=== PATIENT | female | born 1955 | race Hispanic/Latino ===

== ENCOUNTER 2020-05-13 18:22 | Inpatient (IN) | payer BC, MEDICARE ==
[~2020-05-13] VITALS: Ht 149.9 cm; Wt 72.6 kg
[~2020-05-13 18:22] MED LIST: AMOXICILLIN500 MG PO; BACTRIM DS TAB1 EACH PO; CARAFATE1 GM/10 ML PO; CRESTOR10 MG PO; GABAPENTIN300 MG PO; LOSARTAN POTAS100 MG PO; LOTREL; MAALOX ADVANCE355 ML; OTHER BP MED; PRILOSEC OTC20 MG PO; TOPROL XL50 MG PO; ULTRAM50 MG PO; VESICARE5 MG PO; Z.0.CRESTOR5 MG; Z.0.DEXILANT60 MG; ZOFRAN ODT4 MG PO
[2020-05-13] MEDS ORDERED: ONDANSETRON HCL INJ 2MG/ML 2ML 2 MG/ML VIAL IV STA (18:48)
--- NOTE | 2020-05-13 18:57 | Emergency Department Note ---
History of Present Illnes History of Present Illness Chief Complaint: General Medicine Complaints History of Present Illness This is a 64 year old female who presents with complaint of head ache and dizziness for 2 days as well as left calf pain for 1 day. pt states headache is dull in nature and came on gradually and states dizziness gets worse with changing position of her head. also with mild nausea but no vomiting. Onset (how long ago): day(s) (2) Location: head, left calf Quality: pain, dizziness Radiation: Reports non-radiation Severity: mild Onset quality: gradual Duration (how long): day(s) (2) Timing of current episode: intermittent Progression: waxing and waning Chronicity: new Context: Denies recent illness, Denies recent surgery, Denies trauma/injury Relieving factors: other (not moving head) Exacerbating factors: movement (of head) Associated symptoms: Reports other (left calf pain) Treatments prior to arrival: none Past Medical/Family History Physician Review I have reviewed the patient's past medical and family history. Any updates have been documented here. Past Medical History Recent Fever: No Clinical Suspicion of Infectio: No New/Unexplained Change in Ment: No Past Medical History: Hypertension Other Medical History: HERNIATED ESOPHAGUS, CHOLESTEROL Other Surgery: BLADDER SUSPENSION Social History Smoking Cessation: Never Smoker Alcohol Use: None Any Illegal Drug Use: No Family History Family history of heart diseas: No Other family history htn Other Last Tetanus: UNK Review of Systems Review of Systems Constitutional: Reports no symptoms EENTM: Reports no symptoms Cardiovascular: Reports no symptoms Respiratory: Reports no symptoms Gastrointestinal: Reports no symptoms Genitourinary: Reports no symptoms Musculoskeletal: Reports as per HPI Integumentary: Reports no symptoms Neurological: Reports as per HPI Psychological: Reports no symptoms Endocrine: Reports no symptoms Hematological/Lymphatic: Reports no symptoms Physical Exam Related Data Allergies: Coded Allergies: No Known Allergies (Unverified , 03/22/11) Vital signs reviewed: Yes Physical Exam CONSTITUTIONAL Constitutional: Present well-developed, Present well-nourished; Absent distressed HENT HENT: Present normocephalic, Present atraumatic, Present oropharynx clear/moist, Present nose normal HENT L/R: Present left ext ear normal, Present right ext ear normal EYES Eyes: Reports PERRL, Reports conjunctivae normal, Reports other (horizontal nystagmus fast component to right.) NECK Neck: Present ROM normal PULMONARY Pulmonary: Present effort normal, Present breath sounds normal CARDIOVASCULAR Cardiovascular: Present regular rhythm, Present heart sounds normal, Present capillary refill normal, Present normal rate GASTROINTESTINAL Abdominal: Present soft, Present nontender, Present bowel sounds normal GENITOURINARY Genitourinary: Present exam deferred SKIN Skin: Present warm, Present dry MUSCULOSKELETAL Musculoskeletal: Present ROM normal, Present tenderness (mild to left calf) NEUROLOGICAL Neurological: Present alert, Present oriented x 3, Present no gross motor or sensory deficits PSYCHOLOGICAL Psychological: Present mood/affect normal, Present judgement normal Results Laboratory Laboratory Laboratory Tests Test 05/13/20 19:11 White Blood Count 9.38 x10e3/uL (4.8-10.8) Red Blood Count 4.17 x10e6/uL (3.6-5.1) Hemoglobin 12.6 g/dL (12.0-16.0) Hematocrit 34.8 % (34.2-44.1) Mean Corpuscular Volume 83.5 fL (81-99) Mean Corpuscular Hemoglobin 30.2 pg (28-32) Mean Corpuscular Hemoglobin Concent 36.2 g/dL (31-35) Red Cell Distribution Width 12.7 % (11.7-14.4) Platelet Count 240 x10e3/uL (140-360) Neutrophils (%) (Auto) 73.3 % (38.7-80.0) Lymphocytes (%) (Auto) 19.3 % (18.0-39.1) Monocytes (%) (Auto) 6.7 % (4.4-11.3) Eosinophils (%) (Auto) 0.2 % (0.0-6.0) Basophils (%) (Auto) 0.2 % (0.0-1.0) Neutrophils # (Auto) 6.9 (2.1-6.9) Lymphocytes # (Auto) 1.8 (1.0-3.2) Monocytes # (Auto) 0.6 (0.2-0.8) Eosinophils # (Auto) 0.0 (0.0-0.4) Basophils # (Auto) 0.0 (0.0-0.1) Absolute Immature Granulocyte (auto 0.03 x10e3/uL (0-0.1) Sodium Level 111 mmol/L (136-145) Potassium Level 3.9 mmol/L (3.5-5.1) Chloride Level 79 mmol/L (98-107) Carbon Dioxide Level 18 mmol/L (22-29) Anion Gap 17.9 mmol/L (8-16) Blood Urea Nitrogen 6 mg/dL (7-26) Creatinine 0.63 mg/dL (0.57-1.11) Estimat Glomerular Filtration Rate > 60 ML/MIN (60-) BUN/Creatinine Ratio 10 (6-25) Glucose Level 138 mg/dL (74-118) Calcium Level 9.2 mg/dL (8.4-10.2) Total Bilirubin 0.7 mg/dL (0.2-1.2) Aspartate Amino Transf (AST/SGOT) 17 IU/L (5-34) Alanine Aminotransferase (ALT/SGPT) 14 IU/L (0-55) Alkaline Phosphatase 86 IU/L (40-150) Creatine Kinase 67 IU/L (29-168) Creatine Kinase MB 1.30 ng/mL (0-5.0) Troponin I < 0.001 ng/mL (0-0.300) Total Protein 7.5 g/dL (6.5-8.1) Albumin 4.2 g/dL (3.5-5.0) Globulin 3.3 g/dL (2.3-3.5) Albumin/Globulin Ratio 1.3 (0.8-2.0) Lab results reviewed: Yes Imaging Imaging results reviewed: Yes Impressions Procedure: [id number] DX/CHEST SINGLE (PORTABLE) Exam Date: 05/13/20 Exam Time: 1934 REPORT STATUS: Signed EXAMINATION: CHEST SINGLE (PORTABLE) INDICATION: ^Y ^covid positive ^[id number] ^1934 ^Y COMPARISON: 03/22/2011 FINDINGS: AP view TUBES and LINES: None. LUNGS: Lungs are well inflated. There is no evidence of pneumonia or pulmonary edema. PLEURA: No pleural effusion or pneumothorax. HEART AND MEDIASTINUM: The cardiomediastinal silhouette is unremarkable. BONES AND SOFT TISSUES: No acute osseous lesion. Soft tissues are unremarkable. UPPER ABDOMEN: No free air under the diaphragm. IMPRESSION: No acute thoracic abnormality. Signed by: Dr. Lonnie Draper MD on 05/13/2020 8:16 PM Exam: Head CT without contrast History: Dizziness Comparison studies: None Technique: Axial images were obtained from the skull base to the vertex. Coronal and sagittal images reconstructed from the axial data. Dose modulation, iterative reconstruction, and/or weight based adjustment of the mA/kV was utilized to reduce the radiation dose to as low as reasonably achievable. Radiation dose: Total DLP: 832.18 mGy*cm. Estimated effective dose: DLP x 0.015 Intravenous contrast: None Findings: Scalp and bones: Surgical changes of prior left temporal craniotomy. No fracture or lytic or blastic lesion. Brain sulci: Appropriate for age. Ventricles: Normal in size and configuration. No hydrocephalus. Extra-axial spaces: No masses, no fluid collection. Parenchyma: No abnormal densities. No masses, hemorrhage, acute or chronic vascular insults. Sellar/suprasellar region: No abnormalities. Craniocervical junction: Patent foramen magnum. No Chiari one malformation. Included paranasal sinuses: Clear. Middle ear cavities and mastoids: Clear. Incidental findings: Atherosclerotic calcifications in the carotid siphons. IMPRESSION: 1. No acute intracranial abnormalities. 2. Prior left temporal craniotomy. Signed by: Dr. Ana Maher M.D. on 05/13/2020 7:57 PM Dictated By: ANA MAHER MD 56 Transcribed By: HARRIET on 05/13/201956 COPY TO: JANICE JOHNSTON MD~ Imaging Comments venous doppler lle negative for dvt Procedures 12 Lead ECG Interpretation ECG Interpretation : ECG: ECG 1 [employer] Mechanical [employer]er: Interpreted by ED physician Date: May 13, 2020 Time: 18:46 Rhythm: sinus rhythm Rate: normal BPM: 95 QRS axis: normal ST segments normal: Yes T waves normal: Yes Other findings: no other findings Clinical Impression: normal ECG Assessment & Plan Medical Decision Making [facility] pt with headache, dizziness, left calf pain, cbc, cmp, ekg, ct brain, cardiac enzymes, ordered to eval for intracranial abnormality, myocardial infarction, electrolyte abnormality, dvt, antivert 25 mg po ordered zofran 4 mg iv ordered 1899 pt now reports had a positive covid test on thursday states had positive covid tests since march [address] deja christopher, admit pt to inpatient, start on ns at 100 cc per hour iv place on regular diet Assessment & Plan Final Impression: (1) Lab test positive for detection of COVID-19 virus (2) Dizziness (3) Headache (4) Hyponatremia Depart Disposition: ADMITTED Home Meds Reported Medications Sucralfate (CARAFATE) 1 Gm/10 Ml Oral.susp, 1 GM PO AC, ML 02/15/17 Rosuvastatin Calcium (CRESTOR) 10 Mg Tab, 10 MG PO DAILY THERAPEUTICALLY SUBSTITUTED WITH SIMVASTATIN 40MG 02/15/17 Gabapentin (GABAPENTIN) 300 Mg Capsule, 300 MG PO BID, #60 CAP 02/15/17 Losartan Potassium (LOSARTAN POTASSIUM) 100 Mg Tablet, 100 MG PO DAILY, TAB 02/15/17 Medications in the ED Ondansetron HCl 4 mg NOW STAT IV ; Start 05/13/20 at 18:48; Stop 05/13/20 at 18:49 Meclizine HCl 25 mg ONCE ONCE PO ; Start 05/13/20 at 19:00; Stop 05/13/20 at 19:01; Status UNV JANICE JOHNSTON MD May 13, 2020 18:57
--- OUTSIDE RECORDS SUMMARY | 2020-05-13 18:59 | XMS REPORT ---
Author Author KIRILL Jones Organization Unknown Address Unknown Phone Care Team Providers Care Pharmacy Order Entry Technician Name Role Phone Michelle Jones PP Unavailable Reason for Referral No Reason for Referral was given. History of Present Illness No HPI available. Problems * Normal Routine History And Physical Adult (V70.0); (Active) * Peripheral Neuropathy (356.9); (Active) * Hyperlipidemia (272.4); (Active) * Intermittent Claudication (443.9); (Active) * Vaccines Prophylactic Need Against Influenza (V04.81); (Active) * Hypertension (401.9); (Active) * Sciatica (724.3); (Active) * Hyperglycemia (790.29); (Active) Medication * Metoprolol Succinate ER 50 MG Oral Tablet Extended Release 24 Hour; qd (Active) * PriLOSEC OTC 20 MG Oral Tablet Delayed Release (Active) * Methocarbamol 500 MG Oral Tablet; 1 TABLET BID PRN LEG PAIN (Active) * Losartan Potassium 50 MG Oral Tablet; TAKE 1 TABLET DAILY. (Active) * Crestor 10 MG Oral Tablet; TAKE 1 TABLET DAILY. (Active) * Gabapentin 300 MG Oral Capsule; TAKE 1 CAPSULE 3 TIMES DAILY.; Start Date: 08/30/2013 (Active) Allergies and Adverse Reactions * No Known Allergies (Active) Past Medical History * History of Hyperlipidemia (272.4); (Resolved) * History of Hypertension (401.9); (Resolved) * History of Hiatal Hernia (553.3); (Resolved) Procedures Procedure Procedure Date Date Completed Status Hysterectomy - - Resolved Bladder Surgery - - Resolved Cholecystectomy - - Resolved Immunization * Fluzone Intramuscular Injectable (Lot #: [id number]) - Administered on: 10/06/2013 Family History * Maternal history of Hyperlipidemia (Active) * Paternal history of Hypertension (V17.49); (Active) * Fraternal history of Prior Myocardial Infarction (Active) Social History * Marital History - Currently (Active) * Never A Smoker (Active) * Never Drank Alcohol (Active) Treatment Plan * [QLH] CMP W/EGFR 10/06/2013 Routine * [QL] LIPID PANEL 10/06/2013 Routine * [QL] LIPID PANEL 01/06/2014 Routine * [QLH] CMP W/EGFR 01/06/2014 Routine * [QL] HEMOGLOBIN A1c 01/06/2014 Routine * [QL] INSULIN 01/06/2014 Routine Advance Directives * No Advance Directives available. Encounters * AUDIT 01/06/2014
--- OUTSIDE RECORDS SUMMARY | 2020-05-13 18:59 | XMS REPORT | Continuity of Care Document ---
Author Author [employer] [employer] Address Unknown Phone Unavailable Care Team Providers Care Bottle Assembler Name Role Phone [facility] Unavailable Un available Problems Problem Status Onset Date Classification Date Reported Comments Source Peripheral Neuropathy Active 01/27/2014 [facility] Hyperlipidemia Active 01/27/2014 [facility] Intermittent Claudication Acti ve 01/27/2014 [facility] Vaccines Prophylactic Need Against Influenza Active 01/27/2014 [facility] Hypertension Active 01/27/2014 [facility] Sciatica Active 01/27/2014 [facility] Hyperglycemia Active 01/27/2014 [facility] Medications Medication Details Route Status Patient Instructions Ordering Provider Order Date Source Gabapentin 300 MG Oral Capsule ; Start Date: 08/30/2013 (Active) Active 08/30/2013 [facility] Metoprolol Succinate ER 50 MG Oral Table t Extended Release 24 Hour ; Start Date: ; End Date: 09/1899 (Active) Inactive [facility] Losartan Potassium 50 MG Oral Tablet ; Start Date: ; End Date: (Active) Inactive [facility] Crestor 10 MG Oral Tablet ; St art Date: ; End Date: (Active) Inactive [facility] Methocarbamol 500 MG Oral Tablet ; Start Date: ; End Date: (Active) Inactive [facility] No Active Medications No Activ e Medications Active [facility] PriLOSEC OTC 20 MG Oral Tablet Delayed Release (Active) Active [facility] Methocarbamol 500 MG Oral Tablet (Active) Active [facility] Metoprolol Succinate ER 50 MG Oral Table t Extended Release 24 Hour (Active) A ctive [facility] Gabapentin 100 MG Oral Capsule (Active) Active [facility] Losartan Potassium 50 MG Oral Tablet (Active) Active [facility] Crestor 10 MG Oral Tablet (Ac tive) Active [facility] Metoprolol Succinate ER 50 MG Oral Table t Extended Release 24 Hour (Active) A ctive [facility] Allergies, Adverse Reactions, Alerts Substance Category Reaction Severity Reaction type Status Date Reported Comments Source Not Known [facility] Immunizations Immunization Date Given Site Status Last Updated Comments Source Fluzone Intramuscular Injectable 10/06/2013 completed [facility] Results No Data Provided for This Section Pathology Reports No Data Provided for This Section Diagnostic Reports No Data Provided for This Section Consultation Notes No Data Provided for This Section Discharge Summaries No Data Provided for This Section History and Physicals No Data Provided for This Section Vital Signs No Data Provided for This Section Encounters Location Location Details Encounter Type Encounter Number Reason For Visit Attending Provider ADM Date DC Date Status Source AUDIT [id number] 05/02/2013 05/02/2013 [facility] AUDIT [id number] 09/23/2013 09/24/2013 [facility] Kierra BECERRA richard: LANDON BARRIOS, Status: [place], Time: 10:45 AM [id number] 10/06/19 14 09/24/2013 [facility] AUDIT [id number] 10/06/2013 10/06/2013 [facility] AUDIT [id number] 01/01/2014 01/02/2014 [facility] AUDIT [id number] 01/06/2014 01/06/2014 [facility] AUDIT [id number] 01/27/2014 01/27/2014 [facility] Outpatient [id number] GORAN FRIAS 02/17/2017 Active [facility] [id number] GORAN FRIAS 2017 Active [facility] [id number] GORAN FRIAS 07/28/2017 Active [facility] [id number] GORAN FRIAS 07/29/2017 Active [facility] [id number] GORAN FRIAS 08/11/2017 Active [facility] [id number] GORAN FRIAS 08/18/2017 Active [facility] [id number] GORAN FRIAS 10/13/2017 Active [facility] Procedures No Data Provided for This Section Assessment and Plan No Data Provided for This Section Plan of Care Plan of Care Date Source [QLH] CMP W/EGFR 10/06/2013 Routine[QLH] LIPID PANEL 10/06/2013 Routine 01/27/2014 [facility] [QLH] CMP W/EGFR 10/06/2013 Routine[QLH] LIPID PANEL 10/06/2013 Routine[QLH] LIPID PANEL 01/06/2014 Routine[QLH] CMP W/EGFR 01/06/2014 Routine[QLH] HEMOGLOBIN A1c 01/06/2014 Routine[QLH] INSULIN 01/06/2014 Routine 01/06/2014 [facility] [QL] CMP W/EGFR 10/06/2013 Routine[QLH] LIPID PANEL 10/06/2013 Routine 01/02/2014 [facility] [QLH] CMP W/EGFR 10/06/2013 Routine[QLH] LIPID PANEL 10/06/2013 Routine 10/06/2013 [facility] Social History Social History Date Source Marital History - Currently (Active) Never A Smoker (Active) Never Drank Alcohol (Active) 01/27/2014 [facility] Family History Value Date S ource Maternal history of Hyperlipidemia (Active) Paternal history of Hypertension (V17.49); (Active) Fraternal history of Prior Myocardial Infarction (Active) 01/27/2014 [facility] Maternal history of Hyperlipidemia (Active) Paternal history of Hypertension (V17.49); (Active) Fraternal history of Prior Myocardial Infarction (Active) 01/06/2014 [facility] Maternal history of Hyperlipidemia (Active) Paternal history of Hypertension (V17.49); (Active) Fraternal history of Prior Myocardial Infarction (Active) 01/02/2014 [facility] Maternal history of Hyperlipidemia (Active) Paternal history of Hypertension (V17.49); (Active) Fraternal history of Prior Myocardial Infarction (Active) 10/06/2013 [facility] Advance Directives Order Name Results Value Date Source Advance Directives Advance Dir ectives No Advance Directives available. 01/27/2014 [facility] Advance Directives Advance Dir ectives No Advance Directives available. 01/06/2014 [facility] Advance Directives Advance Dir ectives No Advance Directives available. 01/02/2014 [facility] Advance Directives Advance Dir ectives No Advance Directives available. 10/06/2013 [facility] Advance Directives Advance Dir ectives No Advance Directives available. 09/24/2013 [facility] Advance Directives Advance Dir ectives No Advance Directives available. 05/02/2013 [facility] Functional Status No Data Provided for This Section
--- OUTSIDE RECORDS SUMMARY | 2020-05-13 18:59 | XMS REPORT ---
Author Author KIRILL Currie Organization Unknown Address Unknown Phone Care Team Providers Care Slip Caster Name Role Phone Nicko Currie PP Unavailable Reason for Referral No Reason for Referral was given. History of Present Illness No HPI available. Problems * Normal Routine History And Physical Adult (V70.0); (Active) * Peripheral Neuropathy (356.9); (Active) * Hyperlipidemia (272.4); (Active) * Intermittent Claudication (443.9); (Active) Medication * Metoprolol Succinate ER 50 MG Oral Tablet Extended Release 24 Hour; qd (Active) * Gabapentin 100 MG Oral Capsule; take 1 to 3 HS (Active) * Losartan Potassium 50 MG Oral Tablet; TAKE 1 TABLET DAILY. (Active) * Crestor 10 MG Oral Tablet; TAKE 1 TABLET DAILY. (Active) * PriLOSEC OTC 20 MG Oral Tablet Delayed Release (Active) * Methocarbamol 500 MG Oral Tablet; 1 TABLET BID PRN LEG PAIN; Start Date: ; End Date: (Active) * Gabapentin 300 MG Oral Capsule; 1 po bid to tid; Start Date: 08/30/2013; End Date: (Active) Allergies and Adverse Reactions * No Known Allergies (Active) Past Medical History * No Significant Medical History Procedures Procedure Procedure Date Date Completed Status Hysterectomy - - Resolved Social History * Marital History - Currently (Active) * Never A Smoker (Active) Advance Directives * No Advance Directives available. Encounters * AUDIT 09/23/2013 * ECL, Provider: LANDON BARRIOS, Status: Pen, Time: 10:45 AM 10/06/2013
--- OUTSIDE RECORDS SUMMARY | 2020-05-13 18:59 | XMS REPORT ---
Author Author KIRILL BARRIOS Organization Unknown Address Unknown Phone Care Team Providers Care Airline Radio Operator Name Role Phone LANDON BARRIOS PP Unavailable Reason for Referral No Reason for Referral was given. History of Present Illness No HPI available. Problems * Normal Routine History And Physical Adult (V70.0); (Active) * Peripheral Neuropathy (356.9); (Active) * Hyperlipidemia (272.4); (Active) * Intermittent Claudication (443.9); (Active) * Vaccines Prophylactic Need Against Influenza (V04.81); (Active) * Hypertension (401.9); (Active) * Sciatica (724.3); (Active) Medication * Metoprolol Succinate ER 50 [...] Immunization * Fluzone Intramuscular Injectable (Lot #: [id number]) - Administered on: 10/06/2013 Family History * Maternal history of Hyperlipidemia (Active) * Paternal history of Hypertension (V17.49); (Active) * Fraternal history of Prior Myocardial Infarction (Active) Social History * Marital History - Currently (Active) * Never A Smoker (Active) * Never Drank Alcohol (Active) Treatment Plan * [[facility]] CMP W/EGFR 10/06/2013 Routine * [[facility]] LIPID PANEL 10/06/2013 Routine Advance Directives * No Advance Directives available. Encounters * AUDIT 01/01/2014
--- OUTSIDE RECORDS SUMMARY | 2020-05-13 18:59 | XMS REPORT ---
Author Author KIRILL Jones Organization Unknown Address Unknown Phone Care Team Providers Care Customer Orders Clerk Name Role Phone Michelle Jones PP Unavailable [...] MG Oral Tablet Extended Release 24 Hour; qd; Start Date: ; End Date: (Active) * PriLOSEC OTC 20 MG Oral Tablet Delayed Release (Active) * Methocarbamol 500 MG Oral Tablet; 1 TABLET BID PRN LEG PAIN (Active) * Losartan Potassium 50 MG Oral Tablet; TAKE 1 TABLET DAILY.; Start Date: ; End Date: (Active) * Crestor 10 MG Oral Tablet; TAKE 1 TABLET DAILY.; Start Date: ; End Date: (Active) * Gabapentin 300 MG Oral Capsule; TAKE 1 CAPSULE 3 TIMES DAILY.; Start Date: 08/30/2013; End Date: (Active) Allergies [...] Immunization * Fluzone Intramuscular Injectable (Lot #: [id number]) - Administered on: 10/06/2013 Family History * Maternal history of Hyperlipidemia (Active) * Paternal history of Hypertension (V17.49); (Active) * Fraternal history of Prior Myocardial Infarction (Active) Social History * Marital History - Currently (Active) * Never A Smoker (Active) * Never Drank Alcohol (Active) Treatment Plan * [[facility]] CMP W/EGFR 10/06/2013 Routine * [[facility]] LIPID PANEL 10/06/2013 Routine Advance Directives * No Advance Directives available. Encounters * AUDIT 10/06/2013
--- OUTSIDE RECORDS SUMMARY | 2020-05-13 18:59 | XMS REPORT ---
Author Author KIRILL BARRIOS Organization Unknown Address Unknown Phone Care Team Providers Care Package Maker Name Role Phone LANDON BARRIOS PP Unavailable [...] Immunization * Fluzone Intramuscular Injectable (Lot #: [id number]) - Administered on: 10/06/2013 Family History * Maternal history of Hyperlipidemia (Active) * Paternal history of Hypertension (V17.49); (Active) * Fraternal history of Prior Myocardial Infarction (Active) Social History * Marital History - Currently (Active) * Never A Smoker (Active) * Never Drank Alcohol (Active) Treatment Plan * [[facility]] CMP W/EGFR 10/06/2013 Routine * [[facility]] LIPID PANEL 10/06/2013 Routine Advance Directives * No Advance Directives available. Encounters * AUDIT 01/27/2014
--- OUTSIDE RECORDS SUMMARY | 2020-05-13 18:59 | XMS REPORT ---
Author Author KIRILL Manning Organization Unknown Address Unknown Phone Care Team Providers Care Motor Pool Clerk Name Role Phone Madison Manning PP Reason for Referral No Reason for Referral was given. History of Present Illness No HPI available. Problems * Normal Routine History And Physical Adult (V70.0); (Active) Medication * No Active Medications Allergies and Adverse Reactions * Not Known Past Medical History * No Significant Medical History Advance Directives * No Advance Directives available. Encounters * AUDIT 05/02/2013
--- OUTSIDE RECORDS SUMMARY | 2020-05-13 18:59 | XMS REPORT | Continuity of Care Document ---
Author Author [facility] t Organization [facility] Address [address] [place] [address] Phone Unavailable Care Team Providers Care School Bus Monitor Name Role Phone [id number], PROVIDERBASANDY Attphys Unavailable HEIDE DONALDSON M.D. Attphys Unavailable JANETH BRAR M.D. Attphys Unavailable CAMRON GARAY D.O. Attphys Unavailable SIMA BUSBY M.D. Attphys Unavailable STANISLAV BACON M.D. Attphys Unavailable LANDON BARRIOS M.D. Attphys Unavailable SE-URODYNAMICS, NURSE Attphys Unavailable TAM MENDOZA M.D. Attphys Unavailable ADEEL BRITTON M.D. Attphys Unavailable ARMIN AGUSTIN P.A. Attphys Unavailable BARRINGTON RODAS APRN Attphys Unavailable CELIA WHITNEY M.D. Attphys Unavailable KRISTINA RALPH M.D. Attphys Unavailable CARMELA CERVANTES RD Attphys Unavailable Payers Payer Name Policy Type Policy Number Effective Date Expiration Date S ource Problems Condition Name Condition Details Condition Category Status Onset Date Resolution Date Last Treatment Date Treating Clinician Comments Source History of meningioma History of meningioma Problem Resolved [facility] History of essential hypertension History of essential hypertens ion Problem Resolved [facility] History of hiatal hernia History of hiatal hernia Problem Resolved [facility] History of hyperlipidemia History of hyperlipidemia Problem Resolved [facility] History of recurrent urinary tract infection History o f recurrent urinary tract infection Problem Resolved [facility] Peripheral neuropathy, hereditary/idiopathic Periphera l neuropathy, hereditary/idiopathic [facility] Intermittent claudication Intermittent claudication Problem Active [facility] Sciatica Sciatica Problem [facility] Contact dermatitis, allergic Contact dermatitis, allergic Problem Active [facility] Yeast infection involving the vagina and surrounding a lloyd Yeast infection involving the vagina and surrounding area Problem Active [facility] Pruritus of skin Pruritus of skin Problem Active [facility] Acute pharyngitis Acute pharyngitis Problem Active [facility] Tension headache Tension headache Problem Active [facility] Acute pharyngitis due to other specified organisms Acu te pharyngitis due to other specified organisms Problem Active [facility] Body aches Body aches Problem [facility] Chills Chills Problem Active [facility] Reactive airway disease, mild intermittent, uncomplica bhavna Reactive airway disease, mild intermittent, uncomplicated Problem Active [facility] Acute tracheitis Acute tracheitis Problem Active [facility] RAD (reactive airway disease) RAD (reactive airway disease) Problem Active [facility] Influenza vaccine needed Influenza vaccine needed Problem Active [facility] Plantar fasciitis, right Plantar fasciitis, right Problem Active [facility] Mid back pain Mid back pain Problem Active [facility] Near syncope Near syncope Problem Active [facility] Visual disturbance Visual disturbance Problem Active [facility] Epigastric abdominal pain of unknown etiology Epigastr ic abdominal pain of unknown etiology Problem Active [facility] Hiatal hernia with GERD Hiatal hernia with GERD Problem Active [facility] Persistent headaches Persistent headaches Problem Active [facility] Abnormal CT of brain Abnormal CT of brain Problem Active [facility] Hyponatremia Hyponatremia Problem Active [facility] Hypokalemia Hypokalemia Problem Active [facility] Idiopathic acute pancreatitis, unspecified complicatio n status Idiopathic acute pancreatitis, unspecified complication status Problem Active [facility] Hospitalization within last 30 days Hospitalization within last 30 days Problem Active [facility] Acute pancreatitis Acute pancreatitis Problem Active [facility] DJD (degenerative joint disease) of knee DJD (degenera tive joint disease) of knee Problem Active [facility] Screening for diabetes mellitus Screening for diabetes mellitus Pro blem Active [facility] Foot pain Foot pain Problem Active [facility] Abdominal pain, acute, right upper quadrant Abdominal pain, acute, right upper quadrant Problem Active [facility] Oral candidiasis Oral candidiasis Problem Active [facility] Right frontal lobe lesion Right frontal lobe lesion Problem Active [facility] Neoplasm of brain causing mass effect on adjacent stru ctures Neoplasm of brain causing mass effect on adjacent structures Problem Active [facility] Need for hepatitis C screening test Need for hepatitis C screeni ng test Problem Active [facility] Preoperative examination Preoperative examination Problem Active [facility] Controlled insomnia Controlled insomnia Problem Active [facility] Mass of left temporal lobe Mass of left temporal lobe Problem Active [facility] Inpatient hospitalization within last 30 days Inpatien t hospitalization within last 30 days Problem Active [facility] Nausea Nausea Problem Active [facility] Hyperglycemia Hyperglycemia Problem Active [facility] Elevated hemoglobin A1c Elevated hemoglobin A1c Problem Active [facility] Mixed stress and urge urinary incontinence Mixed stres s and urge urinary incontinence Problem Active [facility] Common cold Common cold Problem Active [facility] Acute upper respiratory infection Acute upper respiratory infect ion Problem Active [facility] Seasonal allergies Seasonal allergies Problem Active [facility] 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 Active [facility] Pancreatic cyst Pancreatic cyst Problem Active [facility] Hospital discharge follow-up Hospital discharge follow-up Problem Active [facility] Status post resection of meningioma Status post resection of men ingioma Problem Active [facility] Snoring Snoring Problem Active [facility] Sleep disorder Sleep disorder Problem Active [facility] Dysphagia Dysphagia Problem Active [facility] Other acute sinusitis, recurrence not specified Other acute sinusitis, recurrence not specified Problem Active [facility] Strain of latissimus dorsi muscle, initial encounter S train of latissimus dorsi muscle, initial encounter Problem Active [facility] Right upper quadrant abdominal tenderness without rebo und tenderness Right upper quadrant abdominal tenderness without rebound tenderness Problem Active [facility] Chest pressure Chest pressure Problem Active [facility] Chest pain, unspecified type Chest pain, unspecified type Problem Active [facility] Chronic insomnia Chronic insomnia Problem Active [facility] OANH on CPAP OANH on CPAP Problem Active [facility] Acute infective tracheobronchitis Acute infective tracheobronchi tis Problem Active [facility] Restless legs syndrome Restless legs syndrome Problem Active [facility] On statin therapy On statin therapy Problem Active [facility] Anxiety state Anxiety state Problem Active [facility] Constipation Constipation Problem Active [facility] Screening for hypothyroidism Screening for hypothyroidism Problem Active [facility] At low risk for fall At low risk for fall Problem Active [facility] Urinary symptom or sign Urinary symptom or sign Problem Active [facility] Chronic constipation Chronic constipation Problem Active [facility] Pelvic floor dysfunction Pelvic floor dysfunction Problem Active [facility] Pain of right lower extremity Pain of right lower extremity Problem Active [facility] Depression screening negative Depression screening negative Problem Active [facility] Frequent UTI Frequent UTI Problem Active [facility] Atresia of vagina Atresia of vagina Problem Active [facility] Encounter for monitoring long-term proton pump inhibit or therapy Encounter for monitoring long-term proton pump inhibitor therapy Problem Active [facility] Encounter to discuss test results Encounter to discuss test resu lts Problem Active [facility] Bunion of great toe of left foot Bunion of great toe of left doc t Problem Active [facility] Bunion of great toe of right foot Bunion of great toe of right f oot Problem Active [facility] Changing pigmented skin lesion Changing pigmented skin lesion Problem Active [facility] Prediabetes Prediabetes Problem Active [facility] Other hyperlipidemia Other hyperlipidemia Problem Active [facility] Conjunctival hyperemia of left eye Conjunctival hyperemia of lef t eye Problem Active [facility] Hypertension, well controlled Hypertension, well controlled Problem Active [facility] Class 1 obesity due to excess calories w ith body mass index (BMI) of 33.0 to 33.9 in adult Class 1 obesity due to excess calories w ith body mass index (BMI) of 33.0 to 33.9 in adult Problem Active [facility] Dyspareunia, female Dyspareunia, female Problem Active [facility] Frequency of urination Frequency of urination Problem Active [facility] Nocturia Nocturia Problem [facility] Urge incontinence of urine Urge incontinence of urine Problem Active [facility] Urgency of urination Urgency of urination Problem Active [facility] Vaginal atrophy Vaginal atrophy Problem Active [facility] Allergic rhinitis Allergic rhinitis Problem Active [facility] BMI 33.0-33.9,adult BMI 33.0-33.9,adult Problem Active [facility] Dry mouth Dry mouth Problem Active [facility] Xerosis of skin Xerosis of skin Problem Active [facility] Seborrheic keratosis Seborrheic keratosis Problem Active [facility] Solar lentigo Solar lentigo Problem Active [facility] Fernandez angioma Fernandez angioma Problem Active [facility] Acrochordon Acrochordon Problem Active [facility] Acute bronchitis due to infection Acute bronchitis due to infect ion Problem Active [facility] Suspected COVID-19 virus infection Suspected COVID-19 virus infe ction Problem Active [facility] Sinus tachycardia Sinus tachycardia Problem Active [facility] COVID-19 virus infection COVID-19 virus infection Problem Active [facility] Peripheral Neuropathy Keyanna pheral Neuropathy Active 01/27/2014 [place] [facility] Problem Active 2014-01-27 14:30:20 [facility] [place] Hyperlipidemia Hype rlipidemia Active 01/27/2014 [place] [facility] Problem Active 2014-01-27 14:30:20 M emoriamari Lock Intermittent Claudication Inte rmittent Claudication Active 01/27/2014 [facility] Problem Active 2014-01-27 14:30: 20 Marcelina Lock Vaccines Prophylactic Need Against Influenza Vaccines Prophylactic Need Against Influenza Active 01/27/2014 [facility] Problem Active 2014-01-27 14:30:20 Memor [facility] Hypertension Hype rtension Active 01/27/2014 [facility] Problem Active 2014-01-27 14:30:20 Nolan rial [place] Sciatica Scia brooke Active 01/27/2014 [facility] Problem Active 2014-01-27 14:30:20 [facility] Hyperglycemia Hype rglycemia Active 01/27/2014 [facility] Problem Active 2014-01-27 14:30:20 [facility] [place] Allergies, Adverse Reactions, Alerts Allergy Name Allergy Type Status Severity Reaction(s) Onset Date Inacti ve Date Treating Clinician Comments Source No Known Allergies DA Active U 2020-04-09 00:00:00 [facility] No Known Intolerances DA Active U 2009-11-02 00:00:00 [facility] Nitrofurantoin CAPS Allergy to drug (finding) Active [facility] Not Known Not Known Active Nolan Lock Family History Family Member Diagnosis Comments Start Date Stop Date Source Mother Family history of Hyperlipidemia [facility] Father Family history of Hypertension [facility] Brother Family history of Prior Myocardial Infarction [facility] Unknown Family Member Family History 2013-10-06 17:45:34 2 17:45:34 [facility] Social History Social Habit Start Date Stop Date Quantity Comments Source Social History 2014-01-27 14:30:20 2014-01-27 14:30:20 [facility] Smoking Status Start Date Stop Date Source Never smoked tobacco (finding) U [facility] Medications Ordered Medication Name Filled Medication Name Start Date Stop Da te Current Medication? Ordering Clinician Indication Dosage Frequency Signature (SIG) Comments Components Source Trospium Chloride 20 MG Oral Tablet Trospium Chloride 20 MG Oral Tablet 2020-03-07 00:00:00 Yes CAMRON GARAY D.O. ta ke 1 tablet bid x 90 days [facility] Ammonium Lactate 12 % External Cream Ammonium Lactate 12 % E xternal Cream 2020-03-02 00:00:00 Yes STANISLAV BACON M.D. APPLY AND RUB IN A THIN FILM TO AFFECTED AREAS OF ARMS TWICE DAILY.(AM AND PM). [facility] Pramipexole Dihydrochloride 0.25 MG Oral Tablet Pramip exole Dihydrochloride 0.25 MG Oral Tablet 2020-02-27 00:00:00 Yes LANDON BARRIOS M.D. 1 QD TAKE 1 TABLET BY MOUTH DAILY AT BEDTIME [facility] Estradiol 0.1 MG/GM Vaginal Cream Estradiol 0.1 MG/GM Vagina l Cream 2019-10-18 00:00:00 Yes CAMRON GARAY D.O. IN SERT 1 GRAM INTO THE VAGINA TWICE WEEKLY [facility] Trospium Chloride ER 60 MG Oral Capsule Extended Relea se 24 Hour Trospium Chloride ER 60 MG Oral Capsule Extended Release 24 Hour 2019-09-23 00:00:00 Yes CAMRON GARAY D.O. 1 TAKE 1 CAPSULE BEDTIME [facility] Shingrix 50 MCG Intramuscular Suspension Reconstituted Shingrix 50 MCG Intramuscular Suspension Reconstituted 2019-09-08 00:00:00 Yes LANDON BARRIOS M.D. INJECT 0.5 ML IM, please administer vacc ine series per protocol [facility] Polyethylene Glycol 3350 17 GM/SCOOP Oral Powder Polye thylene Glycol 3350 17 GM/SCOOP Oral Powder 2019-04-12 00:00:00 Yes ADEEL BRITTON M.D. MIX 1 CAPFUL IN 8 OUNCES OF WATER AND DRINK AT BEDTIME NEEDED FOR CONSTIPATION. [facility] busPIRone HCl - 5 MG Oral Tablet busPIRone HCl - 5 MG Oral T ablet 2018-06-24 00:00:00 Yes LANDON BARRIOS M.D. TAKE 2 TABLETS BY MOUTH 1 HOUR BEFORE BEDTIME [facility] Rosuvastatin Calcium 10 MG Oral Tablet Rosuvastatin Calcium 10 MG Oral Tablet 2016-07-28 00:00:00 Yes LANDON BARRIOS M.D. TAKE 1 TABLET BY MOUTH EVERY DAY [facility] Gabapentin 300 MG Oral Capsule Gabapentin 300 MG Oral Capsul e 2016-07-09 00:00:00 Yes LANDON BARRIOS M.D. TAKE ONE CAPSULE BY MOUTH EVERY NIGHT AT 6 PM AND AT BEDTIME [facility] Losartan Potassium 100 MG Oral Tablet Losartan Potassium 100 MG Oral Tablet 2014-07-21 00:00:00 Yes LANDON BARRIOS M.D. TAKE 1 TABLET BY MOUTH EVERY DAY [facility] PriLOSEC OTC 20 MG Oral Tablet Delayed Release 2014-01-27 14:30: 20 Yes (Active) Marcelina Hernandez n Methocarbamol 500 MG Oral Tablet 2014-01-27 14:30:20 Yes (Active) Marcelina Lock Losartan Potassium 50 MG Oral Tablet 2014-01-27 14:30:20 Jason short (Active) Marcelina Lock Crestor 10 MG Oral Tablet 2014-01-27 14:30:20 Yes (Active) Marcelina Lock Metoprolol Succinate ER 50 MG Oral Tablet Extended Release 2 4 Hour 2014-01-27 14:30:20 Yes (Active) Yara ial Ashvin Metoprolol Succinate ER 50 MG Oral Tablet Extended Release 2 4 Hour 2013-09-24 00:00:09 Yes (Active) Yara ial [place] Gabapentin 100 MG Oral Capsule 2013-09-24 00:00:09 Yes (Active) Marcelina Lock Gabapentin 300 MG Oral Capsule 2013-08-30 06:00:00 Yes ; Start Date: 08/30/2013 (Active) Marcelina Lock No Active Medications 2013-05-02 20:41:46 Yes No Active Medications Marcelina Lock Metoprolol Succinate ER 50 MG Oral Tablet Extended Release 2 4 Hour Yes ; Start Date: ; End Date: (Active) Marcelina Lock Losartan Potassium 50 MG Oral Tablet Ye s ; Start Date: ; End Date: (Active) Marcelina Lock Crestor 10 MG Oral Tablet Yes ; Start Date: ; End Date: (Active) Marcelina Lock Methocarbamol 500 MG Oral Tablet Yes ; Start Date: ; End Date: (Active) Marcelina [place] Vitamin D3 125 MCG (5000 UT) Oral Capsule Vitamin D3 1 25 MCG (5000 UT) Oral Capsule Yes TAKE DIRECTED. [facility] Cranberry TABS Cranberry TABS Yes 1 QD TAKE 1 TAB LET DAILY [facility] Melatonin 5 MG Oral Capsule Melatonin 5 MG Oral Capsule Yes 1 TAKE 1 CAPSULE BEDTIME [facility] Dexilant 60 MG Oral Capsule Delayed Release Dexilant 6 0 MG Oral Capsule Delayed Release Yes 1 QD TAKE 1 CAPSULE DAILY [facility] Vitamin D3 50 MCG (2000 UT) Oral Capsule Vitamin D3 50 MCG (2000 UT) Oral Capsule Yes 1 QD TAKE 1 CAPSULE DAILY [facility] Vitamin B-12 500 MCG Oral Tablet Vitamin B-12 500 MCG Oral Tablet Yes 1 QD TAKE 1 TABLET DAILY. [facility] Metoprolol Tartrate 25 MG Oral Tablet Metoprolol Tartrate 25 MG Ora l Tablet Yes HEIDE DONALDSON M.D. 1 Q0.5D TAKE 1 TABLET TWICE DAILY [facility] Zinc-220 CAPS Zinc-220 CAPS Yes [facility] Intervale 3 CAPS Intervale 3 CAPS Yes 1 tab qd [facility] Immunizations Ordered Immunization Name Filled Immunization Name Date Status Comments Source Prevnar 13 Intramuscular Suspension 2019-08-23 14:32:00 Co mpleted [facility] Fluzone High-Dose 0.5 ML Intramuscular Suspension Prefilled Syringe 2019-08-23 14:29:00 Completed [facility] Fluzone Quadrivalent 0.5 ML Intramuscular Suspension 2018-06-24 11:31:00 Completed [facility] Fluzone Quadrivalent 0.5 ML Intramuscular Suspension 2017-06-29 09:56:00 Completed [facility] Hepatitis A, adult 2017-06-29 09:54:00 Completed [facility] Tdap (Adacel) 2016-12-30 10:23:00 Completed [facility] Hepatitis A 2016-12-30 10:22:00 Completed [facility] Fluzone Quadrivalent 0.5 ML Intramuscular Suspension 2016-09-09 17:22:00 Completed [facility] Fluzone Quadrivalent 0.5 ML Intramuscular Suspension 2015-10-09 11:56:00 Completed [facility] Pneumococcal polysaccharide vaccine, 23 valent 2014-07 00:00:00 Completed [facility] Fluzone INJ 2013-10-06 11:28:00 Completed [facility] Influenza Unknown Completed Approx [facility] Vital Signs Vital Name Observation Time Observation Value Comments Source Systolic blood pressure 2020-04-09 13:17:00 150 mm[Hg] Loca tion: LUE; Position: Sitting [facility] Diastolic blood pressure 2020-04-09 13:17:00 89 mm[Hg] Loc ation: LUE; Position: Sitting [facility] Body height 2020-04-09 13:17:00 58.5 [in_us] [facility] Weight 2020-04-09 13:17:00 161.5 [lb_av] [facility] Body mass index (BMI) [Ratio] 2020-04-09 13:17:00 33.18 kg/m2 [facility] Body temperature 2020-04-09 13:17:00 99.3 [degF] [facility] Heart Rate 2020-04-09 13:17:00 129 /min [facility] Systolic blood pressure 2020-03-02 09:46:00 122 mm[Hg] Loca tion: LUE; Position: Sitting [facility] Diastolic blood pressure 2020-03-02 09:46:00 78 mm[Hg] Loc ation: LUE; Position: Sitting [facility] Body height 2020-03-02 09:46:00 58.5 [in_us] [facility] Weight 2020-03-02 09:46:00 161 [lb_av] [facility] Body mass index (BMI) [Ratio] 2020-03-02 09:46:00 33.08 kg/m2 [facility] Heart Rate 2020-03-02 09:46:00 85 /min [facility] Weight 2020-02-17 09:01:00 162 [lb_av] [facility] Body mass index (BMI) [Ratio] 2020-02-17 09:01:00 33.28 kg/m2 [facility] Systolic blood pressure 2020-01-17 14:42:00 136 mm[Hg] Loca tion: [place]; Position: Sitting [facility] Diastolic blood pressure 2020-01-17 14:42:00 81 mm[Hg] Loc ation: [place]; Position: Sitting [facility] Body height 2020-01-17 14:42:00 58.5 [in_us] [facility] Weight 2020-01-17 14:42:00 163 [lb_av] [facility] Body mass index (BMI) [Ratio] 2020-01-17 14:42:00 33.49 kg/m2 [facility] Body temperature 2020-01-17 14:42:00 98.2 [degF] Method: Temporal [facility] Heart Rate 2020-01-17 14:42:00 94 /min [facility] Respiratory rate 2020-01-17 14:42:00 16 /min [facility] BP Systolic 2019-10-13 15:51:00 144 mm[Hg] Location: P[place] on: Sitting [facility] BP Diastolic 2019-10-13 15:51:00 85 mm[Hg] Location: [place]; [place] on: Sitting [facility] Height 2019-10-13 15:51:00 58.5 [in_us] [facility] Weight 2019-10-13 15:51:00 163 [lb_av] [facility] Body Mass Index Calculated 2019-10-13 15:51:00 33.49 kg/m2 [facility] Temperature 2019-10-13 15:51:00 98.3 [degF] Method: Oral [facility] Heart Rate 2019-10-13 15:51:00 90 /min [facility] BP Systolic 2019-10-06 09:25:00 156 mm[Hg] Location: LUE; Positi on: Sitting [facility] BP Diastolic 2019-10-06 09:25:00 92 mm[Hg] Location: LUE; Positi on: Sitting [facility] Height 2019-10-06 09:25:00 58.5 [in_us] [facility] Weight 2019-10-06 09:25:00 165 [lb_av] [facility] Body Mass Index Calculated 2019-10-06 09:25:00 33.9 kg/m2 [facility] Temperature 2019-10-06 09:25:00 97.6 [degF] Method: Oral [facility] Heart Rate 2019-10-06 09:25:00 83 /min [facility] BP Systolic 2019-09-29 08:30:00 129 mm[Hg] Location: LUE; Positi on: Sitting [facility] BP Diastolic 2019-09-29 08:30:00 83 mm[Hg] Location: LUE; Positi on: Sitting [facility] Height 2019-09-29 08:30:00 58.5 [in_us] [facility] Weight 2019-09-29 08:30:00 162.4 [lb_av] [facility] Body Mass Index Calculated 2019-09-29 08:30:00 33.36 kg/m2 [facility] Temperature 2019-09-29 08:30:00 98.1 [degF] Method: Temporal [facility] Heart Rate 2019-09-29 08:30:00 87 /min Location: L Radial; [facility] Respiration Rate 2019-09-29 08:30:00 16 /min Quality: [facility] BP Systolic 2019-09-26 15:25:00 135 mm[Hg] Location: LUE; Positi on: Sitting [facility] BP Diastolic 2019-09-26 15:25:00 78 mm[Hg] Location: LUE; Positi on: Sitting [facility] Height 2019-09-26 15:25:00 58.5 [in_us] [facility] Weight 2019-09-26 15:25:00 164 [lb_av] [facility] Body Mass Index Calculated 2019-09-26 15:25:00 33.69 kg/m2 [facility] Temperature 2019-09-26 15:25:00 97.8 [degF] Method: Temporal [facility] Heart Rate 2019-09-26 15:25:00 92 /min Location: L Radial; [facility] Respiration Rate 2019-09-26 15:25:00 16 /min [facility] BP Systolic 2019-09-23 11:12:00 120 mm[Hg] Location: ABDON; Positi on: Sitting [facility] BP Diastolic 2019-09-23 11:12:00 82 mm[Hg] Location: ABDON; Positi on: Sitting [facility] Height 2019-09-23 11:12:00 58.5 [in_us] [facility] Body Mass Index Calculated 2019-09-23 11:12:00 33.13 kg/m2 [facility] Weight 2019-09-23 11:12:00 161.25 [lb_av] [facility] Temperature 2019-09-23 11:12:00 98.4 [degF] Method: Oral [facility] BP Systolic 2019-09-23 09:35:00 132 mm[Hg] Location: ABDON; Positi on: Sitting [facility] BP Diastolic 2019-09-23 09:35:00 84 mm[Hg] Location: ABDON; Positi on: Sitting [facility] Height 2019-09-23 09:35:00 58.5 [in_us] [facility] Body Mass Index Calculated 2019-09-23 09:35:00 32.93 kg/m2 [facility] Weight 2019-09-23 09:35:00 160.3 [lb_av] [facility] Temperature 2019-09-23 09:35:00 98.9 [degF] Method: Temporal [facility] Heart Rate 2019-09-23 09:35:00 92 /min Location: L Radial; [facility] Respiration Rate 2019-09-23 09:35:00 16 /min Quality: Normal [facility] BP Systolic 2019-09-08 11:54:00 136 mm[Hg] Location: LUE; Positi on: Sitting [facility] BP Diastolic 2019-09-08 11:54:00 82 mm[Hg] Location: LUE; Positi on: Sitting [facility] BP Systolic 2019-09-08 11:52:00 130 mm[Hg] Location: RUE; Positi on: Sitting [facility] BP Diastolic 2019-09-08 11:52:00 88 mm[Hg] Location: RUE; Positi on: Sitting [facility] BP Systolic 2019-09-08 10:37:00 111 mm[Hg] Location: LUE; Positi on: Sitting [facility] BP Diastolic 2019-09-08 10:37:00 66 mm[Hg] Location: LUE; Positi on: Sitting [facility] Height 2019-09-08 10:37:00 58.5 [in_us] [facility] Weight 2019-09-08 10:37:00 160.6 [lb_av] [facility] Body Mass Index Calculated 2019-09-08 10:37:00 32.99 kg/m2 [facility] Temperature 2019-09-08 10:37:00 97.2 [degF] Method: Temporal [facility] Heart Rate 2019-09-08 10:37:00 79 /min Location: L Radial; [facility] Respiration Rate 2019-09-08 10:37:00 16 /min Quality: Normal U [facility] BP Systolic 2019-08-23 14:15:00 132 mm[Hg] Location: LUE; Positi on: Sitting [facility] BP Diastolic 2019-08-23 14:15:00 82 mm[Hg] Location: LUE; Positi on: Sitting [facility] Height 2019-08-23 14:15:00 59 [in_us] [facility] Weight 2019-08-23 14:15:00 163.2 [lb_av] [facility] Body Mass Index Calculated 2019-08-23 14:15:00 32.96 kg/m2 [facility] Temperature 2019-08-23 14:15:00 98.5 [degF] Method: Temporal [facility] Heart Rate 2019-08-23 14:15:00 96 /min Location: L Radial; [facility] Respiration Rate 2019-08-23 14:15:00 16 /min Quality: Normal [facility] Procedures Procedure Date / Time Performed Performing Clinician [facility] e [Q] LIPID PANEL WITH REFLEX TO DIRECT LDL 2020-05-08 00:00:00 [facility] [QL] CMP W/EGFR 2020-05-08 00:00:00 [place] [facility] [QL] TSH, 3RD GENERATION W/REFLEX TO FT4 2020-05-08 00:00:00 [facility] . [facility] - COVID-19/SARS-Cov-2 2020-05-08 00:00:00 [facility] . [facility] - COVID-19/SARS-Cov-2 2020-04-19 00:00:00 [facility] . [facility] - COVID-19/SARS-Cov-2 2020-03-24 00:00:00 [facility] [QL] CMP W/EGFR 2020-02-17 00:00:00 [place] [facility] [QL] CBC (INCLUDES DIFF/PLT) 2020-02-17 00:00:00 [facility] [QL] HEMOGLOBIN A1c 2020-02-17 00:00:00 [facility] [Q] LIPID PANEL WITH REFLEX TO DIRECT LDL 2020-02-17 00:00:00 [facility] [O] Urine Dipstick (In Office) 2019-09-29 00:00:00 [facility] [QL] CULTURE, URINE, ROUTINE 2019-09-29 00:00:00 [facility] [QLH] CULTURE, URINE, ROUTINE 2019-09-26 00:00:00 [facility] [QLH] CULTURE, URINE, ROUTINE 2019-09-23 00:00:00 [facility] [H] Urinalysis w/ Microscopic 2019-09-23 00:00:[address] [facility] [address] Abdomen/Pelvis w/wo contrast [id number] 2019-09-23 00:00:00 [facility] [QLH] CMP W/EGFR 2019-08-23 00:00:00 [facility] [QLH] HEMOGLOBIN A1c 2019-08-23 00:00:00 [facility] [QH] LIPID PANEL WITH REFLEX TO DIRECT LDL 2019-08-23 00:00:00 [facility] [QLH] TSH, 3RD GENERATION W/REFLEX TO FT4 2019-08-23 00:00:00 [facility] of Bladder Surgery [facility] History of Cholecystectomy [facility] Plan of Care Planned Activity Planned Date Details Comments Source Future Scheduled Test 2020-04-26 00:00:00 . [facility] - COVID-1 9/SARS-Cov-2 [code = . [facility] - COVID-19/SARS-Cov-2] [facility] Future Scheduled Test 2014-01-27 14:30:20 Plan of Care [code = 1877 6-5] [facility] Future Scheduled Test 2014-01-06 13:45:19 Plan of Care [code = 1877 6-5] [facility] Scheduled Test 2014-01-02 02:00:06 Plan of Care [code = 1877 6-5] [facility] Scheduled Test 2013-10-06 17:45:34 Plan of Care [code = 1877 6-5] [facility] Appointment 2021-03-01 11:15:00 Jonnathan COLORADO, [facility] Future Appointment 2020-06-25 15:20:00 Jonnathan JANE, [facility] Future Appointment 2020-06-22 10:00:00 Jonnathan NAVARRETE, [facility] Encounters Start Date/Time End Date/Time Encounter Type Admission Type Att[facility] Care Department Encounter ID Source 2020-05-08 13:10:00 2020-05-08 13:10:00 Appointment; CO19ALEXANDRA CO19, PROVIDERADI [facility] [id number] [facility] 2020-05-08 10:00:00 2020-05-08 10:00:00 Appointment; YEISON DONALDSON M.D. MOHEYUDDIN, AMINA, M.D. [facility] [id number] [facility] 2020-04-26 12:30:00 2020-04-26 12:30:00 Appointment; CO19ALEXANDRA CO19[facility] [id number] [facility] 2020-04-11 10:15:00 2020-04-11 10:15:00 Appointment; JANETH BRAR M.D. JAYSWAL, MALAY, M.D. [facility] [id number] [facility] 2020-04-11 10:15:00 2020-04-11 10:15:00 Appointment; JANETH BRAR M.D. JAYSWAL, MALAY, M.D. [facility] [id number] [facility] 2020-04-09 12:45:00 2020-04-09 12:45:00 Appointment; YEISON DONALDSON M.D. MOHEYUDDIN, AMINA, M.D. [facility] [id number] [facility] 2020-03-29 09:45:00 2020-03-29 09:45:00 Appointment; CAMRON GARAY D.O. DOUGHER, ERIN, D.O. [facility] [id number] [facility] 2020-03-26 13:20:00 2020-03-26 13:20:00 Appointment; CO19, ALEXANDRA OBIKARLENEKULDIP CO19, [facility] [id number] [facility] 2020-03-24 11:00:00 2020-03-24 11:00:00 Appointment; SIMA BUSBY M .D. BAI, KRISTY, M.D. [facility] [id number] [facility] 2020-03-02 09:45:00 2020-03-02 09:45:00 Appointment; TEA BACON M.D. KOSHELEV, MISHA, M.D. [facility] [id number] [facility] 2020-03-02 09:40:00 2020-03-02 09:40:00 Appointment; TEA BACON M.D. KOSHELEV, MISHA, M.D. [place] [address] [id number] [facility] 2020-02-17 09:30:00 2020-02-17 09:30:00 Appointment; CHADWICK BARRIOS M.D. GOODINE, GLENDA, M.D. [facility] [id number] [facility] 2020-01-17 14:15:00 2020-01-17 14:15:00 Appointment; JANETH BRAR M.D. JAYSWAL, MALAY, M.D. [facility] [id number] [facility] 2020-01-12 11:00:00 2020-01-12 11:00:00 Appointment; CAMRON GARAY D.O. DOUGHER, ERIN, D.O. [facility] [place] [facility] [id number] [facility] 2019-12-23 09:45:00 2019-12-23 09:45:00 Appointment; TEA BACON M.D. KOSHELEV, MISHA, M.D. [facility] [id number] [facility] 2019-10-13 14:00:00 2019-10-13 14:00:00 Appointment; CAMRON GARAY D.O. DOUGHER, ERIN, D.O. [facility] [place] [facility] [id number] [facility] 2019-10-06 15:15:00 2019-10-06 15:15:00 Appointment; CHADWICK BARRIOS M.D. GOODINE, GLENDA, M.D. [facility] [id number] [facility] 2019-10-06 09:00:2019-10-06 09:00:00 Appointment; SE-URODYNAMICS , NURSE SE-URODYNAMICS, NURSE [facility] [id number] [facility] 2019-09-30 14:45:00 2019-09-30 14:45:00 Appointment; SAAD MENDOZA M.D. GAUVAIN, TAGGART, M.D. [facility] [id number] [facility] 2019-09-29 08:15:00 2019-09-29 08:15:00 Appointment; CHADWICK BARRIOS M.D. GOODINE, GLENDA, M.D. [facility] [id number] [facility] 2019-09-26 15:15:00 2019-09-26 15:15:00 Appointment; CHADWICK BARRIOS M.D. GOODINE, GLENDA, M.D. [facility] [id number] [facility] 2019-09-23 11:30:00 2019-09-23 11:30:00 Appointment; CAMRON GARAY D.O. DOUGHER, ERIN, D.O. [facility] [id number] [facility] 2019-09-23 09:30:00 2019-09-23 09:30:00 Appointment; CHADWICK BARRIOS M.D. GOODINE, GLENDA, M.D. [facility] [id number] [facility] 2019-09-08 10:30:00 2019-09-08 10:30:00 Appointment; CHADWICK BARRIOS M.D. GOODINE, GLENDA, M.D. [facility] [id number] [facility] 2019-08-23 14:15:00 2019-08-23 14:15:00 Appointment; CHADWICK BARRIOS M.D. GOODINE, GLENDA, M.D. [facility] [id number] [facility] 2019-04-12 15:30:00 2019-04-12 15:30:00 Appointment; ADEEL BRITTON M.D. WALTON, HAROLD, M.D. [facility] [id number] [facility] 2019-02-11 11:00:00 2019-02-11 11:00:00 Appointment; CHADWICK BARRIOS M.D. GOODINE, GLENDA, M.D. [facility] UTP [id number] [facility] 2018-10-29 09:30:00 2018-10-29 09:30:00 Appointment; ARMIN AGUSTIN P.A. CRUZ, LETICIA, P.A. [facility]TP [id number] [facility] 2018-10-26 10:00:00 2018-10-26 10:00:00 Appointment; BARRINGTON RODAS A PRN SAXE, KAILA, APRN [facility] UTP [id number] [facility] 2018-09-24 10:00:00 2018-09-24 10:00:00 Appointment; CHADWICK BARRIOS M.D. GOODINE, GLENDA, M.D. [facility] [id number] [facility] 2018-07-15 09:00:00 2018-07-15 09:00:00 Appointment; CHADWICK BARRIOS M.D. GOODINE, GLENDA, M.D. [facility] [id number] [facility] 2018-07-08 14:15:00 2018-07-08 14:15:00 Appointment; CHADWICK BARRIOS M.D. GOODINE, GLENDA, M.D. [facility] [id number] [facility] 2018-07-05 07:30:00 2018-07-05 07:30:00 Appointment; CELIA WHITNEY M.D. CATALANO, MARC, M.D. [facility]TP [id number] [facility] 2018-06-24 09:00:00 2018-06-24 09:00:00 Appointment; CHADWICK BARRIOS M.D. GOODINE, GLENDA, M.D. [facility] [id number] [facility] 2018-05-18 14:15:00 2018-05-18 14:15:00 Appointment; CELIA WHITNEY M.D. CATALANO, MARC, M.D. [facility]TP [id number] [facility] 2018-03-25 14:30:00 2018-03-25 14:30:00 Appointment; CHADWICK BARRIOS M.D. GOODINE, GLENDA, M.D. [facility] [id number] [facility] 2018-02-13 10:30:00 2018-02-13 10:30:00 Appointment; SIRI RALPH M.D. BORTOLOTTI, JULIE, M.D. [facility]TP [id number] [facility] 2018-01-11 09:30:00 2018-01-11 09:30:00 Appointment; CHADWICK BARRIOS M.D. GOODINE, GLENDA, M.D. [facility] [id number] [facility] 2017-12-10 14:15:00 2017-12-10 14:15:00 Appointment; CHADWICK BARRIOS M.D. GOODINE, GLENDA, M.D. [facility] [id number] [facility] 2017-11-18 10:00:00 2017-11-18 10:00:00 Appointment; CARMELA CERVANTES, CARMELA PANDYA RD [facility] UTP [id number] [facility] 2017-10-20 15:15:00 2017-10-20 15:15:00 Appointment; CHADWICK BARRIOS M.D. GOODINE, GLENDA, M.D. [facility] [id number] [facility] 2014-01-27 09:30:21 2014-01-27 09:30:20 Outpatient [facility]IE MHIE [id number] 2014-01-06 08:45:19 2014-01-06 08:45:19 Outpatient MHIE MHIE [id number] 2014-01-01 21:00:06 2014-01-01 21:00:06 Outpatient MHIE MHIE [id number] 2013-10-06 11:45:35 2013-10-06 11:45:34 Outpatient MHIE MHIE [id number] 2013-09-23 18:00:09 2013-09-23 18:00:09 Outpatient MHIE MHIE [id number] 2013-05-02 15:42:09 2013-05-02 15:41:46 Outpatient MHIE MHIE [id number] Results Test Description Test Time Test Comments Results Result Comments Source . [facility] - COVID-19/SARS-Cov-2 2020-05-08 00:00:00 Test Item SARS-CoV-2 REPORT (test code = SARS-CoV-2 REPORT) Clin icalHistory: U07.1 COVID- 19 virus infection.COVID-19/SARS-CoV-2: COVID-19/SARS-CoV-2: Positive.BodySite: Nasopharyngeal.Special Requests: COVID-19/SARS-Cov-2.CPTCode: 47358.ICDCode: U07.1. A [facility]. [facility] - COVID-19/[id number] 00:00:00 * Test Item Value Reference Range Interpretation Comments SARS-CoV-2 REPORT (test code = SARS-CoV-2 REPORT) Clin icalHistory: U07.1 COVID- 19 virus infection.COVID-19/SARS-CoV-2: COVID-19/SARS-CoV-2: Positive.BodySite: Nasopharyngeal.Special Requests: COVID-19/SARS-Cov-2.CPTCode: 40952.ICDCode: U07.1. A [facility] W/O [id number] 09:00:00* Test Item Value Reference Range Interpretation Comments WHITE BLOOD CELL (test code = WBC) 7.30 x10 3/uL 4.5-11.0 N RED BLOOD CELL (test code = RBC) 4.06 x10 6/uL 3.54-5.02 N HEMOGLOBIN (test code = HGB) 12.5 g/dL 11.0-15.0 N HEMATOCRIT (test code = HCT) 37.3 % 33.0-45.0 N MEAN CELL VOLUME (test code = MCV) 91.9 fL 81.0-99.0 MEAN CELL HGB (test code = MCH) 30.8 pg 27.0-33.0 N MEAN CELL HGB CONCETRATION (test code = MCHC) 33.5 g/dL 33.0-37. 0 N RED CELL DISTRIBUTION WIDTH CV (test code = RDW) 12.9 % 11.5- 14.5 N RED CELL DISTRIBUTION WIDTH SD (test code = RDW-SD) 42.7 fL 37 .0-54.0 N PLATELET COUNT (test code = PLT) 342 x10 3/uL 150-400 N MEAN PLATELET VOLUME (test code = MPV) 9.6 fL 7.0-9.0 H BASIC METABOLIC [id number] 08:08:00* Test Item Value Reference Range Interpretation Comments SODIUM (test code = NA) 135 mEq/L 134-147 N POTASSIUM (test code = K) 3.6 mEq/L 3.4-5.0 N CHLORIDE (test code = CL) 102 mEq/L 100-108 CARBON DIOXIDE (test code = CO2) 26 mEq/L 21-33 N ANION GAP (test code = GAP) 11 0-20 N GLUCOSE (test code = GLU) 86 mg/dL 70-110 N BLOOD UREA NITROGEN (test code = BUN) 6 mg/dL 7-18 L GLOMERULAR FILTRATION RATE (test code = GFR) 123.4 80-90 H Units of measure = ml/min/1.73 m2 CREATININE (test code = CREAT) 0.5 mg/dL 0.6-1.3 L CALCIUM (test code = CA) 9.2 mg/dL 8.0-10.5 N - CTA CHEST FOR [id number] 23:01:00 Name: KIRILL CALLEJAS [facility] : 1955 Age/S: 64 / F [address] [place] [address] Blvd Unit #: [id number] Loc: [place] [address] Phys: Molly Wise NP Acct: [id number] Dis Date: Status: ADM IN PHONE #: [phone] Exam Date: 04/09/20202242 FAX #: [phone] Reason: Tachy, SOB, COVID + EXAMS: CPT CODE: [id number] [place] [address] [place] ANGIOGRAM CHEST INDICATION: Tachycardia, dyspnea, COVID pneumonia. TECHNIQUE: 100 mL Isovue-300 iodinated intravenous contrast was administered. CT angiography of the chest was performed with axial images. Maximum intensity projection images were also reviewed. CT imaging performed at this location utilizes radiation dose optimization technique which includes one or more of the followin) Automated exposure control; 2) Adjustment of the mA and/or kV according to patient's size; 3) Use of iterative reconstruction techniques. DLP (mGy-cm): 393 COMPARISONS: Chest x-ray 04/09/2020 FINDINGS: There is no acute osseous fracture or dislocation. There is no organized fluid collection or mass in the soft tissues. The pulmonary arteries are normal caliber with no pulmonary embolism. The heart size is normal. There is no pericardial effusion. There is a mild burden of atherosclerotic ca lcification of the coronary arteries. The mediastinum reveal s no mass, organized fluid collection or lymphadenopathy. Th ere is mild atherosclerotic vascular calcification of the aorta. The aorta reveals no aneurysm or acute process. The esophagus reveals no wa ll thickening, mass or dilation. There is a moderate sized hiatal hernia. There is underdistention and mucosal thickening of the stomach which cou ld be due to spasm or gastritis. There is mild bronchiectasis. Th ere are multifocal patchy mild to moderate groundglass opacities within th e bilateral lungs, greatest in the mid and lower lungs and greatest in the periphery. There is no pneumothorax or pleural effusion. T he gallbladder is surgically absent. IMPRESSION: PAGE 1 Signed Report (CONTINUED) Name: KIRILL CALLEJAS [facility] : 1955 Age/S: 64 / F [address] [place] [address] Unit #: [id number] c: [place] [id number] Phys: Molly Wise [employer] Acct: [id number] Dis Date: Status: ADM IN PHONE #: [phone] Exam Date: 04/09/20202242 FAX #: [phone] Reason: Tachy, SOB, COVID + EXAMS: CPT CODE: [id number] [place] [address] <Continued> 1. There are mild to moderate multifocal patchy groundglass opacities within the lungs consistent with the given history of COVID pneumonia. 2. There is no pulmonary embolism. 3. There is mild bronchiectasis. 4. There is a mild burden of atherosclerotic calcification of the coronary arteries. 5. There is a moderate sized hiatal hernia. There is underdistention and mucosal thickening of the stomach which could be due to spasm or gastritis. at 2301 Reported and signed by: Marcelo Hadley D.O. CC: Molly Wise NP Technologist:Wanda Roldan, RT(R) CTDI: DLP: Trnscb Date/Time: 04/09/2020 (2300) t.[email or web address] Orig Print D/T: S: 04/09/2020 (2305) PAGE 2 Signed Report Coronavirus 2019 nCoV [id number] 19:04:00* Test Item Value Reference Range Interpretation Comments Coronavirus 2019 nCoV Bedside (test code = [id number]) Positive Negative A Negative results should be treated as presumptive and, ifinconsistent with clinical signs and symptoms or necessaryfor patient management, should be tested with an alternativemolecular assay. Negative results do not preclude [id number] and should not be used as the sole basis forpatient management decisions. Negative results should beconsidered in the context of a patient's recent exposures,history, presence of clinical signs and symptoms consistentwith COVID-19. BASIC METABOLIC [id number] 17:58:00* Test Item Value Reference Range Interpretation Comments SODIUM (test code = NA) 121 mEq/L 134-147 LL POTASSIUM (test code = K) 3.8 mEq/L 3.4-5.0 N CHLORIDE (test code = CL) 91 mEq/L 100-108 L CARBON DIOXIDE (test code = CO2) 25 mEq/L 21-33 N ANION GAP (test code = GAP) 9 0-20 N GLUCOSE (test code = GLU) 96 mg/dL 70-110 N BLOOD UREA NITROGEN (test code = BUN) 8 mg/dL 7-18 N GLOMERULAR FILTRATION RATE (test code = GFR) 100.0 80-90 H Units of measure = ml/min/1.73 m2 CREATININE (test code = CREAT) 0.6 mg/dL 0.6-1.3 N CALCIUM (test code = CA) 9.3 mg/dL 8.0-10.5 N [id number] 17:57:00* Test Item Value Reference Range Interpretation Comments TROPONIN-I (test code = TROPI) < 0.015 ng/mL 0.000-0.045 N Negative: <= 0.045 Positive: >= 0.046 Correlation with serial results, other cardiac markers andclinical findings is necessary to determine the clinicalsignificance of this result. Results using different methodologies should not be comparedto one another as quantitative results may vary by method. B-TYPE NATRIURETIC [id number] 17:51:00* Test Item Value Reference Range Interpretation Comments B-TYPE NATRIURETIC PEPTIDE (test code = BNP) 57.4 PG/ML 0-100 N CBC W/AUTO [id number] 17:22:00* Test Item Value Reference Range Interpretation Comments WHITE BLOOD CELL (test code = WBC) 9.00 x10 3/uL 4.5-11.0 N RED BLOOD CELL (test code = RBC) 4.26 x10 6/uL 3.54-5.02 N HEMOGLOBIN (test code = HGB) 13.0 g/dL 11.0-15.0 N HEMATOCRIT (test code = HCT) 37.7 % 33.0-45.0 N MEAN CELL VOLUME (test code = MCV) 88.5 fL 81.0-99.0 N MEAN CELL HGB (test code = MCH) 30.5 pg 27.0-33.0 N MEAN CELL HGB CONCETRATION (test code = MCHC) 34.5 g/dL 33.0-37. 0 N RED CELL DISTRIBUTION WIDTH CV (test code = RDW) 12.6 % 11.5- 14.5 N RED CELL DISTRIBUTION WIDTH SD (test code = RDW-SD) 40.0 fL 37 .0-54.0 N PLATELET COUNT (test code = PLT) 357 x10 3/uL 150-400 N MEAN PLATELET VOLUME (test code = MPV) 9.5 fL 7.0-9.0 H NEUTROPHIL % (test code = NT%) 73.8 % 56.0-77.0 N IMMATURE GRANULOCYTE % (test code = IG%) 0.2 % 0.0-2.0 N LYMPHOCYTE % (test code = LY%) 18.6 % 14.0-32.0 N MONOCYTE % (test code = MO%) 7.0 % 4.8-9.0 N EOSINOPHIL % (test code = EO%) 0.1 % 0.3-3.7 L BASOPHIL % (test code = BA%) 0.3 % 0.0-2.0 N NUCLEATED RBC % (test code = NRBC%) 0.0 % 0-0 N NEUTROPHIL # (test code = NT#) 6.64 x10 3/uL 2.0-7.6 N IMMATURE GRANULOCYTE # (test code = IG#) 0.02 x10 3/uL 0.00-0.03 N LYMPHOCYTE # (test code = LY#) 1.67 x10 3/uL 1.0-3.8 N MONOCYTE # (test code = MO#) 0.63 x10 3/uL 0.1-0.8 N EOSINOPHIL # (test code = EO#) 0.01 x10 3/uL 0.0-0.2 N BASOPHIL # (test code = BA#) 0.03 x10 3/uL 0.0-0.2 N NUCLEATED RBC # (test code = NRBC#) 0.00 x10 3/uL 0.0-0.1 N MANUAL DIFF REQUIRED (test code = MDIFF) NO - XR CHEST 1 [id number] 17:00:00 FAX: Molly Wise NP [phone] [place]: St: REG Name: KIRILL LOBO [facility] : [birth year] Age/S: 64/F [address] [place] [address] Unit #: [id number] Loc: [place] [address] Phys: Molly Wise NP Acct: [id number] Dis Date: Status: REG ER PHONE #: [phone] Exam Date: 04/09/2020 165 FAX #: [phone] Reason: Chest Pain EXAMS: CPT CODE: [id number] XR CHEST 1 V [id number] Single view chest: H ISTORY: Chest pain. FINDINGS: Both lungs are clear. The heart and mediastinal contour stable from 10/17/2009. No pleural fluid or pneumotho rax IMPRESSION: No acute finding SL: [id number] at 1700 Reported and signed by: Austin Stephen M.D. CC: Molly Wise NP Technologist: RT Jeff(Nayan) Trnscrd Date/Time/By: 04/09/2020 (1700) : By: GuanacoG Orig Print D/T: S: 04/09/2020 (8628) PAGE 1 Signed Report . [facility] - COVID-19/SARS-Cov-2 2020-03-24 00:00:00* Test Item Value Reference Range Interpretation Comments SARS-CoV-2 REPORT (test code = SARS-CoV-2 REPORT) Clin icalHistory: J20.8 Acute bronchitis due to infection.COVID-19/SARS-CoV-2: COVID-19/SARS-CoV-2: Positive.BodySite: Nasopharyngeal.Special Requests: COVID-19/SARS-Cov-2.CPTCode: 47739.ICDCode: J20.8. N [facility][O] Urine Dipstick (In Office)2019-09-29 14:17:00 * Test Item Value Reference Range Interpretation Comments Glucose (test code = Glucose) neg N LEUKOCYTES (test code = LEUKOCYTES) neg N NITRITE; Normal (test code = 42372-9) neg N UROBILINOGEN; Normal (test code = 69923-8) neg N PROTEIN; Normal (test code = 89295-1) neg N pH (test code = pH) 6 N URINE BLOOD; Normal (test code = 36896-4) neg N SPECIFIC GRAVITY; Normal (test code = 2965-2) 1.000 N KETONES; Normal (test code = 00034-6) neg N BILIRUBIN; Normal (test code = 70283-7) neg N COLOR URINE; Normal (test code = 5778-6) yellow N APPEARANCE; Normal (test code = 5767-9) clear N [facility][O] Urine Dipstick (In Office)2019-09-26 16:41:28 * Test Item Value Reference Range Interpretation Comments Glucose (test code = Glucose) neg N LEUKOCYTES (test code = LEUKOCYTES) ++ NITRITE; Normal (test code = 47145-2) neg N UROBILINOGEN; Normal (test code = 45592-6) neg N PROTEIN; Normal (test code = 46810-9) neg N pH (test code = pH) 5 N URINE BLOOD (test code = 32196-5) about 250 SPECIFIC GRAVITY; Normal (test code = 2965-2) 1.000 N KETONES; Normal (test code = 36066-8) neg N BILIRUBIN; Normal (test code = 40159-6) neg N COLOR URINE; Normal (test code = 5778-6) yellow N APPEARANCE (test code = 5767-9) slight cloudy [facility]/wo contrast [id number] 10:06:00Radiation Dose CTDIVOL = 0 (mGy): DLP = 1391.23 (mGy-cm)PROCEDURE INFORMATION:Exam: CT Abdomen And Pelvis Without And With Contrast; UrographyExam date and time: 09/26/2019 10:46 AMAge: 64 years oldClinical indication: Urinary tract infection, site not specified; Additionalinfo: /utiTECHNIQUE:Imaging protocol: Computed tomography of the abdomen and pelvis without andwith intravenous contrast. Exam focused on the kidneys and ureters.Total DLP: 1391.23 mGy-cmRadiation optimization: All CT scans at this facility use at least one of thesedose optimization techniques: automated exposure control; mA and/or kVadjustment per patient size (includes targeted exams where dose is matched toclinical indication); or iterative reconstruction.Contrast material: OMNI 300; Contrast volume: 100 ml; Contrast route: 22 LT AC;Other contrast: Route: Oral, Material: water, Volume: 900;COMPARISON:No relevant prior studies available.FINDINGS:Liver: Normal. No mass.Gallbladder and bile ducts: Cholecystectomy.Pancreas: Atrophy of the pancreas. Question 5 mm hypodensity near the head-neckjunction on series 4, image 31.Spleen: Normal. No splenomegaly.Adrenals: Normal. No mass.Kidneys and ureters: No renal, ureteral or bladder stone. No hydronephrosis. Nosuspicious mass along the urinary tract system. No filling defects on delayedimaging.Stomach and bowel: Diverticulosis is seen within the colon without evidence ofdiverticulitis. No evidence of bowel obstruction is identified. Smalldiverticulum arising from the 3rd portion of the duodenum.Intraperitoneal space: Unremarkable. No free air. No significant f luidcollection.Lymph nodes: Unremarkable. No enlarged lymph nodes.Vasculature: A therosclerotic calcifications.Bladder: Unremarkable. Reproductive: The uterus ap pears absent.Bones/joints: 4 mm of anterolisthesis of L5 on S1 with severe facet arthropathy.Soft tissues: Unremarkable.Other findings: Large hiatal hernia.IMPRE SSION:1. No renal, ureteral, or bladder stone. No hydronephrosis. No suspicious massof the urinary tract system.2. Question 5 mm hypodensity in the pancreas. Re commend reimage every 2 yearsfor 10 years. (SAURABH Bolanos et al. ACR White Paper, March 2017)3. Large hiatal hernia.4. Please refer to other findings detailed rhett Cho MD On 09/27/2019 14:53:20; [id number]--Orbz by: Cho, Arabella en MDDictated Date/time: 09/27/19 14:53Electronically Signed by: Paulie Cho MD 09/27/1914:53FINAL [facility]PORTUn[facility]] Urine Dipstick (In Office)2019-09-23 11:10:34* Test Item Value Reference Range Interpretation Comments Glucose (test code = Glucose) neg N LEUKOCYTES (test code = LEUKOCYTES) neg N NITRITE; Normal (test code = 33328-7) neg N UROBILINOGEN; Normal (test code = 23379-3) neg N PROTEIN; Normal (test code = 22404-2) neg N pH (test code = pH) 7 N URINE BLOOD (test code = 26563-0) about 50 SPECIFIC GRAVITY; Normal (test code = 2965-2) 1.000 N KETONES; Normal (test code = 02697-3) neg N BILIRUBIN; Normal (test code = 57125-0) neg N COLOR URINE; Normal (test code = 5778-6) yellow N APPEARANCE; Normal (test code = 5767-9) clear N [facility]] URINALYSIS, [id number] 00:00:01* Test Item Value Reference Range Interpretation Comments UA Turbidity (test code = 24773-7) Clear Clear UA Spec Grav (test code = 5810-7) 1.006 <=1.030 UA pH (test code = 5803-2) 7.0 5.0-8.0 UA Protein (test code = 88123-5) Negative Negative UA Glucose (test code = 72007-4) Negative Negative UA Ketones (test code = 98244-2) Negative Negative UA Bili (test code = 5770-3) Negative Negative UA Blood; Abnormal (test code = 5794-3) Small Negative A UA Nitrite (test code = 5802-4) Negative Negative UA Leuk Est (test code = 5799-2) Negative Negative UA RBC (test code = 54673-0) 1 {/HPF} 0-2 UA WBC (test code = 56227-7) <1 0-5 UA Bacteria (test code = 06874-6) Occasional None Seen UA Sq Epi (test code = 99876-6) Occasional Few UA Color (test code = 5778-6) Ltyellow UROBILINOGEN (test code = 98641-4) <=1.0 0.1-1.0 [facility]] CULTURE, URINE, [id number] 00:00:01* Test Item Value Reference Range Interpretation Comments ORGANISMH (test code = 699-9) Klebsiella pneumoniae ESBL FINAL REPORT (test code = FINAL REPORT) 50,000 - 100,0 00 CFU/mL Klebsiella pneumoniae ESBL Multi-drug ResistantOrganism [facility][H] [id number] 00:00:01* Test Item Value Reference Range Interpretation Comments ORGANISMH (test code = 699-9) Klebsiella pneumoniae ESBL Amikacin (test code = Amikacin) <=8 S Ampicillin (test code = Ampicillin) >16 R Ampicillin/Sulbactam (test code = Ampicillin/Sulbactam) >16/8 R Cefazolin (test code = Cefazolin) >16 R Cefepime (test code = Cefepime) >16 R Ceftriaxone (test code = Ceftriaxone) >32 R Ciprofloxacin (test code = Ciprofloxacin) >2 R Gentamicin (test code = Gentamicin) >8 R Levofloxacin (test code = Levofloxacin) >4 R Meropenem (test code = Meropenem) <=1 S Nitrofurantoin (test code = Nitrofurantoin) >64 R Piperacillin/Tazobactam (test code = Piperacillin/Tazobactam) - R Tetracycline (test code = Tetracycline) >8 R Tobramycin (test code = Tobramycin) 4 S Trimethoprim/Sulfamethoxazole (test code = Trimethoprim/Sulf amethoxazole) >2/38 R S= Susceptible, R= Resistant , I= Intermediate, N/A= Not Applicable [facility][O] Urine Dipstick (In Office)2019-09-08 10:53:00 * Test Item Value Reference Range Interpretation Comments Glucose (test code = Glucose) neg N LEUKOCYTES (test code = LEUKOCYTES) neg N NITRITE; Normal (test code = 75618-6) neg N UROBILINOGEN; Normal (test code = 60138-9) neg N PROTEIN; Normal (test code = 47795-8) neg N pH (test code = pH) 5 N URINE BLOOD (test code = 74557-2) about 50 SPECIFIC GRAVITY; Normal (test code = 2965-2) 1.010 N KETONES; Normal (test code = 54491-8) neg N BILIRUBIN; Normal (test code = 13603-8) neg N COLOR URINE; Normal (test code = 5778-6) yellow N APPEARANCE; Normal (test code = 5767-9) clear N [facility][O] Urine Dipstick (In Office)2019-08-23 14:30:00 * Test Item Value Reference Range Interpretation Comments Glucose (test code = Glucose) neg N LEUKOCYTES (test code = LEUKOCYTES) neg N NITRITE; Normal (test code = 45585-7) neg N UROBILINOGEN; Normal (test code = 05249-2) neg N PROTEIN; Normal (test code = 27961-4) neg N pH (test code = pH) 5 N URINE BLOOD; Normal (test code = 40190-6) about 250 N SPECIFIC GRAVITY (test code = 2965-2) 1.010 KETONES; Normal (test code = 96043-6) neg N BILIRUBIN; Normal (test code = 12181-2) neg N COLOR URINE; Normal (test code = 5778-6) yellow N APPEARANCE; Normal (test code = 5767-9) clear N [facility]
[2020-05-13] MEDS ORDERED: MECLIZINE HCL 12.5 MG TAB PO ONE (19:00)
--- OUTSIDE RECORDS SUMMARY | 2020-05-13 19:00 | XMS REPORT | Summary of Care ---
Author Author SOPHIE De Santiago, KIRILL RIVERS Organization Unknown Address Unknown Phone Unavailable Care Team Providers Care Supervisory Aide Name Role Phone TOBI De Santiago, ADEEL Geller Unavailable SOPHIE De Santiago, LANDON Unavailable Unavailable TANISHA D.OCassie, CAMRON Unavailable Unavailable SOPHIE CAMPBELL [place], L[place]ON [place] Unavailable Unavailable TANISHA FOX, CAMRON E Unavailable Unavailable CLARK SMITHP, BARRINGTON Unavailable Unavailable NIKOLE OJEDA, ARMIN Unavailable Unavailable RAYNE CAMPBELL, PITA Unavailable Unavailable TOBI CAMPBELL [place], ADEEL Ching Unavailable Unavailable Unavailable Unavailable Functional Status Name Dates Details Functional status health issues are not documented Status: Name Dates Details Cognitive status health issues are not d ocumented Status: Problems Name Dates Details Peripheral neuropathy, hereditary/idiopa thic (356.9, G60.9) Status: Active Intermittent claudication (443.9, I73.9) Status: Active Sciatica (724.3, M54.30) Status: Active Contact dermatitis, allergic (692.9, L23 .9) Status: Active Yeast infection involving the vagina and surrounding area (112.1, B37.3) Status: Active Pruritus of skin (698.9, L29.9) Status: Active Dry mouth (527.7, R68.2) Status: Active Acute pharyngitis (462, J02.9) Status: Active Allergic rhinitis (477.9, J30.9) Status: Active Tension headache (307.81, G44.209) Status: Active Acute pharyngitis due to other specified organisms (462, J02.8) Status: Active Body aches (780.96, R52) Status: Active Chills (780.64, R68.83) Status: Active Reactive airway disease, mild intermitte nt, uncomplicated (493.90, J45.20) Status: Active Acute tracheitis (464.10, J04.10) Status: Active RAD (reactive airway disease) (493.90, J 45.909) Status: Active Need for Tdap vaccination (V06.1, Z23) Status: Active Plantar fasciitis, right (728.71, M72.2) Status: Active Mid back pain (724.5, M54.9) Status: Active Near syncope (780.2, R55) Status: Active Visual disturbance (368.9, H53.9) Status: Active Epigastric abdominal pain of unknown mari ology (789.06, R10.13) Status: Active GERD without esophagitis (530.81, K21.9) Status: Active New onset of headaches after age 50 (784 .0, R51) Status: Active Abnormal CT of brain (793.0, R90.89) Status: Active Hyponatremia (276.1, E87.1) Status: Active Hypokalemia (276.8, E87.6) Status: Active Idiopathic acute pancreatitis, unspecifi ed complication status (577.0, K85.00) Status: Active Hospitalization within last 30 days (V15 .89, Z92.89) Status: Active Pancreatitis (577.0, K85.90) Status: Active DJD (degenerative joint disease) of knee (715.36, M17.10) Status: Active Screening for diabetes mellitus (V77.1, Z13.1) Status: Active Foot pain (729.5, M79.673) Status: Active Abdominal pain, acute, right upper quadr ant (789.01, R10.11) Status: Active Acute pancreatitis (577.0, K85.90) Status: Active Oral candidiasis (112.0, B37.0) Status: Active Right frontal lobe lesion (348.89, G93.9 ) Status: Active 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, 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 Pancreatic cyst (577.2, K86.2) Status: Active Hospital discharge follow-up (V67.59, Z0 9) Status: Active History of meningioma (V12.41, Z86.018) Status: Resolved Headache (784.0, R51) Status: Active BMI 32.0-32.9,adult (V85.32, Z68.32) Status: Active Persistent headaches (784.0, R51) Status: Active Status post resection of meningioma (V45 .89, Z98.890) Status: Active Snoring (786.09, R06.83) Status: Active Sleep disorder (780.50, G47.9) Status: Active Dysphagia (787.20, R13.10) Status: Active Other acute sinusitis, recurrence not sp ecified (461.8, J01.80) Status: Active Other acute sinusitis, recurrence not sp ecified (461.8, J01.80) Status: Active Strain of latissimus dorsi muscle, initi al encounter (847.1, S29.012A) Status: Active Right upper quadrant abdominal tendernes s without rebound tenderness (789.61, R10.811) Status: Active Right-sided chest wall pain (786.52, R07 .89) Status: Active Chest pain, unspecified type (786.50, R0 7.9) Status: Active Chronic insomnia (780.52, F51.04) Status: Active OANH on CPAP (327.23, G47.33) Status: Active Acute infective tracheobronchitis (466.0 , J20.9) Status: Active GERD (gastroesophageal reflux disease) ( 530.81, K21.9) Status: Active Restless legs syndrome (333.94, G25.81) Status: Active On statin therapy (V58.69, Z79.899) Status: Active Chronic insomnia (780.52, F51.04) Status: Active Anxiety state (300.00, F41.1) Status: Active Constipation (564.00, K59.00) Status: Active Need for vaccination with 13-polyvalent pneumococcal conjugate vaccine (V03.82, Z23) Status: Active Influenza vaccine needed (V04.81, Z23) Status: Active Screening for hypothyroidism (V77.0, Z13 .29) Status: Active At low risk for fall (V49.89, Z91.81) Status: Active Urinary symptom or sign (788.99, R39.9) Status: Active Chronic constipation (564.00, K59.09) Status: Active Nocturia (788.43, R35.1) Status: Active Pelvic floor dysfunction (618.83, M62.89 ) Status: Active Dyspareunia, female (625.0, N94.10) Status: Active Mixed stress and urge urinary incontinen ce (788.33, N39.46) Status: Active Pain of right lower extremity (729.5, M7 9.604) Status: Active Depression screening negative (V79.0, Z1 3.31) Status: Active Frequency of urination (788.41, R35.0) Status: Active Recurrent UTI (urinary tract infection) (599.0, N39.0) Status: Active Vaginal atrophy (627.3, N95.2) Status: Active Urgency of urination (788.63, R39.15) Status: Active 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 41) Status: Active Other hyperlipidemia (272.4, E78.49) Status: Active Frequent UTI (599.0, N39.0) Status: Active Acute UTI (599.0, N39.0) Status: Active Urinary tract infection due to ESBL Kleb nhanlla (599.0, N39.0) Status: Active Conjunctival hyperemia of left eye (372. 71, H11.432) Status: Active Hypertension, well controlled (401.9, I1 0) Status: Active Class 1 obesity due to excess calories w ith body mass index (BMI) of 33.0 to 33.9 in adult (278.00, E66.09) Status: Active Medications Name Dates Details Gabapentin 300 MG Oral Capsule TAKE ONE CAPSULE BY MOUTH EVERY NIGHT AT 6 PM AND AT BEDTIME Quantity: 180 LANDON BARRIOS M.D. * Start : 09-Jul-2016 Active Losartan Potassium 100 MG Oral Tablet TAKE 1 TABLET BY MOUTH EVERY DAY * Quantity: 90 Refills: 0 DEVYN BARRIOS M.D.NDA * Start : 21-Jul-2014 Active Vitamin D3 125 MCG (5000 UT) Oral Capsule TAKE DIRECTED. * Refills: 0 Active Cranberry TABS TAKE 1 TABLET DAILY * Refills: 0 Active [place] 3 CAPS 1 tab qd * Refills: 0 Active Rosuvastatin Calcium 10 MG Oral Tablet TAKE 1 TABLET BY MOUTH EVERY DAY * Quantity: 90 Refills: 0 DEVYN BARRIOS M.D.NDA * Start : 28-Jul-2016 Active Omeprazole 20 MG Oral Tablet Delayed Release TAKE 2 TABLET DAILY * Refills: 0 Active Melatonin 5 MG Oral Capsule TAKE 1 CAPSULE BEDTIME * Refills: 0 Active busPIRone HCl - 5 MG Oral Tablet TAKE 2 TABLETS BY MOUTH 1 HOUR BEFORE BEDTIME * Quantity: 60 Refills: 0 LANDON BARRIOS M.D. * Start : 24-Jun-2018 Active Pramipexole Dihydrochloride 0.25 MG Oral Tablet TAKE 1 TABLET DAILY AT BEDTIME * Quantity: 90 Refills: 1 LANDON BARRIOS M.D. Active Polyethylene Glycol 3350 Oral Powder MIX 1 CAPFUL IN 8 OUNCES OF WATER AND DRINK AT BEDTIME NEEDED FOR CONSTIPATIO N. * Quantity: 510 Refills: 3 ADEEL BRITTON M.D. * Start : 12-Apr-2019 Active Shingrix 50 MCG Intramuscular Suspension Reconstituted INJECT 0.5 ML IM, please administer vaccine series per protocol * Quantity: 1 Refills: 0 LANDON BARRIOS M.D. * Start : 08-Sep-2019 Active Naproxen 500 MG Oral Tablet TAKE 1 TABLET TWICE DAILY with food * Quantity: 60 Refills: 0 LANDON BARRIOS M.D. * Start : 23-Sep-2019 Active Trospium Chloride ER 60 MG Oral Capsule Extended Release 24 Hour TAKE 1 CAPSULE BEDTIME * Quantity: 30 Refills: 2 DOUGHER D.O., CAMRON * Start : 23-Sep-2019 Active Estradiol 0.1 MG/GM Vaginal Cream INSERT 1 GRAM INTO THE VAGINA TWICE WEEKLY * Quantity: 1 Refills: 2 DOUGHER D.O., CAMRON * Start : 18-Oct-2019 Active Allergies and Adverse Reactions Name Dates Details Nitrofurantoin CAPS (Allergy) Status: Ac tive Past Medical History Name Dates Details Influenza vaccine needed (V04.81, Z23) Status: Active History of essential hypertension (V12.5 9, Z86.79) Status: Resolved History of hiatal hernia (V12.79, Z87.19 ) Status: Resolved History of hyperlipidemia (V12.29, Z86.3 9) Status: Resolved History of meningioma (V12.41, Z86.018) Status: Resolved History of recurrent urinary tract infec tion (V13.02, Z87.440) Status: Resolved Procedures Procedure Dates Details History of Hysterectomy Completed History of Bladder Surgery Completed History of Cholecystectomy Completed Immunization Name Dates Details Fluzone INJ Lot #: [id number] on: 06-Oct-2013 Influenza Comments: Approx Pneumococcal polysaccharide vaccine, 23 valent on: 29-Jul-2014 Fluzone Quadrivalent 0.5 ML Intramuscula r Suspension Lot #: [id number] on: 09-Oct-2015 Fluzone Quadrivalent 0.5 ML Intramuscula r Suspension Lot #: [id number] on: 09-Sep-2016 Hepatitis A Lot #: [id number] on: 30-Dec-2016 Tdap (Adacel) Lot #: [id number] on: 30-Dec-2016 Hepatitis A, adult Lot #: [id number] on: 29-Jun-2017 Fluzone Quadrivalent 0.5 ML Intramuscula r Suspension Lot #: [id number] on: 29-Jun-2017 Fluzone Quadrivalent 0.5 ML Intramuscula r Suspension Lot #: [id number] on: 24-Jun-2018 Fluzone High-Dose 0.5 ML Intramuscular S uspension Prefilled Syringe Lot #: [id number] on: 23-Aug-2019 Prevnar 13 Intramuscular Suspension Lot #: [id number] on: 23-Aug-2019 Family History Name Dates Details Family history of Hyperlipidemia Status: Active Name Dates Details Family history of Hypertension (V17.49) Status: Active Name Dates Details Family history of Prior Myocardial Infar ction Status: Active Social History Name Dates Details - Status: Name Dates Details Never smoked tobacco (finding) Vital Signs Date Test Result Details No Known Vitals to report Results Date Description Value Details Results not documented Plan of Care Name Dates Details Planned Observations Planned Goals not documented Planned Encounters Appointment; STANISLAV BACON M.D. On: 23-Dec-2019 9:45 Appointment; CAMRON GARAY D.O. On: 12-Jan-2020 11:00 Appointment; LANDON BARRIOS M.D. On: 17-Feb-2020 9:30 Interventions Provided Plan* UTI with ESBL producing Klebsiella: Symptoms improved taking Augmentin 875 mg twice daily * Continue antibiotic therapy until completed at which time a repeat culture and sensitivity will be performed * Recommended OTC probiotic when taking antibiotic to reduce GI symptoms. * Urinalysis in office: Normal * Urine specimen submitted for repeat culture and sensitivity * Left eye mild localized hyperemia and conjunctival injection : Observation to see if spontaneously resolves. If symptoms worsen or increase patient to schedule appointment with her spring bender. * Return to clinic in 1 week for reevaluation of left conjunctival hyperemia and continued UTI follow-up. Appointment scheduled. * Call or return to clinic sooner if new or worsening symptoms. Instructions Name Dates Details Instructions not documented Encounters Appointment; LANDON BARRIOS M.D. Encounter Diagnosis: Problem not documented On: 10-Dec-2017 14:15 Appointment; LANDON BARRIOS M.D. Encounter Diagnosis: Problem not documented On: 11-Jan-2018 9:30 Appointment; KRISTINA RALPH M.D. Encounter Diagnosis: Problem not documented On: 13-Feb-2018 10:30 Appointment; LANDON BARRIOS M.D. Encounter Diagnosis: Problem not documented On: 25-Mar-2018 14:30 Appointment; CELIA WHITNEY M.D. Encounter Diagnosis: Problem not documented On: 18-May-2018 14:15 Appointment; LANDON BARRIOS M.D. Encounter Diagnosis: Problem not documented On: 24-Jun-2018 9:00 Appointment; CELIA WHITNEY M.D. Encounter Diagnosis: Problem not documented On: 05-Jul-2018 7:30 Appointment; LANDON BARRIOS M.D. Encounter Diagnosis: Problem not documented On: 08-Jul-2018 14:15 Appointment; LANDON BARRIOS M.D. Encounter Diagnosis: Problem not documented On: 15-Jul-2018 9:00 Appointment; LANDON BARRIOS M.D. Encounter Diagnosis: Problem not documented On: 24-Sep-2018 10:00 Appointment; BARRINGTON RODAS APRN Encounter Diagnosis: Problem not documented On: 26-Oct-2018 10:00 Appointment; ARMIN AGUSTIN P.A. Encounter Diagnosis: Problem not documented On: 29-Oct-2018 9:30 Appointment; LANDON BARRIOS M.D. Encounter Diagnosis: Problem not documented On: 11-Feb-2019 11:00 Appointment; ADEEL BRITTON M.D. Encounter Diagnosis: Problem not documented On: 12-Apr-2019 15:30 Appointment; LANDON BARRIOS M.D. Encounter Diagnosis: Problem not documented On: 23-Aug-2019 14:15 Appointment; LANDON BARRIOS M.D. Encounter Diagnosis: Problem not documented On: 08-Sep-2019 10:30 Appointment; LANDON BARRIOS M.D. Encounter Diagnosis: Problem not documented On: 23-Sep-2019 9:30 Appointment; CAMRON GARAY D.O. Encounter Diagnosis: Problem not documented On: 23-Sep-2019 11:30 Appointment; LANDON BARRIOS M.D. Encounter Diagnosis: Problem not documented On: 26-Sep-2019 15:15 Appointment; LANDON BARRIOS M.D. Encounter Diagnosis: Problem not documented On: 29-Sep-2019 8:15
--- OUTSIDE RECORDS SUMMARY | 2020-05-13 19:00 | XMS REPORT | Summary of Care ---
Author Author SOPHIE De Santiago, KIRILL RIVERS Organization Unknown Address Unknown Phone Unavailable Care Team Providers Care Lead Manufacturing Engineer Name Role Phone TOBI De Santiago, ADEEL Geller Unavailable SOPHIE De Santiago, LANDON Unavailable Unavailable TANISHA D.OCassie, CAMRON Unavailable Unavailable SOPHIE CAMPBELL [place], [place]ON [place] Unavailable Unavailable TANISHA FOX, CAMRON E Unavailable Unavailable CLARK SMITHP, BARRINGTON Unavailable Unavailable NIKOLE OJEDA, ARMIN Unavailable Unavailable RAYNE CAMPBELL, PITA Unavailable Unavailable TOBI CAMPBELL [place], ADEEL Ching Unavailable Unavailable Unavailable Unavailable Functional [...] urinary incontinen ce (788.33, N39.46) Status: Active Acute upper respiratory infection (465.9 , J06.9) Status: Active Common cold (460, J00) Status: Active Seasonal allergies (477.9, J30.2) Status: [...] without rebound tenderness (789.61, R10.811) Status: Active Chest pain, unspecified type (786.50, R0 7.9) Status: Active Right-sided chest wall pain (786.52, R07 .89) Status: Active Chronic insomnia (780.52, F51.04) Status: Active OANH on CPAP (327.23, G47.33) Status: Active Acute infective tracheobronchitis (466.0 , J20.9) Status: Active Restless legs syndrome (333.94, G25.81) Status: Active On statin therapy (V58.69, Z79.899) Status: Active GERD (gastroesophageal reflux disease) ( 530.81, K21.9) Status: Active Chronic insomnia (780.52, F51.04) Status: Active Hypertension, well controlled (401.9, I1 0) Status: Active Anxiety state (300.00, F41.1) Status: Active Constipation (564.00, K59.00) Status: Active Frequent UTI (599.0, N39.0) Status: Active Acute UTI (599.0, N39.0) Status: Active Influenza vaccine needed (V04.81, Z23) Status: Active Screening for hypothyroidism (V77.0, Z13 .29) Status: Active Need for vaccination with 13-polyvalent pneumococcal conjugate vaccine (V03.82, Z23) Status: Active Other hyperlipidemia (272.4, E78.49) Status: Active Bunion of great toe of left foot (727.1, M21.612) Status: Active Bunion of great toe of right foot (727.1 , M21.611) Status: Active Skin lesion of breast (611.9, N64.9) Status: Active Essential (primary) hypertension (401.9, I10) Status: Active Prediabetes (790.29, R73.03) Status: Active Encounter for monitoring statin therapy (V58.83, Z51.81) Status: Active Encounter to discuss test results (V65.4 9, Z71.2) Status: Active At low risk for fall (V49.89, Z91.81) Status: Active Chronic constipation (564.00, K59.09) Status: Active Nocturia (788.43, R35.1) Status: Active Pelvic floor dysfunction (618.83, M62.89 ) Status: Active Dyspareunia, female (625.0, N94.10) Status: Active Urinary symptom or sign (788.99, R39.9) Status: Active Need for shingles vaccine (V04.89, Z23) Status: Active Conjunctival hyperemia of left eye (372. 71, H11.432) Status: Active Mixed stress and urge urinary incontinen ce (788.33, N39.46) Status: Active UTI (urinary tract infection) (599.0, N3 9.0) Status: Active Pain of right lower extremity (729.5, M7 9.604) Status: Active Depression screening negative (V79.0, Z1 3.31) Status: Active Class 1 obesity due to excess calories w ith body mass index (BMI) of 33.0 to 33.9 in adult (278.00, E66.09) Status: Active Frequency of urination (788.41, R35.0) Status: Active Recurrent UTI (urinary tract infection) (599.0, N39.0) Status: Active Vaginal atrophy (627.3, N95.2) Status: Active Urgency of urination (788.63, R39.15) Status: Active Urge incontinence of urine (788.31, N39. 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 Medications Name Dates Details Gabapentin [...] 1 TABLET DAILY * Refills: 0 Active [place] 3 CAPS 1 tab qd * Refills: [...] Z87.440) Status: Resolved Procedures Procedure Dates Details [H] Urinalysis w/ Microscopic Date: 23-Sep-2019 History of Hysterectomy Completed History of Bladder Surgery Completed History of Cholecystectomy Completed Immunization Name Dates Details Fluzone INJ Lot #: [id number] on: 06-Oct-2013 Influenza Comments: Approx Pneumococcal polysaccharide vaccine, 23 valent on: 29-Jul-2014 Fluzone Quadrivalent 0.5 ML Intramuscula r Suspension Lot #: [id number] on: 09-Oct-2015 Fluzone Quadrivalent 0.5 ML Intramuscula r Suspension Lot #: [id number] on: 09-Sep-2016 Hepatitis A Lot #: [id number] on: 30-Dec-2016 Tdap (Adacel) Lot #: [id number] on: 30-Dec-2016 Hepatitis A, adult Lot #: [id number] on: 29-Jun-2017 Fluzone Quadrivalent 0.5 ML Intramuscula r Suspension Lot #: [id number] on: 29-Jun-2017 Fluzone Quadrivalent 0.5 ML Intramuscula r Suspension Lot #: [id number] on: 24-Jun-2018 Fluzone High-Dose 0.5 ML Intramuscular S uspension Prefilled Syringe Lot #: [id number] on: 23-Aug-2019 Prevnar 13 Intramuscular Suspension Lot #: [id number] on: 23-Aug-2019 Family History Name Dates Details Family history of Hyperlipidemia Status: Active Name Dates Details Family history of Hypertension (V17.49) Status: Active Name Dates Details Family history of Prior Myocardial Infar ction Status: Active Social History Name Dates Details - Status: Name Dates Details Never smoker Vital Signs Date Test Result Details [id number] BP Systolic 144 mm[Hg] Status: Comments: Lo cation: LUE; Position: Sitting BP Diastolic 85 mm[Hg] Status: Comments: Lo cation: LUE; Position: Sitting Height 58.5 in Status: Weight 163 lb Status: Body Mass Index Calculated 33.49 kg/m2 Status: Body Surface Area Calculated 1.68 m2 Status: Temperature 98.3 f Status: Comments: Me thod: Oral Heart Rate 90 /min Status: Results Date Description Value Details Results not documented Plan of Care Name Dates Details Planned Observations Planned Goals not documented Planned Encounters Appointment; STANISLAV BACON M.D. On: 23-Dec-2019 9:45 Appointment; CAMRON GARAY D.O. On: 12-Jan-2020 11:00 Appointment; LANDON BARRIOS M.D. On: 17-Feb-2020 9:30 Interventions Provided Medication Changes* Naproxen 500 MG Oral Tablet - Start * Shingrix 50 MCG Intramuscular Suspension Reconstituted - Start Plan* For pain of right lower extremity, possibly due to Achilles tendonitis: * - START Naproxen 500 mg, BID with food x 30 days * For recent UTI: * - Urine dipstick obtained in office: microscopic hematuria otherwise, unremarkable * - Urine sent for culture to ensure eradication of UTI * Shingrix vaccine prescription provided the patient to have administered at her local pharmacy. * Continue current medications without changes; * Anxiety: * - Buspirone HCl 5 mg 2 tabs one hour before bedtime * Hypertension: * - Losartan 100 mg daily * MIxed stress and urge urinary incontinence * - Myrbetriq 25 mg daily * Hyperlipidemia: * - Rosuvastatin 10 mg daily and continue omega-3 fish oil 3 g daily * GERD: * - Omeprazole 20 mg, 2 tabs daily * Chronic insomnia: * - Melatonin 5 mg along with gabapentin 300 mg with the evening meal and 300 mg at bedtime * Return to clinic in 3 days for reevaluation. Instructions Name Dates Details Instructions not documented Encounters Appointment; CARMELA CERVANTES RD Encounter Diagnosis: Problem not documented On: 18-Nov-2017 10:00 Appointment; LANDON BARRIOS M.D. Encounter Diagnosis: Problem [...] not documented On: 24-Jun-2018 9:00 Appointment; CELIA WHTINEY M.D. Encounter Diagnosis: Problem not documented On: 05-Jul-2018 7:30 Appointment; LANDON BARRIOS M.D. Encounter Diagnosis: Problem not documented On: 08-Jul-2018 14:15 Appointment; LANDON BARRIOS M.D. Encounter Diagnosis: Problem not documented On: 15-Jul-2018 9:00 Appointment; LANDON BARRIOS M.D. Encounter Diagnosis: Problem not documented On: 24-Sep-2018 10:00 Appointment; BARRINGTON RODAS NP Encounter Diagnosis: Problem not documented On: 26-Oct-2018 [...]
--- OUTSIDE RECORDS SUMMARY | 2020-05-13 19:00 | XMS REPORT | Summary of Care ---
Author Author SOPHIE De Santiago, KIRILL RIVERS Organization Unknown Address Unknown Phone Unavailable Care Team Providers Care Job Compositor Name Role Phone TOBI De Santiago, ADEEL Geller Unavailable SOPHIE De Santiago, LANDON Unavailable Unavailable TANISHA D.OCassie, CAMRON Unavailable Unavailable SOPHIE CAMPBELL [place], [place] Unavailable Unavailable TANISHA FOX, CAMRON E Unavailable Unavailable CLARK SMITHP, BARRINGTON Unavailable Unavailable NIKOLE OJEDA, ARMIN Unavailable Unavailable RAYNE CAMPBELL, PITA Unavailable Unavailable TOBI CAMPBELL [place], ADEEL Ching Unavailable Unavailable Unavailable Unavailable Functional [...] On statin therapy (V58.69, Z79.899) Status: Active Hypertension, well controlled (401.9, I1 0) Status: Active Chronic insomnia (780.52, F51.04) Status: [...] Active Dyspareunia, female (625.0, N94.10) Status: Active Conjunctival hyperemia of left eye [...] right foot (727.1 , M21.611) Status: Active UTI (urinary tract infection) (599.0, N3 9.0) Status: Active Changing pigmented skin lesion (216.9, L 81.9) Status: Active Essential (primary) hypertension (401.9, I10) Status: Active Prediabetes (790.29, R73.03) Status: Active Urge incontinence of urine (788.31, N39. 41) Status: Active Other hyperlipidemia (272.4, E78.49) Status: Active Frequent UTI (599.0, N39.0) Status: Active Acute UTI (599.0, N39.0) Status: Active Medications Name Dates Details Gabapentin [...] 1 TABLET DAILY * Refills: 0 Active [place] 3 CAPS 1 tab qd * Refills: [...] Name Dates Details Fluzone INJ Lot #: [id number] on: 06-Oct-2013 Influenza Comments: Approx Pneumococcal polysaccharide vaccine, 23 valent on: 29-Jul-2014 Fluzone Quadrivalent 0.5 ML Intramuscula r Suspension Lot #: [id number] on: 09-Oct-2015 Fluzone Quadrivalent 0.5 ML Intramuscula r Suspension Lot #: [id number] on: 09-Sep-2016 Hepatitis A Lot #: [id number] on: 30-Dec-2016 Tdap (Adacel) Lot #: [id number] on: 30-Dec-2016 Hepatitis A, adult Lot #: [id number] on: 29-Jun-2017 Fluzone Quadrivalent 0.5 ML Intramuscula r Suspension Lot #: [id number] on: 29-Jun-2017 Fluzone Quadrivalent 0.5 ML Intramuscula r Suspension Lot #: [id number] on: 24-Jun-2018 Fluzone High-Dose 0.5 ML Intramuscular S uspension Prefilled Syringe Lot #: [id number] on: 23-Aug-2019 Prevnar 13 Intramuscular Suspension Lot #: [id number] on: 23-Aug-2019 Family History Name Dates Details Family history of Hyperlipidemia Status: Active Name Dates Details Family history of Hypertension (V17.49) Status: Active Name Dates Details Family history of Prior Myocardial Infar ction Status: Active Social History Name Dates Details - Status: Name Dates Details Never smoker Vital Signs Date Test Result Details No Known Vitals to report Results Date Description Value Details Results not documented Plan of Care Name Dates Details Planned Observations Planned Goals not documented Planned Encounters Appointment; STANISLAV BACON M.D. On: 23-Dec-2019 9:45 Appointment; CAMRON GARAY D.O. On: 12-Jan-2020 11:00 Appointment; LANDON BARRIOS M.D. On: 17-Feb-2020 9:30 Interventions Provided Labs/Procedures/Imaging* [O] Urine Dipstick (In Office); Done: 23 Aug 2019 Follow-ups/Referrals* Urogynecologist; To Be Done: 23 Aug 2019 Medications/Immunizations Administered* Fluzone High-Dose 0.5 ML Intramuscular Suspension Prefilled Syringe; Done: 23 Aug 2019 * Prevnar 13 Intramuscular Suspension; Done: 23 Aug 2019 Plan* For acute UTI and hx of frequent UTI: * -urinalysis in office: Malodorous, negative nitrite, blood 1+, negative glucose protein urobilinogen ketones and leukocyte esterase. * - Urine specimen submitted to the lab for culture and sensitivity * - START Ciprofloxacin 250 mg, 1 tab BID x 7 days while awaiting results of the urine culture. * - May continue cephalexin 500 mg twice daily until culture results available. * - Increase daily water intake. * - Patient referred to a different urogynecologist per her request for management of urinary incontinence and repeated UTIs * Lab ordered for monitoring HTN, HLD, prediabetes and screening for thyroid disorders including: Hemoglobin A1c, TSH w/reflex to FT4, CMP w/eGFR, Lipid panel. * Immunization review : * Seasonal influenza administered. * Pneumococcal Prevnar 13 vaccine administered. * Pneumococcal 23 vaccine to be administered in 1 year * Anxiety and insomnia: * - Buspirone HCl 5 mg 2 tabs one hour before bedtime * Hypertension: * - Losartan 100 mg daily * MIxed stress and urge urinary incontinence * - Myrbetriq 25 mg daily * Hyperlipidemia: * - Rosuvastatin 10 mg daily and continue omega-3 fish oil 3 g daily * GERD: * - Omeprazole 20 mg, 2 tabs daily * Chronic insomnia: * -Continue melatonin 5 mg along with gabapentin 300 mg with the evening meal and 300 mg at bedtime (current schedule) * Call on 08/29/19 for discussion of urine culture results and possible need for antibiotic change based on culture results. * Return to clinic in 2 weeks for discussion of lab results and repeat urinalysis and urine culture and sensitivity to ensure eradication of UTI. * Return to clinic sooner if new or worsening symptoms and particularly if develops fever, nausea, vomiting, or diarrhea. Instructions Name Dates Details Instructions not documented [...]
--- OUTSIDE RECORDS SUMMARY | 2020-05-13 19:00 | XMS REPORT | Summary of Care ---
Author Author Jose Barton, KIRILL LAI Organization Unknown Address Unknown Phone Unavailable Care Team Providers Care Motor Vehicle Or Caravan Salesperson Name Role Phone TOBI De Santiago, ADEEL Geller Unavailable SOPHIE De Santiago, LANDON Unavailable Unavailable TANISHA D.OCassie, CAMRON Unavailable Unavailable SOPHIE CAMPBELL [place], [place] Unavailable Unavailable TANISHA FOX, CAMRON E Unavailable Unavailable CLARK SMITHP, B[place] Unavailable Unavailable NIKOLE OJEDA, ARMIN Unavailable Unavailable RAYNE CAMPBELL, PITA Unavailable Unavailable TOBI CAMPBELL [place], ADEEL Ching Unavailable Unavailable Unavailable Unavailable Functional [...] Active Acute UTI (599.0, N39.0) Status: Active Need for vaccination with 13-polyvalent pneumococcal conjugate vaccine (V03.82, Z23) Status: Active Influenza vaccine needed (V04.81, Z23) Status: Active Screening for hypothyroidism (V77.0, Z13 .29) Status: Active Other hyperlipidemia (272.4, E78.49) Status: Active Prediabetes (790.29, R73.03) Status: Active Essential (primary) hypertension (401.9, I10) Status: Active Bunion of great toe of left foot (727.1, M21.612) Status: Active Bunion of great toe of right foot (727.1 , M21.611) Status: Active Skin lesion of breast (611.9, N64.9) Status: Active Encounter for monitoring statin therapy (V58.83, Z51.81) Status: Active Encounter to discuss test results (V65.4 9, Z71.2) Status: Active At low risk for fall (V49.89, Z91.81) Status: Active Urinary symptom or sign (788.99, R39.9) Status: Active Chronic constipation (564.00, K59.09) Status: Active Nocturia (788.43, R35.1) Status: Active Pelvic floor dysfunction (618.83, M62.89 ) Status: Active Dyspareunia, female (625.0, N94.10) Status: Active Need for shingles vaccine (V04.89, [...] 1 TABLET DAILY * Refills: 0 Active [place] 3 CAPS 1 tab qd * Refills: [...] Name Dates Details Fluzone INJ Lot #: [id number] on: 06-Oct-2013 Influenza Comments: Approx Pneumococcal polysaccharide vaccine, 23 valent on: 29-Jul-2014 Fluzone Quadrivalent 0.5 ML Intramuscula r Suspension Lot #: [id number] on: 09-Oct-2015 Fluzone Quadrivalent 0.5 ML Intramuscula r Suspension Lot #: [id number] on: 09-Sep-2016 Hepatitis A Lot #: [id number] on: 30-Dec-2016 Tdap (Adacel) Lot #: [id number] on: 30-Dec-2016 Hepatitis A, adult Lot #: [id number] on: 29-Jun-2017 Fluzone Quadrivalent 0.5 ML Intramuscula r Suspension Lot #: [id number] on: 29-Jun-2017 Fluzone Quadrivalent 0.5 ML Intramuscula r Suspension Lot #: [id number] on: 24-Jun-2018 Fluzone High-Dose 0.5 ML Intramuscular S uspension Prefilled Syringe Lot #: [id number] on: 23-Aug-2019 Prevnar 13 Intramuscular Suspension Lot #: [id number] on: 23-Aug-2019 Family History Name Dates Details Family history of Hyperlipidemia Status: Active Name Dates Details Family history of Hypertension (V17.49) Status: Active Name Dates Details Family history of Prior Myocardial Infar ction Status: Active Social History Name Dates Details - Status: Name Dates Details Never smoker Vital Signs Date Test Result Details :51 BP Systolic 144 mm[Hg] Status: Comments: Lo cation: LUE; Position: Sitting BP Diastolic 85 mm[Hg] Status: Comments: Lo cation: LUE; Position: Sitting Height 58.5 in Status: Weight 163 lb Status: Body Mass Index Calculated 33.49 kg/m2 Status: Body Surface Area Calculated 1.68 m2 Status: Temperature 98.3 f Status: Comments: Me thod: Oral Heart Rate 90 /min Status: :25 BP Systolic 156 mm[Hg] Status: Comments: Lo cation: LUE; Position: Sitting BP Diastolic 92 mm[Hg] Status: Comments: Lo cation: LUE; Position: Sitting Height 58.5 in Status: Weight 165 lb Status: Body Mass Index Calculated 33.9 kg/m2 Status: Body Surface Area Calculated 1.69 m2 Status: Temperature 97.6 f Status: Comments: Me thod: Oral Heart Rate 83 /min Status: Results Date Description Value Details Results not documented Plan of Care Name Dates Details Planned Observations Planned Goals not documented Planned Encounters Appointment; STANISLAV BACON M.D. On: 23-Dec-2019 9:45 Appointment; CAMRON GARAY D.O. On: 12-Jan-2020 11:00 Appointment; LANDON BARRIOS M.D. On: 17-Feb-2020 9:30 Interventions Provided Medication Changes* Rosuvastatin Calcium 10 MG Oral Tablet - Renew Instructions Name Dates Details Instructions not documented [...] Diagnosis: Problem not documented On: 29-Sep-2019 8:15 Appointment; TAM MENDOZA M.D. Encounter Diagnosis: Problem not documented On: 30-Sep-2019 14:45 Appointment; SE-UR[facility]NAMICS, NURSE Encounter Diagnosis: Problem not documented On: 06-Oct-2019 9:00 Appointment; LANDON BARRIOS M.D. Encounter Diagnosis: Problem not documented On: 06-Oct-2019 15:15 Appointment; CAMRON GARAY D.O. Encounter Diagnosis: Problem not documented On: 13-Oct-2019 14:00
--- OUTSIDE RECORDS SUMMARY | 2020-05-13 19:00 | XMS REPORT | Summary of Care ---
Author Author TANISHA Archibald, KIRILL RIVERS Organization Unknown Address Unknown Phone Unavailable Care Team Providers Care Customer Relationship Specialist Name Role Phone Leighton Barton, Lory Unavailable Unavailable TOBI De Santiago, ADEEL Unavailable Unavailable SOPHIE De Santiago, LANDON Unavailable Unavailable TANISHA Archibald, CAMRON Unavailable Unavailable SOPHIE CAMPBELL [place], [place] Unavailable Unavailable TANISHA FOX, CAMRON E Unavailable Unavailable CLARK RODRIGUEZ, BARR[place] Unavailable Unavailable NIKOLE OJEDA, ARMIN Unavailable Unavailable RAYNE CAMPBELL, PITA Unavailable Unavailable TOBI CAMPBELL [place], ADEEL Ching Unavailable Unavailable Unavailable Unavailable Functional [...] 6 PM AND AT BEDTIME Quantity: 180 SOPHIE De Santiago, LANDON * Start : 09-Jul-2016 Active Losartan Potassium 100 MG Oral Tablet TAKE 1 TABLET BY MOUTH EVERY DAY * Quantity: 90 Refills: 0 SOPHIE Em.Reese, LANDON * Start : 21-Jul-2014 Active Vitamin D3 125 MCG (5000 UT) Oral Capsule TAKE DIRECTED. * Refills: 0 Active Cranberry TABS TAKE 1 TABLET DAILY * Refills: 0 Active [place] 3 CAPS 1 tab qd * Refills: 0 Active Rosuvastatin Calcium 10 MG Oral Tablet TAKE 1 TABLET BY MOUTH EVERY DAY * Quantity: 90 Refills: 2 SOPHIE Em.Reese, LANDON * Start : 28-Jul-2016 Active Omeprazole 20 [...] Z87.440) Status: Resolved Procedures Procedure Dates Details [[facility]] CMP W/EGFR Date: 23-Aug-2019 [[facility]] HEMOGLOBIN A1c Date: 23-Aug-2019 [QH] LIPID PANEL WITH REFLEX TO DIRECT LDL Date: 23-Aug-2019 [H] Urinalysis w/ Microscopic Date: 23-Sep-2019 History of Hysterectomy Completed History of Bladder Surgery Completed History of Cholecystectomy Completed Immunization Name Dates Details Fluzone INJ Lot #: [id number] on: 06-Oct-2013 Influenza Comments: Approx Pneumococcal polysaccharide vaccine, 23 valent on: 29-Jul-2014 Fluzone Quadrivalent 0.5 ML Intramuscula r Suspension Lot #: [id number] on: 09-Oct-2015 Fluzone Quadrivalent 0.5 ML Intramuscula r Suspension Lot #: [id number] on: 09-Sep-2016 Hepatitis A Lot #: [id number] on: 30-Dec-2016 Tdap (Adacel) Lot #: [id number] on: 30-Dec-2016 Hepatitis A, adult Lot #: [id number] on: 29-Jun-2017 Fluzone Quadrivalent 0.5 ML Intramuscula r Suspension Lot #: [id number] on: 29-Jun-2017 Fluzone Quadrivalent 0.5 ML Intramuscula r Suspension Lot #: [id number] on: 24-Jun-2018 Fluzone High-Dose 0.5 ML Intramuscular S uspension Prefilled Syringe Lot #: [id number] on: 23-Aug-2019 Prevnar 13 Intramuscular Suspension Lot #: [id number] on: 23-Aug-2019 Family History Name Dates Details [...] thod: Oral Heart Rate 83 /min Status: :30 BP Systolic 129 mm[Hg] Status: Comments: Lo cation: LUE; Position: Sitting BP Diastolic 83 mm[Hg] Status: Comments: Lo cation: LUE; Position: Sitting Height 58.5 in Status: Weight 162.4 lb Status: Body Mass Index Calculated 33.36 kg/m2 Status: Body Surface Area Calculated 1.68 m2 Status: Temperature 98.1 f Status: Comments: Me thod: Temporal Heart Rate 87 /min Status: Comments: Lo cation: L Radial; Respiration Rate 16 /min Status: Comments: Qu ality: Normal Physical Findings 0 Status: Comments: Pa in Scale :25 BP Systolic 135 mm[Hg] Status: Comments: Lo cation: LUE; Position: Sitting BP Diastolic 78 mm[Hg] Status: Comments: Lo cation: LUE; Position: Sitting Height 58.5 in Status: Weight 164 lb Status: Body Mass Index Calculated 33.69 kg/m2 Status: Body Surface Area Calculated 1.68 m2 Status: Temperature 97.8 f Status: Comments: Me thod: Temporal Heart Rate 92 /min Status: Comments: Lo cation: L Radial; Respiration Rate 16 /min Status: :12 BP Systolic 120 mm[Hg] Status: Comments: Lo cation: LUE; Position: Sitting BP Diastolic 82 mm[Hg] Status: Comments: Lo cation: LUE; Position: Sitting Height 58.5 in Status: Weight 161.25 lb Status: Body Mass Index Calculated 33.13 kg/m2 Status: Body Surface Area Calculated 1.67 m2 Status: Temperature 98.4 f Status: Comments: Me thod: Oral :35 BP Systolic 132 mm[Hg] Status: Comments: Lo cation: LUE; Position: Sitting BP Diastolic 84 mm[Hg] Status: Comments: Lo cation: LUE; Position: Sitting Height 58.5 in Status: Weight 160.3 lb Status: Body Mass Index Calculated 32.93 kg/m2 Status: Body Surface Area Calculated 1.67 m2 Status: Temperature 98.9 f Status: Comments: Me thod: Temporal Heart Rate 92 /min Status: Comments: Lo cation: L Radial; Respiration Rate 16 /min Status: Comments: Qu ality: Normal Results Date Description Value Details [id number] [O] Urine Dipstick (In Office) Glucose neg (Normal) LEUKOCYTES neg (Normal) NITRITE neg (Normal) UROBILINOGEN neg (Normal) PROTEIN neg (Normal) pH 7 (Normal) URINE BLOOD about 50 SPECIFIC GRAVITY 1.000 (Normal) KETONES neg (Normal) BILIRUBIN neg (Normal) COLOR URINE yellow (Normal) APPEARANCE clear (Normal) :00 [[facility]] URINALYSIS, COMPLETE UA Turbidity Clear Range: Clear UA Spec Grav 1.006 Range: <=1.030 UA pH 7.0 Range: 5.0-8.0 UA Protein Negative mg/dl Range: Negative UA Glucose Negative mg/dl Range: Negative UA Ketones Negative mg/dl Range: Negative UA Bili Negative Range: Negative UA Blood Small (Abnormal) Range: Negati ve UA Nitrite Negative Range: Negative UA Leuk Est Negative Range: Negative UA RBC 1 {/HPF} Range: 0-2 UA WBC <1 {/HPF} Range: 0-5 UA Bacteria Occasional {/HPF} Range: None S een UA Sq Epi Occasional {/LPF} Range: Few UA Color Ltyellow UROBILINOGEN <=1.0 mg/dl Range: 0.1-1.0 [id number] [O] Urine Dipstick (In Office) Glucose neg (Normal) LEUKOCYTES ++ NITRITE neg (Normal) UROBILINOGEN neg (Normal) PROTEIN neg (Normal) pH 5 (Normal) URINE BLOOD about 250 SPECIFIC GRAVITY 1.000 (Normal) KETONES neg (Normal) BILIRUBIN neg (Normal) COLOR URINE yellow (Normal) APPEARANCE slight cloudy :00 [[facility]] CULTURE, URINE, ROUTINE Comments: Source: Urine, CatheterizedBody Site: ORGANIS[facility] Klebsiella pneumonia e ESBL FINAL REPORT 50,000 - 100,000 CFU /mL Klebsiella pneumoniae ESBL Multi-drug ResistantOrganism :00 [H] [facility] Comments: Source: Ur ine, CatheterizedBody Site: ORGANISMH Klebsiella pneumonia e ESBL Amikacin <=8 (Susceptible) Ampicillin >16 (Resistant) Ampicillin/Sulbactam >16/8 (Resistant) Cefazolin >16 (Resistant) Cefepime >16 (Resistant) Ceftriaxone >32 (Resistant) Ciprofloxacin >2 (Resistant) Gentamicin >8 (Resistant) Levofloxacin >4 (Resistant) Meropenem <=1 (Susceptible) Nitrofurantoin >64 (Resistant) Piperacillin/Tazobactam - (Resistant) Tetracycline >8 (Resistant) Tobramycin 4 (Susceptible) Trimethoprim/Sulfamethoxazole >2/38 (Resistant ) Comments: S= Susceptible, R= Resistant, I= Intermediate, N/A= Not Applicable [id number] CT Abdomen/Pelvis w/wo contrast [id number] Abdomen/Pelvis w/wo contrast CT SEE NOTES Comments: Radiation Dose CTDIVOL = 0 (mGy): DLP = [...] space: Unremarkable. No free air. No significant fluidcollection.Lymph nodes: Unremarkable. No enlarged lymph nodes.Vasculature: Atherosclerotic calcifications.Bladder: Unremarkable. Reproductive: The uterus appears absent.Bones/joints: 4 mm of anterolisthesis of L5 on S1 with severe facetarthropathy.Soft tissues: Unremarkable.Other findings: Large hiatal hernia.IMPRESSION:1. No renal, ureteral, or bladder stone. No hydronephrosis. No suspicious massof the urinary tract system.2. Question 5 mm hypodensity in the pancreas. Recommend reimage every 2 yearsfor 10 years. (AJ Cici, et al. ACR White Paper, March 2017)3. Large hiatal hernia.4. Please refer to other findings detailed above.Paulie Cho MD On 09/27/2019 14:53:20; [id number]--[place] by: Paulie Cho MDDictated Date/time: 09/27/19 14:53Electronically Signed by: Paulie Cho MD 09/27/1914:53FINAL REPORT [id number] [O] Urine Dipstick (In Office) Glucose neg (Normal) LEUKOCYTES neg (Normal) NITRITE neg (Normal) UROBILINOGEN neg (Normal) PROTEIN neg (Normal) pH 6 (Normal) URINE BLOOD neg (Normal) SPECIFIC GRAVITY 1.000 (Normal) KETONES neg (Normal) BILIRUBIN neg (Normal) COLOR URINE yellow (Normal) APPEARANCE clear (Normal) Plan of Care Name Dates Details Planned Observations Planned Goals not documented Planned Encounters Appointment; STANISLAV BACON M.D. On: 23-Dec-2019 9:45 Appointment; CARMON GARAY D.O. On: 12-Jan-2020 11:00 Appointment; LANDON BARRIOS M.D. On: 17-Feb-2020 9:30 Interventions Provided Medication Changes* Estradiol 0.1 MG/GM Vaginal Cream - Start Instructions Name Dates Details Instructions not documented Encounters Appointment; LANDON BARRIOS M.D. Encounter Diagnosis: Problem not documented On: 20-Oct-2017 15:15 Appointment; CARMELA CERVANTES RD Encounter Diagnosis: Problem [...]
--- OUTSIDE RECORDS SUMMARY | 2020-05-13 19:00 | XMS REPORT | Summary of Care ---
Author Author SOPHIE De Santiago, KIRILL RIVERS Organization Unknown Address Unknown Phone Unavailable Care Team Providers Care Iuss Acoustic Analyst Name Role Phone TOBI De Santiago, ADEEL Geller Unavailable SOPHIE De Santiago, LANDON Unavailable Unavailable TANISHA D.OCassie, CAMRON Unavailable Unavailable SOPHIE CAMPBELL [place], [place] Unavailable Unavailable TANISHA FOX, CAMRON E Unavailable Unavailable CLARK SMITHP, BARR[place] Unavailable Unavailable NIKOLE OJEDA, ARMIN Unavailable Unavailable RAYNE CAMPBELL, PITA Unavailable Unavailable TOBI CAMPBELL [place], ADEEL Ching Unavailable Unavailable Unavailable Unavailable Functional [...] Status: Active Constipation (564.00, K59.00) Status: Active Influenza vaccine needed (V04.81, Z23) Status: Active Screening for hypothyroidism (V77.0, Z13 .29) Status: Active Need for vaccination with 13-polyvalent pneumococcal conjugate vaccine (V03.82, Z23) Status: Active At low risk for fall (V49.89, Z91.81) Status: Active Chronic constipation (564.00, K59.09) Status: Active Urinary symptom or sign (788.99, R39.9) Status: Active Nocturia (788.43, R35.1) Status: Active [...] 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, 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 Encounter for monitoring statin therapy (V58.83, Z51.81) Status: Active Need for shingles vaccine (V04.89, Z23) Status: Active Encounter to discuss test results (V65.4 9, Z71.2) Status: Active Bunion of great toe of left foot (727.1, M21.612) Status: Active Bunion of great toe of right foot (727.1 , M21.611) Status: Active Changing pigmented skin lesion (216.9, L 81.9) Status: Active Other hyperlipidemia (272.4, E78.49) Status: Active Essential (primary) hypertension (401.9, I10) Status: Active Acute UTI (599.0, N39.0) Status: Active Prediabetes (790.29, R73.03) Status: Active Urge incontinence of urine (788.31, N39. 41) Status: Active Frequent UTI (599.0, N39.0) Status: Active Urinary tract infection due to ESBL Kleb siella (599.0, N39.0) Status: Active Class 1 obesity due to excess calories w ith body mass index (BMI) of 33.0 to 33.9 in adult (278.00, E66.09) Status: Active Hypertension, well controlled (401.9, I1 0) Status: Active Conjunctival hyperemia of left eye (372. 71, H11.432) Status: Active Medications Name Dates Details Gabapentin [...] 1 TABLET DAILY * Refills: 0 Active [place] 3 CAPS 1 tab qd * Refills: [...] Name Dates Details Fluzone INJ Lot #: [id number] on: 06-Oct-2013 Influenza Comments: Approx Pneumococcal polysaccharide vaccine, 23 valent on: 29-Jul-2014 Fluzone Quadrivalent 0.5 ML Intramuscula r Suspension Lot #: [id number] on: 09-Oct-2015 Fluzone Quadrivalent 0.5 ML Intramuscula r Suspension Lot #: [id number] on: 09-Sep-2016 Hepatitis A Lot #: [id number] on: 30-Dec-2016 Tdap (Adacel) Lot #: [id number] on: 30-Dec-2016 Hepatitis A, adult Lot #: [id number] on: 29-Jun-2017 Fluzone Quadrivalent 0.5 ML Intramuscula r Suspension Lot #: [id number] on: 29-Jun-2017 Fluzone Quadrivalent 0.5 ML Intramuscula r Suspension Lot #: [id number] on: 24-Jun-2018 Fluzone High-Dose 0.5 ML Intramuscular S uspension Prefilled Syringe Lot #: [id number] on: 23-Aug-2019 Prevnar 13 Intramuscular Suspension Lot #: [id number] on: 23-Aug-2019 Family History Name Dates Details [...] Planned Goals not documented Planned Encounters Appointment; CAMRON GARAY D.O. On: 12-Jan-2020 11:00 Appointment; LANDON BARRIOS M.D. On: 17-Feb-2020 9:30 Appointment; STANISLAV BACON M.D. On: 02-Mar-2020 9:45 Interventions Provided Plan* RLE pain: Resolved. Continue Naproxen until current Rx complete. * UTI: * - Antibiotic therapy initiated: Augmentin 875 mg, 1 tab BID x 10 days * - Urine submitted to lab for culture and sensitivity * - Contact office tomorrow to update on symptoms * Class 1 obesity with BMI of 32.87: Diet and exercise counseling. * Continue current medications without changes as follows: * Anxiety: * - Buspirone HCl 5 [...] Problem not documented On: 12-Apr-2019 15:30 Appointment; GOODINE, LANDON, M.D. Encounter Diagnosis: Problem not documented On: [...]
--- OUTSIDE RECORDS SUMMARY | 2020-05-13 19:00 | XMS REPORT | Summary of Care ---
Author Author Jose Barton, KIRILL LAI Organization Unknown Address Unknown Phone Unavailable Care Team Providers Care Erosion Control Specialist Name Role Phone TOBI De Santiago, ADEEL Geller Unavailable SOPHIE De Santiago, LANDON Unavailable Unavailable TANISHA D.OCassie, CAMRON Unavailable Unavailable SOPHIE CAMPBELL [place], L[place]ON [place] Unavailable Unavailable TANISHA FOX, CAMRON E Unavailable Unavailable CLARK SMITHP, BARRINGTON Unavailable Unavailable NIKOLE OJEDA, ARMIN Unavailable Unavailable RAYNE CAMPBELL, PITA Unavailable Unavailable TOBI CAMPBELL [place], ADEEL Ching Unavailable Unavailable Unavailable Unavailable Functional [...] symptom or sign (788.99, R39.9) Status: Active Conjunctival hyperemia of left eye [...] Active Frequent UTI (599.0, N39.0) Status: Active Medications Name [...] 1 TABLET DAILY * Refills: 0 Active [place] 3 CAPS 1 tab qd * Refills: [...] Name Dates Details Fluzone INJ Lot #: [id number] on: 06-Oct-2013 Influenza Comments: Approx Pneumococcal polysaccharide vaccine, 23 valent on: 29-Jul-2014 Fluzone Quadrivalent 0.5 ML Intramuscula r Suspension Lot #: [id number] on: 09-Oct-2015 Fluzone Quadrivalent 0.5 ML Intramuscula r Suspension Lot #: [id number] on: 09-Sep-2016 Hepatitis A Lot #: [id number] on: 30-Dec-2016 Tdap (Adacel) Lot #: [id number] on: 30-Dec-2016 Hepatitis A, adult Lot #: [id number] on: 29-Jun-2017 Fluzone Quadrivalent 0.5 ML Intramuscula r Suspension Lot #: [id number] on: 29-Jun-2017 Fluzone Quadrivalent 0.5 ML Intramuscula r Suspension Lot #: [id number] on: 24-Jun-2018 Fluzone High-Dose 0.5 ML Intramuscular S uspension Prefilled Syringe Lot #: [id number] on: 23-Aug-2019 Prevnar 13 Intramuscular Suspension Lot #: [id number] on: 23-Aug-2019 Family History Name Dates Details [...] On: 17-Feb-2020 9:30 Interventions Provided Medication Changes* Gabapentin 300 MG Oral Capsule - Renew Instructions Name Dates Details Instructions [...]
--- OUTSIDE RECORDS SUMMARY | 2020-05-13 19:00 | XMS REPORT | Summary of Care ---
Author Author SOPHIE De Santiago, KIRILL RIVERS Organization Unknown Address Unknown Phone Unavailable Care Team Providers Care Director Of Product Design Name Role Phone TOBI De Santiago, ADEEL Geller Unavailable SOPHIE De Santiago, LANDON Unavailable Unavailable TANISHA D.OCassie, CAMRON Unavailable Unavailable SOPHIE CAMPBELL [place], [place] Unavailable Unavailable TANISHA FOX, CAMRON E Unavailable Unavailable CLARK SMITHP, B[place] Unavailable Unavailable NIKOLE OJEDA, ARMIN Unavailable Unavailable RAYNE CAMPBELL, PITA Unavailable Unavailable TOBI CAMPBELL [place], ADEEL Ching Unavailable Unavailable Unavailable Unavailable Functional [...] 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, 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 Essential (primary) hypertension (401.9, I10) Status: Active Need for shingles vaccine (V04.89, Z23) Status: Active Encounter for monitoring statin therapy (V58.83, Z51.81) Status: Active Encounter to discuss test results (V65.4 9, Z71.2) Status: Active Bunion of great toe of left foot (727.1, M21.612) Status: Active Bunion of great toe of right foot (727.1 , M21.611) Status: Active Other hyperlipidemia (272.4, E78.49) Status: Active UTI (urinary tract infection) (599.0, N3 9.0) Status: Active Changing pigmented skin lesion (216.9, L 81.9) Status: Active Prediabetes (790.29, R73.03) Status: Active Medications Name Dates Details Gabapentin 300 MG Oral Capsule TAKE ONE CAPSULE BY MOUTH EVERY NIGHT AT 6 PM AND AT BEDTIME Quantity: 180 LANDON BARRIOS M.D. * Start : 09-Jul-2016 Active Losartan Potassium 100 MG Oral Tablet TAKE 1 TABLET BY MOUTH EVERY DAY * Quantity: 90 Refills: 0 LANDON BARRIOS M.D. * Start : 21-Jul-2014 Active Vitamin D3 125 MCG (5000 UT) Oral Capsule TAKE DIRECTED. * Refills: 0 Active Cranberry TABS TAKE 1 TABLET DAILY * Refills: 0 Active [place] 3 CAPS 1 tab qd * Refills: [...] Name Dates Details Fluzone INJ Lot #: [id number] on: 06-Oct-2013 Influenza Comments: Approx Pneumococcal polysaccharide vaccine, 23 valent on: 29-Jul-2014 Fluzone Quadrivalent 0.5 ML Intramuscula r Suspension Lot #: [id number] on: 09-Oct-2015 Fluzone Quadrivalent 0.5 ML Intramuscula r Suspension Lot #: [id number] on: 09-Sep-2016 Hepatitis A Lot #: [id number] on: 30-Dec-2016 Tdap (Adacel) Lot #: [id number] on: 30-Dec-2016 Hepatitis A, adult Lot #: [id number] on: 29-Jun-2017 Fluzone Quadrivalent 0.5 ML Intramuscula r Suspension Lot #: [id number] on: 29-Jun-2017 Fluzone Quadrivalent 0.5 ML Intramuscula r Suspension Lot #: [id number] on: 24-Jun-2018 Fluzone High-Dose 0.5 ML Intramuscular S uspension Prefilled Syringe Lot #: [id number] on: 23-Aug-2019 Prevnar 13 Intramuscular Suspension Lot #: [id number] on: 23-Aug-2019 Family History Name Dates Details [...] Goals not documented Planned Encounters Appointment; STANISLAV IRIZARRY M.D. On: 23-Dec-2019 9:45 Appointment; CAMRON GARAY D.O. On: 12-Jan-2020 11:00 Appointment; LANDON BARRIOS M.D. On: 17-Feb-2020 9:30 Interventions Provided Medication Changes* Naproxen 500 MG Oral Tablet - Start * Pramipexole Dihydrochloride 0.25 MG Oral Tablet - Renew * Shingrix 50 MCG Intramuscular Suspension Reconstituted - Start Labs/Procedures/Imaging* [O] Urine Dipstick (In Office); Done: 29 Sep 2019 * [O] Urine Dipstick (In Office); Done: 08 Sep 2019 * [O] Urine Dipstick (In Office); Done: 23 Sep 2019 * [O] Urine Dipstick (In Office); Done: 26 Sep 2019 * [[facility]] CULTURE, URINE, ROUTINE; Done: 29 Sep 2019 * Tobacco Use Screening; Done: 08 Sep 2019 * Tobacco Use Screening; Done: 22 Sep 2019 Plan* UTI: * - Urine dipstick obtained in office: Microscopic hematuria present otherwise, normal. * - Urine sent for culture and sensitivity to ensure eradication of UTI ESBL producing Klebsiella * Reviewed and discussed lab results obtained 09/07/19. Labs stable with treatment. * Patient referred to dermatology Dr. Irizarry for changing pigmented skin lesion on the right breast. * Patient referred to orthopedic foot and ankle surgeon, Dr. Gutierrez for evaluation and treatment of bunions on bilateral hallux. * Shingrix vaccine prescription provided. Patient advised to have vaccine administered at a local pharmacy where available. * Continue current medications without changes; * [...] 300 mg at bedtime (current schedule) * Return to clinic in 6 months for continued monitoring and medication management of chronic medical conditions. * Return to clinic sooner if needed Instructions Name Dates Details Instructions not documented Encounters Appointment; CARMELA CERVANTES RD Encounter Diagnosis: Problem not documented On: 18-Nov-2017 10:00 Appointment; LANDON BARRIOS M.D. Encounter Diagnosis: Problem not documented On: 10-Dec-2017 14:15 Appointment; LNADON BARRIOS M.D. Encounter Diagnosis: Problem not documented [...]
--- OUTSIDE RECORDS SUMMARY | 2020-05-13 19:01 | XMS REPORT | Summary of Care ---
Author Author Scott Barton, KIRILL RIVERS Organization Unknown Address Unknown Phone Unavailable Care Team Providers Care Health And Safety Representative Name Role Phone TOBI De Santiago, ADEEL Geller Unavailable SOPHIE De Santiago, LANDON Unavailable Unavailable TANISHA Butcher.OCassie, CAMRON Unavailable Unavailable SOPHIE CAMPBELL [place], [place] Unavailable Unavailable TANISHA FOX, CAMRON E Unavailable Unavailable CLARK SMITHP, BARR[place] Unavailable Unavailable NIKOEL OJEDA, ARMIN Unavailable Unavailable RAYNE CAMPBELL, PITA Unavailable Unavailable TOBI CAMPBELL [place], ADEEL Ching Unavailable Unavailable Unavailable Unavailable Functional [...] Active Chronic insomnia (780.52, F51.04) Status: Active ONAH on CPAP (327.23, G47.33) Status: Active Acute [...] ESBL Kleb siella (599.0, N39.0) Status: Active Conjunctival hyperemia of [...] 1 TABLET DAILY * Refills: 0 Active [place] 3 CAPS 1 tab qd * Refills: [...] Name Dates Details Fluzone INJ Lot #: [id number] on: 06-Oct-2013 Influenza Comments: Approx Pneumococcal polysaccharide vaccine, 23 valent on: 29-Jul-2014 Fluzone Quadrivalent 0.5 ML Intramuscula r Suspension Lot #: [id number] on: 09-Oct-2015 Fluzone Quadrivalent 0.5 ML Intramuscula r Suspension Lot #: [id number] on: 09-Sep-2016 Hepatitis A Lot #: [id number] on: 30-Dec-2016 Tdap (Adacel) Lot #: [id number] on: 30-Dec-2016 Hepatitis A, adult Lot #: [id number] on: 29-Jun-2017 Fluzone Quadrivalent 0.5 ML Intramuscula r Suspension Lot #: [id number] on: 29-Jun-2017 Fluzone Quadrivalent 0.5 ML Intramuscula r Suspension Lot #: [id number] on: 24-Jun-2018 Fluzone High-Dose 0.5 ML Intramuscular S uspension Prefilled Syringe Lot #: [id number] on: 23-Aug-2019 Prevnar 13 Intramuscular Suspension Lot #: [id number] on: 23-Aug-2019 Family History Name Dates Details [...] BACON M.D. On: 02-Mar-2020 9:45 Interventions Provided Medication Changes* Losartan Potassium 100 MG Oral Tablet - Renew Instructions Name [...] Diagnosis: Problem not documented On: 13-Oct-2019 14:00 Appointment; STANISLAV BACON M.D. Encounter Diagnosis: Problem not documented On: 23-Dec-2019 9:45
--- OUTSIDE RECORDS SUMMARY | 2020-05-13 19:01 | XMS REPORT | Summary of Care ---
Author Author TANISHA Archibald, KIRILL RIVERS Organization Unknown Address Unknown Phone Unavailable Care Team Providers Care Axle And Frame Mechanic Name Role Phone Leighton Barton, Lory Unavailable Unavailable TOBI De Sanitago, ADEEL Unavailable Unavailable SOPHIE De Santiago, LANDON Unavailable Unavailable TANISHA Archibald, CAMRON Unavailable Unavailable SOPHIE CAMPBELL [place], LANDON [...] Active Urinary tract infection due to ESBL Hortencia smith (599.0, N39.0) Status: Active Conjunctival hyperemia of [...] 1 TABLET DAILY * Refills: 0 Active [place] 3 CAPS 1 tab qd * Refills: 0 Active Rosuvastatin Calcium 10 MG Oral Tablet TAKE 1 TABLET BY MOUTH EVERY DAY * Quantity: 90 Refills: 0 SOPHIE De Santiago, LANDON * Start : 28-Jul-2016 Active Omeprazole [...] with food * Quantity: 60 Refills: 0 DEVYN BARRIOS M.D.NDA * Start : 23-Sep-2019 Active Trospium Chloride ER 60 MG Oral Capsule Extended Release 24 Hour TAKE 1 CAPSULE BEDTIME * Quantity: 90 Refills: 2 DOUGHER D.O., CAMRON * Start [...] Name Dates Details Fluzone INJ Lot #: [id number] on: 06-Oct-2013 Influenza Comments: Approx Pneumococcal polysaccharide vaccine, 23 valent on: 29-Jul-2014 Fluzone Quadrivalent 0.5 ML Intramuscula r Suspension Lot #: [id number] on: 09-Oct-2015 Fluzone Quadrivalent 0.5 ML Intramuscula r Suspension Lot #: [id number] on: 09-Sep-2016 Hepatitis A Lot #: [id number] on: 30-Dec-2016 Tdap (Adacel) Lot #: [id number] on: 30-Dec-2016 Hepatitis A, adult Lot #: [id number] on: 29-Jun-2017 Fluzone Quadrivalent 0.5 ML Intramuscula r Suspension Lot #: [id number] on: 29-Jun-2017 Fluzone Quadrivalent 0.5 ML Intramuscula r Suspension Lot #: [id number] on: 24-Jun-2018 Fluzone High-Dose 0.5 ML Intramuscular S uspension Prefilled Syringe Lot #: [id number] on: 23-Aug-2019 Prevnar 13 Intramuscular Suspension Lot #: [id number] on: 23-Aug-2019 Family History Name Dates Details [...] On: 02-Mar-2020 9:45 Interventions Provided Medication Changes* Trospium Chloride ER 60 MG Oral Capsule Extended Release 24 Hour - Renew Instructions Name Dates Details Instructions [...]
--- OUTSIDE RECORDS SUMMARY | 2020-05-13 19:01 | XMS REPORT | Summary of Care ---
Author Author Leighton Barton, BRITTON Organization Unknown Address [facility] Phone Unavailable Care Team Providers Care Mix Technician Name Role Phone Leighton Barton, Lory Unavailable Unavailable TOBI De Santiago, ADEEL Unavailable Unavailable SOPHIE De Santiago, LANDON Unavailable Unavailable TANISHA D.OCassie, CAMRON Unavailable Unavailable SOPHIE CAMPBELL [place], [place] Unavailable Unavailable TANISHA FOX, CAMRON E Unavailable Unavailable CLARK RODRIGUEZ, BARR[place] Unavailable Unavailable NIKOLE OJEDA, ARMIN Unavailable Unavailable RAYNE CAMPBELL, PITA Unavailable Unavailable TOBI CAMPBELL [place], ADEEL Ching Unavailable Unavailable Unavailable Unavailable Functional [...] 1 TABLET DAILY * Refills: 0 Active [place] 3 CAPS 1 tab qd * Refills: [...] 1 CAPSULE BEDTIME * Quantity: 30 Refills: 0 DOUGHER D.O., CAMRON * Start : 23-Sep-2019 [...] Name Dates Details Fluzone INJ Lot #: [id number] on: 06-Oct-2013 Influenza Comments: Approx Pneumococcal polysaccharide vaccine, 23 valent on: 29-Jul-2014 Fluzone Quadrivalent 0.5 ML Intramuscula r Suspension Lot #: [id number] on: 09-Oct-2015 Fluzone Quadrivalent 0.5 ML Intramuscula r Suspension Lot #: [id number] on: 09-Sep-2016 Hepatitis A Lot #: [id number] on: 30-Dec-2016 Tdap (Adacel) Lot #: [id number] on: 30-Dec-2016 Hepatitis A, adult Lot #: [id number] on: 29-Jun-2017 Fluzone Quadrivalent 0.5 ML Intramuscula r Suspension Lot #: [id number] on: 29-Jun-2017 Fluzone Quadrivalent 0.5 ML Intramuscula r Suspension Lot #: [id number] on: 24-Jun-2018 Fluzone High-Dose 0.5 ML Intramuscular S uspension Prefilled Syringe Lot #: [id number] on: 23-Aug-2019 Prevnar 13 Intramuscular Suspension Lot #: [id number] on: 23-Aug-2019 Family History Name Dates Details [...]
--- OUTSIDE RECORDS SUMMARY | 2020-05-13 19:01 | XMS REPORT | Summary of Care ---
Author Author ZONIA De Santiago, KIRILL RIVERS Organization Unknown Address Unknown Phone Unavailable Care Team Providers Care Engineered Wood Designer Name Role Phone TOBI De Santiago, ADEEL BARRIOS M.D., LANDON Unavailable Unavailable TANISHA Archibald, CAMRON Unavailable Unavailable OZNIA De Santiago, JANETH Unavailable Unavailable SOPHIE CAMPBELL [place], [place] Unavailable Unavailable TANISHA FOX, CAMRON E Unavailable Unavailable CLARK RODRIGUEZ, [place] Unavailable Unavailable NIKOLE OJEDA, ARMIN Unavailable Unavailable RAYNE CAMPBELL, PITA Unavailable Unavailable TOBI CAMPBELL [place], ADEEL Ching Unavailable Unavailable ZONIA CAMPBELL, JANETH Hewitt Unavailable Unavailable Unavailable Unavailable Functional Status Name [...] Pruritus of skin (698.9, L29.9) Status: Active Acute pharyngitis (462, J02.9) Status: Active Tension headache (307.81, G44.209) Status: [...] Status: Active Nausea (787.02, R11.0) Status: Active Hyperglycemia (790.29, R73.9) Status: Active [...] Status: Resolved Headache (784.0, R51) Status: Active Persistent headaches (784.0, R51) Status: [...] Active Chronic constipation (564.00, K59.09) Status: Active Pelvic floor dysfunction (618.83, M62.89 ) Status: Active Mixed stress and urge urinary incontinen ce (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 71, H11.432) Status: Active Hypertension, well controlled (401.9, I1 0) Status: Active Class 1 obesity due to excess calories w ith body mass index (BMI) of 33.0 to 33.9 in adult (278.00, E66.09) Status: Active Dyspareunia, female (625.0, N94.10) Status: Active Frequency of urination (788.41, R35.0) Status: Active Frequent UTI (599.0, N39.0) Status: Active Nocturia (788.43, R35.1) Status: Active Urge incontinence of urine (788.31, N39. 41) Status: Active Urgency of urination (788.63, R39.15) Status: Active Vaginal atrophy (627.3, N95.2) Status: Active Allergic rhinitis (477.9, J30.9) Status: Active BMI 33.0-33.9,adult (V85.33, Z68.33) Status: Active Dry mouth (527.7, R68.2) Status: Active Essential (primary) hypertension (401.9, I10) Status: Active Medications Name Dates Details Gabapentin [...] 1 TABLET DAILY * Refills: 0 Active [place] 3 CAPS 1 tab qd * Refills: [...] AT BEDTIME * Quantity: 90 Refills: 1 DEVYN BARRIOS M.D.NDA Active Polyethylene Glycol 3350 17 GM/SCOOP Oral Powder MIX 1 CAPFUL IN 8 [...] (V12.5 9, Z86.79) Status: Resolved History of essential hypertension (V12.5 9, Z86.79) [...] Name Dates Details Fluzone INJ Lot #: [id number] on: 06-Oct-2013 Influenza Comments: Approx Pneumococcal polysaccharide vaccine, 23 valent on: 29-Jul-2014 Fluzone Quadrivalent 0.5 ML Intramuscula r Suspension Lot #: [id number] on: 09-Oct-2015 Fluzone Quadrivalent 0.5 ML Intramuscula r Suspension Lot #: [id number] on: 09-Sep-2016 Hepatitis A Lot #: [id number] on: 30-Dec-2016 Tdap (Adacel) Lot #: [id number] on: 30-Dec-2016 Hepatitis A, adult Lot #: [id number] on: 29-Jun-2017 Fluzone Quadrivalent 0.5 ML Intramuscula r Suspension Lot #: [id number] on: 29-Jun-2017 Fluzone Quadrivalent 0.5 ML Intramuscula r Suspension Lot #: [id number] on: 24-Jun-2018 Fluzone High-Dose 0.5 ML Intramuscular S uspension Prefilled Syringe Lot #: [id number] on: 23-Aug-2019 Prevnar 13 Intramuscular Suspension Lot #: [id number] on: 23-Aug-2019 Family History Name Dates Details Family history of Hyperlipidemia Status: Active Name Dates Details Family history of Hypertension (V17.49) Status: Active Name Dates Details Family history of Prior Myocardial Infar ction Status: Active Social History Name Dates Details - Status: Name Dates Details Never smoked tobacco (finding) Vital Signs Date Test Result Details [id number] Systolic blood pressure 136 mm[Hg] Status: Comments : Location: LUE; Position: Sitting Diastolic blood pressure 81 mm[Hg] Status: Comment s: Location: LUE; Position: Sitting Body height 58.5 in Status: Weight 163 lb Status: Body mass index (BMI) [Ratio] 33.49 kg/m2 Status: Body surface area Derived from formula 1.68 m2 S tatus: Body temperature 98.2 f Status: Comments: Me thod: Temporal Heart Rate 94 /min Status: Respiratory rate 16 /min Status: Physical Findings 0 Status: Comments: Al cohol Screen - How many times in the past yr have you had 5 (for M) or 4 (for F) or 4 (for all > 65yrs) or more drinks in a day? Results Date Description Value Details Results not documented Plan of Care Name Dates Details Planned Observations Planned Goals not documented Planned Encounters Appointment; JANETH BRAR M.D. On: 31-Jan-2020 11:00 Appointment; LANDON BARRIOS M.D. On: 17-Feb-2020 9:30 Appointment; STANISLAV BACON M.D. On: 02-Mar-2020 9:45 Appointment; CAMRON GARAY D.O. On: 29-Mar-2020 9:45 Interventions Provided Labs/Procedures/Imaging* Tobacco Use Screening; Done: 17 Jan 2020 * Tobacco Use Screening; Done: 18 Jan 2020 Plan* Allergic Rhinitis * -- advised on identifying and avoiding triggers * -- advised on anti-histamine and Flonase for symptomatic relief * Obesity BMI 33 * -- discussed with patient healthy diet including incorporating fresh or frozen fruits, vegetables without added salt or sugars, increasing fiber in diet, low fat, low carb. * -- advised on regular exercise once feeling better * Essential HTN * -- stable on meds continue current meds * -- discussed with patient blood pressure goals, keeping BP log at home * -- advised on low salt, low carb diet * -- advised on yearly eye exams * Dry mouth * -- is on anticholinergic * -- advised on chewing gum, drinking more water * -- if continues to have symptoms advised to stop zyrtec and to stop trospium afterwards. * -- advised to follow up if she continues to have dry mouth may consider autoimmune disease. Discussion/Summary* DISCHARGE SUMMARY/INSTRUCTIONS: * - Medication benefits, risks, and side effects discussed with patient. * - ER precautions given. * - Patient advised to RTC if symptoms worsen or fail to improve. Instructions Name Dates Details Instructions not documented Encounters Appointment; KRISTINA RALPH M.D. Encounter Diagnosis: Problem [...] Diagnosis: Problem not documented On: 23-Dec-2019 9:45 Appointment; CAMRON GARAY D.O. Encounter Diagnosis: Problem not documented On: 12-Jan-2020 11:00 Appointment; JANETH BRAR M.D. Encounter Diagnosis: Problem not documented On: 17-Jan-2020 14:15
--- OUTSIDE RECORDS SUMMARY | 2020-05-13 19:01 | XMS REPORT | Summary of Care ---
Author Author Jose Barton, KIRILL LAI Organization Unknown Address Unknown Phone Unavailable Care Team Providers Care Physical Therapist Aide Name Role Phone TOBI De Santiago, ADEEL Unavailable Unavailable SOPHIE De Santiago, LANDON Unavailable Unavailable TANISHA D.OCassie, CAMRON Unavailable Unavailable SOPHIE CAMPBELL [place], [place] Unavailable Unavailable TANISHA FOX, CAMRON E Unavailable Unavailable CLARK SMITHP, [place] Unavailable Unavailable NIKOLE OJEDA, ARMIN Unavailable Unavailable RAYNE CAMPBELL, PITA Unavailable Unavailable TOBI CAMPBELL [place], ADEEL Ching Unavailable Unavailable ZONIA CAMPBELL, JANETH [...] Urinary tract infection due to ESBL Kleb neria (599.0, N39.0) Status: Active Conjunctival hyperemia of [...] 1 TABLET DAILY * Refills: 0 Active [place] 3 CAPS 1 tab qd * Refills: 0 Active Rosuvastatin Calcium 10 MG Oral Tablet TAKE 1 TABLET BY MOUTH EVERY DAY * Quantity: 90 Refills: 0 LANDON BARRIOS M.D. * Start : 28-Jul-2016 Active Omeprazole 20 [...] Name Dates Details Fluzone INJ Lot #: [id number] on: 06-Oct-2013 Influenza Comments: Approx Pneumococcal polysaccharide vaccine, 23 valent on: 29-Jul-2014 Fluzone Quadrivalent 0.5 ML Intramuscula r Suspension Lot #: [id number] on: 09-Oct-2015 Fluzone Quadrivalent 0.5 ML Intramuscula r Suspension Lot #: [id number] on: 09-Sep-2016 Hepatitis A Lot #: [id number] on: 30-Dec-2016 Tdap (Adacel) Lot #: [id number] on: 30-Dec-2016 Hepatitis A, adult Lot #: [id number] on: 29-Jun-2017 Fluzone Quadrivalent 0.5 ML Intramuscula r Suspension Lot #: [id number] on: 29-Jun-2017 Fluzone Quadrivalent 0.5 ML Intramuscula r Suspension Lot #: [id number] on: 24-Jun-2018 Fluzone High-Dose 0.5 ML Intramuscular S uspension Prefilled Syringe Lot #: [id number] on: 23-Aug-2019 Prevnar 13 Intramuscular Suspension Lot #: [id number] on: 23-Aug-2019 Family History Name Dates Details Family history of Hyperlipidemia Status: Active Name Dates Details Family history of Hypertension (V17.49) Status: Active Name Dates Details Family history of Prior Myocardial Infar ction Status: Active Social History Name Dates Details - Status: Name Dates Details Never smoked tobacco (finding) Vital Signs Date Test Result Details [id number] Systolic blood pressure 136 mm[Hg] Status: Comments [...] LANDON BARRIOS M.D. On: 17-Feb-2020 9:30 Appointment; CAMRON GARAY D.O. On: 29-Mar-2020 9:45 Interventions Provided Medication Changes* Rosuvastatin Calcium 10 [...]
--- OUTSIDE RECORDS SUMMARY | 2020-05-13 19:01 | XMS REPORT | Summary of Care ---
Author Author KIRILL Munoz M.A. LOURDES Organization Unknown Address Unknown Phone Unavailable Care Team Providers Care Visualizer Name Role Phone TOBI De Santiago, ADEEL Geller Unavailable SOPHIE De Santiago, LANDON Unavailable Unavailable TANISHA Archibald, CAMRON Unavailable Unavailable ZONIA De Santiago, JANETH Unavailable Unavailable SOPHIE CAMPBELL [place], [place]ON [place] Unavailable Unavailable TANISHA FOX, CAMRON E Unavailable Unavailable CLARK RODRIGUEZ, BARRINGTON Unavailable Unavailable NIKOLE OJEDA, ARMIN Unavailable Unavailable RAYNE CAMPBELL, PITA Unavailable Unavailable TOBI CAMPBELL [place], ADEEL Ching Unavailable Unavailable ZONIA CAMPBELL, JANETH [...] Active Vaginal atrophy (627.3, N95.2) Status: Active Medications Name Dates Details Gabapentin [...] 1 TABLET DAILY * Refills: 0 Active [place] 3 CAPS 1 tab qd * Refills: [...] LANDON BARRIOS M.D. Active Polyethylene Glycol 3350 17 GM/SCOOP Oral [...] Name Dates Details Fluzone INJ Lot #: [id number] on: 06-Oct-2013 Influenza Comments: Approx Pneumococcal polysaccharide vaccine, 23 valent on: 29-Jul-2014 Fluzone Quadrivalent 0.5 ML Intramuscula r Suspension Lot #: [id number] on: 09-Oct-2015 Fluzone Quadrivalent 0.5 ML Intramuscula r Suspension Lot #: [id number] on: 09-Sep-2016 Hepatitis A Lot #: [id number] on: 30-Dec-2016 Tdap (Adacel) Lot #: [id number] on: 30-Dec-2016 Hepatitis A, adult Lot #: [id number] on: 29-Jun-2017 Fluzone Quadrivalent 0.5 ML Intramuscula r Suspension Lot #: [id number] on: 29-Jun-2017 Fluzone Quadrivalent 0.5 ML Intramuscula r Suspension Lot #: [id number] on: 24-Jun-2018 Fluzone High-Dose 0.5 ML Intramuscular S uspension Prefilled Syringe Lot #: [id number] on: 23-Aug-2019 Prevnar 13 Intramuscular Suspension Lot #: [id number] on: 23-Aug-2019 Family History Name Dates Details Family history of Hyperlipidemia Status: Active Name Dates Details Family history of Hypertension (V17.49) Status: Active Name Dates Details Family history of Prior Myocardial Infar ction Status: Active Social History Name Dates Details - Status: Name Dates Details Never smoked tobacco (finding) Vital Signs Date Test Result Details [id number] Systolic blood pressure 136 mm[Hg] Status: Comments [...] Planned Goals not documented Planned Encounters Appointment; LANDON BARRIOS M.D. On: 17-Feb-2020 9:30 Appointment; STANISLAV BACON M.D. On: 02-Mar-2020 9:45 Appointment; CAMRON GARAY D.O. On: 29-Mar-2020 9:45 Interventions Provided Labs/Procedures/Imaging* Tobacco Use Screening; Done: 17 Jan 2020 Instructions Name Dates Details Instructions not documented [...]
--- OUTSIDE RECORDS SUMMARY | 2020-05-13 19:01 | XMS REPORT | Summary of Care ---
Author Author Scott Barton, KIRILL RIVERS Organization Unknown Address Unknown Phone Unavailable Care Team Providers Care Bag Machine Operator Helper Name Role Phone TOBI De Santiago, ADEEL Unavailable Unavailable SOPHIE De Santiago, LANDON Unavailable Unavailable TANISHA Butcher.Shae, CAMRON Unavailable Unavailable SOPHIE CAMPBELL [place], [place] Unavailable Unavailable TANISHA FOX, CAMRON E Unavailable Unavailable CLARK SMITHP, BARR[place] Unavailable Unavailable NIKOLE OJEDA, ARMIN Unavailable Unavailable RAYNE CAMPBELL, PITA Unavailable Unavailable TOBI CAMPBELL [place], ADEEL Ching Unavailable Unavailable ZONIA CAMPBELL, JANETH [...] On statin therapy (V58.69, Z79.899) Status: Active Anxiety state (300.00, F41.1) Status: Active Constipation (564.00, K59.00) Status: Active Need for vaccination with 13-polyvalent pneumococcal conjugate vaccine (V03.82, Z23) Status: Active Influenza vaccine needed (V04.81, Z23) Status: Active Screening for hypothyroidism (V77.0, Z13 .29) Status: Active Urinary symptom or sign (788.99, R39.9) Status: Active Chronic constipation (564.00, K59.09) Status: Active Pelvic floor dysfunction (618.83, M62.89 ) Status: Active Mixed stress and urge urinary incontinen ce (788.33, N39.46) Status: Active Pain of right lower extremity (729.5, M7 9.604) Status: Active Recurrent UTI (urinary tract infection) [...] Status: Active Prediabetes (790.29, R73.03) Status: Active Acute UTI (599.0, N39.0) Status: Active Urinary tract infection due to ESBL Kleb siella (599.0, N39.0) Status: Active Conjunctival hyperemia of left eye (372. 71, H11.432) Status: Active Hypertension, well controlled (401.9, I1 0) Status: Active Dyspareunia, female (625.0, N94.10) Status: [...] Essential (primary) hypertension (401.9, I10) Status: Active Chronic insomnia (780.52, F51.04) Status: Active Other hyperlipidemia (272.4, E78.49) Status: Active Encounter for monitoring statin therapy (V58.83, Z51.81) Status: Active Depression screening negative (V79.0, Z1 3.31) Status: Active At low risk for fall (V49.89, Z91.81) Status: Active Class 1 obesity due to [...] 1 TABLET DAILY * Refills: 0 Active [place] 3 CAPS 1 tab qd * Refills: 0 Active Rosuvastatin Calcium 10 MG Oral Tablet TAKE 1 TABLET BY MOUTH EVERY DAY * Quantity: 90 Refills: 0 LANDON BARRIOS M.D. * Start : 28-Jul-2016 Active Melatonin 5 MG Oral Capsule TAKE [...] BARRIOS M.D. * Start : 08-Sep-2019 Active Trospium Chloride ER 60 MG Oral Capsule Extended Release 24 Hour TAKE 1 CAPSULE BEDTIME * Quantity: 90 Refills: 2 DOUGHER D.O., CAMRON * Start : 23-Sep-2019 Active Estradiol 0.1 MG/GM Vaginal Cream INSERT 1 GRAM INTO THE VAGINA TWICE WEEKLY * Quantity: 1 Refills: 2 DOUGHER D.O., CAMRON * Start : 18-Oct-2019 Active Dexilant 60 MG Oral Capsule Delayed Release TAKE 1 CAPSULE DAILY * Refills: 0 Active Allergies and Adverse Reactions Name Dates [...] Name Dates Details Fluzone INJ Lot #: [id number] on: 06-Oct-2013 Influenza Comments: Approx Pneumococcal polysaccharide vaccine, 23 valent on: 29-Jul-2014 Fluzone Quadrivalent 0.5 ML Intramuscula r Suspension Lot #: [id number] on: 09-Oct-2015 Fluzone Quadrivalent 0.5 ML Intramuscula r Suspension Lot #: [id number] on: 09-Sep-2016 Hepatitis A Lot #: [id number] on: 30-Dec-2016 Tdap (Adacel) Lot #: [id number] on: 30-Dec-2016 Hepatitis A, adult Lot #: [id number] on: 29-Jun-2017 Fluzone Quadrivalent 0.5 ML Intramuscula r Suspension Lot #: [id number] on: 29-Jun-2017 Fluzone Quadrivalent 0.5 ML Intramuscula r Suspension Lot #: [id number] on: 24-Jun-2018 Fluzone High-Dose 0.5 ML Intramuscular S uspension Prefilled Syringe Lot #: [id number] on: 23-Aug-2019 Prevnar 13 Intramuscular Suspension Lot #: [id number] on: 23-Aug-2019 Family History Name Dates Details Family history of Hyperlipidemia Status: Active Name Dates Details Family history of Hypertension (V17.49) Status: Active Name Dates Details Family history of Prior Myocardial Infar ction Status: Active Social History Name Dates Details - Status: Name Dates Details Never smoked tobacco (finding) Vital Signs Date Test Result Details 62-[id number]:01 Weight 162 lb Status: Body mass index (BMI) [Ratio] 33.28 kg/m2 Status: Body surface area Derived from formula 1.68 m2 S tatus: Physical Findings 2 Status: Comments: PH Q-9 Adult Depression Screening Results Date Description Value Details Results not documented Plan of Care Name Dates Details Planned Observations Planned Goals not documented Planned Encounters Appointment; LANDON BARRIOS M.D. On: 17-Feb-2020 9:30 Appointment; STANISLAV BACON M.D. On: 02-Mar-2020 9:40 Appointment; CAMRON GARAY D.O. On: 29-Mar-2020 9:45 Instructions Name Dates Details Instructions not documented [...] Diagnosis: Problem not documented On: 17-Jan-2020 14:15 Appointment; LANDON BARRIOS M.D. Encounter Diagnosis: Problem not documented On: 17-Feb-2020 9:30
--- OUTSIDE RECORDS SUMMARY | 2020-05-13 19:01 | XMS REPORT | Summary of Care ---
Author Author TANISHA Archibald, KIRILL RIVERS Organization Unknown Address Unknown Phone Unavailable Care Team Providers Care Medical Certification Specialist Name Role Phone TOBI De Santiago, ADEEL Unavailable Unavailable SOPHIE De Santiago, LANDON Unavailable Unavailable TANISHA Archibald, CAMRON Unavailable Unavailable SOPHIE CAMPBELL [place], [place] Unavailable Unavailable TANISHA FOX, CAMRON E Unavailable Unavailable CLARK RODRIGUEZ, BARR[place] Unavailable Unavailable NIKOLE OJEDA, ARMIN Unavailable Unavailable RAYNE CAMPBELL, PITA Unavailable Unavailable TOBI CAMPBELL [place], ADEEL Ching Unavailable Unavailable ZONIA CAMPBELL, JANETH [...] 1 TABLET DAILY * Refills: 0 Active [place] 3 CAPS 1 tab qd * Refills: [...] per protocol * Quantity: 1 Refills: 0 DEVYN BARRIOS M.D.NDA * Start : 08-Sep-2019 Active Naproxen 500 [...] Name Dates Details Fluzone INJ Lot #: [id number] on: 06-Oct-2013 Influenza Comments: Approx Pneumococcal polysaccharide vaccine, 23 valent on: 29-Jul-2014 Fluzone Quadrivalent 0.5 ML Intramuscula r Suspension Lot #: [id number] on: 09-Oct-2015 Fluzone Quadrivalent 0.5 ML Intramuscula r Suspension Lot #: [id number] on: 09-Sep-2016 Hepatitis A Lot #: [id number] on: 30-Dec-2016 Tdap (Adacel) Lot #: [id number] on: 30-Dec-2016 Hepatitis A, adult Lot #: [id number] on: 29-Jun-2017 Fluzone Quadrivalent 0.5 ML Intramuscula r Suspension Lot #: [id number] on: 29-Jun-2017 Fluzone Quadrivalent 0.5 ML Intramuscula r Suspension Lot #: [id number] on: 24-Jun-2018 Fluzone High-Dose 0.5 ML Intramuscular S uspension Prefilled Syringe Lot #: [id number] on: 23-Aug-2019 Prevnar 13 Intramuscular Suspension Lot #: [id number] on: 23-Aug-2019 Family History Name Dates Details Family history of Hyperlipidemia Status: Active Name Dates Details Family history of Hypertension (V17.49) Status: Active Name Dates Details Family history of Prior Myocardial Infar ction Status: Active Social History Name Dates Details - Status: Name Dates Details Never smoked tobacco (finding) Vital Signs Date Test Result Details [id number] Systolic blood pressure 136 mm[Hg] Status: Comments [...] /min Status: Physical Findings 0 Status: Comments: Lang bell Screen - How many times in the [...] GARAY D.O. On: 29-Mar-2020 9:45 Interventions Provided Discussion/Summary* 1. UU/UF/UUI/ nocturia/ OAB/ JESSICA * - discussed behavior modification, fluid restriction, bladder training, IUGA handout given * -this may also be due to her transobturator sling * - nml cysto, nml UDS + DANITA, + DOI, valsalva voids * - myrbetric unsuccessful, continue trospium ( she reports doing better), still with UUI, but less than before. * - discussed third line therapy vs sling excision, may want to trial pessary prior to advancement of therapy * - will get records from [facility] * 2. Recurrent UTI * - patient with 2 UTIs in the past year/month, kelbsiella, x2 and e coli x1 * - work up thus far: will get CT and cysto * - recommend vaginal estrogen for ppx, patient is taking keflex 250mg qd currently as well * 3. vaginal atrophy * - discussed role of estrogen in the vagina, discussed r/b/a of vaginal estrogen * - handout given * - continue vagifem, will trial estrace cream * 4. constipation * - discussed role of constipation in general health and in relation to pelvic organs * - discussed conservative mgmt, fiber supplement, proper tolieting, IUGA handout given * - continue daily miralax * F/u in 3 months * . Instructions Name Dates Details Instructions not documented [...] Problem not documented On: 06-Oct-2019 15:15 Appointment; DOUGHER, CAMRON, D.O. Encounter Diagnosis: Problem not documented On: 13-Oct-2019 14:00 Appointment; STANISLAV BACON M.D. Encounter Diagnosis: Problem not documented On: 23-Dec-2019 9:45 Appointment; CAMRON GARAY D.O. Encounter Diagnosis: Problem not documented On: 12-Jan-2020 11:00
--- OUTSIDE RECORDS SUMMARY | 2020-05-13 19:01 | XMS REPORT | Summary of Care ---
Author Author Leighton Barton, BRITTON Organization Unknown Address [facility] Phone Unavailable Care Team Providers Care Pain Coordinator Name Role Phone Leighton Barton, Lory Unavailable Unavailable TOBI De Santiago, ADEEL Unavailable Unavailable SOPHIE De Santiago, LANDON Unavailable Unavailable TANISHA D.OCassie, CAMRON Unavailable Unavailable SOPHIE CAMPBELL [place], [place] Unavailable Unavailable TANISHA FOX, CAMRON E Unavailable Unavailable CLARK RODRIGUEZ, BARR[place] Unavailable Unavailable NIKOLE OJEDA, ARMIN Unavailable Unavailable RAYNE CAMPBELL, PITA Unavailable Unavailable TOBI CAMPBELL [place], ADEEL Chign Unavailable Unavailable Unavailable Unavailable Functional Status Name [...] 1 TABLET DAILY * Refills: 0 Active [place] 3 CAPS 1 tab qd * Refills: [...] Name Dates Details Fluzone INJ Lot #: [id number] on: 06-Oct-2013 Influenza Comments: Approx Pneumococcal polysaccharide vaccine, 23 valent on: 29-Jul-2014 Fluzone Quadrivalent 0.5 ML Intramuscula r Suspension Lot #: [id number] on: 09-Oct-2015 Fluzone Quadrivalent 0.5 ML Intramuscula r Suspension Lot #: [id number] on: 09-Sep-2016 Hepatitis A Lot #: [id number] on: 30-Dec-2016 Tdap (Adacel) Lot #: [id number] on: 30-Dec-2016 Hepatitis A, adult Lot #: [id number] on: 29-Jun-2017 Fluzone Quadrivalent 0.5 ML Intramuscula r Suspension Lot #: [id number] on: 29-Jun-2017 Fluzone Quadrivalent 0.5 ML Intramuscula r Suspension Lot #: [id number] on: 24-Jun-2018 Fluzone High-Dose 0.5 ML Intramuscular S uspension Prefilled Syringe Lot #: [id number] on: 23-Aug-2019 Prevnar 13 Intramuscular Suspension Lot #: [id number] on: 23-Aug-2019 Family History Name Dates Details [...]
--- OUTSIDE RECORDS SUMMARY | 2020-05-13 19:01 | XMS REPORT | Summary of Care ---
Author Author TANISHA Archibald, BRITTON Organization Unknown Address Unknown Phone Unavailable Care Team Providers Care Pediatric Clinical Nurse Specialist Name Role Phone TOBI De Santiago, ADEEL Geller Unavailable SOPHIE De Santiago, LANDON Unavailable Unavailable TANISHA Archibald, CAMRON Unavailable Duyen BARRIOS MD [place], [place] Unavailable Unavailable TANISHA FOX, CAMRON E Unavailable Unavailable CLARK RODRIGUEZ, BARR[place] Unavailable Unavailable NIKOLE OJEDA, ARMIN Unavailable Unavailable RAYNE CAMPBELL, PITA Unavailable Unavailable TOBI CAMPBELL [place], ADEEL Ching Unavailable Unavailable Unavailable Unavailable Functional [...] 1 TABLET DAILY * Refills: 0 Active [place] 3 CAPS 1 tab qd * Refills: [...] Name Dates Details Fluzone INJ Lot #: [id number] on: 06-Oct-2013 Influenza Comments: Approx Pneumococcal polysaccharide vaccine, 23 valent on: 29-Jul-2014 Fluzone Quadrivalent 0.5 ML Intramuscula r Suspension Lot #: [id number] on: 09-Oct-2015 Fluzone Quadrivalent 0.5 ML Intramuscula r Suspension Lot #: [id number] on: 09-Sep-2016 Hepatitis A Lot #: [id number] on: 30-Dec-2016 Tdap (Adacel) Lot #: [id number] on: 30-Dec-2016 Hepatitis A, adult Lot #: [id number] on: 29-Jun-2017 Fluzone Quadrivalent 0.5 ML Intramuscula r Suspension Lot #: [id number] on: 29-Jun-2017 Fluzone Quadrivalent 0.5 ML Intramuscula r Suspension Lot #: [id number] on: 24-Jun-2018 Fluzone High-Dose 0.5 ML Intramuscular S uspension Prefilled Syringe Lot #: [id number] on: 23-Aug-2019 Prevnar 13 Intramuscular Suspension Lot #: [id number] on: 23-Aug-2019 Family History Name Dates Details [...] BACON M.D. On: 02-Mar-2020 9:45 Interventions Provided Discussion/Summary* 1. UU/UF/UUI/ nocturia/ [...] therapy * - will get records from [facility] * 2. Recurrent UTI * - patient [...] Problem not documented On: 18-May-2018 14:15 Appointment; LNADON BARRIOS M.D. Encounter Diagnosis: [...]
--- OUTSIDE RECORDS SUMMARY | 2020-05-13 19:02 | XMS REPORT | Summary of Care ---
Author Author ARLEEN De Santiago, KIRILL COLORADO Organization Unknown Address Unknown Phone Unavailable Care Team Providers Care Student Development Dean Name Role Phone TOBI De Santiago, ADEEL BARRIOS M.D., LANDON Unavailable Unavailable ARLEEN De Santiago, STANISLAV Unavailable Unavailable TANISHA Archibald, CAMRON Unavailable Unavailable SOPHIE CAMPBELL [place], [place] Unavailable Unavailable ARLEEN CAMPBELL, PH.D. Unavailable Unavailable TANISHA FOX, CAMRON E Unavailable Unavailable CLARK RODRIGUEZ, [place] Unavailable Unavailable NIKOLE OJEDA, ARMIN Unavailable Unavailable RAYNE CAMPBELL, PITA Unavailable Unavailable TOBI CAMPBELL [place], ADEEL Ching Unavailable Unavailable ZONIA CAMPBELL, JANETH [...] infective tracheobronchitis (466.0 , J20.9) Status: Active On statin therapy (V58.69, Z79.899) [...] skin lesion (216.9, L 81.9) Status: Active Acute UTI (599.0, N39.0) Status: [...] Essential (primary) hypertension (401.9, I10) Status: Active Other hyperlipidemia (272.4, E78.49) Status: Active Hiatal hernia with GERD (530.81, K21.9) Status: Active Chronic insomnia (780.52, F51.04) Status: Active Encounter for monitoring statin therapy (V58.83, Z51.81) Status: Active Depression screening negative (V79.0, Z1 3.31) Status: Active At low risk for fall (V49.89, Z91.81) Status: Active Class 1 obesity due to excess calories w ith body mass index (BMI) of 33.0 to 33.9 in adult (278.00, E66.09) Status: Active Restless legs syndrome (333.94, G25.81) Status: Active Prediabetes (790.29, R73.03) Status: Active Encounter for monitoring long-term jie n pump inhibitor therapy (V58.83, Z51.81) Status: Active Xerosis of skin (706.8, L85.3) Status: Active Seborrheic keratosis (702.19, L82.1) Status: Active Solar lentigo (709.09, L81.4) Status: Active Fernandez angioma (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 * Refills: 0 Active [place] TABS TAKE 1 TABLET DAILY * Refills: 0 Active [place] 3 CAPS 1 tab qd * Refills: [...] 0.25 MG Oral Tablet TAKE 1 TABLET BY MOUTH DAILY AT BEDTIME * Quantity: 90 Refills: 0 LANDON BARRIOS M.D. * Start : 27-Feb-2020 Active Polyethylene Glycol 3350 17 GM/SCOOP Oral [...] 1 CAPSULE DAILY * Refills: 0 Active Azelastine HCl - 0.1 % Nasal Solution USE 1 SPRAY IN EACH NOSTRIL TWICE DAILY. * Refills: 0 Active Vitamin D3 50 MCG (2000 UT) Oral Capsule TAKE 1 CAPSULE DAILY * Refills: 0 Active Vitamin B-12 500 MCG Oral Tablet TAKE 1 TABLET DAILY. * Refills: 0 Active Ammonium Lactate 12 % External Cream APPLY AND RUB IN A THIN FILM TO AFFECTED AREAS OF ARMS TWICE DAILY.(AM AND PM) . * Quantity: 1 Refills: 11 STANISLAV BACON M.D. * Start : 02-Mar-2020 Active 2 x 140 GM Tube Allergies and Adverse Reactions Name Dates Details [...] Z87.440) Status: Resolved Procedures Procedure Dates Details [QL] CMP W/EGFR Date: 17-Feb-2020 [QL] CBC (INCLUDES DIFF/PLT) Date: 17-Feb-2020 [QL] HEMOGLOBIN A1c Date: 17-Feb-2020 [Q] LIPID PANEL WITH REFLEX TO DIRECT LDL Date: 17-Feb-2020 History of Hysterectomy Completed History of Bladder Surgery Completed History of Cholecystectomy Completed Immunization Name Dates Details Fluzone INJ Lot #: [id number] on: 06-Oct-2013 Influenza Comments: Approx Pneumococcal polysaccharide vaccine, 23 valent on: 29-Jul-2014 Fluzone Quadrivalent 0.5 ML Intramuscula r Suspension Lot #: [id number] on: 09-Oct-2015 Fluzone Quadrivalent 0.5 ML Intramuscula r Suspension Lot #: [id number] on: 09-Sep-2016 Hepatitis A Lot #: [id number] on: 30-Dec-2016 Tdap (Adacel) Lot #: [id number] on: 30-Dec-2016 Hepatitis A, adult Lot #: [id number] on: 29-Jun-2017 Fluzone Quadrivalent 0.5 ML Intramuscula r Suspension Lot #: [id number] on: 29-Jun-2017 Fluzone Quadrivalent 0.5 ML Intramuscula r Suspension Lot #: [id number] on: 24-Jun-2018 Fluzone High-Dose 0.5 ML Intramuscular S uspension Prefilled Syringe Lot #: [id number] on: 23-Aug-2019 Prevnar 13 Intramuscular Suspension Lot #: [id number] on: 23-Aug-2019 Family History Name Dates Details Family history of Hyperlipidemia Status: Active Name Dates Details Family history of Hypertension (V17.49) Status: Active Name Dates Details Family history of Prior Myocardial Infar ction Status: Active Social History Name Dates Details - Status: Name Dates Details Never smoked tobacco (finding) Vital Signs Date Test Result Details :46 Systolic blood pressure 122 mm[Hg] Status: Comments : Location: LUE; Position: Sitting Diastolic blood pressure 78 mm[Hg] Status: Comment s: Location: LUE; Position: Sitting Body height 58.5 in Status: Weight 161 lb Status: Body mass index (BMI) [Ratio] 33.08 kg/m2 Status: Body surface area Derived from formula 1.67 m2 S tatus: Heart Rate 85 /min Status: :01 Weight 162 lb Status: Body mass index (BMI) [Ratio] 33.28 kg/m2 Status: Body surface area Derived from formula 1.68 m2 S tatus: Physical Findings 2 Status: Comments: PH Q-9 Adult Depression Screening Results Date Description Value Details Results not documented Plan of Care Name Dates Details Planned Observations Planned Goals not documented Planned Encounters Appointment; LANDON BARRIOS M.D. On: 22-Jun-2020 10:00 Appointment; STANISLAV BACON M.D. On: 01-Mar-2021 11:15 Interventions Provided Medication Changes* Ammonium Lactate 12 % External Cream - Start Discussion/Summary* Impression:. * Xerosis cutis * - dry skin care advised; take a short shower or bath (<5-10 minutes) once daily in cold or lukewarm water with a fragrance-free bar soap (e.g., Dove for Sensitive Skin bar soap), pat dry, and immediately apply a bland emollient (plain Vaseline ointment is best; other alternatives including Aveeno Eczema Therapy Cream, CeraVe Cream, Vanicream Cream) at least twice daily to entire body * - ammonium lactate 12% cream twice daily to affected areas; side effects advised and accepted including irritation * Fernandez angiomas * Seborrheic keratoses (including lesion of concern to patient) * Solar lentigines * - reassurance provided * - recommend yearly skin examination; patient expressed understanding and agreement with plan * - no evidence of cutaneous malignancy on full body skin examination * - sun protection advised; apply SPF 30 or higher sunscreen at least 30 minutes before going outside and re-apply every 2 hours while outside * - advised patient to see fusing machine tender or other qualified practitioner yearly for examination of skin in underwear area * Return to clinic 1 year * Follow-up in clinic as needed prior to scheduled return appointment * . * Patient Discussion: * This was discussed in detail with the patient and all questions were answered. Instructions Name Dates Details Instructions not documented [...] Diagnosis: Problem not documented On: 17-Feb-2020 9:30 Appointment; STANISLAV BACON M.D. Encounter Diagnosis: Problem not documented On: 02-Mar-2020 9:40
--- OUTSIDE RECORDS SUMMARY | 2020-05-13 19:02 | XMS REPORT | Summary of Care ---
Author Author SOPHIE De Santiago, KIRILL RIVERS Organization Unknown Address Unknown Phone Unavailable Care Team Providers Care Provider Engagement Executive Name Role Phone TOBI De Santiago, ADEEL Unavailable Unavailable SOPHIE De Santiago, LANDON Unavailable Unavailable TANISHA D.OCassie, CAMRON Unavailable Unavailable SOPHIE CAMPBELL [place], L[place]ON [place] Unavailable Unavailable TANISHA FOX, CAMRON E Unavailable Unavailable CLARK SMITHP, BARRINGTON Unavailable Unavailable NIKOLE OJEDA, ARMIN Unavailable Unavailable RAYNE CAMPBELL, PITA Unavailable Unavailable TOBI CAMPBELL [place], ADEEL Ching Unavailable Unavailable ZONIA CAMPBELL, JANETH [...] 1 TABLET DAILY * Refills: 0 Active [place] 3 CAPS 1 tab qd * Refills: [...] Name Dates Details Fluzone INJ Lot #: [id number] on: 06-Oct-2013 Influenza Comments: Approx Pneumococcal polysaccharide vaccine, 23 valent on: 29-Jul-2014 Fluzone Quadrivalent 0.5 ML Intramuscula r Suspension Lot #: [id number] on: 09-Oct-2015 Fluzone Quadrivalent 0.5 ML Intramuscula r Suspension Lot #: [id number] on: 09-Sep-2016 Hepatitis A Lot #: [id number] on: 30-Dec-2016 Tdap (Adacel) Lot #: [id number] on: 30-Dec-2016 Hepatitis A, adult Lot #: [id number] on: 29-Jun-2017 Fluzone Quadrivalent 0.5 ML Intramuscula r Suspension Lot #: [id number] on: 29-Jun-2017 Fluzone Quadrivalent 0.5 ML Intramuscula r Suspension Lot #: [id number] on: 24-Jun-2018 Fluzone High-Dose 0.5 ML Intramuscular S uspension Prefilled Syringe Lot #: [id number] on: 23-Aug-2019 Prevnar 13 Intramuscular Suspension Lot #: [id number] on: 23-Aug-2019 Family History Name Dates Details Family history of Hyperlipidemia Status: Active Name Dates Details Family history of Hypertension (V17.49) Status: Active Name Dates Details Family history of Prior Myocardial Infar ction Status: Active Social History Name Dates Details - Status: Name Dates Details Never smoked tobacco (finding) Vital Signs Date Test Result Details 78-Ebz-51411:01 Weight 162 lb Status: Body mass index (BMI) [Ratio] 33.28 kg/m2 Status: Body surface area Derived from formula 1.68 m2 S tatus: Physical Findings 2 Status: Comments: PH Q-9 Adult Depression Screening Results Date Description Value Details Results not documented Plan of Care Name Dates Details Planned Observations Planned Goals not documented Planned Encounters Appointment; STANISLAV BACON M.D. On: 02-Mar-2020 9:40 Appointment; CAMRON GARAY D.O. On: 29-Mar-2020 9:45 Interventions Provided Plan* - START Vitamin 12 500 IU daily * -START Vitamin D3 2000 IU daily Instructions Name Dates Details Instructions not documented [...]
--- OUTSIDE RECORDS SUMMARY | 2020-05-13 19:02 | XMS REPORT | Summary of Care ---
Author Author SOPHIE De Santiago, KIRILL RIVERS Organization Unknown Address Unknown Phone Unavailable Care Team Providers Care Pushcart Peddler Name Role Phone TOBI De Santiago, ADEEL Unavailable Unavailable SOPHIE De Santiago, LANDON Unavailable Unavailable TANISHA D.OCassie, CAMRON Unavailable Unavailable SOPHIE CAMPBELL [place], [place] Unavailable Unavailable TANISHA FOX, CAMRON [...] 1 TABLET DAILY * Refills: 0 Active [place] 3 CAPS 1 tab qd * Refills: [...] Name Dates Details Fluzone INJ Lot #: [id number] on: 06-Oct-2013 Influenza Comments: Approx Pneumococcal polysaccharide vaccine, 23 valent on: 29-Jul-2014 Fluzone Quadrivalent 0.5 ML Intramuscula r Suspension Lot #: [id number] on: 09-Oct-2015 Fluzone Quadrivalent 0.5 ML Intramuscula r Suspension Lot #: [id number] on: 09-Sep-2016 Hepatitis A Lot #: [id number] on: 30-Dec-2016 Tdap (Adacel) Lot #: [id number] on: 30-Dec-2016 Hepatitis A, adult Lot #: [id number] on: 29-Jun-2017 Fluzone Quadrivalent 0.5 ML Intramuscula r Suspension Lot #: [id number] on: 29-Jun-2017 Fluzone Quadrivalent 0.5 ML Intramuscula r Suspension Lot #: [id number] on: 24-Jun-2018 Fluzone High-Dose 0.5 ML Intramuscular S uspension Prefilled Syringe Lot #: [id number] on: 23-Aug-2019 Prevnar 13 Intramuscular Suspension Lot #: [id number] on: 23-Aug-2019 Family History Name Dates Details Family history of Hyperlipidemia Status: Active Name Dates Details Family history of Hypertension (V17.49) Status: Active Name Dates Details Family history of Prior Myocardial Infar ction Status: Active Social History Name Dates Details - Status: Name Dates Details Never smoked tobacco (finding) Vital Signs Date Test Result Details 59-Ijz-16229:01 Weight 162 lb Status: Body mass index [...] D.O. On: 29-Mar-2020 9:45 Interventions Provided Plan* Updated labs ordered for monitoring: Prediabetes, hypertension, hyperlipidemia, monitoring statin therapy, chronic GERD, long-term PPI use, RLS, on angiotensin receptor charlie * - CMP, hemoglobin A1c, lipid panel, CBC * Continue current medications as follows unless otherwise dictated by results of above ordered lab * - Hypertension: Losartan 100 mg daily * - Hyperlipidemia: Rosuvastatin 10 mg daily. * - Chronic insomnia: Buspirone 5 mg 2 tablets 1 hour before bedtime * - RLS: Gabapentin 300 mg twice daily at 6 PM and bedtime * - Urinary incontinence: Trospium chloride ER 60 mg at bedtime. * - Chronic GERD: Dexilant 60 mg daily in the morning. ( symptoms not controlled by omeprazole 40 mg daily but well controlled by Dexilant) * -Seasonal allergic rhinitis: Azelastine nasal spray 0.1% 1 spray twice daily to each nostril as needed * -OTC vitamins: * START Vitamin 12 500 mcg daily due to chronic PPI use * DECREASE Vitamin D3 to 2000 IU daily. * CONTINUE Centrum multiple vitamin 1 daily * Further recommendations pending results of above ordered lab . * Patient to be scheduled for follow-up office visit in 4 months or sooner if needed . Instructions Name Dates Details Instructions not [...]
--- OUTSIDE RECORDS SUMMARY | 2020-05-13 19:02 | XMS REPORT | Summary of Care ---
Author Author KIRILL Valencia M.A. Yasminegerri Rocha Unknown Address Unknown Phone Unavailable Care Team Providers Care Survey Questionnaire Designer Name Role Phone TOBI De Santiago, ADEEL BARRIOS M.D., LANDON Unavailable Unavailable ARLEEN De Santiago, STANISLAV Unavailable Unavailable TANISHA D.OCassie, CAMRON Unavailable Unavailable SOPHIE CAMPBELL [place], LANDON SHWETA Unavailable Unavailable TANISHA FOX, CAMRON E Unavailable Unavailable CLARK RODRIGUEZ, BARR[place] Unavailable Unavailable NIKOLE OJEDA, ARMIN Unavailable Unavailable RAYNE CAMPBELL, PITA Unavailable Unavailable TOBI CAMPBELL [place], ADEEL Ching Unavailable Unavailable ZONIA CAMPBELL, JANETH [...] pump inhibitor therapy (V58.83, Z51.81) Status: Active Medications Name Dates Details Gabapentin [...] 1 TABLET DAILY * Refills: 0 Active [place] 3 CAPS 1 tab qd * Refills: 0 Active Rosuvastatin Calcium 10 MG Oral Tablet TAKE 1 TABLET BY MOUTH EVERY DAY * Quantity: 90 Refills: 0 DEVYN BARRIOS M.D.NDA * Start : 28-Jul-2016 Active Melatonin 5 [...] 1 TABLET DAILY. * Refills: 0 Active Allergies and Adverse [...] Name Dates Details Fluzone INJ Lot #: [id number] on: 06-Oct-2013 Influenza Comments: Approx Pneumococcal polysaccharide vaccine, 23 valent on: 29-Jul-2014 Fluzone Quadrivalent 0.5 ML Intramuscula r Suspension Lot #: [id number] on: 09-Oct-2015 Fluzone Quadrivalent 0.5 ML Intramuscula r Suspension Lot #: [id number] on: 09-Sep-2016 Hepatitis A Lot #: [id number] on: 30-Dec-2016 Tdap (Adacel) Lot #: [id number] on: 30-Dec-2016 Hepatitis A, adult Lot #: [id number] on: 29-Jun-2017 Fluzone Quadrivalent 0.5 ML Intramuscula r Suspension Lot #: [id number] on: 29-Jun-2017 Fluzone Quadrivalent 0.5 ML Intramuscula r Suspension Lot #: [id number] on: 24-Jun-2018 Fluzone High-Dose 0.5 ML Intramuscular S uspension Prefilled Syringe Lot #: [id number] on: 23-Aug-2019 Prevnar 13 Intramuscular Suspension Lot #: [id number] on: 23-Aug-2019 Family History Name Dates Details Family history of Hyperlipidemia Status: Active Name Dates Details Family history of Hypertension (V17.49) Status: Active Name Dates Details Family history of Prior Myocardial Infar ction Status: Active Social History Name Dates Details - Status: Name Dates Details Never smoked tobacco (finding) Vital Signs Date Test Result Details 02-Mar-20209:46 Systolic blood pressure 122 mm[Hg] Status: Comments : Location: LUE; Position: Sitting Diastolic blood pressure 78 mm[Hg] Status: Comment s: Location: LUE; Position: Sitting Body height 58.5 in Status: Weight 161 lb Status: Body mass index (BMI) [Ratio] 33.08 kg/m2 Status: Body surface area Derived from formula 1.67 m2 S tatus: Heart Rate 85 /min Status: 28-Oqz-24618:01 Weight 162 lb Status: Body mass index (BMI) [Ratio] 33.28 kg/m2 Status: Body surface area Derived from formula 1.68 m2 S tatus: Physical Findings 2 Status: Comments: PH Q-9 Adult Depression Screening Results Date Description Value Details Results not documented Plan of Care Name Dates Details Planned Observations Planned Goals not documented Planned Encounters Appointment; LANDON BARRIOS M.D. On: 22-Jun-2020 10:00 Instructions Name Dates Details Instructions not documented [...] Problem not documented On: 12-Apr-2019 15:30 Appointment; LADNON BARRIOS M.D. Encounter Diagnosis: Problem not documented [...] not documented On: 23-Dec-2019 9:45 Appointment; CAMRON GRAAY D.O. Encounter Diagnosis: Problem not documented On: 12-Jan-2020 11:00 Appointment; JANETH BRAR M.D. Encounter Diagnosis: Problem not documented On: 17-Jan-2020 14:15 Appointment; LANDON BARRIOS M.D. Encounter Diagnosis: Problem not documented On: 17-Feb-2020 9:30 Appointment; STANISLAV BACON M.D. Encounter Diagnosis: Problem not documented On: 02-Mar-2020 9:40
--- OUTSIDE RECORDS SUMMARY | 2020-05-13 19:02 | XMS REPORT | Summary of Care ---
Author Author SOPHIE De Santiago, KIRILL RIVERS Organization Unknown Address Unknown Phone Unavailable Care Team Providers Care Gameroom Technician Name Role Phone TOBI De Santiago, ADEEL Unavailable Unavailable SOPHIE De Santiago, LANDON Unavailable Unavailable TANISHA D.OCassie, CAMRON Unavailable Unavailable SOPHIE CAMPBELL [place], [place] Unavailable Unavailable TANISHA FOX, CAMRON E Unavailable Unavailable CLARK SMITHP, B[place] Unavailable Unavailable NIKOLE OJEDA, ARMIN Unavailable Unavailable RAYNE CAMPBELL, PITA Unavailable Unavailable TOBI CAMPBELL [place], ADEEL Ching Unavailable Unavailable ZONIA CAMPBELL, JANETH [...] 1 TABLET DAILY * Refills: 0 Active [place] 3 CAPS 1 tab qd * Refills: [...] Name Dates Details Fluzone INJ Lot #: [id number] on: 06-Oct-2013 Influenza Comments: Approx Pneumococcal polysaccharide vaccine, 23 valent on: 29-Jul-2014 Fluzone Quadrivalent 0.5 ML Intramuscula r Suspension Lot #: [id number] on: 09-Oct-2015 Fluzone Quadrivalent 0.5 ML Intramuscula r Suspension Lot #: [id number] on: 09-Sep-2016 Hepatitis A Lot #: [id number] on: 30-Dec-2016 Tdap (Adacel) Lot #: [id number] on: 30-Dec-2016 Hepatitis A, adult Lot #: [id number] on: 29-Jun-2017 Fluzone Quadrivalent 0.5 ML Intramuscula r Suspension Lot #: [id number] on: 29-Jun-2017 Fluzone Quadrivalent 0.5 ML Intramuscula r Suspension Lot #: [id number] on: 24-Jun-2018 Fluzone High-Dose 0.5 ML Intramuscular S uspension Prefilled Syringe Lot #: [id number] on: 23-Aug-2019 Prevnar 13 Intramuscular Suspension Lot #: [id number] on: 23-Aug-2019 Family History Name Dates Details Family history of Hyperlipidemia Status: Active Name Dates Details Family history of Hypertension (V17.49) Status: Active Name Dates Details Family history of Prior Myocardial Infar ction Status: Active Social History Name Dates Details - Status: Name Dates Details Never smoked tobacco (finding) Vital Signs Date Test Result Details 30-Dca-80712:01 Weight 162 lb Status: Body mass index [...]
--- OUTSIDE RECORDS SUMMARY | 2020-05-13 19:02 | XMS REPORT | Summary of Care ---
Author Author KIRILL GARAY D.O. Unknown Address Unknown Phone Unavailable Care Team Providers Care Dentist/Owner Name Role Phone Leighton R.Natasha, Lory Unavailable Unavailable TOBI De Santiago, ADEEL Unavailable Unavailable SOPHIE De Santiago, LANDON Unavailable Unavailable ARLEEN De Santiago, STANISLAV Unavailable Unavailable TANISHA Archibald, CAMRON Unavailable Unavailable SOPHIE CAMPBELL [place], [place] Unavailable Unavailable ARLEEN CAMPBELL, PH.D. 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 71, H11.432) Status: Active Dyspareunia, female (625.0, N94.10) Status: [...] Active Chronic insomnia (780.52, F51.04) Status: Active Class 1 obesity due to excess calories w ith body mass index (BMI) of 33.0 to 33.9 in adult (278.00, E66.09) Status: Active Depression screening negative (V79.0, Z1 3.31) Status: Active Encounter for monitoring statin therapy (V58.83, Z51.81) Status: Active At low risk for fall (V49.89, Z91.81) Status: Active Restless legs syndrome (333.94, G25.81) [...] PM AND AT BEDTIME Quantity: 180 GOODINE M.DCassie, LANDON * Start : 09-Jul-2016 Active Losartan Potassium 100 MG Oral Tablet TAKE 1 TABLET BY MOUTH EVERY DAY * Quantity: 90 Refills: 0 GOODINE M.D., LANDON * Start : 21-Jul-2014 Active Vitamin D3 125 MCG (5000 UT) Oral Capsule TAKE DIRECTED. * Refills: 0 Active [place] TABS TAKE 1 TABLET DAILY * Refills: 0 Active [place] 3 CAPS 1 tab qd * Refills: [...] 02-Mar-2020 Active 2 x 140 GM Tube Trospium Chloride 20 MG Oral Tablet take 1 tablet bid x 90 days * Quantity: 180 Refills: 2 TANISHA DCAMRON Pollock * Start : 07-Mar-2020 Active Allergies and Adverse Reactions Name Dates [...] Name Dates Details Fluzone INJ Lot #: [id number] on: 06-Oct-2013 Influenza Comments: Approx Pneumococcal polysaccharide vaccine, 23 valent on: 29-Jul-2014 Fluzone Quadrivalent 0.5 ML Intramuscula r Suspension Lot #: [id number] on: 09-Oct-2015 Fluzone Quadrivalent 0.5 ML Intramuscula r Suspension Lot #: [id number] on: 09-Sep-2016 Hepatitis A Lot #: [id number] on: 30-Dec-2016 Tdap (Adacel) Lot #: [id number] on: 30-Dec-2016 Hepatitis A, adult Lot #: [id number] on: 29-Jun-2017 Fluzone Quadrivalent 0.5 ML Intramuscula r Suspension Lot #: [id number] on: 29-Jun-2017 Fluzone Quadrivalent 0.5 ML Intramuscula r Suspension Lot #: [id number] on: 24-Jun-2018 Fluzone High-Dose 0.5 ML Intramuscular S uspension Prefilled Syringe Lot #: [id number] on: 23-Aug-2019 Prevnar 13 Intramuscular Suspension Lot #: [id number] on: 23-Aug-2019 Family History Name Dates Details [...] On: 01-Mar-2021 11:15 Interventions Provided Medication Changes* Trospium Chloride 20 MG Oral Tablet - Start Instructions Name Dates Details Instructions [...] Diagnosis: Problem not documented On: 02-Mar-2020 9:40 Appointment; STANISLAV BACON M.D. Encounter Diagnosis: Problem not documented On: 02-Mar-2020 9:45
--- OUTSIDE RECORDS SUMMARY | 2020-05-13 19:02 | XMS REPORT | Summary of Care ---
Author Author KIRILL Manzanares R.N. Organization Unknown Address [facility] Phone Unavailable Care Team Providers Care Kiln Maintenance Name Role Phone Lory Manzanares R.N. Unavailable Unavailable TOBI De Santiago, ADEEL Unavailable Unavailable SOPHIE De Santiago, LANDON Unavailable Unavailable ARLEEN De Santiago, STANISLAV Unavailable Unavailable TANISHA Archibald, CAMRNO Unavailable Unavailable SOPHIE CAMPBELL [place], [place] Unavailable Unavailable ARLEEN CAMPBELL, PH.D. Unavailable Unavailable TANISHA FOX, CAMRON E Unavailable Unavailable CLARK SMITHP, [place] Unavailable Unavailable NIKOLE OJEDA, ARMIN Unavailable Unavailable RAYNE CAMPBELL, PITA Unavailable Unavailable TOBI CAMPBELL [place], ADEEL Ching Unavailable Unavailable ZONIA CAMPBELL, JANETH [...] 1 TABLET DAILY * Refills: 0 Active [place] 3 CAPS 1 tab qd * Refills: [...] Name Dates Details Fluzone INJ Lot #: [id number] on: 06-Oct-2013 Influenza Comments: Approx Pneumococcal polysaccharide vaccine, 23 valent on: 29-Jul-2014 Fluzone Quadrivalent 0.5 ML Intramuscula r Suspension Lot #: [id number] on: 09-Oct-2015 Fluzone Quadrivalent 0.5 ML Intramuscula r Suspension Lot #: [id number] on: 09-Sep-2016 Hepatitis A Lot #: [id number] on: 30-Dec-2016 Tdap (Adacel) Lot #: [id number] on: 30-Dec-2016 Hepatitis A, adult Lot #: [id number] on: 29-Jun-2017 Fluzone Quadrivalent 0.5 ML Intramuscula r Suspension Lot #: [id number] on: 29-Jun-2017 Fluzone Quadrivalent 0.5 ML Intramuscula r Suspension Lot #: [id number] on: 24-Jun-2018 Fluzone High-Dose 0.5 ML Intramuscular S uspension Prefilled Syringe Lot #: [id number] on: 23-Aug-2019 Prevnar 13 Intramuscular Suspension Lot #: [id number] on: 23-Aug-2019 Family History Name Dates Details [...]
--- OUTSIDE RECORDS SUMMARY | 2020-05-13 19:02 | XMS REPORT | Summary of Care ---
Author Author Scott Barton, KIRILL RIVERS Organization Unknown Address Unknown Phone Unavailable Care Team Providers Care Elastic Attacher Chainstitch Name Role Phone TOBI De Santiago, ADEEL Unavailable Unavailable SOPHIE De Santiago, LANDON Unavailable Unavailable TANISHA Butcher.Shae, CAMRON Unavailable Unavailable SOPHIE CAMPBELL [place], [place] Unavailable Unavailable TANISHA FOX, CAMRON E Unavailable Unavailable CLARK SMITHP, [place] Unavailable Unavailable NIKOLE OJEDA, ARMIN Unavailable Unavailable RAYNE CAMPBELL, PITA Unavailable Unavailable TOBI CAMPBELL [place], ADEEL Ching Unavailable Unavailable ZONIA CAMPBELL, JANETH [...] 6 PM AND AT BEDTIME Quantity: 180 SOPHEI Em.Guadalupe., LANDON * Start : 09-Jul-2016 Active Losartan Potassium 100 MG Oral Tablet TAKE 1 TABLET BY MOUTH EVERY DAY * Quantity: 90 Refills: 0 SOPHIE Em.Reese, LANDON * Start : 21-Jul-2014 Active Vitamin D3 125 MCG (5000 UT) Oral Capsule TAKE DIRECTED. * Refills: 0 Active Cranberry TABS TAKE 1 TABLET DAILY * Refills: 0 Active [place] 3 CAPS 1 tab qd * Refills: 0 Active Rosuvastatin Calcium 10 MG Oral Tablet TAKE 1 TABLET BY MOUTH EVERY DAY * Quantity: 90 Refills: 0 SOPHIE M.Guadalupe., LANDON * Start : 28-Jul-2016 Active Melatonin 5 [...] Name Dates Details Fluzone INJ Lot #: [id number] on: 06-Oct-2013 Influenza Comments: Approx Pneumococcal polysaccharide vaccine, 23 valent on: 29-Jul-2014 Fluzone Quadrivalent 0.5 ML Intramuscula r Suspension Lot #: [id number] on: 09-Oct-2015 Fluzone Quadrivalent 0.5 ML Intramuscula r Suspension Lot #: [id number] on: 09-Sep-2016 Hepatitis A Lot #: [id number] on: 30-Dec-2016 Tdap (Adacel) Lot #: [id number] on: 30-Dec-2016 Hepatitis A, adult Lot #: [id number] on: 29-Jun-2017 Fluzone Quadrivalent 0.5 ML Intramuscula r Suspension Lot #: [id number] on: 29-Jun-2017 Fluzone Quadrivalent 0.5 ML Intramuscula r Suspension Lot #: [id number] on: 24-Jun-2018 Fluzone High-Dose 0.5 ML Intramuscular S uspension Prefilled Syringe Lot #: [id number] on: 23-Aug-2019 Prevnar 13 Intramuscular Suspension Lot #: [id number] on: 23-Aug-2019 Family History Name Dates Details Family history of Hyperlipidemia Status: Active Name Dates Details Family history of Hypertension (V17.49) Status: Active Name Dates Details Family history of Prior Myocardial Infar ction Status: Active Social History Name Dates Details - Status: Name Dates Details Never smoked tobacco (finding) Vital Signs Date Test Result Details 13-Jyt-36326:01 Weight 162 lb Status: Body mass index [...] Appointment; CAMRON GARAY D.O. On: 29-Mar-2020 9:45 Appointment; LANDON BARRIOS M.D. On: 22-Jun-2020 10:00 Interventions Provided Labs/Procedures/Imaging* [Q] LIPID PANEL WITH REFLEX TO DIRECT LDL; To Be Done: 17 Feb 2020 * [QL] CBC (INCLUDES DIFF/PLT); To Be Done: 17 Feb 2020 * [QL] CMP W/EGFR; To Be Done: 17 Feb 2020 * [QL] HEMOGLOBIN A1c; To Be Done: 17 Feb 2020 Plan* Review with patient results of most recent labs, imaging, procedures and updated medication list. * Updated labs ordered for monitoring: Prediabetes, hypertension, hyperlipidemia, monitoring statin therapy, chronic GERD, long-term PPI use, RLS, on angiotensin receptor charlie to be performed now * - CMP, hemoglobin A1c, lipid panel, [...] and bedtime * - Urinary incontinence: Trospium ER 60 mg at bedtime. * - Chronic GERD with hiatal hernia: Dexilant 60 mg daily in the morning. [...] CONTINUE Centrum multiple vitamin 1 daily * BMI 33.28: Diet and exercise counseling. * Patient advised to take blood pressure daily bilateral upper extremities and record readings to bring to her next clinic visit. * Further recommendations pending results of above [...]
--- NOTE | 2020-05-13 19:03 | NUR ---
just told nurse in room ten now states she is covid positive this week.
--- OUTSIDE RECORDS SUMMARY | 2020-05-13 19:03 | XMS REPORT | Summary of Care ---
Author Author KIRILL Ladd R.N. Gretchen Josefina Unknown Address [facility] Phone Unavailable Care Team Providers Care Supervisor Motorcycle Repair Shop Name Role Phone TOBI De Santiago, ADEEL Unavailable Unavailable SOPHIE De Santiago, LANDON Unavailable Unavailable ARLEEN De Santiago, STANISLAV Unavailable Unavailable TANISHA Archibald, CAMRON Unavailable Unavailable MENDOZA De Santiago, HEIDE Unavailable Unavailable SOPHIE CAMPBELL [place], [place] Unavailable Unavailable RAMO CAMPBELL, KRISTINA Bustos Unavailable Unavailable MENDOZA CAMPBELL, HEIDE Unavailable Unavailable ARLEEN CAMPBELL, PH.D. Unavailable Unavailable QI CAMPBELL [place], SIMA Cadet Unavailable Unavailable TANISHA FOX, CAMRON E Unavailable [...] Status: Active Acrochordon (701.9, L91.8) Status: Active Acute bronchitis due to infection (466.0 , J20.8) Status: Active Suspected COVID-19 virus infection (V01. 79, Z20.828) Status: Active Sinus tachycardia (427.89, R00.0) Status: Active COVID-19 virus infection (079.89, U07.1) Status: Active Chest pressure (786.59, R07.89) Status: Active Medications Name Dates Details Gabapentin [...] 1 TABLET DAILY * Refills: 0 Active [place] 3 CAPS 1 tab qd * Refills: [...] CAPSULE BEDTIME * Quantity: 90 Refills: 2 TANISHA D.CAMRON Kaufman * Start : 23-Sep-2019 Active Estradiol 0.1 MG/GM Vaginal Cream INSERT 1 GRAM INTO THE VAGINA TWICE WEEKLY * Quantity: 1 Refills: 2 DOUGHER D.O., CAMRON * Start : 18-Oct-2019 Active Dexilant 60 MG Oral Capsule Delayed Release TAKE 1 CAPSULE DAILY * Refills: 0 Active Vitamin D3 50 [...] 90 days * Quantity: 180 Refills: 2 DOUGHER D.O., CAMRON * Start : 07-Mar-2020 Active Metoprolol Tartrate 25 MG Oral Tablet TAKE 1 TABLET TWICE DAILY * Refills: 0 Active Zinc-220 CAPS * Refills: 0 Active Allergies and Adverse [...] Name Dates Details Fluzone INJ Lot #: [id number] on: 06-Oct-2013 Influenza Comments: Approx Pneumococcal polysaccharide vaccine, 23 valent on: 29-Jul-2014 Fluzone Quadrivalent 0.5 ML Intramuscula r Suspension Lot #: [id number] on: 09-Oct-2015 Fluzone Quadrivalent 0.5 ML Intramuscula r Suspension Lot #: [id number] on: 09-Sep-2016 Hepatitis A Lot #: [id number] on: 30-Dec-2016 Tdap (Adacel) Lot #: [id number] on: 30-Dec-2016 Hepatitis A, adult Lot #: [id number] on: 29-Jun-2017 Fluzone Quadrivalent 0.5 ML Intramuscula r Suspension Lot #: [id number] on: 29-Jun-2017 Fluzone Quadrivalent 0.5 ML Intramuscula r Suspension Lot #: [id number] on: 24-Jun-2018 Fluzone High-Dose 0.5 ML Intramuscular S uspension Prefilled Syringe Lot #: [id number] on: 23-Aug-2019 Prevnar 13 Intramuscular Suspension Lot #: [id number] on: 23-Aug-2019 Family History Name Dates Details Family history of Hyperlipidemia Status: Active Name Dates Details Family history of Hypertension (V17.49) Status: Active Name Dates Details Family history of Prior Myocardial Infar ction Status: Active Social History Name Dates Details - Status: Name Dates Details Never smoked tobacco (finding) Vital Signs Date Test Result Details :17 Systolic blood pressure 150 mm[Hg] Status: Comments : Location: LUE; Position: Sitting Diastolic blood pressure 89 mm[Hg] Status: Comment s: Location: LUE; Position: Sitting Body height 58.5 in Status: Weight 161.5 lb Status: Body mass index (BMI) [Ratio] 33.18 kg/m2 Status: Body surface area Derived from formula 1.67 m2 S tatus: Body temperature 99.3 f Status: Heart Rate 129 /min Status: Results Date Description Value Details :00 . [facility] - COVID-19/SARS-Cov-2 SARS-CoV-2 REPORT ClinicalHistory: J20 .8 Acute bronchitis due to infection.COVID-19/SARS-CoV-2: COVID-19/SARS-CoV-2: Positive.BodySite: Nasopharyngeal.Special Requests: COVID-19/SARS-Cov-2.CPTCode: 48699.ICDCode: J20.8. (Normal) Plan of Care Name Dates Details Planned Observations Planned Goals not documented Planned Encounters Receptionist Nurse Service Request Appointment; HEIDE DONALDSON M.D. On: 08-May-2020 10:00 Appointment; LANDON BARRIOS M.D. On: 22-Jun-2020 10:00 Appointment; STANISLAV BACON M.D. On: 01-Mar-2021 11:15 Interventions Provided Plan* 1. Sinus tachycardia * - No acute ST, T wave changes or right heart strain noted * - Pulse ox on RA 95%, with mild sob * - Discussed r/o PE, ACS * - Patient to return in 1-2 days for follow up Instructions Name Dates Details Instructions not documented Encounters Appointment; CELIA WHITNEY M.D. Encounter Diagnosis: Problem [...] Diagnosis: Problem not documented On: 02-Mar-2020 9:45 Appointment; SIMA BUSBY M.D. Encounter Diagnosis: Problem not documented On: 24-Mar-2020 11:00 Appointment; CRISTI MERINO Encounter Diagnosis: Problem not documented On: 26-Mar-2020 13:20 Appointment; CAMRON GARAY D.O. Encounter Diagnosis: Problem not documented On: 29-Mar-2020 9:45 Appointment; HEIDE DONALDSON M.D. Encounter Diagnosis: Problem not documented On: 09-Apr-2020 12:45
--- OUTSIDE RECORDS SUMMARY | 2020-05-13 19:03 | XMS REPORT | Summary of Care ---
Author Author Julee Barton, KIRILL Gretchen Josefina Unknown Address [facility] Phone Unavailable Care Team Providers Care Enforcement Manager Name Role Phone TOBI De Santiago, ADEEL Unavailable Duyen BARRIOS M.D., LANDON Unavailable Unavailable ARLEEN De Santiago, STANISLAV Unavailable Unavailable TANISHA LeighOCassie, CAMRON Unavailable Unavailable SOPHIE CAMPBELL [place], [place] Unavailable Unavailable RAMO CAMPBELL, KRISTINA Bustos Unavailable Unavailable MENDOZA CAMPBELL, HEIDE Unavailable Unavailable ARLEEN CAMPBELL, PH.D. Unavailable Unavailable QI CAMPBELL [place], SIMA Cadet Unavailable Unavailable TANISHA FOX, CAMRON E Unavailable Unavailable CLARK SMITHP, [place] Unavailable Unavailable NIKOLE OJEDA, ARMIN Unavailable Unavailable RAYNE CAMPBELL, PITA Unavailable Unavailable TOBI CAMPBELL [place], ADEEL Ching Unavailable Unavailable ZONIA CAMPBELL, JANETH [...] PM AND AT BEDTIME Quantity: 180 SOPHIE Em.LANDON Leigh * Start : 09-Jul-2016 Active Losartan Potassium 100 MG Oral Tablet TAKE 1 TABLET BY MOUTH EVERY DAY * Quantity: 90 Refills: 0 SOPHIE Em.Reese, LANDON * Start : 21-Jul-2014 Active Vitamin D3 125 MCG (5000 UT) Oral Capsule TAKE DIRECTED. * Refills: 0 M.D. Active Cranberry TABS TAKE 1 TABLET DAILY * Refills: 0 M.D. Active [place] 3 CAPS 1 tab qd * Refills: 0 M.D. Active Rosuvastatin Calcium 10 MG Oral Tablet TAKE 1 TABLET BY MOUTH EVERY DAY * Quantity: 90 Refills: 0 SOPHIE Em.LANDON Leigh * Start : 28-Jul-2016 Active Melatonin 5 MG Oral Capsule TAKE 1 CAPSULE BEDTIME * Refills: 0 M.D. Active busPIRone HCl - 5 MG Oral [...] per protocol * Quantity: 1 Refills: 0 SOPHIE Em.DEVYN LeighNDA * Start : 08-Sep-2019 Active Trospium Chloride ER 60 MG Oral Capsule Extended Release 24 Hour TAKE 1 CAPSULE BEDTIME * Quantity: 90 Refills: 2 TANISHA D.O., CAMRON * Start : 23-Sep-2019 Active Estradiol 0.1 MG/GM Vaginal Cream INSERT 1 GRAM INTO THE VAGINA TWICE WEEKLY * Quantity: 1 Refills: 2 DOUGHER D.O., CAMRON * Start : 18-Oct-2019 Active Dexilant 60 MG Oral Capsule Delayed Release TAKE 1 CAPSULE DAILY * Refills: 0 M.D. Active Vitamin D3 50 MCG (2000 UT) Oral Capsule TAKE 1 CAPSULE DAILY * Refills: 0 M.D. Active Vitamin B-12 500 MCG Oral Tablet TAKE 1 TABLET DAILY. * Refills: 0 M.D. Active Ammonium Lactate 12 % External Cream APPLY AND RUB IN A THIN FILM TO AFFECTED AREAS OF ARMS TWICE DAILY.(AM AND PM) . * Quantity: 1 Refills: 11 ARLEEN M.Guadalupe., STANISLAV * Start : 02-Mar-2020 Active 2 x 140 GM Tube Trospium Chloride 20 MG Oral Tablet take 1 tablet bid x 90 days * Quantity: 180 Refills: 2 DOUGHER D.O., CAMRON * Start : 07-Mar-2020 Active Metoprolol Tartrate 25 MG Oral Tablet TAKE 1 TABLET TWICE DAILY * Refills: 0 M.D. Active Zinc-220 CAPS * Refills: 0 M.D. Active Allergies and Adverse Reactions Name Dates [...] Name Dates Details Fluzone INJ Lot #: [id number] on: 06-Oct-2013 Influenza Comments: Approx Pneumococcal polysaccharide vaccine, 23 valent on: 29-Jul-2014 Fluzone Quadrivalent 0.5 ML Intramuscula r Suspension Lot #: [id number] on: 09-Oct-2015 Fluzone Quadrivalent 0.5 ML Intramuscula r Suspension Lot #: [id number] on: 09-Sep-2016 Hepatitis A Lot #: [id number] on: 30-Dec-2016 Tdap (Adacel) Lot #: [id number] on: 30-Dec-2016 Hepatitis A, adult Lot #: [id number] on: 29-Jun-2017 Fluzone Quadrivalent 0.5 ML Intramuscula r Suspension Lot #: [id number] on: 29-Jun-2017 Fluzone Quadrivalent 0.5 ML Intramuscula r Suspension Lot #: [id number] on: 24-Jun-2018 Fluzone High-Dose 0.5 ML Intramuscular S uspension Prefilled Syringe Lot #: [id number] on: 23-Aug-2019 Prevnar 13 Intramuscular Suspension Lot #: [id number] on: 23-Aug-2019 Family History Name Dates Details [...] /min Status: Results Date Description Value Details [id number] . [facility] - COVID-19/SARS-Cov-2 SARS-CoV-2 REPORT ClinicalHistory: J20 .8 Acute bronchitis due to infection.COVID-19/SARS-CoV-2: COVID-19/SARS-CoV-2: Positive.BodySite: Nasopharyngeal.Special Requests: COVID-19/SARS-Cov-2.CPTCode: 99508.ICDCode: J20.8. (Normal) Plan of Care Name Dates Details Planned Observations Planned Goals not documented Planned Encounters Appointment; HEIDE DONALDSON M.D. On: 08-May-2020 10:00 Appointment; LANDON BARRIOS M.D. On: 22-Jun-2020 10:00 Appointment; STANISLAV BACON M.D. On: 01-Mar-2021 11:15 Instructions Name Dates Details Instructions not documented [...] not documented On: 17-Jan-2020 14:15 Appointment; LANDON BARRISO M.D. Encounter Diagnosis: Problem not documented On: 17-Feb-2020 9:30 Appointment; STANISLAV BACON M.D. Encounter Diagnosis: Problem not documented On: 02-Mar-2020 9:40 Appointment; STANISLAV BACON M.D. Encounter Diagnosis: Problem not documented On: 02-Mar-2020 9:45 Appointment; SIMA BUSBY M.D. Encounter Diagnosis: Problem not documented On: 24-Mar-2020 11:00 Appointment; CO[facility] Encounter Diagnosis: Problem not documented On: 26-Mar-2020 13:20 Appointment; CAMRON GARAY D.O. Encounter Diagnosis: Problem not documented On: 29-Mar-2020 9:45 Appointment; HEIDE DONALDSON M.D. Encounter Diagnosis: Problem not documented On: 09-Apr-2020 12:45 Appointment; JANETH BRAR M.D. Encounter Diagnosis: Problem not documented On: 11-Apr-2020 10:15
--- OUTSIDE RECORDS SUMMARY | 2020-05-13 19:03 | XMS REPORT | Summary of Care ---
Author Author ZONIA De Santiago, KIRILL Rocha Unknown Address Unknown Phone Unavailable Care Team Providers Care Hose Maker Name Role Phone TOBI De Santiago, ADEEL Unavailable Duyen BARRIOS M.D., LANDON Unavailable Unavailable ARLEEN De Santiago, STANISLAV Unavailable Unavailable TANISHA LeighOCassie, CAMRON Unavailable Unavailable ZONIA De Santiago, JANETH Unavailable Unavailable SOPHIE CAMPBELL [place], [place] Unavailable Unavailable MENDOZA CAMPBELL, HEIDE Unavailable Unavailable ARLEEN CAMPBELL, PH.D. Unavailable Unavailable QI CAMPBELL [place], SIMA Cadet Unavailable Unavailable TANISHA FOX, CAMRON E Unavailable Unavailable CLARK SCIENCE INSTRUCTOR, [place] Unavailable Unavailable NIKOLE OJEDA, ARMIN Unavailable Unavailable RAYNE CAMPBELL, PITA Unavailable Unavailable TOBI CAMPBELL [place], ADEEL Ching Unavailable Unavailable ZONIA CAMPBELL, JANETH [...] 1 TABLET DAILY * Refills: 0 Active [place] 3 CAPS 1 tab qd * Refills: [...] Name Dates Details Fluzone INJ Lot #: [id number] on: 06-Oct-2013 Influenza Comments: Approx Pneumococcal polysaccharide vaccine, 23 valent on: 29-Jul-2014 Fluzone Quadrivalent 0.5 ML Intramuscula r Suspension Lot #: [id number] on: 09-Oct-2015 Fluzone Quadrivalent 0.5 ML Intramuscula r Suspension Lot #: [id number] on: 09-Sep-2016 Hepatitis A Lot #: [id number] on: 30-Dec-2016 Tdap (Adacel) Lot #: [id number] on: 30-Dec-2016 Hepatitis A, adult Lot #: [id number] on: 29-Jun-2017 Fluzone Quadrivalent 0.5 ML Intramuscula r Suspension Lot #: [id number] on: 29-Jun-2017 Fluzone Quadrivalent 0.5 ML Intramuscula r Suspension Lot #: [id number] on: 24-Jun-2018 Fluzone High-Dose 0.5 ML Intramuscular S uspension Prefilled Syringe Lot #: [id number] on: 23-Aug-2019 Prevnar 13 Intramuscular Suspension Lot #: [id number] on: 23-Aug-2019 Family History Name Dates Details [...] to infection.COVID-19/SARS-CoV-2: COVID-19/SARS-CoV-2: Positive.BodySite: Nasopharyngeal.Special Requests: COVID-19/SARS-Cov-2.CPTCode: 89764.ICDCode: J20.8. (Normal) Plan of Care Name Dates [...] not documented On: 08-Sep-2019 10:30 Appointment; LANDON BRARIOS M.D. Encounter Diagnosis: Problem not documented On: [...] Problem not documented On: 06-Oct-2019 15:15 Appointment; CAMRNO GARAY D.O. Encounter Diagnosis: Problem not documented [...] not documented On: 24-Mar-2020 11:00 Appointment; CO[facility] Encounter Diagnosis: Problem not documented On: 26-Mar-2020 13:20 Appointment; CAMRON GARAY D.O. Encounter Diagnosis: Problem not documented On: 29-Mar-2020 9:45 Appointment; HEIDE DONALDSON M.D. Encounter Diagnosis: Problem not documented On: 09-Apr-2020 12:45 Appointment; JANETH BRAR M.D. Encounter Diagnosis: Problem not documented On: 11-Apr-2020 10:15
--- OUTSIDE RECORDS SUMMARY | 2020-05-13 19:03 | XMS REPORT | Summary of Care ---
Author KIRILL Zimmerman M.A. Organization Unknown Address [facility] Phone Unavailable Care Team Providers Care High Voltage Electrician Name Role Phone TOBI De Santiago, ADEEL Unavailable Unavailable SOPHIE De Santiago, LANDON Unavailable Unavailable ARLEEN De Santiago, STANISLAV Unavailable Unavailable TANISHA Archibald, CAMRON Unavailable Unavailable MENDOZA De Santiago, HEIDE Unavailable Unavailable SOPHIE CAMPBELL [place], [place] Unavailable Unavailable MENDOZA CAMPBELL, HEIDE Unavailable Unavailable ARLEEN CAMPBELL, PH.D. Unavailable Unavailable QI CAMPBELL [place], SIMA Cadet Unavailable Unavailable TANISHA FOX, CAMRON E Unavailable Unavailable CLARK SMITHP, [place] Unavailable Unavailable NIKOLE OJEDA, ARMIN Unavailable Unavailable RAYNE CAMPBELL, PITA Unavailable Unavailable TOBI CAMPBELL [place], ADEEL Ching Unavailable Unavailable ZONIA CAMPBELL, JANETH [...] 1 TABLET DAILY * Refills: 0 Active [place] 3 CAPS 1 tab qd * Refills: [...] D.O., CAMRON * Start : 07-Mar-2020 Active Allergies and [...] Name Dates Details Fluzone INJ Lot #: [id number] on: 06-Oct-2013 Influenza Comments: Approx Pneumococcal polysaccharide vaccine, 23 valent on: 29-Jul-2014 Fluzone Quadrivalent 0.5 ML Intramuscula r Suspension Lot #: [id number] on: 09-Oct-2015 Fluzone Quadrivalent 0.5 ML Intramuscula r Suspension Lot #: [id number] on: 09-Sep-2016 Hepatitis A Lot #: [id number] on: 30-Dec-2016 Tdap (Adacel) Lot #: [id number] on: 30-Dec-2016 Hepatitis A, adult Lot #: [id number] on: 29-Jun-2017 Fluzone Quadrivalent 0.5 ML Intramuscula r Suspension Lot #: [id number] on: 29-Jun-2017 Fluzone Quadrivalent 0.5 ML Intramuscula r Suspension Lot #: [id number] on: 24-Jun-2018 Fluzone High-Dose 0.5 ML Intramuscular S uspension Prefilled Syringe Lot #: [id number] on: 23-Aug-2019 Prevnar 13 Intramuscular Suspension Lot #: [id number] on: 23-Aug-2019 Family History Name Dates Details [...] to infection.COVID-19/SARS-CoV-2: COVID-19/SARS-CoV-2: Positive.BodySite: Nasopharyngeal.Special Requests: COVID-19/SARS-Cov-2.CPTCode: 77371.ICDCode: J20.8. (Normal) Plan of Care Name Dates Details Planned Observations Planned Goals not documented Planned Encounters Appointment; JANETH BRAR M.D. On: 11-Apr-2020 10:15 Appointment; LANDON BARRIOS M.D. On: 22-Jun-2020 10:00 [...] not documented On: 24-Mar-2020 11:00 Appointment; CO19, CRISTI Encounter Diagnosis: Problem not documented On: 26-Mar-2020 13:20 Appointment; CAMRON GARAY D.O. Encounter Diagnosis: Problem not documented On: 29-Mar-2020 9:45 Appointment; HEIDE DONALDSON M.D. Encounter Diagnosis: Problem not documented On: 09-Apr-2020 12:45
--- OUTSIDE RECORDS SUMMARY | 2020-05-13 19:03 | XMS REPORT | Summary of Care ---
Author Author KIRILL Garcia R.N. Raylisandra doe Organization Unknown Address Unknown Phone Unavailable Care Team Providers Care Flat Bed Operator Name Role Phone QI De Santiago, SIMA Unavailable Unavailable TOBI De Santiago, ADEEL Unavailable Unavailable SOPHIE De Santiago, LANDON Unavailable Unavailable ARLEEN De Santiago, STANISLAV Unavailable Unavailable TANISHA Archibald, CAMRON Unavailable Unavailable SOPHIE CAMPBELL [place], [place] Unavailable Unavailable ARLEEN CAMPBELL, PH.D. Unavailable Unavailable QI CAMPBELL [place], SIMA Cadet Unavailable Unavailable TANISHA FOX, CAMRON E Unavailable Unavailable CLARK FILM OR TAPE LIBRARIAN, [place] Unavailable Unavailable NIKOLE OJEDA, ARMIN Unavailable Unavailable RAYNE CAMPBELL, PITA Unavailable Unavailable TOBI CAMPBELL [place], ADEEL Ching Unavailable Unavailable ZONIA CAMPBELL, JANETH [...] virus infection (V01. 79, Z20.828) Status: Active Medications Name Dates Details Gabapentin [...] 1 TABLET DAILY * Refills: 0 Active [place] 3 CAPS 1 tab qd * Refills: [...] D.O., CAMRON * Start : 07-Mar-2020 Active Cefdinir 300 MG Oral Capsule TAKE 1 CAPSULE TWICE DAILY UNTIL GONE. * Quantity: 20 Refills: 0 SIMA BUSBY M.D. * Start : 24-Mar-2020 End : 03-Apr-2020 Active Allergies and Adverse Reactions Name Dates [...] Z87.440) Status: Resolved Procedures Procedure Dates Details [Q] LIPID PANEL WITH REFLEX TO DIRECT LDL Date: 17-Feb-2020 . [facility] - COVID-19/SARS-Cov-2 Date: 24-Mar-2020 [QL] HEMOGLOBIN A1c Date: 17-Feb-2020 [QL] CBC (INCLUDES DIFF/PLT) Date: 17-Feb-2020 [QL] CMP W/EGFR Date: 17-Feb-2020 History of Hysterectomy Completed History of Bladder Surgery Completed History of Cholecystectomy Completed Immunization Name Dates Details Fluzone INJ Lot #: [id number] on: 06-Oct-2013 Influenza Comments: Approx Pneumococcal polysaccharide vaccine, 23 valent on: 29-Jul-2014 Fluzone Quadrivalent 0.5 ML Intramuscula r Suspension Lot #: [id number] on: 09-Oct-2015 Fluzone Quadrivalent 0.5 ML Intramuscula r Suspension Lot #: [id number] on: 09-Sep-2016 Hepatitis A Lot #: [id number] on: 30-Dec-2016 Tdap (Adacel) Lot #: [id number] on: 30-Dec-2016 Hepatitis A, adult Lot #: [id number] on: 29-Jun-2017 Fluzone Quadrivalent 0.5 ML Intramuscula r Suspension Lot #: [id number] on: 29-Jun-2017 Fluzone Quadrivalent 0.5 ML Intramuscula r Suspension Lot #: [id number] on: 24-Jun-2018 Fluzone High-Dose 0.5 ML Intramuscular S uspension Prefilled Syringe Lot #: [id number] on: 23-Aug-2019 Prevnar 13 Intramuscular Suspension Lot #: [id number] on: 23-Aug-2019 Family History Name Dates Details [...] S tatus: Heart Rate 85 /min Status: Results Date Description Value Details Results not documented Plan of Care Name Dates Details Planned Observations Planned Goals not documented Planned Encounters Appointment; LANDON BARRIOS M.D. On: 22-Jun-2020 10:00 Appointment; STANISLAV BACON M.D. On: 01-Mar-2021 11:15 Interventions Provided Medication Changes* Losartan Potassium 100 [...]
--- OUTSIDE RECORDS SUMMARY | 2020-05-13 19:03 | XMS REPORT | Summary of Care ---
Author Author QI De Santiago, KIRILL GAO Organization Unknown Address Unknown Phone Unavailable Care Team Providers Care Bushwalking Guide Name Role Phone QI De Santiago, SIMA Unavailable Unavailable TOBI De Santiago, ADEEL Unavailable Unavailable SOPHIE De Santiago, LANDON Unavailable Unavailable ARLEEN De Santiago, STANISLAV Unavailable Unavailable TANISHA Archibald, CAMRON Unavailable Unavailable SOPHIE CAMPBELL [place], [place] Unavailable Unavailable ARLEEN CAMPBELL, PH.D. Unavailable Unavailable QI CAMPBELL [place], SIMA Cadet Unavailable Unavailable TANISHA FOX, CAMRON E Unavailable Unavailable CLARK NITRIC ACID PLANT OPERATOR, [place] Unavailable Unavailable NIKOLE OJEDA, ARMIN Unavailable Unavailable RAYNE CAMPBELL, PITA Unavailable Unavailable TOBI CAMPBELL [place], ADEEL Ching Unavailable Unavailable ZONIA CAMPBELL, JANETH [...] PM AND AT BEDTIME Quantity: 180 SOPHIE M.D., LANDON * Start : 09-Jul-2016 Active Losartan Potassium 100 MG Oral Tablet TAKE 1 TABLET BY MOUTH EVERY DAY * Quantity: 90 Refills: 0 GOODINE M.D., LANDON * Start : 21-Jul-2014 Active Vitamin D3 125 MCG (5000 UT) Oral Capsule TAKE DIRECTED. * Refills: 0 M.D. Active Cranberry TABS TAKE 1 TABLET DAILY * Refills: 0 M.D. Active Rosuvastatin Calcium 10 MG Oral Tablet TAKE 1 TABLET BY MOUTH EVERY DAY * Quantity: 90 Refills: 0 GOODINE M.D., LANDON * Start : 28-Jul-2016 Active Melatonin 5 MG Oral Capsule TAKE 1 CAPSULE BEDTIME * Refills: 0 M.D. Active busPIRone HCl - 5 MG Oral Tablet TAKE 2 TABLETS BY MOUTH 1 HOUR BEFORE BEDTIME * Quantity: 60 Refills: 0 GOODINE M.D., LANDON * Start : 24-Jun-2018 Active Pramipexole Dihydrochloride 0.25 MG Oral Tablet TAKE 1 TABLET BY MOUTH DAILY AT BEDTIME * Quantity: 90 Refills: 0 GOODINE M.D., LANDON * Start : 27-Feb-2020 Active Polyethylene Glycol 3350 17 GM/SCOOP Oral Powder MIX 1 CAPFUL IN 8 OUNCES OF WATER AND DRINK AT BEDTIME NEEDED FOR CONSTIPATIO N. * Quantity: 510 Refills: 3 ADEEL BRITTON M.D. * Start : 12-Apr-2019 Active Shingrix 50 MCG Intramuscular Suspension Reconstituted INJECT 0.5 ML IM, please administer vaccine series per protocol * Quantity: 1 Refills: 0 SOPHIE M.D., LANDON * Start : 08-Sep-2019 Active Trospium Chloride [...] CAPSULE DAILY * Refills: 0 M.D. Active [place] 3 CAPS 1 tab qd * Refills: 0 M.D. Active Azelastine HCl - 0.1 % Nasal Solution USE 1 SPRAY IN EACH NOSTRIL TWICE DAILY. * Refills: 0 M.D. Active Vitamin D3 50 MCG (1999 UT) Oral Capsule TAKE 1 CAPSULE DAILY * Refills: 0 M.D. Active Vitamin B-12 500 MCG Oral Tablet TAKE 1 TABLET DAILY. * Refills: 0 M.D. Active Ammonium Lactate 12 % External Cream APPLY AND RUB IN A THIN FILM TO AFFECTED AREAS OF ARMS TWICE DAILY.(AM AND PM) . * Quantity: 1 Refills: 11 ARLEEN M.Reese, STANISLAV * Start : 02-Mar-2020 Active 2 x 140 GM Tube Trospium Chloride 20 MG Oral Tablet take 1 tablet bid x 90 days * Quantity: 180 Refills: 2 DOUGHER D.O., CAMRON * Start : 07-Mar-2020 Active Cefdinir 300 MG Oral Capsule TAKE 1 CAPSULE TWICE DAILY UNTIL GONE. * Quantity: 20 Refills: 0 QI M.D., SIMA * Start : 24-Mar-2020 End : 03-Apr-2020 [...] Name Dates Details Fluzone INJ Lot #: [id number] on: 06-Oct-2013 Influenza Comments: Approx Pneumococcal polysaccharide vaccine, 23 valent on: 29-Jul-2014 Fluzone Quadrivalent 0.5 ML Intramuscula r Suspension Lot #: [id number] on: 09-Oct-2015 Fluzone Quadrivalent 0.5 ML Intramuscula r Suspension Lot #: [id number] on: 09-Sep-2016 Hepatitis A Lot #: [id number] on: 30-Dec-2016 Tdap (Adacel) Lot #: [id number] on: 30-Dec-2016 Hepatitis A, adult Lot #: [id number] on: 29-Jun-2017 Fluzone Quadrivalent 0.5 ML Intramuscula r Suspension Lot #: [id number] on: 29-Jun-2017 Fluzone Quadrivalent 0.5 ML Intramuscula r Suspension Lot #: [id number] on: 24-Jun-2018 Fluzone High-Dose 0.5 ML Intramuscular S uspension Prefilled Syringe Lot #: [id number] on: 23-Aug-2019 Prevnar 13 Intramuscular Suspension Lot #: [id number] on: 23-Aug-2019 Family History Name Dates Details [...] to infection.COVID-19/SARS-CoV-2: COVID-19/SARS-CoV-2: Positive.BodySite: Nasopharyngeal.Special Requests: COVID-19/SARS-Cov-2.CPTCode: 57946.ICDCode: J20.8. (Normal) Plan of Care Name Dates Details Planned Observations Planned Goals not documented Planned Encounters Appointment; LANDON BARRIOS M.D. On: 22-Jun-2020 10:00 Appointment; STANISLAV BACON M.D. On: 01-Mar-2021 11:15 Interventions Provided Discussion/Summary* You are COVID positive. Need to isolate for 14 days. Instructions Name Dates Details Instructions not documented [...]
--- OUTSIDE RECORDS SUMMARY | 2020-05-13 19:03 | XMS REPORT | Summary of Care ---
Author Author ZONIA De Santiago, KIRILL Rocha Unknown Address Unknown Phone Unavailable Care Team Providers Care Casino Worker Name Role Phone TOBI De Santiago, ADEEL Unavailable Unavailable SOPHIE De Santiago, LANDON Unavailable Unavailable ARLEEN De Santiago, STANISLAV Unavailable Unavailable TANISHA LeighOCassie, CAMRON Unavailable Unavailable ZONIA De Santiago, JANETH Unavailable Unavailable SOHPIE CAMPBELL [place], [place] Unavailable Unavailable RAMO CAMPBELL, KRISTINA S Unavailable Unavailable MENDOZA CAMPBELL, HEIDE Unavailable Unavailable ARLEEN CAMPBELL, PH.D. Unavailable Unavailable QI CAMPBELL [place], SIMA Cadet Unavailable Unavailable TANISHA FOX, CAMRON E Unavailable Unavailable CLARK RODRIGUEZ, BARRINGTON Unavailable Unavailable NIKOLE OJEDA, ARMIN Unavailable Unavailable RAYNE CAMPBELL, PITA Unavailable Unavailable TOBI CAMPBELL [place], ADEEL Ching Unavailable Unavailable ZONIA CAMPBELL, JANETH [...] 1 TABLET DAILY * Refills: 0 Active [place] 3 CAPS 1 tab qd * Refills: [...] . * Quantity: 1 Refills: 11 ARLEEN De Santiago, STANISLAV * Start : 02-Mar-2020 Active 2 [...] Name Dates Details Fluzone INJ Lot #: [id number] on: 06-Oct-2013 Influenza Comments: Approx Pneumococcal polysaccharide vaccine, 23 valent on: 29-Jul-2014 Fluzone Quadrivalent 0.5 ML Intramuscula r Suspension Lot #: [id number] on: 09-Oct-2015 Fluzone Quadrivalent 0.5 ML Intramuscula r Suspension Lot #: [id number] on: 09-Sep-2016 Hepatitis A Lot #: [id number] on: 30-Dec-2016 Tdap (Adacel) Lot #: [id number] on: 30-Dec-2016 Hepatitis A, adult Lot #: [id number] on: 29-Jun-2017 Fluzone Quadrivalent 0.5 ML Intramuscula r Suspension Lot #: [id number] on: 29-Jun-2017 Fluzone Quadrivalent 0.5 ML Intramuscula r Suspension Lot #: [id number] on: 24-Jun-2018 Fluzone High-Dose 0.5 ML Intramuscular S uspension Prefilled Syringe Lot #: [id number] on: 23-Aug-2019 Prevnar 13 Intramuscular Suspension Lot #: [id number] on: 23-Aug-2019 Family History Name Dates Details [...] to infection.COVID-19/SARS-CoV-2: COVID-19/SARS-CoV-2: Positive.BodySite: Nasopharyngeal.Special Requests: COVID-19/SARS-Cov-2.CPTCode: 56304.ICDCode: J20.8. (Normal) Plan of Care Name Dates [...] Problem not documented On: 24-Mar-2020 11:00 Appointment; [facility] Encounter Diagnosis: Problem not documented On: 26-Mar-2020 13:20 Appointment; CAMRON GARAY D.O. Encounter Diagnosis: Problem not documented On: 29-Mar-2020 9:45 Appointment; HEIDE DONALDSON M.D. Encounter Diagnosis: Problem not documented On: 09-Apr-2020 12:45 Appointment; JANETH BRAR M.D. Encounter Diagnosis: Problem not documented On: 11-Apr-2020 10:15
--- OUTSIDE RECORDS SUMMARY | 2020-05-13 19:03 | XMS REPORT | Summary of Care ---
Author Author Mando Pace, KIRILL Juhi Organization Unknown Address Unknown Phone Unavailable Care Team Providers Care Three Dimensional Art Instructor Name Role Phone TOBI De Santiago, ADEEL Unavailable Unavailable SOPHIE De Santiago, LANDON Unavailable Unavailable ARLEEN De Santiago, STANISLAV Unavailable Unavailable TANISHA Archibald, CAMRON Unavailable Unavailable ZONIA De Santiago, JANETH Unavailable Unavailable SOPHIE CAMPBELL [place], [place] Unavailable Unavailable MENDOZA CAMPBELL, HEIDE Unavailable Unavailable ARLEEN CAMPBELL, PH.D. Unavailable Unavailable QI CAMPBELL [place], SIMA Cadet Unavailable Unavailable TANISHA FOX, CAMRON E Unavailable Unavailable CLARK SMITHP, BARR[place] Unavailable Unavailable NIKOLE OJEDA, ARMIN Unavailable Unavailable RAYNE CAMPBELL, PITA Unavailable Unavailable TOBI CAMPBELL [place], ADEEL Ching Unavailable Unavailable ZONIA CAMPBELL, JANETH [...] 1 TABLET DAILY * Refills: 0 Active [place] 3 CAPS 1 tab qd * Refills: [...] Name Dates Details Fluzone INJ Lot #: [id number] on: 06-Oct-2013 Influenza Comments: Approx Pneumococcal polysaccharide vaccine, 23 valent on: 29-Jul-2014 Fluzone Quadrivalent 0.5 ML Intramuscula r Suspension Lot #: [id number] on: 09-Oct-2015 Fluzone Quadrivalent 0.5 ML Intramuscula r Suspension Lot #: [id number] on: 09-Sep-2016 Hepatitis A Lot #: [id number] on: 30-Dec-2016 Tdap (Adacel) Lot #: [id number] on: 30-Dec-2016 Hepatitis A, adult Lot #: [id number] on: 29-Jun-2017 Fluzone Quadrivalent 0.5 ML Intramuscula r Suspension Lot #: [id number] on: 29-Jun-2017 Fluzone Quadrivalent 0.5 ML Intramuscula r Suspension Lot #: [id number] on: 24-Jun-2018 Fluzone High-Dose 0.5 ML Intramuscular S uspension Prefilled Syringe Lot #: [id number] on: 23-Aug-2019 Prevnar 13 Intramuscular Suspension Lot #: [id number] on: 23-Aug-2019 Family History Name Dates Details [...] to infection.COVID-19/SARS-CoV-2: COVID-19/SARS-CoV-2: Positive.BodySite: Nasopharyngeal.Special Requests: COVID-19/SARS-Cov-2.CPTCode: 27686.ICDCode: J20.8. (Normal) Plan of Care Name Dates [...] not documented On: 29-Oct-2018 9:30 Appointment; LANDON ABRRIOS M.D. Encounter Diagnosis: Problem not documented On: [...] not documented On: 24-Mar-2020 11:00 [facility]; [facility] Encounter Diagnosis: Problem not documented On: 26-Mar-2020 13:20 Appointment; CAMRON GARAY D.O. Encounter Diagnosis: Problem not documented On: 29-Mar-2020 9:45 Appointment; HEIDE DONALDSON M.D. Encounter Diagnosis: Problem not documented On: 09-Apr-2020 12:45 Appointment; JANETH BRAR M.D. Encounter Diagnosis: Problem not documented On: 11-Apr-2020 10:15
--- OUTSIDE RECORDS SUMMARY | 2020-05-13 19:04 | XMS REPORT | Summary of Care ---
Author Author MENDOZA De Santiago, KIRILL JAEGER Organization Unknown Address Unknown Phone Unavailable Care Team Providers Care Operations Controller Name Role Phone TOBI De Santiago, ADEEL Unavailable Unavailable SOPHIE De Santiago, LANDON Unavailable Unavailable ARLEEN De Santiago, STANISLAV Unavailable Unavailable TANISHA Archibald, CAMRON Unavailable Unavailable ZONIA De Santiago, JANETH Unavailable Unavailable SOPHIE CAMPBELL [place], [place] Unavailable Unavailable RAMO CAMPBELL, KRISTINA Bustos Unavailable Unavailable PETER FOX [place], JOYCE Unavailable Unavailable MENDOZA CAMPBELL, HEIDE Unavailable Unavailable ARLEEN CAMPBELL, PH.D. Unavailable Unavailable QI CAMPBELL [place], SIMA Y Unavailable Unavailable TANISHA FOX, CAMRON E Unavailable Unavailable CLARK SMITHP, BARR[place] Unavailable Unavailable NIKOLE OJEDA, ARMIN Unavailable Unavailable RAYNE CAMPBELL, PITA Unavailable Unavailable TOBI CAMPBELL [place], ADEEL Ching Unavailable Unavailable ZONIA CAMPBELL, JANETH [...] Active Allergic rhinitis (477.9, J30.9) Status: Active Dry mouth (527.7, R68.2) Status: [...] Active Sinus tachycardia (427.89, R00.0) Status: Active Chest pressure (786.59, R07.89) Status: Active COVID-19 virus infection (079.89, U07.1) Status: Active BMI 33.0-33.9,adult (V85.33, Z68.33) Status: Active Medications Name Dates Details Gabapentin 300 MG Oral Capsule TAKE ONE CAPSULE BY MOUTH EVERY NIGHT AT 6 PM AND AT BEDTIME Quantity: 180 SOPHIE Em.DEVYN LeighNDA * Start : 09-Jul-2016 Active Losartan Potassium 100 MG Oral Tablet TAKE 1 TABLET BY MOUTH EVERY DAY * Quantity: 90 Refills: 0 SOPHIE Em.DEVYN LeighNDA * Start : 21-Jul-2014 Active Vitamin D3 125 MCG (5000 UT) Oral Capsule TAKE DIRECTED. * Refills: 0 M.D. Active Cranberry TABS TAKE 1 TABLET DAILY * Refills: 0 M.D. Active [place] 3 CAPS 1 tab qd * Refills: [...] BEFORE BEDTIME * Quantity: 60 Refills: 0 SOPHIE Em.DEVYN LeighNDA * Start : 24-Jun-2018 Active Pramipexole Dihydrochloride [...] Tablet TAKE 1 TABLET TWICE DAILY * Quantity: 180 Refills: 0 JANETH BRAR M.D. Active Zinc-220 CAPS * Refills: 0 [...] Name Dates Details Fluzone INJ Lot #: [id number] on: 06-Oct-2013 Influenza Comments: Approx Pneumococcal polysaccharide vaccine, 23 valent on: 29-Jul-2014 Fluzone Quadrivalent 0.5 ML Intramuscula r Suspension Lot #: [id number] on: 09-Oct-2015 Fluzone Quadrivalent 0.5 ML Intramuscula r Suspension Lot #: [id number] on: 09-Sep-2016 Hepatitis A Lot #: [id number] on: 30-Dec-2016 Tdap (Adacel) Lot #: [id number] on: 30-Dec-2016 Hepatitis A, adult Lot #: [id number] on: 29-Jun-2017 Fluzone Quadrivalent 0.5 ML Intramuscula r Suspension Lot #: [id number] on: 29-Jun-2017 Fluzone Quadrivalent 0.5 ML Intramuscula r Suspension Lot #: [id number] on: 24-Jun-2018 Fluzone High-Dose 0.5 ML Intramuscular S uspension Prefilled Syringe Lot #: [id number] on: 23-Aug-2019 Prevnar 13 Intramuscular Suspension Lot #: [id number] on: 23-Aug-2019 Family History Name Dates Details [...] . [facility] - COVID-19/SARS-Cov-2 SARS-CoV-2 REPORT ClinicalHistory: U07 .1 COVID-19 virus infection.COVID-19/SARS-CoV-2: COVID-19/SARS-CoV-2: Positive.BodySite: Nasopharyngeal.Special Requests: COVID-19/SARS-Cov-2.CPTCode: 36302.ICDCode: U07.1. (Abnormal) Plan of Care Name Dates Details Planned Observations Planned Goals not documented Planned Encounters Appointment; HEIDE DONALDSON M.D. On: 08-May-2020 10:00 Appointment; LANDON BARRIOS M.D. On: 22-Jun-2020 10:00 Appointment; STANISLAV BACON M.D. On: 01-Mar-2021 11:15 Interventions Provided Discussion/Summary* Covid still positive, if patient needs clearance for work, will need follow up to assess symptom improvment Instructions Name Dates Details Instructions not documented [...] Problem not documented On: 24-Mar-2020 11:00 [facility]oint[facility] Encounter Diagnosis: Problem not documented On: 26-Mar-2020 13:20 Appointment; CAMRON GARAY D.O. Encounter Diagnosis: Problem not documented On: 29-Mar-2020 9:45 Appointment; HEIDE DONALDSON M.D. Encounter Diagnosis: Problem not documented On: 09-Apr-2020 12:45 Appointment; JANETH BRAR M.D. Encounter Diagnosis: Problem not documented On: 11-Apr-2020 10:15 Appointment; CO19, [facility] Encounter Diagnosis: Problem not documented On: 26-Apr-2020 12:30
--- OUTSIDE RECORDS SUMMARY | 2020-05-13 19:04 | XMS REPORT | Summary of Care ---
Author Author Julee Barton, KIRILL Rocha Unknown Address [facility] Phone Unavailable Care Team Providers Care Assignment Clerk Name Role Phone TOBI De Santiago, ADEEL Unavailable Unavailable SOPHIE De Santiago, LANDON Unavailable Unavailable Julee Barton, Gretchen Unavailable Unavailable ARLEEN De Santiago, STANISLAV Unavailable Unavailable TANISHA Archibald, CAMRON Unavailable Unavailable ZONIA De Santiago, JANETH Unavailable Unavailable SOPHIE CAMPBELL [place], [place] Unavailable Unavailable RAMO CAMPBELL, KRISTINA Bustos Unavailable Unavailable PETER FOX [place], JOYCE Unavailable Unavailable MENDOZA CAMPBELL, HEIDE Unavailable Unavailable ARLEEN CAMPBELL, PH.D. Unavailable Unavailable QI CAMPBELL [place], SIMA Y Unavailable Unavailable DOUGHER FOX, CAMRON E Unavailable Unavailable CLARK SMITHP, [...] BARRIOS M.D. * Start : 09-Jul-2016 Active Cranberry TABS TAKE 1 TABLET DAILY * Refills: 0 Active [place] 3 CAPS 1 tab qd * Refills: [...] BARRIOS M.D. * Start : 08-Sep-2019 Active Estradiol 0.1 MG/GM Vaginal Cream INSERT 1 GRAM INTO THE VAGINA TWICE WEEKLY * Quantity: 1 Refills: 2 DOUGHER D.O., CAMRON * Start : 18-Oct-2019 Active Ammonium Lactate 12 % External Cream APPLY AND RUB IN A THIN FILM TO AFFECTED AREAS OF ARMS TWICE DAILY.(AM AND PM) . * Quantity: 1 Refills: 11 ARLEEN De Santiago STANISLAV * Start : 02-Mar-2020 Active 2 x 140 GM Tube Trospium Chloride 20 MG Oral Tablet take 1 tablet bid x 90 days * Quantity: 180 Refills: 2 DOUGHER D.O., CAMRON * Start : 07-Mar-2020 Active Metoprolol Tartrate 25 MG Oral Tablet TAKE 1 TABLET TWICE DAILY * Quantity: 180 Refills: 0 JANETH BRAR M.D. Active Zinc-220 CAPS * Refills: 0 Active Trospium Chloride ER 60 MG Oral Capsule Extended Release 24 Hour TAKE 1 CAPSULE BEDTIME * Quantity: 90 Refills: 2 DOUGHER D.O., CAMRON * Start : 23-Sep-2019 Active Vitamin D3 125 MCG (5000 UT) Oral Capsule TAKE DIRECTED. * Refills: 0 Active Losartan Potassium 100 MG Oral Tablet TAKE 1 TABLET BY MOUTH EVERY DAY * Quantity: 90 Refills: 0 LANDON BARRIOS M.D. * Start : 21-Jul-2014 Active Vitamin B-12 500 MCG Oral Tablet TAKE 1 TABLET DAILY. * Refills: 0 Active Vitamin D3 50 MCG (2000 UT) Oral Capsule TAKE 1 CAPSULE DAILY * Refills: 0 Active Dexilant 60 MG Oral Capsule Delayed [...] Name Dates Details Fluzone INJ Lot #: [id number] on: 06-Oct-2013 Influenza Comments: Approx Pneumococcal polysaccharide vaccine, 23 valent on: 29-Jul-2014 Fluzone Quadrivalent 0.5 ML Intramuscula r Suspension Lot #: [id number] on: 09-Oct-2015 Fluzone Quadrivalent 0.5 ML Intramuscula r Suspension Lot #: [id number] on: 09-Sep-2016 Hepatitis A Lot #: [id number] on: 30-Dec-2016 Tdap (Adacel) Lot #: [id number] on: 30-Dec-2016 Hepatitis A, adult Lot #: [id number] on: 29-Jun-2017 Fluzone Quadrivalent 0.5 ML Intramuscula r Suspension Lot #: [id number] on: 29-Jun-2017 Fluzone Quadrivalent 0.5 ML Intramuscula r Suspension Lot #: [id number] on: 24-Jun-2018 Fluzone High-Dose 0.5 ML Intramuscular S uspension Prefilled Syringe Lot #: [id number] on: 23-Aug-2019 Prevnar 13 Intramuscular Suspension Lot #: [id number] on: 23-Aug-2019 Family History Name Dates Details Family history of Hyperlipidemia Status: Active Name Dates Details Family history of Hypertension (V17.49) Status: Active Name Dates Details Family history of Prior Myocardial Infar ction Status: Active Social History Name Dates Details - Status: Name Dates Details Never smoked tobacco (finding) Vital Signs Date Test Result Details [id number] Systolic blood pressure 150 mm[Hg] Status: Comments [...] not documented On: 24-Mar-2020 11:00 Appointment; CO19, [facility] Encounter Diagnosis: Problem not documented On: 26-Mar-2020 13:20 Appointment; CAMRON GARAY D.O. Encounter Diagnosis: Problem not documented On: 29-Mar-2020 9:45 Appointment; HEIDE DONALDSON M.D. Encounter Diagnosis: Problem not documented On: 09-Apr-2020 12:45 Appointment; JANETH BRAR M.D. Encounter Diagnosis: Problem not documented On: 11-Apr-2020 10:15 Appointment; CO19, [facility] Encounter Diagnosis: Problem not documented On: 26-Apr-2020 12:30
--- OUTSIDE RECORDS SUMMARY | 2020-05-13 19:04 | XMS REPORT | Summary of Care ---
Author Author ZONIA De Santiago, KIRILL Rocha Unknown Address Unknown Phone Unavailable Care Team Providers Care Warp Yarn Sorter Name Role Phone TOBI De Santiago, ADEEL Unavailable Unavailable SOPHIE De Santiago, LANDON Unavailable Unavailable ARLEEN De Santiago, STANISLAV Unavailable Unavailable TANISHA LeighOCassie, CAMRON Unavailable Unavailable ZONIA De Santiago, JANETH Unavailable Unavailable SOPHIE CAMPBELL [place], [place] Unavailable Unavailable ARMO CAMPBELL, KRISTINA Bustos Unavailable Unavailable PETER FOX [place], JOYCE Unavailable Unavailable MENDOZA CAMPBELL, HEIDE Unavailable Unavailable ARLEEN CAMPBELL, PH.D. Unavailable Unavailable QI CAMPBELL [place], SIMA Y Unavailable Unavailable TANISHA FOX, CAMRON [...] 1 TABLET DAILY * Refills: 0 Active [place] 3 CAPS 1 tab qd * Refills: [...] AT BEDTIME * Quantity: 90 Refills: 0 LADNON BARRIOS M.D. * Start : 27-Feb-2020 Active [...] CAPSULE BEDTIME * Quantity: 90 Refills: 2 GUSTAVOHER D.O., CAMRON * Start : 23-Sep-2019 Active [...] Z87.440) Status: Resolved Procedures Procedure Dates Details . [facility] - COVID-19/SARS-Cov-2 Date: 19-Apr-2020 History of Hysterectomy Completed History of Bladder Surgery Completed History of Cholecystectomy Completed Immunization Name Dates Details Fluzone INJ Lot #: [id number] on: 06-Oct-2013 Influenza Comments: Approx Pneumococcal polysaccharide vaccine, 23 valent on: 29-Jul-2014 Fluzone Quadrivalent 0.5 ML Intramuscula r Suspension Lot #: [id number] on: 09-Oct-2015 Fluzone Quadrivalent 0.5 ML Intramuscula r Suspension Lot #: [id number] on: 09-Sep-2016 Hepatitis A Lot #: [id number] on: 30-Dec-2016 Tdap (Adacel) Lot #: [id number] on: 30-Dec-2016 Hepatitis A, adult Lot #: [id number] on: 29-Jun-2017 Fluzone Quadrivalent 0.5 ML Intramuscula r Suspension Lot #: [id number] on: 29-Jun-2017 Fluzone Quadrivalent 0.5 ML Intramuscula r Suspension Lot #: [id number] on: 24-Jun-2018 Fluzone High-Dose 0.5 ML Intramuscular S uspension Prefilled Syringe Lot #: [id number] on: 23-Aug-2019 Prevnar 13 Intramuscular Suspension Lot #: [id number] on: 23-Aug-2019 Family History Name Dates Details [...] to infection.COVID-19/SARS-CoV-2: COVID-19/SARS-CoV-2: Positive.BodySite: Nasopharyngeal.Special Requests: COVID-19/SARS-Cov-2.CPTCode: 09725.ICDCode: J20.8. (Normal) Plan of Care Name Dates Details Planned Observations Planned Goals not documented Planned Encounters Appointment; CRISTI MERINO On: 26-Apr-2020 12:30 Appointment; HEIDE DONALDSON M.D. On: 08-May-2020 10:00 Appointment; LANDON BARRIOS M.D. On: 22-Jun-2020 10:00 Appointment; STANISLAV BACON M.D. On: 01-Mar-2021 11:15 Interventions Provided Plan* Hospital follow up * -- doing better advised to continue supportive treatment. * -- advised to follow up if symptoms do not completley resolve * RTC PRN Discussion/Summary* DISCHARGE SUMMARY/INSTRUCTIONS: * - Medication benefits, [...]
--- OUTSIDE RECORDS SUMMARY | 2020-05-13 19:04 | XMS REPORT | Summary of Care ---
Author Author ZONIA De Santiago, KIRILL Rocha Unknown Address Unknown Phone Unavailable Care Team Providers Care Activities Volunteer Name Role Phone TOBI De Santiago, ADEEL Unavailable Unavailable SOPHIE De Santiago, LANDON Unavailable Unavailable ARLEEN De Santiago, STANISLAV Unavailable Unavailable TANISHA LeighOCassie, CAMRON Unavailable Unavailable ZONIA De Santiago, JANETH Unavailable Unavailable SOPHIE CAMPBELL [place], [place] Unavailable Unavailable RAMO CAMPBELL, KRISTINA Bustos Unavailable Unavailable PETER FOX [place], JOYCE Unavailable Unavailable MENDOZA CAMPBELL, HEIDE Unavailable Unavailable ARLEEN CAMPBELL, PH.D. Unavailable Unavailable QI CAMPBELL [place], SIMA Y Unavailable Unavailable TANISHA FOX, CAMRON E Unavailable Unavailable CLARK SMITHP, BARR[place] Unavailable Unavailable NIKOLE OJEDA, ARMIN Unavailable Unavailable RAYNE CAMPBELL, PITA Unavailable Unavailable TOBI CAMPBELL [place], ADEEL Ching Unavailable Unavailable ZONIA CAMPBELL, JANETH [...] without rebound tenderness (789.61, R10.811) Status: Active Chronic insomnia (780.52, F51.04) Status: Active OANH on CPAP (327.23, G47.33) Status: Active Acute infective tracheobronchitis (466.0 , J20.9) Status: Active On statin therapy (V58.69, Z79.899) Status: Active Anxiety state (300.00, F41.1) Status: Active Constipation (564.00, K59.00) Status: Active Urinary symptom or sign (788.99, R39.9) Status: Active Chronic constipation (564.00, K59.09) Status: Active Pelvic floor dysfunction (618.83, M62.89 ) Status: Active Mixed stress and urge urinary incontinen ce (788.33, N39.46) Status: Active Pain of right lower extremity (729.5, M7 9.604) Status: Active Recurrent UTI (urinary tract infection) (599.0, N39.0) Status: Active Need for shingles vaccine (V04.89, [...] pump inhibitor therapy (V58.83, Z51.81) Status: Active 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, 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 Screening for hypothyroidism (V77.0, Z13 .29) Status: Active Influenza vaccine needed (V04.81, Z23) Status: Active Need for vaccination with 13-polyvalent pneumococcal conjugate vaccine (V03.82, Z23) Status: Active Chest pain, unspecified type (786.50, R0 7.9) Status: Active Right-sided chest wall pain (786.52, R07 .89) Status: Active Other acute sinusitis, recurrence not sp ecified (461.8, J01.80) Status: Active Xerosis of skin (706.8, L85.3) [...] 1 TABLET DAILY * Refills: 0 Active [place] 3 CAPS 1 tab qd * Refills: [...] Name Dates Details Fluzone INJ Lot #: [id number] on: 06-Oct-2013 Influenza Comments: Approx Pneumococcal polysaccharide vaccine, 23 valent on: 29-Jul-2014 Fluzone Quadrivalent 0.5 ML Intramuscula r Suspension Lot #: [id number] on: 09-Oct-2015 Fluzone Quadrivalent 0.5 ML Intramuscula r Suspension Lot #: [id number] on: 09-Sep-2016 Hepatitis A Lot #: [id number] on: 30-Dec-2016 Tdap (Adacel) Lot #: [id number] on: 30-Dec-2016 Hepatitis A, adult Lot #: [id number] on: 29-Jun-2017 Fluzone Quadrivalent 0.5 ML Intramuscula r Suspension Lot #: [id number] on: 29-Jun-2017 Fluzone Quadrivalent 0.5 ML Intramuscula r Suspension Lot #: [id number] on: 24-Jun-2018 Fluzone High-Dose 0.5 ML Intramuscular S uspension Prefilled Syringe Lot #: [id number] on: 23-Aug-2019 Prevnar 13 Intramuscular Suspension Lot #: [id number] on: 23-Aug-2019 Family History Name Dates Details [...] to infection.COVID-19/SARS-CoV-2: COVID-19/SARS-CoV-2: Positive.BodySite: Nasopharyngeal.Special Requests: COVID-19/SARS-Cov-2.CPTCode: 49464.ICDCode: J20.8. (Normal) Plan of Care Name Dates [...] to follow up if symptoms do not completely resolve * -- will continue metoprolol at current dose * -- advised to monitor blood pressure at home * COVID positive * -- will test for COVID, advised patient to self-quarantine, advised on supportive treatment and ED precautions given. * -- Patient advised on the course of the illness. Advised on supportive treatment with pushing fluids, getting rest, advised on Tylenol/ibuprofen prn for pain or fever. Also advised on use of mucinex, nasal saline and 1 table spoon of honey as needed for cough. Advised on steam therapy, Afrin and Flonase for nasal symptoms. Patient advised on proper hand hygiene RTC if symptoms do not resolve or worsen. * -- will schedule for re-testing * RTC PRN Discussion/Summary* DISCHARGE SUMMARY/INSTRUCTIONS: * [...] Problem not documented On: 23-Dec-2019 9:45 Appointment; CAMRNO GARAY D.O. Encounter Diagnosis: Problem [...] not documented On: 24-Mar-2020 11:00 Appointment; CRISTI MEIRNO Encounter Diagnosis: Problem not documented On: 26-Mar-2020 13:20 Appointment; CAMRON GARAY D.O. Encounter Diagnosis: Problem not documented On: 29-Mar-2020 9:45 Appointment; HEIDE DONALDSON M.D. Encounter Diagnosis: Problem not documented On: 09-Apr-2020 12:45 Appointment; JANETH BRAR M.D. Encounter Diagnosis: Problem not documented On: 11-Apr-2020 10:15
--- OUTSIDE RECORDS SUMMARY | 2020-05-13 19:04 | XMS REPORT | Summary of Care ---
Author Author MENDOZA De Santiago, KIRILL JAEGER Organization Unknown Address Unknown Phone Unavailable Care Team Providers Care Mixed Crop Farmer Name Role Phone TOBI De Santiago, ADEEL Unavailable Unavailable SOPHIE De Santiago, LANDON Unavailable Unavailable ARLEEN De Santiago, STANISLAV Unavailable Unavailable TANISHA LeighOCassie, CAMRON Unavailable Unavailable MENDOZA De Santiago, HEIDE Unavailable Unavailable SOPHIE CAMPBELL [place], LANDON ROCK Unavailable Unavailable RAMO CAMPBELL, KRISTINA Bustos Unavailable Unavailable PETER FOX MA, JOYCE Unavailable Unavailable MENDOZA CAMPBELL, HEIDE Unavailable Unavailable ARLEEN CAMPBELL, PH.D. Unavailable Unavailable QI CAMPBELL MA, SIMA Y Unavailable Unavailable TANISHA FOX, CAMRON E Unavailable Unavailable CLARK SMITHP, BARRINGTON Unavailable Unavailable NIKOLE OJEDA, ARMIN Unavailable Unavailable RAYNE CAMPBELL, PITA Unavailable Unavailable TOBI CAMPBELL MA, ADEEL Ching Unavailable Unavailable ZONIA CAMPBELL, JANETH [...] COVID-19 virus infection (079.89, U07.1) Status: Active Medications Name Dates Details Gabapentin [...] 1 TABLET DAILY * Refills: 0 Active [place] 3 CAPS 1 tab qd * Refills: [...] BEDTIME * Quantity: 90 Refills: 2 TANISHA Archibald, CAMRON * Start : 23-Sep-2019 Active Estradiol 0.1 MG/GM Vaginal Cream INSERT 1 GRAM INTO THE VAGINA TWICE WEEKLY * Quantity: 1 Refills: 2 GUSTAVOHER D.Sky., CAMRON * Start : 18-Oct-2019 Active Dexilant [...] days * Quantity: 180 Refills: 2 TANISHA D.Sky., CAMRON * Start : 07-Mar-2020 Active Metoprolol [...] Name Dates Details Fluzone INJ Lot #: [id number] on: 06-Oct-2013 Influenza Comments: Approx Pneumococcal polysaccharide vaccine, 23 valent on: 29-Jul-2014 Fluzone Quadrivalent 0.5 ML Intramuscula r Suspension Lot #: [id number] on: 09-Oct-2015 Fluzone Quadrivalent 0.5 ML Intramuscula r Suspension Lot #: [id number] on: 09-Sep-2016 Hepatitis A Lot #: [id number] on: 30-Dec-2016 Tdap (Adacel) Lot #: [id number] on: 30-Dec-2016 Hepatitis A, adult Lot #: [id number] on: 29-Jun-2017 Fluzone Quadrivalent 0.5 ML Intramuscula r Suspension Lot #: [id number] on: 29-Jun-2017 Fluzone Quadrivalent 0.5 ML Intramuscula r Suspension Lot #: [id number] on: 24-Jun-2018 Fluzone High-Dose 0.5 ML Intramuscular S uspension Prefilled Syringe Lot #: [id number] on: 23-Aug-2019 Prevnar 13 Intramuscular Suspension Lot #: [id number] on: 23-Aug-2019 Family History Name Dates Details [...] to infection.COVID-19/SARS-CoV-2: COVID-19/SARS-CoV-2: Positive.BodySite: Nasopharyngeal.Special Requests: COVID-19/SARS-Cov-2.CPTCode: 84152.ICDCode: J20.8. (Normal) Plan of Care Name Dates Details Planned Observations . [facility] - COVID-19/SARS-Cov-2 On: 26-Apr-2020 Intent Planned Goals not documented Planned Encounters Appointment; CO19ELISEKARLENEKULDIP On: 26-Apr-2020 12:30 Appointment; HEIDE DONALDSON M.D. [...] not documented On: 24-Mar-2020 11:00 [facility]ointment; [facility] Encounter Diagnosis: Problem not documented On: 26-Mar-2020 13:20 Appointment; CAMRON GARAY D.O. Encounter Diagnosis: Problem not documented On: 29-Mar-2020 9:45 Appointment; HEIDE DONALDSON M.D. Encounter Diagnosis: Problem not documented On: 09-Apr-2020 12:45 Appointment; JANETH BRAR M.D. Encounter Diagnosis: Problem not documented On: 11-Apr-2020 10:15
--- OUTSIDE RECORDS SUMMARY | 2020-05-13 19:04 | XMS REPORT | Summary of Care ---
Author Author KIRILL Garcia R.N. Organization Unknown Address Unknown Phone Unavailable Care Team Providers Care Seismic Prospecting Supervisor Name Role Phone TOBI De Santiago, ADEEL Unavailable Unavailable SOPHIE De Santiago, LANDON Unavailable Unavailable ARLEEN De Santiago, STANISLAV Unavailable Unavailable TANISHA Archibald, CAMRON Unavailable Unavailable ZONIA De Santiago, KHMER Unavailable Unavailable SOPHIE CAMPBELL [place], L[place] ROCK Unavailable Unavailable RAMO CAMPBELL, KRISTINA Bustos Unavailable Unavailable PETER FOX [place], JOYCE Unavailable Unavailable MENDOZA CAMPBELL, HEIDE Unavailable Unavailable ARLEEN CAMPBELL, PH.D. Unavailable Unavailable QI CAMPBELL [place], SIMA Y Unavailable Unavailable TANISHA FOX, CAMRON E Unavailable Unavailable CLARK SMITHP, BARRINGTON Unavailable Unavailable NIKOLE OJEDA, ARMIN Unavailable Unavailable RAYNE CAMPBELL, PITA Unavailable Unavailable TOBI CAMPBELL [place], ADEEL Ching Unavailable Unavailable ZONIA CAMPBELL, JANETH [...] 1 TABLET DAILY * Refills: 0 Active [place] 3 CAPS 1 tab qd * Refills: [...] Name Dates Details Fluzone INJ Lot #: [id number] on: 06-Oct-2013 Influenza Comments: Approx Pneumococcal polysaccharide vaccine, 23 valent on: 29-Jul-2014 Fluzone Quadrivalent 0.5 ML Intramuscula r Suspension Lot #: [id number] on: 09-Oct-2015 Fluzone Quadrivalent 0.5 ML Intramuscula r Suspension Lot #: [id number] on: 09-Sep-2016 Hepatitis A Lot #: [id number] on: 30-Dec-2016 Tdap (Adacel) Lot #: [id number] on: 30-Dec-2016 Hepatitis A, adult Lot #: [id number] on: 29-Jun-2017 Fluzone Quadrivalent 0.5 ML Intramuscula r Suspension Lot #: [id number] on: 29-Jun-2017 Fluzone Quadrivalent 0.5 ML Intramuscula r Suspension Lot #: [id number] on: 24-Jun-2018 Fluzone High-Dose 0.5 ML Intramuscular S uspension Prefilled Syringe Lot #: [id number] on: 23-Aug-2019 Prevnar 13 Intramuscular Suspension Lot #: [id number] on: 23-Aug-2019 Family History Name Dates Details [...] to infection.COVID-19/SARS-CoV-2: COVID-19/SARS-CoV-2: Positive.BodySite: Nasopharyngeal.Special Requests: COVID-19/SARS-Cov-2.CPTCode: 66650.ICDCode: J20.8. (Normal) Plan of Care Name Dates Details Planned Observations Planned Goals not documented Planned Encounters Appointment; HEIDE DONALDSON M.D. On: 08-May-2020 10:00 Appointment; LANDON BARRIOS M.D. On: 22-Jun-2020 10:00 Appointment; STANISLAV BACON M.D. On: 01-Mar-2021 11:15 Interventions Provided Medication Changes* Rosuvastatin Calcium 10 [...] not documented On: 29-Sep-2019 8:15 Appointment; TAM MENODZA M.D. Encounter Diagnosis: Problem not documented On: [...]
--- OUTSIDE RECORDS SUMMARY | 2020-05-13 19:04 | XMS REPORT | Summary of Care ---
Author Author ZONIA De Santiago, KIRILL Rocha Unknown Address Unknown Phone Unavailable Care Team Providers Care Coal Pulverizing Operator Name Role Phone TOBI De Santiago, ADEEL Unavailable Unavailable SOPHIE De Santiago, LANDON Unavailable Unavailable ARLEEN De Santiago, STANISLAV Unavailable Unavailable TANISHA LeighOCassie, CAMRON Unavailable Unavailable ZONIA De Santiago, JANETH Unavailable Unavailable SOPHIE CAMPBELL [place], [place] Unavailable Unavailable RAMO CAMPBELL, KRISTINA S Unavailable Unavailable PETER FOX [place], JOYCE Unavailable Unavailable MENDOZA CAMPBELL, HEIDE Unavailable Unavailable ARLEEN CAMPBELL, PH.D. Unavailable Unavailable QI CAMPBELL [place], SIMA Y Unavailable Unavailable DOUGHER FOX, CAMRON E Unavailable Unavailable CLARK SMITHP, BARRINGTON Unavailable Unavailable NIKOLE OJEDA, ARMIN Unavailable Unavailable RAYNE CAMPBELL, PITA Unavailable Unavailable TOBI CAMPBELL [place], ADEEL Ching Unavailable Unavailable ZONIA CAMPBELL, JANETH Hewitt Unavailable Unavailable Unavailable Unavailable Functional Status Name Dates Details Functional status health issues are not documented Status: Name Dates Details Cognitive status health issues are not d ocumented Status: Problems Name Dates Details New onset of headaches after age 50 (784 .0, R51) Status: Active Hyponatremia (276.1, E87.1) Status: Active Visual disturbance (368.9, H53.9) Status: Active GERD without esophagitis (530.81, K21.9) Status: Active Need for Tdap vaccination (V06.1, Z23) Status: Active Idiopathic acute pancreatitis, unspecifi ed complication status (577.0, K85.00) Status: Active Epigastric abdominal pain of unknown mari ology (789.06, R10.13) Status: Active Hypokalemia (276.8, E87.6) Status: Active Hospitalization within last 30 days (V15 .89, Z92.89) Status: Active Near syncope (780.2, R55) Status: Active Other acute sinusitis, recurrence not sp ecified (461.8, J01.80) Status: Active Pain of right lower extremity (729.5, M7 9.604) Status: Active On statin therapy (V58.69, Z79.899) Status: Active Need for vaccination with 13-polyvalent pneumococcal conjugate vaccine (V03.82, Z23) Status: Active Anxiety state (300.00, F41.1) Status: Active Screening for hypothyroidism (V77.0, Z13 .29) Status: Active Influenza vaccine needed (V04.81, Z23) Status: Active Essential (primary) hypertension (401.9, I10) Status: Active Encounter to discuss test results (V65.4 9, Z71.2) Status: Active At low risk for fall (V49.89, Z91.81) Status: Active Changing pigmented skin lesion (216.9, L 81.9) Status: Active Bunion of great toe of left foot (727.1, M21.612) Status: Active Bunion of great toe of right foot (727.1 , M21.611) Status: Active Need for shingles vaccine (V04.89, Z23) Status: Active Encounter for monitoring statin therapy (V58.83, Z51.81) Status: Active Conjunctival hyperemia of left eye (372. 71, H11.432) Status: Active Depression screening negative (V79.0, Z1 3.31) Status: Active Other hyperlipidemia (272.4, E78.49) Status: Active Chronic insomnia (780.52, F51.04) Status: Active Acute UTI (599.0, N39.0) Status: Active Class 1 obesity due to excess calories w ith body mass index (BMI) of 33.0 to 33.9 in adult (278.00, E66.09) Status: Active Pancreatic cyst (577.2, K86.2) Status: Active Dysphagia (787.20, R13.10) Status: Active Encounter for monitoring long-term jie n pump inhibitor therapy (V58.83, Z51.81) Status: Active Mid back pain (724.5, M54.9) Status: Active Other acute sinusitis, recurrence not sp ecified (461.8, J01.80) Status: Active Abnormal CT of brain (793.0, R90.89) Status: Active Sciatica (724.3, M54.30) Status: Active Acute tracheitis (464.10, J04.10) Status: Active Reactive airway disease, mild intermitte nt, uncomplicated (493.90, J45.20) Status: Active Urinary symptom or sign (788.99, R39.9) Status: Active Pancreatitis (577.0, K85.90) Status: Active 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, 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 Fernandez angioma (228.01, D18.01) Status: Active Seborrheic keratosis (702.19, L82.1) Status: Active Xerosis of skin (706.8, L85.3) Status: Active Acrochordon (701.9, L91.8) Status: Active Solar lentigo (709.09, L81.4) Status: Active Strain of latissimus dorsi muscle, initi al encounter (847.1, S29.012A) Status: Active Right upper quadrant abdominal tendernes s without rebound tenderness (789.61, R10.811) Status: Active Intermittent claudication (443.9, I73.9) Status: Active Peripheral neuropathy, hereditary/idiopa thic (356.9, G60.9) Status: Active Plantar fasciitis, right (728.71, M72.2) Status: Active Right-sided chest wall pain (786.52, R07 .89) Status: Active Acute pharyngitis (462, J02.9) Status: Active Chest pain, unspecified type (786.50, R0 7.9) Status: Active Contact dermatitis, allergic (692.9, L23 .9) Status: Active Suspected COVID-19 virus infection (V01. 79, Z20.828) Status: Active Acute bronchitis due to infection (466.0 , J20.8) Status: Active Preoperative clearance (V72.84, Z01.818) Status: Active Preoperative examination (V72.84, Z01.81 8) Status: Active Controlled insomnia (780.52, G47.00) Status: Active Headache (784.0, R51) Status: Active Mass of left temporal lobe (348.89, G93. 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) Status: Active Hiatal hernia with GERD (530.81, K21.9) Status: Active Hiatal hernia with GERD (530.81, K21.9) Status: Active Inpatient hospitalization within last 30 days (V49.89, Z78.9) Status: Active Mixed stress and urge urinary incontinen ce (788.33, N39.46) Status: Active Prediabetes (790.29, R73.03) Status: Active Persistent headaches (784.0, R51) Status: Active Hypertension, well controlled (401.9, I1 0) Status: Active OANH on CPAP (327.23, G47.33) Status: Active Need for hepatitis A vaccination (V05.3, Z23) Status: Active Oral candidiasis (112.0, B37.0) Status: Active Acute infective tracheobronchitis (466.0 , J20.9) Status: Active RAD (reactive airway disease) (493.90, J 45.909) Status: Active Elevated hemoglobin A1c (790.29, R73.09) Status: Active Restless legs syndrome (333.94, G25.81) Status: Active Sleep disorder (780.50, G47.9) Status: Active Snoring (786.09, R06.83) Status: Active DJD (degenerative joint disease) of knee (715.36, M17.10) Status: Active Left frontal lobe mass (348.89, G93.89) Status: Active Urinary tract infection due to ESBL Kleb nhanlla (599.0, N39.0) Status: Active Common cold (460, J00) Status: Active Acute upper respiratory infection (465.9 , J06.9) Status: Active Hyperglycemia (790.29, R73.9) Status: Active Pruritus of skin (698.9, L29.9) Status: Active Body aches (780.96, R52) Status: Active Acute pharyngitis due to other specified organisms (462, J02.8) Status: Active Chills (780.64, R68.83) Status: Active Seasonal allergies (477.9, J30.2) Status: Active Foot pain (729.5, M79.673) Status: Active Yeast infection involving the vagina and surrounding area (112.1, B37.3) Status: Active BMI 33.0-33.9,adult (V85.33, Z68.33) Status: Active Dry mouth (527.7, R68.2) Status: Active Allergic rhinitis (477.9, J30.9) Status: Active COVID-19 virus infection (079.89, U07.1) Status: Active Sinus tachycardia (427.89, R00.0) Status: Active Chest pressure (786.59, R07.89) Status: Active Tension headache (307.81, G44.209) Status: Active Acute pancreatitis (577.0, K85.90) Status: Active Abdominal pain, acute, right upper quadr ant (789.01, R10.11) Status: Active 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 41) Status: Active Vaginal atrophy (627.3, N95.2) Status: Active Chronic constipation (564.00, K59.09) Status: Active Dyspareunia, female (625.0, N94.10) Status: Active Pelvic floor dysfunction (618.83, M62.89 ) Status: Active Frequency of urination (788.41, R35.0) Status: Active Nocturia (788.43, R35.1) Status: Active Urgency of urination (788.63, R39.15) Status: Active Frequent UTI (599.0, N39.0) Status: [...] Capsule TAKE DIRECTED. * Refills: 0 Active [place] 3 CAPS 1 tab qd * Refills: 0 Active Cranberry TABS TAKE 1 TABLET DAILY * Refills: 0 Active Melatonin 5 MG Oral Capsule TAKE 1 CAPSULE BEDTIME * Refills: 0 Active Polyethylene Glycol 3350 17 GM/SCOOP Oral Powder MIX 1 CAPFUL IN 8 OUNCES OF WATER AND DRINK AT BEDTIME NEEDED FOR CONSTIPATIO N. * Quantity: 510 Refills: 3 ADEEL BRITTON M.D. * Start : 12-Apr-2019 Active busPIRone HCl - 5 MG Oral Tablet TAKE 2 TABLETS BY MOUTH 1 HOUR BEFORE BEDTIME * Quantity: 60 Refills: 0 LANDON BARRIOS M.D. * Start : 24-Jun-2018 Active Shingrix 50 MCG Intramuscular Suspension Reconstituted INJECT 0.5 ML IM, please administer vaccine series per protocol * Quantity: 1 Refills: 0 LANDON BARRIOS M.D. * Start : 08-Sep-2019 Active Rosuvastatin Calcium 10 MG Oral Tablet TAKE 1 TABLET BY MOUTH EVERY DAY * Quantity: 90 Refills: 0 LANDON BARRIOS M.D. * Start : 28-Jul-2016 Active Pramipexole Dihydrochloride 0.25 MG Oral Tablet TAKE 1 TABLET BY MOUTH DAILY AT BEDTIME * Quantity: 90 Refills: 0 LANDON BARRIOS M.D. * Start : 27-Feb-2020 Active Estradiol 0.1 MG/GM Vaginal Cream INSERT 1 GRAM INTO THE VAGINA TWICE WEEKLY * Quantity: 1 Refills: 2 DOUGHER D.O.CAMRON * Start : 18-Oct-2019 Active Trospium Chloride ER 60 MG Oral Capsule Extended Release 24 Hour TAKE 1 CAPSULE BEDTIME * Quantity: 90 Refills: 2 DOUGHER D.O., CAMRON * Start : 23-Sep-2019 Active Dexilant 60 MG Oral Capsule Delayed [...] Name Dates Details Fluzone INJ Lot #: [id number] on: 06-Oct-2013 Influenza Comments: Approx Pneumococcal polysaccharide vaccine, 23 valent on: 29-Jul-2014 Fluzone Quadrivalent 0.5 ML Intramuscula r Suspension Lot #: [id number] on: 09-Oct-2015 Fluzone Quadrivalent 0.5 ML Intramuscula r Suspension Lot #: [id number] on: 09-Sep-2016 Hepatitis A Lot #: [id number] on: 30-Dec-2016 Tdap (Adacel) Lot #: [id number] on: 30-Dec-2016 Hepatitis A, adult Lot #: [id number] on: 29-Jun-2017 Fluzone Quadrivalent 0.5 ML Intramuscula r Suspension Lot #: [id number] on: 29-Jun-2017 Fluzone Quadrivalent 0.5 ML Intramuscula r Suspension Lot #: [id number] on: 24-Jun-2018 Fluzone High-Dose 0.5 ML Intramuscular S uspension Prefilled Syringe Lot #: [id number] on: 23-Aug-2019 Prevnar 13 Intramuscular Suspension Lot #: [id number] on: 23-Aug-2019 Family History Name Dates Details [...] to infection.COVID-19/SARS-CoV-2: COVID-19/SARS-CoV-2: Positive.BodySite: Nasopharyngeal.Special Requests: COVID-19/SARS-Cov-2.CPTCode: 36940.ICDCode: J20.8. (Normal) Plan of Care Name Dates Details Planned Observations Planned Goals not documented Planned Encounters Appointment; CO19CRISTI On: 26-Apr-2020 12:30 Appointment; HEIDE DONALDSON M.D. [...]
--- OUTSIDE RECORDS SUMMARY | 2020-05-13 19:04 | XMS REPORT | Summary of Care ---
Author Author KIRILL Garcia R.N. Organization Unknown Address Unknown Phone Unavailable Care Team Providers Care Plant Technician Name Role Phone TOBI De Santiago, [...] EVERY DAY * Quantity: 90 Refills: 0 LADNON BARRIOS M.D. * Start : 21-Jul-2014 Active Vitamin D3 125 MCG (5000 UT) Oral Capsule TAKE DIRECTED. * Refills: 0 Active Cranberry TABS TAKE 1 TABLET DAILY * Refills: 0 Active [place] 3 CAPS 1 tab qd * Refills: [...] Name Dates Details Fluzone INJ Lot #: [id number] on: 06-Oct-2013 Influenza Comments: Approx Pneumococcal polysaccharide vaccine, 23 valent on: 29-Jul-2014 Fluzone Quadrivalent 0.5 ML Intramuscula r Suspension Lot #: [id number] on: 09-Oct-2015 Fluzone Quadrivalent 0.5 ML Intramuscula r Suspension Lot #: [id number] on: 09-Sep-2016 Hepatitis A Lot #: [id number] on: 30-Dec-2016 Tdap (Adacel) Lot #: [id number] on: 30-Dec-2016 Hepatitis A, adult Lot #: [id number] on: 29-Jun-2017 Fluzone Quadrivalent 0.5 ML Intramuscula r Suspension Lot #: [id number] on: 29-Jun-2017 Fluzone Quadrivalent 0.5 ML Intramuscula r Suspension Lot #: [id number] on: 24-Jun-2018 Fluzone High-Dose 0.5 ML Intramuscular S uspension Prefilled Syringe Lot #: [id number] on: 23-Aug-2019 Prevnar 13 Intramuscular Suspension Lot #: [id number] on: 23-Aug-2019 Family History Name Dates Details Family history of Hyperlipidemia Status: Active Name Dates Details Family history of Hypertension (V17.49) Status: Active Name Dates Details Family history of Prior Myocardial Infar ction Status: Active Social History Name Dates Details - Status: Name Dates Details Never smoked tobacco (finding) Vital Signs Date Test Result Details [id number] Systolic blood pressure 150 mm[Hg] Status: Comments [...] /min Status: Results Date Description Value Details [id number] . [facility] - COVID-19/SARS-Cov-2 SARS-CoV-2 REPORT ClinicalHistory: J20 .8 Acute bronchitis due to infection.COVID-19/SARS-CoV-2: COVID-19/SARS-CoV-2: Positive.BodySite: Nasopharyngeal.Special Requests: COVID-19/SARS-Cov-2.CPTCode: 56790.ICDCode: J20.8. (Normal) Plan of Care Name Dates Details Planned Observations Planned Goals not documented Planned Encounters Appointment; CRISTI MERINO On: 26-Apr-2020 12:30 Appointment; HEIDE DONALDSON M.D. On: 08-May-2020 10:00 Appointment; LANDON BARRIOS M.D. On: 22-Jun-2020 10:00 Appointment; STANISLAV BACON M.D. On: 01-Mar-2021 11:15 Interventions Provided Medication Changes* Pramipexole Dihydrochloride 0.25 MG Oral Tablet - Renew Instructions Name [...] not documented On: 24-Mar-2020 11:00 Appointment; CO19, [facility] Encounter Diagnosis: Problem not documented On: 26-Mar-2020 13:20 Appointment; CAMRON GARAY D.O. Encounter Diagnosis: Problem not documented On: 29-Mar-2020 9:45 Appointment; HEIDE DONALDSON M.D. Encounter Diagnosis: Problem not documented On: 09-Apr-2020 12:45 Appointment; JANETH BRAR M.D. Encounter Diagnosis: Problem not documented On: 11-Apr-2020 10:15
--- NOTE | 2020-05-13 19:05 | NUR ---
upon further assessment, pt states that she was tested on March 28 and May 08 and tested positive for COVID-19, Dr Greene made aware
--- NOTE | 2020-05-13 19:05 | NUR ---
upon further assessment, pt states that she was tested on March 28 and May 08 and tested positive for COVID-19, Dr Greene made aware
--- OUTSIDE RECORDS SUMMARY | 2020-05-13 19:05 | XMS REPORT | Summary of Care ---
Author Author Alcazar JOSE E KIRILL Juarez Organization Unknown Address Unknown Phone Unavailable Care Team Providers Care Laundry Machine Tender Name Role Phone TOBI De Santiago, ADEEL Unavailable Unavailable SOPHIE De Santiago, LANDON Unavailable Unavailable Ottoniel DORANTES Siaranjan Unavailable Unavailable ARLEEN De Santiago, STANISLAV Unavailable Unavailable TANISHA Archibald, CAMRON Unavailable Unavailable MENDOZA De Santiago, HEIDE Unavailable Unavailable SOPHIE CAMPBELL CO, LANDON ROCK Unavailable Unavailable RAMO CMAPBELL, KRISTINA Bustos Unavailable Unavailable PETER FOX CO, JOYCE Unavailable Unavailable LISA CAMPBELL CO, HECTOR VARGAS Unavailable Unavailable MENDOZA CAMPBELL, HEIDE Unavailable Unavailable ARLEEN CAMPBELL, PH.D. Unavailable Unavailable QI CAMPBELL CO, SIMA Cadet Unavailable Unavailable TANISHA FOX, CAMRON [...] Active Pancreatic cyst (577.2, K86.2) Status: Active History of meningioma (V12.41, Z86.018) [...] virus infection (V01. 79, Z20.828) Status: Active Chest pressure (786.59, R07.89) Status: Active Hospital discharge follow-up (V67.59, Z0 9) Status: Active BMI 33.0-33.9,adult (V85.33, Z68.33) Status: Active Hypertension, well controlled (401.9, I1 0) Status: Active COVID-19 virus infection (079.89, U07.1) Status: Active Sinus tachycardia (427.89, R00.0) Status: Active Medications Name Dates Details Gabapentin [...] Capsule TAKE DIRECTED. * Refills: 0 Active Rosuvastatin Calcium 10 MG Oral Tablet TAKE 1 TABLET BY MOUTH EVERY DAY * Quantity: 90 Refills: 0 LANDON BARRIOS M.D. * Start : 28-Jul-2016 Active busPIRone HCl - 5 MG Oral [...] TWICE WEEKLY * Quantity: 1 Refills: 2 TANISHA D.OCAMRON Matthews * Start : 18-Oct-2019 Active Dexilant 60 [...] TWICE DAILY * Quantity: 180 Refills: 0 HEIDE DONALDSON M.D. Active Zinc-220 CAPS * Refills: 0 Active Trospium Chloride ER 60 MG Oral Capsule Extended Release 24 Hour TAKE 1 CAPSULE BEDTIME * Quantity: 90 Refills: 2 DOUGHER D.O., CAMRON * Start : 23-Sep-2019 Active Melatonin 5 MG Oral Capsule TAKE 1 CAPSULE BEDTIME * Refills: 0 Active [place] 3 CAPS 1 tab qd * Refills: 0 Active Cranberry TABS TAKE 1 TABLET DAILY * Refills: 0 Active Allergies and [...] PANEL WITH REFLEX TO DIRECT LDL Date: 08-May-2020 [QL] CMP W/EGFR Date: 08-May-2020 [QL] TSH, 3RD GENERATION W/REFLEX TO FT4 Date: 08-May-2020 History of Hysterectomy Completed History of Bladder Surgery Completed History of Cholecystectomy Completed Immunization Name Dates Details Fluzone INJ Lot #: [id number] on: 06-Oct-2013 Influenza Comments: Approx Pneumococcal polysaccharide vaccine, 23 valent on: 29-Jul-2014 Fluzone Quadrivalent 0.5 ML Intramuscula r Suspension Lot #: [id number] on: 09-Oct-2015 Fluzone Quadrivalent 0.5 ML Intramuscula r Suspension Lot #: [id number] on: 09-Sep-2016 Hepatitis A Lot #: [id number] on: 30-Dec-2016 Tdap (Adacel) Lot #: [id number] on: 30-Dec-2016 Hepatitis A, adult Lot #: [id number] on: 29-Jun-2017 Fluzone Quadrivalent 0.5 ML Intramuscula r Suspension Lot #: [id number] on: 29-Jun-2017 Fluzone Quadrivalent 0.5 ML Intramuscula r Suspension Lot #: [id number] on: 24-Jun-2018 Fluzone High-Dose 0.5 ML Intramuscular S uspension Prefilled Syringe Lot #: [id number] on: 23-Aug-2019 Prevnar 13 Intramuscular Suspension Lot #: [id number] on: 23-Aug-2019 Family History Name Dates Details [...] to report Results Date Description Value Details :00 . [facility] - COVID-19/SARS-Cov-2 SARS-CoV-2 REPORT ClinicalHistory: U07 .1 COVID-19 virus infection.COVID-19/SARS-CoV-2: COVID-19/SARS-CoV-2: Positive.BodySite: Nasopharyngeal.Special Requests: COVID-19/SARS-Cov-2.CPTCode: 15447.ICDCode: U07.1. (Abnormal) :00 . [facility] - COVID-19/SARS-Cov-2 SARS-CoV-2 REPORT ClinicalHistory: U07 .1 COVID-19 virus infection.COVID-19/SARS-CoV-2: COVID-19/SARS-CoV-2: Positive.BodySite: Nasopharyngeal.Special Requests: COVID-19/SARS-Cov-2.CPTCode: 69090.ICDCode: U07.1. (Abnormal) Plan of Care Name Dates [...] Problem not documented On: 24-Mar-2020 11:00 Appointment; WILBER, PROVIDERBASANDY Encounter Diagnosis: Problem not documented On: 26-Mar-2020 13:20 Appointment; CAMRON GARAY D.O. Encounter Diagnosis: Problem not documented On: 29-Mar-2020 9:45 Appointment; HEIDE DONALDSON M.D. Encounter Diagnosis: Problem not documented On: 09-Apr-2020 12:45 Appointment; JANETH BRAR M.D. Encounter Diagnosis: Problem not documented On: 11-Apr-2020 10:15 Appointment; CO19, PROVIDERBAYSHOREAN Encounter Diagnosis: Problem not documented On: 26-Apr-2020 12:30 Appointment; HEIDE DONALDSON M.D. Encounter Diagnosis: Problem not documented On: 08-May-2020 10:00 Appointment; CO19, PROVIDERBAY[facility]OREAN Encounter Diagnosis: Problem not documented On: 08-May-2020 13:10
--- OUTSIDE RECORDS SUMMARY | 2020-05-13 19:05 | XMS REPORT | Summary of Care ---
Author Author MENDOZA De Santiago, KIRILL Rocha Unknown Address Unknown Phone Unavailable Care Team Providers Care Campground Manager Name Role Phone TOBI De Santiago, ADEEL Unavailable Unavailable SOPHIE De Santiago, LANDON Unavailable Unavailable ARLEEN De Santiago, STANISLAV Unavailable Unavailable TANISHA Archibald, CAMRON Unavailable Unavailable MENDOZA De Santiago, HEIDE Unavailable Unavailable SOPHIE CAMPBELL [place], [place] Unavailable Unavailable RAMO CAMPBELL, KRISTINA Bustos Unavailable Unavailable PETER FOX [place], JOYCE Unavailable Unavailable LISA CAMPBELL [place], HECTOR VARGAS Unavailable Unavailable MENDOZA CAMPBELL, HEIDE Unavailable Unavailable ARLEEN CAMPBELL, PH.D. Unavailable Unavailable QI CAMPBELL [place], SIMA Cadet Unavailable Unavailable TANISHA FOX, CAMRON [...] 0 SOPHIE Em.LANDON Leigh * Start : 21-Jul-2014 Active Vitamin D3 125 MCG (5000 UT) Oral Capsule TAKE DIRECTED. * Refills: 0 M.D. Active Cranberry TABS TAKE 1 TABLET DAILY * Refills: 0 M.D. Active [place] 3 CAPS 1 tab qd * Refills: [...] Name Dates Details Fluzone INJ Lot #: [id number] on: 06-Oct-2013 Influenza Comments: Approx Pneumococcal polysaccharide vaccine, 23 valent on: 29-Jul-2014 Fluzone Quadrivalent 0.5 ML Intramuscula r Suspension Lot #: [id number] on: 09-Oct-2015 Fluzone Quadrivalent 0.5 ML Intramuscula r Suspension Lot #: [id number] on: 09-Sep-2016 Hepatitis A Lot #: [id number] on: 30-Dec-2016 Tdap (Adacel) Lot #: [id number] on: 30-Dec-2016 Hepatitis A, adult Lot #: [id number] on: 29-Jun-2017 Fluzone Quadrivalent 0.5 ML Intramuscula r Suspension Lot #: [id number] on: 29-Jun-2017 Fluzone Quadrivalent 0.5 ML Intramuscula r Suspension Lot #: [id number] on: 24-Jun-2018 Fluzone High-Dose 0.5 ML Intramuscular S uspension Prefilled Syringe Lot #: [id number] on: 23-Aug-2019 Prevnar 13 Intramuscular Suspension Lot #: [id number] on: 23-Aug-2019 Family History Name Dates Details [...] virus infection.COVID-19/SARS-CoV-2: COVID-19/SARS-CoV-2: Positive.BodySite: Nasopharyngeal.Special Requests: COVID-19/SARS-Cov-2.CPTCode: 35878.ICDCode: U07.1. (Abnormal) [id number]:00 . [facility] - COVID-19/SARS-Cov-2 SARS-CoV-2 REPORT ClinicalHistory: U07 .1 COVID-19 virus infection.COVID-19/SARS-CoV-2: COVID-19/SARS-CoV-2: Positive.BodySite: Nasopharyngeal.Special Requests: COVID-19/SARS-Cov-2.CPTCode: 63416.ICDCode: U07.1. (Abnormal) Plan of Care Name Dates Details Planned Observations Planned Goals not documented Planned Encounters Appointment; LANDON BARRIOS M.D. On: 22-Jun-2020 10:00 Appointment; STANISLAV BACON M.D. On: 01-Mar-2021 11:15 Interventions Provided Discussion/Summary* covid still positive, at this point since it has been over two weeks, patient most likely clear of virus and has low risk of transmission. advise still to continue precautionary measures when out in public. Instructions Name Dates Details Instructions not documented Encounters Appointment; CELIA WHINTEY M.D. Encounter Diagnosis: Problem not documented On: [...] not documented On: 08-May-2020 10:00 Appointment; CO19, PROVIDERBAYSHORENORMA Encounter Diagnosis: Problem not documented On: 08-May-2020 13:10
--- OUTSIDE RECORDS SUMMARY | 2020-05-13 19:05 | XMS REPORT | Summary of Care ---
Author Author MENDOZA De Santiago, KIRILL Rocha Unknown Address Unknown Phone Unavailable Care Team Providers Care Journeyman Machinist Name Role Phone TOBI De Santiago, ADEEL Unavailable Unavailable SOPHIE De Santiago, LANDON Unavailable Unavailable ARLEEN De Santiago, STANISLAV Unavailable Unavailable TANISHA Archibald, CAMRON Unavailable Unavailable MENDOZA De Santiago, HEIDE Unavailable Unavailable SOPHIE CAMPBELL [place], [place] Unavailable Unavailable RAMO CAMPBELL, KRISTINA Bustos Unavailable Unavailable PETER FOX MT, JOYCE Unavailable Unavailable LISA CAMPBELL [place], HECTOR VARGAS Unavailable Unavailable MENDOZA CAMPBELL, HEIDE Unavailable Unavailable ARLEEN CAMPBELL, PH.D. Unavailable Unavailable QI CAMPBELL [place], SIMA Cadet Unavailable Unavailable TANISHA FOX, CAMRON [...] 1 TABLET DAILY * Refills: 0 Active [place] 3 CAPS 1 tab qd * Refills: [...] 3RD GENERATION W/REFLEX TO FT4 Date: 08-May-2020 . [facility] - COVID-19/SARS-Cov-2 Date: 08-May-2020 History of Hysterectomy Completed History of Bladder Surgery Completed History of Cholecystectomy Completed Immunization Name Dates Details Fluzone INJ Lot #: [id number] on: 06-Oct-2013 Influenza Comments: Approx Pneumococcal polysaccharide vaccine, 23 valent on: 29-Jul-2014 Fluzone Quadrivalent 0.5 ML Intramuscula r Suspension Lot #: [id number] on: 09-Oct-2015 Fluzone Quadrivalent 0.5 ML Intramuscula r Suspension Lot #: [id number] on: 09-Sep-2016 Hepatitis A Lot #: [id number] on: 30-Dec-2016 Tdap (Adacel) Lot #: [id number] on: 30-Dec-2016 Hepatitis A, adult Lot #: [id number] on: 29-Jun-2017 Fluzone Quadrivalent 0.5 ML Intramuscula r Suspension Lot #: [id number] on: 29-Jun-2017 Fluzone Quadrivalent 0.5 ML Intramuscula r Suspension Lot #: [id number] on: 24-Jun-2018 Fluzone High-Dose 0.5 ML Intramuscular S uspension Prefilled Syringe Lot #: [id number] on: 23-Aug-2019 Prevnar 13 Intramuscular Suspension Lot #: [id number] on: 23-Aug-2019 Family History Name Dates Details [...] virus infection.COVID-19/SARS-CoV-2: COVID-19/SARS-CoV-2: Positive.BodySite: Nasopharyngeal.Special Requests: COVID-19/SARS-Cov-2.CPTCode: 62917.ICDCode: U07.1. (Abnormal) Plan of Care Name Dates Details Planned Observations Planned Goals not documented Planned Encounters Appointment; LANDON BARRIOS M.D. On: 22-Jun-2020 10:00 Appointment; STANISLAV BACON M.D. On: 01-Mar-2021 11:15 Interventions Provided Medication Changes* Metoprolol Tartrate 25 MG Oral Tablet - Renew Labs/Procedures/Imaging* . [facility] - COVID-19/SARS-Cov-2; To Be Done: 08 May 2020 * [Q] LIPID PANEL WITH REFLEX TO DIRECT LDL; To Be Done: 08 May 2020 * [QL] CMP W/EGFR; To Be Done: 08 May 2020 * [QL] TSH, 3RD GENERATION W/REFLEX TO FT4; To Be Done: 08 May 2020 Plan* 1. HTN, with possible tachycarida * - Hospital records requested * - BP at goal, Hr mildly elevated today as patient did not take metoprolol, discussed medication compliance * - Will review hospital labs and imaging once received * - Continue losartan and metoprolol * - Patient to check blood pressure at home with a goal of <130/80 and log reading for review on next visit. If blood pressure persistently >140/90 or < 100/50, advised to RTC or if symptomatic go to ER for immediate care or if symptomatic (dizziness, change in vision, nose bleed, weakness, or worst headache in life) * 2. Retest for covid * - Order placed for today Instructions Name Dates Details Instructions not documented [...] not documented On: 24-Mar-2020 11:00 Appointment; CO[facility] Encounter Diagnosis: Problem not documented On: 26-Mar-2020 13:20 Appointment; CAMRON GARAY D.O. Encounter Diagnosis: Problem not documented On: 29-Mar-2020 9:45 Appointment; HEIDE DONALDSON M.D. Encounter Diagnosis: Problem not documented On: 09-Apr-2020 12:45 Appointment; JANETH BRAR M.D. Encounter Diagnosis: Problem not documented On: 11-Apr-2020 10:15 Appointment; DEVIN19[facility] Encounter Diagnosis: Problem not documented On: 26-Apr-2020 12:30 Appointment; HEIDE DONALDSON M.D. Encounter Diagnosis: Problem not documented On: 08-May-2020 10:00
--- OUTSIDE RECORDS SUMMARY | 2020-05-13 19:05 | XMS REPORT | Summary of Care ---
Author Author ZONIA De Santiago, KIRILL Rocha Unknown Address Unknown Phone Unavailable Care Team Providers Care Supervisor Continuous Weld Pipe Mill Name Role Phone TOBI De Santiago, ADEEL Unavailable Unavailable SOPHIE De Santiago, LANDON Unavailable Unavailable ARLEEN De Santiago, STANISLAV Unavailable Unavailable TANISHA LeighOCassie, CAMRON Unavailable Unavailable ZNOIA De Santiago, JANETH Unavailable Unavailable SOPHIE CAMPBELL [place], [place]ON [place] Unavailable Unavailable RAMO CAMPBELL, KRISTINA Bustos Unavailable Unavailable PETER FOX DC, JOYCE Unavailable Unavailable MENDOZA CAMPBELL, HEIDE Unavailable Unavailable ARLEEN CAMPBELL, PH.D. Unavailable Unavailable QI CAMPBELL DC, SIMA Y Unavailable Unavailable TANISHA FOX, CAMRON E Unavailable Unavailable CLARK SMITHP, BARRINGTON Unavailable Unavailable NIKOLE OJEDA, ARMIN Unavailable Unavailable RAYNE CAMPBELL, PITA Unavailable Unavailable TOBI CAMPBELL DC, ADEEL Ching Unavailable Unavailable ZONIA CAMPBELL, JANETH [...] discharge follow-up (V67.59, Z0 9) Status: Active COVID-19 virus infection (079.89, U07.1) [...] 1 TABLET DAILY * Refills: 0 Active [place] 3 CAPS 1 tab qd * Refills: [...] Name Dates Details Fluzone INJ Lot #: [id number] on: 06-Oct-2013 Influenza Comments: Approx Pneumococcal polysaccharide vaccine, 23 valent on: 29-Jul-2014 Fluzone Quadrivalent 0.5 ML Intramuscula r Suspension Lot #: [id number] on: 09-Oct-2015 Fluzone Quadrivalent 0.5 ML Intramuscula r Suspension Lot #: [id number] on: 09-Sep-2016 Hepatitis A Lot #: [id number] on: 30-Dec-2016 Tdap (Adacel) Lot #: [id number] on: 30-Dec-2016 Hepatitis A, adult Lot #: [id number] on: 29-Jun-2017 Fluzone Quadrivalent 0.5 ML Intramuscula r Suspension Lot #: [id number] on: 29-Jun-2017 Fluzone Quadrivalent 0.5 ML Intramuscula r Suspension Lot #: [id number] on: 24-Jun-2018 Fluzone High-Dose 0.5 ML Intramuscular S uspension Prefilled Syringe Lot #: [id number] on: 23-Aug-2019 Prevnar 13 Intramuscular Suspension Lot #: [id number] on: 23-Aug-2019 Family History Name Dates Details [...] virus infection.COVID-19/SARS-CoV-2: COVID-19/SARS-CoV-2: Positive.BodySite: Nasopharyngeal.Special Requests: COVID-19/SARS-Cov-2.CPTCode: 04455.ICDCode: U07.1. (Abnormal) Plan of Care Name Dates [...]
--- OUTSIDE RECORDS SUMMARY | 2020-05-13 19:05 | XMS REPORT | Summary of Care ---
Author Author Ottoniel DORANTES KIRILL Juarez Organization Unknown Address Unknown Phone Unavailable Care Team Providers Care Front Office Assistant Name Role Phone TOBI De Santiago, ADEEL Unavailable Unavailable SOPHIE De Santiago, LANDON Unavailable Unavailable Ottoniel DORANTES Miguelaugust Unavailable Unavailable ARLEEN De Santiago, STANISLAV Unavailable Unavailable TANISHA Archibald, CAMRON Unavailable Unavailable ZONIA De Santiago, JANETH Unavailable Unavailable SOPHIE CAMPBELL [place], [place] Unavailable Unavailable RAMO CAMPBELL, KRISTINA Bustos Unavailable Unavailable PETER FOX AR, JOYCE Unavailable Unavailable MENDOZA CAMPBELL, HEIDE Unavailable Unavailable ARLEEN CAMPBELL, PH.D. Unavailable Unavailable QI CAMPBELL [place], SIMA Cadet Unavailable Unavailable TANISHA FOX, CAMRON E Unavailable Unavailable CLARK RODRIGUEZ, BARRINGTON Unavailable Unavailable NIKOLE OJEDA, ARMIN Unavailable Unavailable RAYNE CAMPBELL, PITA Unavailable Unavailable TOBI CAMPBELL [place], ADEEL Ching Unavailable Unavailable ZONIA CAMPBELL, JANETH K Unavailable Unavailable Unavailable Unavailable Functional Status Name [...] 1 TABLET DAILY * Refills: 0 Active [place] 3 CAPS 1 tab qd * Refills: [...] Name Dates Details Fluzone INJ Lot #: [id number] on: 06-Oct-2013 Influenza Comments: Approx Pneumococcal polysaccharide vaccine, 23 valent on: 29-Jul-2014 Fluzone Quadrivalent 0.5 ML Intramuscula r Suspension Lot #: [id number] on: 09-Oct-2015 Fluzone Quadrivalent 0.5 ML Intramuscula r Suspension Lot #: [id number] on: 09-Sep-2016 Hepatitis A Lot #: [id number] on: 30-Dec-2016 Tdap (Adacel) Lot #: [id number] on: 30-Dec-2016 Hepatitis A, adult Lot #: [id number] on: 29-Jun-2017 Fluzone Quadrivalent 0.5 ML Intramuscula r Suspension Lot #: [id number] on: 29-Jun-2017 Fluzone Quadrivalent 0.5 ML Intramuscula r Suspension Lot #: [id number] on: 24-Jun-2018 Fluzone High-Dose 0.5 ML Intramuscular S uspension Prefilled Syringe Lot #: [id number] on: 23-Aug-2019 Prevnar 13 Intramuscular Suspension Lot #: [id number] on: 23-Aug-2019 Family History Name Dates Details [...] virus infection.COVID-19/SARS-CoV-2: COVID-19/SARS-CoV-2: Positive.BodySite: Nasopharyngeal.Special Requests: COVID-19/SARS-Cov-2.CPTCode: 63538.ICDCode: U07.1. (Abnormal) Plan of Care Name Dates [...] not documented On: 24-Mar-2020 11:00 Appointment; CO19, [facility] Encounter Diagnosis: Problem not documented On: 26-Mar-2020 13:20 Appointment; CAMRON GARAY D.O. Encounter Diagnosis: Problem not documented On: 29-Mar-2020 9:45 Appointment; HEIDE DONALDSON M.D. Encounter Diagnosis: Problem not documented On: 09-Apr-2020 12:45 Appointment; JANETH BRAR M.D. Encounter Diagnosis: Problem not documented On: 11-Apr-2020 10:15 Appointment; CO19, [facility] Encounter Diagnosis: Problem not documented On: 26-Apr-2020 12:30
--- OUTSIDE RECORDS SUMMARY | 2020-05-13 19:05 | XMS REPORT | Summary of Care ---
Author Author MENDOZA De Santiago, KIRILL Rocha Unknown Address Unknown Phone Unavailable Care Team Providers Care Rail Car Painter/Sandblaster Name Role Phone TOBI De Santiago, ADEEL Unavailable Unavailable SOPHIE De Santiago, LANDON Unavailable Unavailable ARLEEN De Santiago, STANISLAV Unavailable Unavailable TANISHA Archibald, CAMRON Unavailable Unavailable MENDOZA De Santiago, HEIDE Unavailable Unavailable SOPHIE CAMPBELL [place], [place] Unavailable Unavailable RAMO CAMPBELL, KRISTINA Bustos Unavailable Unavailable PETER FOX NM, JOYCE Unavailable Unavailable LISA CAMPBELL NM, HECTOR VARGAS Unavailable Unavailable MENDOZA CAMPBELL, HEIDE Unavailable Unavailable ARLEEN CAMPBELL, PH.D. Unavailable Unavailable QI CAMPBELL [place], SIMA Cadet Unavailable Unavailable TANISHA FOX, CAMRON [...] 1 TABLET DAILY * Refills: 0 Active [place] 3 CAPS 1 tab qd * Refills: [...] Name Dates Details Fluzone INJ Lot #: [id number] on: 06-Oct-2013 Influenza Comments: Approx Pneumococcal polysaccharide vaccine, 23 valent on: 29-Jul-2014 Fluzone Quadrivalent 0.5 ML Intramuscula r Suspension Lot #: [id number] on: 09-Oct-2015 Fluzone Quadrivalent 0.5 ML Intramuscula r Suspension Lot #: [id number] on: 09-Sep-2016 Hepatitis A Lot #: [id number] on: 30-Dec-2016 Tdap (Adacel) Lot #: [id number] on: 30-Dec-2016 Hepatitis A, adult Lot #: [id number] on: 29-Jun-2017 Fluzone Quadrivalent 0.5 ML Intramuscula r Suspension Lot #: [id number] on: 29-Jun-2017 Fluzone Quadrivalent 0.5 ML Intramuscula r Suspension Lot #: [id number] on: 24-Jun-2018 Fluzone High-Dose 0.5 ML Intramuscular S uspension Prefilled Syringe Lot #: [id number] on: 23-Aug-2019 Prevnar 13 Intramuscular Suspension Lot #: [id number] on: 23-Aug-2019 Family History Name Dates Details [...] virus infection.COVID-19/SARS-CoV-2: COVID-19/SARS-CoV-2: Positive.BodySite: Nasopharyngeal.Special Requests: COVID-19/SARS-Cov-2.CPTCode: 42039.ICDCode: U07.1. (Abnormal) :00 . [facility] - COVID-19/SARS-Cov-2 SARS-CoV-2 REPORT ClinicalHistory: U07 .1 COVID-19 virus infection.COVID-19/SARS-CoV-2: COVID-19/SARS-CoV-2: Positive.BodySite: Nasopharyngeal.Special Requests: COVID-19/SARS-Cov-2.CPTCode: 30143.ICDCode: U07.1. (Abnormal) Plan of Care Name Dates Details Planned Observations Planned Goals not documented Planned Encounters Cardiology Referral Appointment; LANDON BARRIOS M.D. On: 22-Jun-2020 10:00 [...] Problem not documented On: 08-May-2020 10:00 Appointment; CRISTI MERINO Encounter Diagnosis: Problem not documented On: 08-May-2020 13:10
--- OUTSIDE RECORDS SUMMARY | 2020-05-13 19:05 | XMS REPORT | Summary of Care ---
Author Author MENDOZA De Santiago, KIRILL Rocha Unknown Address Unknown Phone Unavailable Care Team Providers Care Ultrasonic Welding Machine Operator Name Role Phone TOBI De Santiago, ADEEL Unavailable Unavailable SOPHIE De Santiago, LANDON Unavailable Unavailable ARLEEN De Santiago, STANISLAV Unavailable Unavailable TANISHA Archibald, CAMRON Unavailable Unavailable MENDOZA De Santiago, HEIDE Unavailable Unavailable SOPHIE CAMPBELL [place], [place] Unavailable Unavailable RAMO CAMPBELL, KRISTINA Bustos Unavailable Unavailable PETER FOX [place], JOYCE Unavailable Unavailable LISA CAMPBELL AR, HECTOR VARGAS Unavailable Unavailable MENDOZA CAMPBELL, HEIDE [...] 1 TABLET DAILY * Refills: 0 Active [place] 3 CAPS 1 tab qd * Refills: [...] Name Dates Details Fluzone INJ Lot #: [id number] on: 06-Oct-2013 Influenza Comments: Approx Pneumococcal polysaccharide vaccine, 23 valent on: 29-Jul-2014 Fluzone Quadrivalent 0.5 ML Intramuscula r Suspension Lot #: [id number] on: 09-Oct-2015 Fluzone Quadrivalent 0.5 ML Intramuscula r Suspension Lot #: [id number] on: 09-Sep-2016 Hepatitis A Lot #: [id number] on: 30-Dec-2016 Tdap (Adacel) Lot #: [id number] on: 30-Dec-2016 Hepatitis A, adult Lot #: [id number] on: 29-Jun-2017 Fluzone Quadrivalent 0.5 ML Intramuscula r Suspension Lot #: [id number] on: 29-Jun-2017 Fluzone Quadrivalent 0.5 ML Intramuscula r Suspension Lot #: [id number] on: 24-Jun-2018 Fluzone High-Dose 0.5 ML Intramuscular S uspension Prefilled Syringe Lot #: [id number] on: 23-Aug-2019 Prevnar 13 Intramuscular Suspension Lot #: [id number] on: 23-Aug-2019 Family History Name Dates Details [...] virus infection.COVID-19/SARS-CoV-2: COVID-19/SARS-CoV-2: Positive.BodySite: Nasopharyngeal.Special Requests: COVID-19/SARS-Cov-2.CPTCode: 65314.ICDCode: U07.1. (Abnormal) Plan of Care Name Dates Details Planned Observations Planned Goals not documented Planned Encounters Appointment; CRISTI MERINO On: 08-May-2020 13:10 Appointment; LANDON BARRIOS M.D. On: 22-Jun-2020 10:00 [...] FT4; To Be Done: 08 May 2020 Instructions Name Dates Details Instructions not [...]
--- OUTSIDE RECORDS SUMMARY | 2020-05-13 19:06 | XMS REPORT | Summary of Care ---
Author KIRILL Lerma Organization Unknown Address Unknown Phone Unavailable Care Team Providers Care T[employer] Changer Name Role Phone TOBI De Santiago, ADEEL Unavailable Unavailable SOPHIE De Santiago, LANDON Unavailable Unavailable Marisela Gil Unavailable Unavailable ARLEEN De Santiago, STANISLAV Unavailable Unavailable TANISHA Archibald, CAMRON Unavailable Unavailable MENDOZA De Santiago, HEIDE Unavailable Unavailable SOPHIE CAMPBELL NE, LANDON ROCK Unavailable Unavailable RAMO CAMPBELL, KRISTINA Bustos Unavailable Unavailable PETER FOX NE, JOYCE Unavailable Unavailable LISA CAMPBELL NE, HECTOR VARGAS Unavailable Unavailable MENDOZA CAMPBELL, HEIDE Unavailable Unavailable ARLEEN CAMPBELL, PH.D. Unavailable Unavailable QI CAMPBELL NE, SIMA Y Unavailable Unavailable TANISHA FOX, CAMRON E Unavailable Unavailable CLARK SMITHP, BARRINGTON Unavailable Unavailable NIKOLE OJEDA, ARMIN Unavailable Unavailable RAYNE CAMPBELL, PITA Unavailable Unavailable TOBI CAMPBELL NE, ADEEL Ching Unavailable Unavailable ZONIA CAMPBELL, JANETH [...] 1 TABLET DAILY * Refills: 0 Active [place] 3 CAPS 1 tab qd * Refills: [...] Name Dates Details Fluzone INJ Lot #: [id number] on: 06-Oct-2013 Influenza Comments: Approx Pneumococcal polysaccharide vaccine, 23 valent on: 29-Jul-2014 Fluzone Quadrivalent 0.5 ML Intramuscula r Suspension Lot #: [id number] on: 09-Oct-2015 Fluzone Quadrivalent 0.5 ML Intramuscula r Suspension Lot #: [id number] on: 09-Sep-2016 Hepatitis A Lot #: [id number] on: 30-Dec-2016 Tdap (Adacel) Lot #: [id number] on: 30-Dec-2016 Hepatitis A, adult Lot #: [id number] on: 29-Jun-2017 Fluzone Quadrivalent 0.5 ML Intramuscula r Suspension Lot #: [id number] on: 29-Jun-2017 Fluzone Quadrivalent 0.5 ML Intramuscula r Suspension Lot #: [id number] on: 24-Jun-2018 Fluzone High-Dose 0.5 ML Intramuscular S uspension Prefilled Syringe Lot #: [id number] on: 23-Aug-2019 Prevnar 13 Intramuscular Suspension Lot #: [id number] on: 23-Aug-2019 Family History Name Dates Details [...] virus infection.COVID-19/SARS-CoV-2: COVID-19/SARS-CoV-2: Positive.BodySite: Nasopharyngeal.Special Requests: COVID-19/SARS-Cov-2.CPTCode: 23730.ICDCode: U07.1. (Abnormal) :00 . [facility] - COVID-19/SARS-Cov-2 SARS-CoV-2 REPORT ClinicalHistory: U07 .1 COVID-19 virus infection.COVID-19/SARS-CoV-2: COVID-19/SARS-CoV-2: Positive.BodySite: Nasopharyngeal.Special Requests: COVID-19/SARS-Cov-2.CPTCode: 78152.ICDCode: U07.1. (Abnormal) Plan of Care Name Dates Details Planned Observations Planned Goals not documented Planned Encounters Appointment; LANDON BARRIOS M.D. On: 22-Jun-2020 10:00 Appointment; LUCINDA DOMINGUEZ M.D. On: 25-Jun-2020 15:20 Appointment; STANISLAV BACON M.D. On: 01-Mar-2021 11:15 [...]
--- NOTE | 2020-05-13 19:20 | NUR ---
patient does not appear to be short of breath or in any respiratory distress, current pulse ox is at 100% and pt is on room air
[2020-05-13 19:28] LABS: BASOPHILS % 0.2 % (0.0-1.0); EOSINOPHILS % 0.2 % (0.0-6.0); HEMATOCRIT 34.8 % (34.2-44.1); HEMOGLOBIN 12.6 g/dL (12.0-16.0); LYMPHOCYTES # (AUTO) 1.8 (1.0-3.2); LYMPHOCYTES % 19.3 % (18.0-39.1); MEAN CORPUSCULAR HEMOGLOBIN 30.2 pg (28-32); MEAN CORPUSCULAR HGB CONC 36.2 g/dL (31-35); MEAN CORPUSCULAR VOLUME 83.5 fL (81-99); MONOCYTES # (AUTO) 0.6 (0.2-0.8); MONOCYTES % 6.7 % (4.4-11.3); NEUTROPHILS # (AUTO) 6.9 (2.1-6.9); NEUTROPHILS % 73.3 % (38.7-80.0); PLATELET COUNT 240 x10e3/uL (140-360); RED BLOOD COUNT 4.17 x10e6/uL (3.6-5.1); RED CELL DISTRIBUTION WIDTH 12.7 % (11.7-14.4)
[2020-05-13 19:39] LABS: ALANINE AMINOTRANSFERASE 14 IU/L (0-55); ALBUMIN 4.2 g/dL (3.5-5.0); ALBUMIN/GLOBULIN RATIO 1.3 (0.8-2.0); ALKALINE PHOSPHATASE 86 IU/L (40-150); ANION GAP 17.9 mmol/L (8-16); BLOOD UREA NITROGEN 6 mg/dL (7-26); BUN/CREATININE RATIO 10 (6-25); CALCIUM 9.2 mg/dL (8.4-10.2); CARBON DIOXIDE 18 mmol/L (22-29); CHLORIDE 79 mmol/L (98-107); CREATINE KINASE 67 IU/L (29-168); CREATININE, SERUM 0.63 mg/dL (0.57-1.11); EST GLOMERULAR FILTRATION RATE > 60 ML/MIN (60-); GLUCOSE 138 mg/dL (74-118); POTASSIUM 3.9 mmol/L (3.5-5.1)
[2020-05-13 19:59] LABS: SODIUM 111 mmol/L (136-145)
--- NOTE | 2020-05-13 20:01 | Diagnostic Imaging Report ---
Exam: Head CT without contrast History: Dizziness Comparison studies: None Technique: Axial images were obtained from the skull base to the vertex. Coronal and sagittal images reconstructed from the axial data. Dose modulation, iterative reconstruction, and/or weight based adjustment of the mA/kV was utilized to reduce the radiation dose to as low as reasonably achievable. Radiation dose: Total DLP: 832.18 mGy*cm. Estimated effective dose: DLP x 0.015 Intravenous contrast: None Findings: Scalp and bones: Surgical changes of prior left temporal craniotomy. No fracture or lytic or blastic lesion. Brain sulci: Appropriate for age. Ventricles: Normal in size and configuration. No hydrocephalus. Extra-axial spaces: No masses, no fluid collection. Parenchyma: No abnormal densities. No masses, hemorrhage, acute or chronic vascular insults. Sellar/suprasellar region: No abnormalities. Craniocervical junction: Patent foramen magnum. No Chiari one malformation. Included paranasal sinuses: Clear. Middle ear cavities and mastoids: Clear. Incidental findings: Atherosclerotic calcifications in the carotid siphons. IMPRESSION: 1. No acute intracranial abnormalities. 2. Prior left temporal craniotomy. Signed by: Dr. Juan Carlos Maher M.D. on 05/13/2020 7:57 PM
--- NOTE | 2020-05-13 20:15 | NUR ---
DR. JOHNSTON MADE AWARE OF CRITICAL SODIUM LEVEL
--- NOTE | 2020-05-13 20:20 | Diagnostic Imaging Report ---
EXAMINATION: CHEST SINGLE (PORTABLE) INDICATION: ^Y ^covid positive ^[id number] ^193 ^Y COMPARISON: 03/22/2011 FINDINGS: AP view TUBES and LINES: None. LUNGS: Lungs are well inflated. There is no evidence of pneumonia or pulmonary edema. PLEURA: No pleural effusion or pneumothorax. HEART AND MEDIASTINUM: The cardiomediastinal silhouette is unremarkable. BONES AND SOFT TISSUES: No acute osseous lesion. Soft tissues are unremarkable. UPPER ABDOMEN: No free air under the diaphragm. IMPRESSION: No acute thoracic abnormality. Signed by: Dr. Lonnie Draper MD on 05/13/2020 8:16 PM
[2020-05-13] MEDS: SODIUM CHLORIDE 0.9% 1000ML 1,000 ML IV SCH (20:36)
--- NOTE | 2020-05-13 20:39 | NUR ---
SONO TECH AT BEDSIDE TO PERFORM VENOUS DOPPLER
--- OUTSIDE RECORDS SUMMARY | 2020-05-13 21:23 | XMS REPORT | Continuity of Care Document ---
Author Author [facility] t Organization [facility] Address [address] [place] [address] Phone Unavailable Care Team Providers [facility] Owner Operator Truck Driver Name Role Phone Grey JOHNSTON Attphys Unavailable CO19, PROVIDERADI Attphys Unavailable HEIDE DONALDSON M.D. Attphys Unavailable [...] meningioma History of meningioma Problem Resolved [facility] History of essential hypertension History of essential hypertens ion Problem Resolved [facility] History of hiatal hernia History of hiatal hernia Problem Resolved [facility] History of hyperlipidemia History of hyperlipidemia Problem Resolved [facility] History of recurrent urinary tract infection History o f recurrent urinary tract infection Problem Resolved [facility] Peripheral neuropathy, hereditary/idiopathic Periphera l neuropathy, hereditary/idiopathic Problem [facility] Intermittent claudication Intermittent claudication Problem Active [facility] Sciatica Sciatica Problem Active [facility] Contact dermatitis, allergic Contact dermatitis, allergic Problem Active [facility] Yeast infection involving the vagina and surrounding a lloyd Yeast infection involving the vagina and surrounding area Problem Active [facility] Pruritus of skin Pruritus of skin Problem Active [facility] Acute pharyngitis Acute pharyngitis Problem Active [facility] Tension headache Tension headache Problem Active [facility] Acute pharyngitis due to other specified organisms Acu te pharyngitis due to other specified organisms Problem Active [facility] Body aches Body aches Problem [facility] Chills Chills Problem Active [facility] Reactive airway disease, mild intermittent, uncomplica bhavna Reactive airway disease, mild intermittent, uncomplicated Problem Active [facility] Acute tracheitis Acute tracheitis Problem Active [facility] RAD (reactive airway disease) RAD (reactive airway disease) Problem Active [facility] Influenza vaccine needed Influenza vaccine needed Problem Active [facility] Plantar fasciitis, right Plantar fasciitis, right Problem Active [facility] Mid back pain Mid back pain Problem Active [facility] Near syncope Near syncope Problem Active [facility] Visual disturbance Visual disturbance Problem Active [facility] Epigastric abdominal pain of unknown etiology Epigastr ic abdominal pain of unknown etiology Problem Active [facility] Hiatal hernia with GERD Hiatal hernia with GERD Problem Active [facility] Persistent headaches Persistent headaches Problem Active [facility] Abnormal CT of brain Abnormal CT of brain Problem Active [facility] Hyponatremia Hyponatremia Problem Active [facility] Hypokalemia Hypokalemia Problem Active [facility] Idiopathic acute pancreatitis, unspecified complicatio n status Idiopathic acute pancreatitis, unspecified complication status Problem Active [facility] Hospitalization within last 30 days Hospitalization within last 30 days Problem Active [facility] Acute pancreatitis Acute pancreatitis Problem Active [facility] DJD (degenerative joint disease) of knee DJD (degenera tive joint disease) of knee Problem Active [facility] Screening for diabetes mellitus Screening for diabetes mellitus Pro blem Active [facility] Foot pain Foot pain Problem Active [facility] Abdominal pain, acute, right upper quadrant Abdominal pain, acute, right upper quadrant Problem Active [facility] Oral candidiasis Oral candidiasis Problem Active [facility] Right frontal lobe lesion Right frontal lobe lesion Problem Active [facility] Neoplasm of brain causing mass effect on adjacent stru ctures Neoplasm of brain causing mass effect on adjacent structures Problem Active [facility] Need for hepatitis C screening test Need for hepatitis C screeni ng test Problem Active [facility] Preoperative examination Preoperative examination Problem Active [facility] Controlled insomnia Controlled insomnia Problem Active [facility] Mass of left temporal lobe Mass of left temporal lobe Problem Active [facility] Inpatient hospitalization within last 30 days Inpatien t hospitalization within last 30 days Problem Active [facility] Nausea Nausea Problem Active [facility] Hyperglycemia Hyperglycemia Problem Active [facility] Elevated hemoglobin A1c Elevated hemoglobin A1c Problem Active [facility] Mixed stress and urge urinary incontinence Mixed stres s and urge urinary incontinence Problem Active [facility] Common cold Common cold Problem Active [facility] Acute upper respiratory infection Acute upper respiratory infect ion Problem Active [facility] Seasonal allergies Seasonal allergies Problem Active [facility] 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 Active [facility] Pancreatic cyst Pancreatic cyst Problem Active [facility] Hospital discharge follow-up Hospital discharge follow-up Problem Active [facility] Status post resection of meningioma Status post resection of men ingioma Problem Active [facility] Snoring Snoring Problem Active [facility] Sleep disorder Sleep disorder Problem Active [facility] Dysphagia Dysphagia Problem Active [facility] Other acute sinusitis, recurrence not specified Other acute sinusitis, recurrence not specified Problem Active [facility] Strain of latissimus dorsi muscle, initial encounter S train of latissimus dorsi muscle, initial encounter Problem Active [facility] Right upper quadrant abdominal tenderness without rebo und tenderness Right upper quadrant abdominal tenderness without rebound tenderness Problem Active [facility] Chest pressure Chest pressure Problem Active [facility] Chest pain, unspecified type Chest pain, unspecified type Problem Active [facility] Chronic insomnia Chronic insomnia Problem Active [facility] OANH on CPAP OANH on CPAP Problem Active [facility] Acute infective tracheobronchitis Acute infective tracheobronchi tis Problem Active [facility] Restless legs syndrome Restless legs syndrome Problem Active [facility] On statin therapy On statin therapy Problem Active [facility] Anxiety state Anxiety state Problem Active [facility] Constipation Constipation Problem Active [facility] Screening for hypothyroidism Screening for hypothyroidism Problem Active [facility] At low risk for fall At low risk for fall Problem Active [facility] Urinary symptom or sign Urinary symptom or sign Problem Active [facility] Chronic constipation Chronic constipation Problem Active [facility] Pelvic floor dysfunction Pelvic floor dysfunction Problem Active [facility] Pain of right lower extremity Pain of right lower extremity Problem Active [facility] Depression screening negative Depression screening negative Problem Active [facility] Frequent UTI Frequent UTI Problem Active [facility] Atresia of vagina Atresia of vagina Problem Active [facility] Encounter for monitoring long-term proton pump inhibit or therapy Encounter for monitoring long-term proton pump inhibitor therapy Problem Active [facility] Encounter to discuss test results Encounter to discuss test resu lts Problem Active [facility] Bunion of great toe of left foot Bunion of great toe of left doc t Problem Active [facility] Bunion of great toe of right foot Bunion of great toe of right f oot Problem Active [facility] Changing pigmented skin lesion Changing pigmented skin lesion Problem Active [facility] Prediabetes Prediabetes Problem Active [facility] Other hyperlipidemia Other hyperlipidemia Problem Active [facility] Conjunctival hyperemia of left eye Conjunctival hyperemia of lef t eye Problem Active [facility] Hypertension, well controlled Hypertension, well controlled Problem Active [facility] Class 1 obesity due to excess calories w ith body mass index (BMI) of 33.0 to 33.9 in adult Class 1 obesity due to excess calories w ith body mass index (BMI) of 33.0 to 33.9 in adult Problem Active [facility] Dyspareunia, female Dyspareunia, female Problem Active [facility] Frequency of urination Frequency of urination Problem Active [facility] Nocturia Nocturia Problem Active [facility] Urge incontinence of urine Urge incontinence of urine Problem Active [facility] Urgency of urination Urgency of urination Problem Active [facility] Vaginal atrophy Vaginal atrophy Problem Active [facility] Allergic rhinitis Allergic rhinitis Problem Active [facility] BMI 33.0-33.9,adult BMI 33.0-33.9,adult Problem Active [facility] Dry mouth Dry mouth Problem Active [facility] Xerosis of skin Xerosis of skin Problem Active [facility] Seborrheic keratosis Seborrheic keratosis Problem Active [facility] Solar lentigo Solar lentigo Problem Active [facility] Fernandez angioma Fernandez angioma Problem Active [facility] Acrochordon Acrochordon Problem Active [facility] Acute bronchitis due to infection Acute bronchitis due to infect ion Problem Active [facility] Suspected COVID-19 virus infection Suspected COVID-19 virus infe ction Problem Active [facility] Sinus tachycardia Sinus tachycardia Problem Active [facility] COVID-19 virus infection COVID-19 virus infection Problem Active [facility] Peripheral Neuropathy Keyanna pheral Neuropathy Active 01/27/2014 [place] [facility] Problem Active 2014-01-27 14:30:20 [facility] Hyperlipidemia Hype rlipidemia Active 01/27/2014 [place] [facility] Problem Active 2014-01-27 14:30:20 M emoriamari Lock Intermittent Claudication Inte rmittent Claudication Active 01/27/2014 [place] [facility] Problem Active 2014-01-27 14:30: 20 [facility] [address] Vaccines Prophylactic Need Against Influenza Vaccines Prophylactic Need Against Influenza Active 01/27/2014 [place] [facility] Problem Active 2014-01-27 14:30:20 [facility] [address] Hypertension Hype rtension Active 01/27/2014 [place] [facility] Problem Active 2014-01-27 14:30:20 Nolan rial [address] Sciatica Scia brooke Active 01/27/2014 [place] [facility] Problem Active 2014-01-27 14:30:20 [facility] Hyperglycemia Hype rglycemia Active 01/27/2014 [place] [facility] Problem Active 2014-01-27 14:30:20 [facility] Allergies, Adverse Reactions, Alerts Allergy Name Allergy Type Status Severity Reaction(s) Onset Date Inacti ve Date Treating Clinician Comments Source No Known Allergies DA Active U 2020-04-09 00:00:00 [facility] No Known Intolerances DA Active U 2009-11-02 00:00:00 [facility] Nitrofurantoin CAPS Allergy to drug (finding) Active [facility] Not Known Not Known Active Nolan Lock Family History Family Member Diagnosis Comments Start Date Stop Date Source Mother Family history of Hyperlipidemia [facility] Father Family history of Hypertension [facility] Brother Family history of Prior Myocardial Infarction [facility] Unknown Family Member Family History 2013-10-06 17:45:34 2 17:45:34 [facility] Social History Social Habit Start Date Stop Date Quantity Comments Source Social History 2014-01-27 14:30:20 2014-01-27 14:30:20 [facility] Smoking Status Start Date Stop Date Source Never smoked tobacco (finding) [facility] Medications Ordered Medication Name Filled Medication Name Start Date Stop Da te Current Medication? Ordering Clinician Indication Dosage Frequency Signature (SIG) Comments Components Source Trospium Chloride 20 MG Oral Tablet Trospium Chloride 20 MG Oral Tablet 2020-03-07 00:00:00 Yes CAMRON GARAY D.O. ta ke 1 tablet bid x 90 days [facility] Ammonium Lactate 12 % External Cream Ammonium Lactate 12 % E xternal Cream 2020-03-02 00:00:00 Yes STANISLAV BACON M.D. APPLY AND RUB IN A THIN FILM TO AFFECTED AREAS OF ARMS TWICE DAILY.(AM AND PM). [facility] Pramipexole Dihydrochloride 0.25 MG Oral Tablet Pramip exole Dihydrochloride 0.25 MG Oral Tablet 2020-02-27 00:00:00 Yes LANDON BARRIOS M.D. 1 QD TAKE 1 TABLET BY MOUTH DAILY AT BEDTIME [facility] Estradiol 0.1 MG/GM Vaginal Cream Estradiol 0.1 MG/GM Vagina l Cream 2019-10-18 00:00:00 Yes CAMRON GARAY D.O. IN SERT 1 GRAM INTO THE VAGINA TWICE WEEKLY [facility] Trospium Chloride ER 60 MG Oral Capsule Extended Relea se 24 Hour Trospium Chloride ER 60 MG Oral Capsule Extended Release 24 Hour 2019-09-23 00:00:00 Yes CAMRON GARAY D.O. 1 TAKE 1 CAPSULE BEDTIME [facility] Shingrix 50 MCG Intramuscular Suspension Reconstituted Shingrix 50 MCG Intramuscular Suspension Reconstituted 2019-09-08 00:00:00 Yes LANDON BARRIOS M.D. INJECT 0.5 ML IM, please administer vacc ine series per protocol [facility] Polyethylene Glycol 3350 17 GM/SCOOP Oral Powder Polye thylene Glycol 3350 17 GM/SCOOP Oral Powder 2019-04-12 00:00:00 Yes ADEEL BRITTON M.D. MIX 1 CAPFUL IN 8 OUNCES OF WATER AND DRINK AT BEDTIME NEEDED FOR CONSTIPATION. [facility] busPIRone HCl - 5 MG Oral Tablet busPIRone HCl - 5 MG Oral T ablet 2018-06-24 00:00:00 Yes LANDON BARRIOS M.D. TAKE 2 TABLETS BY MOUTH 1 HOUR BEFORE BEDTIME [facility] Rosuvastatin Calcium 10 MG Oral Tablet Rosuvastatin Calcium 10 MG Oral Tablet 2016-07-28 00:00:00 Yes LANDON BARRIOS M.D. TAKE 1 TABLET BY MOUTH EVERY DAY [facility] Gabapentin 300 MG Oral Capsule Gabapentin 300 MG Oral Capsul e 2016-07-09 00:00:00 Yes LANDON BARRIOS M.D. TAKE ONE CAPSULE BY MOUTH EVERY NIGHT AT 6 PM AND AT BEDTIME [facility] Losartan Potassium 100 MG Oral Tablet Losartan Potassium 100 MG Oral Tablet 2014-07-21 00:00:00 Yes LANDON BARRIOS M.D. TAKE 1 TABLET BY MOUTH EVERY DAY [facility] PriLOSEC OTC 20 MG Oral Tablet Delayed Release 2014-01-27 14:30: 20 Yes (Active) Marcelina rosenberg Methocarbamol 500 MG Oral Tablet 2014-01-27 14:30:20 Yes (Active) Marcelina Lock Losartan Potassium 50 MG Oral Tablet 2014-01-27 14:30:20 Ye s (Active) Marcelina Lock Crestor 10 MG Oral Tablet 2014-01-27 14:30:20 Yes (Active) Marcelina Lock Metoprolol Succinate ER 50 MG Oral Tablet Extended Release 2 4 Hour 2014-01-27 14:30:20 Yes (Active) Yara Lock Metoprolol Succinate ER 50 MG Oral [...] 2 4 Hour Yes ; Start Date: 0; End Date: (Active) Marcelina Lock Losartan Potassium 50 MG Oral Tablet Ye s ; Start Date: ; End Date: (Active) Marcelina Lock Crestor 10 MG Oral Tablet Yes ; Start Date: ; End Date: (Active) Marcelina Lock Methocarbamol 500 MG Oral Tablet Yes ; Start Date: ; End Date: (Active) Marcelina [address] Vitamin D3 125 MCG (5000 UT) Oral Capsule Vitamin D3 1 25 MCG (5000 UT) Oral Capsule Yes TAKE DIRECTED. [facility] Cranberry TABS Cranberry TABS Yes 1 QD TAKE 1 TAB LET DAILY [facility] Melatonin 5 MG Oral Capsule Melatonin 5 MG Oral Capsule Yes 1 TAKE 1 CAPSULE BEDTIME [facility] Dexilant 60 MG Oral Capsule Delayed Release Dexilant 6 0 MG Oral Capsule Delayed Release Yes 1 QD TAKE 1 CAPSULE DAILY [facility] Vitamin D3 50 MCG (2000 UT) Oral Capsule Vitamin D3 50 MCG (2000 UT) Oral Capsule Yes 1 QD TAKE 1 CAPSULE DAILY [facility] Vitamin B-12 500 MCG Oral Tablet Vitamin B-12 500 MCG Oral Tablet Yes 1 QD TAKE 1 TABLET DAILY. [facility] Metoprolol Tartrate 25 MG Oral Tablet Metoprolol Tartrate 25 MG Ora l Tablet Yes HEIDE DONALDSON M.D. 1 Q0.5D TAKE 1 TABLET TWICE DAILY [facility] Zinc-220 CAPS Zinc-220 CAPS Yes [facility] [place] 3 CAPS [place] 3 CAPS Yes 1 tab qd [facility] Immunizations Ordered Immunization Name Filled Immunization Name Date Status Comments Source Prevnar 13 Intramuscular Suspension 2019-08-23 14:32:00 Co mpleted [facility] Fluzone High-Dose 0.5 ML Intramuscular Suspension Prefilled Syringe 2019-08-23 14:29:00 Completed [facility] Fluzone Quadrivalent 0.5 ML Intramuscular Suspension 2018-06-24 11:31:00 Completed [facility] Fluzone Quadrivalent 0.5 ML Intramuscular Suspension 2017-06-29 09:56:00 Completed [facility] Hepatitis A, adult 2017-06-29 09:54:00 Completed [facility] Tdap (Adacel) 2016-12-30 10:23:00 Completed [facility] Hepatitis A 2016-12-30 10:22:00 Completed [facility] Fluzone Quadrivalent 0.5 ML Intramuscular Suspension 2016-09-09 17:22:00 Completed [facility] Fluzone Quadrivalent 0.5 ML Intramuscular Suspension 2015-10-09 11:56:00 Completed [facility] Pneumococcal polysaccharide vaccine, 23 valent 2014-07 00:00:00 Completed [facility] Fluzone INJ 2013-10-06 11:28:00 Completed [facility] Influenza Unknown Completed Approx [facility] Vital Signs Vital Name Observation Time Observation Value Comments Source Systolic blood pressure 2020-04-09 13:17:00 150 mm[Hg] Loca tion: LUE; Position: Sitting [facility] Diastolic blood pressure 2020-04-09 13:17:00 89 mm[Hg] Loc ation: LUE; Position: Sitting [facility] Body height 2020-04-09 13:17:00 58.5 [in_us] [facility] Weight 2020-04-09 13:17:00 161.5 [lb_av] [facility] Body mass index (BMI) [Ratio] 2020-04-09 13:17:00 33.18 kg/m2 [facility] Body temperature 2020-04-09 13:17:00 99.3 [degF] [facility] Heart Rate 2020-04-09 13:17:00 129 /min [facility] Systolic blood pressure 2020-03-02 09:46:00 122 mm[Hg] Loca tion: LUE; Position: Sitting [facility] Diastolic blood pressure 2020-03-02 09:46:00 78 mm[Hg] Loc ation: LUE; Position: Sitting [facility] Body height 2020-03-02 09:46:00 58.5 [in_us] [facility] Weight 2020-03-02 09:46:00 161 [lb_av] [facility] Body mass index (BMI) [Ratio] 2020-03-02 09:46:00 33.08 kg/m2 [facility] Heart Rate 2020-03-02 09:46:00 85 /min [facility] Weight 2020-02-17 09:01:00 162 [lb_av] [facility] Body mass index (BMI) [Ratio] 2020-02-17 09:01:00 33.28 kg/m2 [facility] Systolic blood pressure 2020-01-17 14:42:00 136 mm[Hg] Loca tion: ABDON; Position: Sitting [facility] Diastolic blood pressure 2020-01-17 14:42:00 81 mm[Hg] Loc ation: ABDON; Position: Sitting [facility] Body height 2020-01-17 14:42:00 58.5 [in_us] [facility] Weight 2020-01-17 14:42:00 163 [lb_av] [facility] Body mass index (BMI) [Ratio] 2020-01-17 14:42:00 33.49 kg/m2 [facility] Body temperature 2020-01-17 14:42:00 98.2 [degF] Method: Temporal [facility] Heart Rate 2020-01-17 14:42:00 94 /min [facility] Respiratory rate 2020-01-17 14:42:00 16 /min [facility] BP Systolic 2019-10-13 15:51:00 144 mm[Hg] Location: A[facility]; Positi on: Sitting [facility] BP Diastolic 2019-10-13 15:51:00 85 mm[Hg] Location: ABDON; Positi on: Sitting [facility] Height 2019-10-13 15:51:00 58.5 [in_us] [facility] Weight 2019-10-13 15:51:00 163 [lb_av] [facility] Body Mass Index Calculated 2019-10-13 15:51:00 33.49 kg/m2 [facility] Temperature 2019-10-13 15:51:00 98.3 [degF] Method: Oral [facility] Heart Rate 2019-10-13 15:51:00 90 /min [facility] BP Systolic 2019-10-06 09:25:00 156 mm[Hg] Location: LUE; Positi on: Sitting [facility] BP Diastolic 2019-10-06 09:25:00 92 mm[Hg] Location: LUE; Positi on: Sitting [facility] Height 2019-10-06 09:25:00 58.5 [in_us] [facility] Weight 2019-10-06 09:25:00 165 [lb_av] [facility] Body Mass Index Calculated 2019-10-06 09:25:00 33.9 kg/m2 [facility] Temperature 2019-10-06 09:25:00 97.6 [degF] Method: Oral [facility] Heart Rate 2019-10-06 09:25:00 83 /min [facility] BP Systolic 2019-09-29 08:30:00 129 mm[Hg] Location: LUManfred; Positi on: Sitting [facility] BP Diastolic 2019-09-29 08:30:00 83 mm[Hg] Location: ABDON; Positi on: Sitting [facility] Height 2019-09-29 08:30:00 58.5 [in_us] [facility] Weight 2019-09-29 08:30:00 162.4 [lb_av] [facility] Body Mass Index Calculated 2019-09-29 08:30:00 33.36 kg/m2 [facility] Temperature 2019-09-29 08:30:00 98.1 [degF] Method: [facility] Heart Rate 2019-09-29 08:30:00 87 /min Location: L Radial; [facility] Respiration Rate 2019-09-29 08:30:00 16 /min Quality: [facility] BP Systolic 2019-09-26 15:25:00 135 mm[Hg] Location: SNEHAE; Positi on: Sitting [facility] BP Diastolic 2019-09-26 15:25:00 78 mm[Hg] Location: ABDON; Positi on: Sitting [facility] Height 2019-09-26 15:25:00 58.5 [in_us] [facility] Weight 2019-09-26 15:25:00 164 [lb_av] [facility] Body Mass Index Calculated 2019-09-26 15:25:00 33.69 kg/m2 [facility] Temperature 2019-09-26 15:25:00 97.8 [degF] Method: Temporal [facility] Heart Rate 2019-09-26 15:25:00 92 /min Location: L Radial; [facility] Respiration Rate 2019-09-26 15:25:00 16 /min [facility] BP Systolic 2019-09-23 11:12:00 120 mm[Hg] Location: ABDON; Positi on: Sitting [facility] BP Diastolic 2019-09-23 11:12:00 82 mm[Hg] Location: ABDON; Positi on: Sitting [facility] Height 2019-09-23 11:12:00 58.5 [in_us] [facility] Body Mass Index Calculated 2019-09-23 11:12:00 33.13 kg/m2 [facility] Weight 2019-09-23 11:12:00 161.25 [lb_av] [facility] Temperature 2019-09-23 11:12:00 98.4 [degF] Method: Oral [facility] BP Systolic 2019-09-23 09:35:00 132 mm[Hg] Location: ABDON; Positi on: Sitting [facility] BP Diastolic 2019-09-23 09:35:00 84 mm[Hg] Location: ABDON; Positi on: Sitting [facility] Height 2019-09-23 09:35:00 58.5 [in_us] [facility] Body Mass Index Calculated 2019-09-23 09:35:00 32.93 kg/m2 [facility] Weight 2019-09-23 09:35:00 160.3 [lb_av] [facility] Temperature 2019-09-23 09:35:00 98.9 [degF] Method: Temporal [facility] Heart Rate 2019-09-23 09:35:00 92 /min Location: L Radial; [facility] Respiration Rate 2019-09-23 09:35:00 16 /min Quality: Normal U [facility] BP Systolic 2019-09-08 11:54:00 136 mm[Hg] Location: LUE; Positi on: Sitting [facility] BP Diastolic 2019-09-08 11:54:00 82 mm[Hg] Location: LUE; Positi on: Sitting [facility] BP Systolic 2019-09-08 11:52:00 130 mm[Hg] Location: RUE; Positi on: Sitting [facility] BP Diastolic 2019-09-08 11:52:00 88 mm[Hg] Location: RUE; Positi on: Sitting [facility] BP Systolic 2019-09-08 10:37:00 111 mm[Hg] Location: LUE; Positi on: Sitting [facility] BP Diastolic 2019-09-08 10:37:00 66 mm[Hg] Location: LUE; Positi on: Sitting [facility] Height 2019-09-08 10:37:00 58.5 [in_us] [facility] Weight 2019-09-08 10:37:00 160.6 [lb_av] [facility] Body Mass Index Calculated 2019-09-08 10:37:00 32.99 kg/m2 [facility] Temperature 2019-09-08 10:37:00 97.2 [degF] Method: Temporal [facility] Heart Rate 2019-09-08 10:37:00 79 /min Location: L Radial; [facility] Respiration Rate 2019-09-08 10:37:00 16 /min Quality: Normal U [facility] BP Systolic 2019-08-23 14:15:00 132 mm[Hg] Location: LUE; Positi on: Sitting [facility] BP Diastolic 2019-08-23 14:15:00 82 mm[Hg] Location: LUE; Positi on: Sitting [facility] Height 2019-08-23 14:15:00 59 [in_us] [facility] Weight 2019-08-23 14:15:00 163.2 [lb_av] [facility] Body Mass Index Calculated 2019-08-23 14:15:00 32.96 kg/m2 [facility] Temperature 2019-08-23 14:15:00 98.5 [degF] Method: Temporal [facility] Heart Rate 2019-08-23 14:15:00 96 /min Location: L Radial; [facility] Respiration Rate 2019-08-23 14:15:00 16 /min Quality: Normal U [facility] Procedures Procedure Date / Time Performed Performing Clinician Sour e [Q] LIPID PANEL WITH REFLEX TO DIRECT LDL 2020-05-08 00:00:00 [facility] [QL] CMP W/EGFR 2020-05-08 00:00:00 Lyman o [facility] [QL] TSH, 3RD GENERATION W/REFLEX TO FT4 2020-05-08 00:00:00 [facility] . [facility] - COVID-19/SARS-Cov-2 2020-05-08 00:00:00 [facility] . [facility] - COVID-19/SARS-Cov-2 2020-04-19 00:00:00 [facility] . [facility] - COVID-19/SARS-Cov-2 2020-03-24 00:00:00 [facility] [QL] CMP W/EGFR 2020-02-17 00:00:00 Lyman o [facility] [QL] CBC (INCLUDES DIFF/PLT) 2020-02-17 00:00:00 [facility] [QL] HEMOGLOBIN A1c 2020-02-17 00:00:00 [facility] [Q] LIPID PANEL WITH REFLEX TO DIRECT LDL 2020-02-17 00:00:00 [facility] [O] Urine Dipstick (In Office) 2019-09-29 00:00:00 [facility] [QLH] CULTURE, URINE, ROUTINE 2019-09-29 00:00:00 [facility] [QLH] CULTURE, URINE, ROUTINE 2019-09-26 00:00:00 [facility] [QLH] CULTURE, URINE, ROUTINE 2019-09-23 00:00:00 [facility] [H] Urinalysis w/ Microscopic 2019-09-23 00:00:00 [facility] CT Abdomen/Pelvis w/wo contrast [id number] 2019-09-23 00:00:00 [facility] [QLH] CMP W/EGFR 2019-08-23 00:00:00 [facility] [QLH] HEMOGLOBIN A1c 2019-08-23 00:00:00 [facility] [QH] LIPID PANEL WITH REFLEX TO DIRECT LDL 2019-08-23 00:00:00 [facility] [[facility]] TSH, 3RD GENERATION W/REFLEX TO FT4 2019-08-23 00:00:00 [facility] History of Hysterectomy [facility] History of Bladder Surgery [facility] History of Cholecystectomy Unive [facility] Plan of Care Planned Activity Planned Date Details Comments Source Future Scheduled Test 2020-04-26 00:00:00 . [facility] - COVID-1 9/SARS-Cov-2 [code = . [facility] - COVID-19/SARS-Cov-2] [facility] Future Scheduled Test 2014-01-27 14:30:20 Plan of Care [code = 1877 6-5] [facility] Future Scheduled Test 2014-01-06 13:45:19 Plan of Care [code = 1877 6-5] [facility] Future Scheduled Test 2014-01-02 02:00:06 Plan of Care [code = 1877 6-5] [facility] Scheduled Test 2013-10-06 17:45:34 Plan of Care [code = 1877 6-5] [facility] Future Appointment 2021-03-01 11:15:00 Jonnathan [place], [facility] Future Appointment 2020-06-25 15:20:00 Jonnathan JANE, [facility] Future Appointment 2020-06-22 10:00:00 Jonnathan NAVARRETE, [facility] Encounters Start Date/Time End Date/Time Encounter Type Admission Type Attendi [facility] Care Department Encounter ID Source 2020-05-08 13:10:00 2020-05-08 13:10:00 Appointment; CO19, PROVI CATRACHITOBAYSHOTESS CO19, [facility] [id number] [facility] 2020-05-08 10:00:00 2020-05-08 10:00:00 Appointment; YEISON DONALDSON M.D. MOHEYUDDIN, AMINA, M.D. [facility] [id number] [facility] 2020-04-26 12:30:00 2020-04-26 12:30:00 Appointment; CO19, PROVI SEANHORENORMA CO19, [facility] [id number] [facility] 2020-04-11 10:15:00 2020-04-11 10:15:00 Appointment; JANETH BRAR M.D. JAYSWAL, MALAY, M.D. [facility] [id number] [facility] 2020-04-11 10:15:00 2020-04-11 10:15:00 Appointment; JANETH BRAR M.D. JAYSWAL, MALAY, M.D. [facility] [id number] [facility] 2020-04-09 12:45:00 2020-04-09 12:45:00 Appointment; YEISON DONALDSON M.D. MOHEYUDDIN, AMINA, M.D. [facility] [id number] [facility] 2020-03-29 09:45:00 2020-03-29 09:45:00 Appointment; CAMRON GARAY D.O. DOUGHER, ERIN, D.O. [facility] [id number] [facility] 2020-03-26 13:20:00 2020-03-26 13:20:00 Appointment; CO19, ALEXANDRA BURROUGHSRENORMA CO19, [facility] [id number] [facility] 2020-03-24 11:00:00 2020-03-24 11:00:00 Appointment; SIMA BUSBY M .D. BAI, KRISTY, M.D. [facility] [id number] [facility] 2020-03-02 09:45:00 2020-03-02 09:45:00 Appointment; TEA BACON M.D. KOSHELEV, MISHA, M.D. [facility] [id number] [facility] 2020-03-02 09:40:00 2020-03-02 09:40:00 Appointment; TEA BACON M.D. KOSHELEV, MISHA, M.D. [place] [address] [id number] [facility] 2020-02-17 09:30:00 2020-02-17 09:30:00 Appointment; CHADWICK BARRIOS M.D. GOODINE, GLENDA, M.D. [facility] [id number] [facility] 2020-01-17 14:15:00 2020-01-17 14:15:00 Appointment; JANETH BRAR M.D. JAYSWAL, MALAY, M.D. [facility] [id number] [facility] 2020-01-12 11:00:00 2020-01-12 11:00:00 Appointment; CAMRON GARAY D.O. DOUGHER, ERIN, D.O. [facility] [place] [facility] [id number] [facility] 2019-12-23 09:45:00 2019-12-23 09:45:00 Appointment; TEA BACON M.D. KOSHELEV, MISHA, M.D. [facility] [id number] [facility] 2019-10-13 14:00:00 2019-10-13 14:00:00 Appointment; CAMRON GARAY D.O. DOUGHER, ERIN, D.O. [facility] [facility] [id number] [facility] 2019-10-06 15:15:00 2019-10-06 15:15:00 Appointment; CHADWICK BARRIOS M.D. GOODINE, GLENDA, M.D. [facility] [id number] [facility] 2019-10-06 09:00:2019-10-06 09:00:00 Appointment; SE-URODYNAMICS , NURSE SE-URODYNAMICS, NURSE [facility] [place] [facility] [id number] [facility] 2019-09-30 14:45:00 2019-09-30 14:45:00 Appointment; SAAD MENDOZA M.D. GAUVAIN, TAGGART, M.D. [facility] [id number] [facility] 2019-09-29 08:15:00 2019-09-29 08:15:00 Appointment; CHADWICK BARRIOS M.D. GOODINE, GLENDA, M.D. [facility] [id number] [facility] 2019-09-26 15:15:00 2019-09-26 15:15:00 Appointment; CHADWICK BARRIOS M.D. GOODINE, GLENDA, M.D. [facility] [id number] [facility] 2019-09-23 11:30:00 2019-09-23 11:30:00 Appointment; CAMRON GARAY D.O. DOUGHER, ERIN, D.O. [facility] [id number] [facility] 2019-09-23 09:30:00 2019-09-23 09:30:00 Appointment; CHADWICK BARRIOS M.D. GOODINE, GLENDA, M.D. [facility] [id number] [facility] 2019-09-08 10:30:00 2019-09-08 10:30:00 Appointment; CHADWICK BARRIOS M.D. GOODINE, GLENDA, M.D. [facility] [id number] [facility] 2019-08-23 14:15:00 2019-08-23 14:15:00 Appointment; CHADWICK BARRIOS M.D. GOODINE, GLENDA, M.D. [facility] [id number] [facility] 2019-04-12 15:30:00 2019-04-12 15:30:00 Appointment; ADEEL BRITTON M.D. WALTON, HAROLD, M.D. [facility] [id number] [facility] 2019-02-11 11:00:00 2019-02-11 11:00:00 Appointment; CHADWICK BARRIOS M.D. GOODINE, GLENDA, M.D. [facility] [id number] [facility] 2018-10-29 09:30:00 2018-10-29 09:30:00 Appointment; ARMIN AGUSTIN P.A. CRUZ, LETICIA, P.A. [facility] [id number] [facility] 2018-10-26 10:00:00 2018-10-26 10:00:00 Appointment; BARRINGTON RODAS A PRN SAXE, KAILA, METAL REFINER [facility] UTP [id number] [facility] 2018-09-24 10:00:00 2018-09-24 10:00:00 Appointment; CHADWICK BARRIOS M.D. GOODINE, GLENDA, M.D. [facility] UTP [id number] [facility] 2018-07-15 09:00:00 2018-07-15 09:00:00 Appointment; CHADWICK BARRIOS M.D. GOODINE, GLENDA, M.D. [facility] UTP [id number] [facility] 2018-07-08 14:15:00 2018-07-08 14:15:00 Appointment; CHADWICK BARRIOS M.D. GOODINE, GLENDA, M.D. [facility] UTP [id number] [facility] 2018-07-05 07:30:00 2018-07-05 07:30:00 Appointment; CELIA WHITNEY M.D. CATALANO, MARC, M.D. [facility] UTP [id number] [facility] 2018-06-24 09:00:00 2018-06-24 09:00:00 Appointment; CHADWICK BARRIOS M.D. GOODINE, GLENDA, M.D. [facility] UTP [id number] [facility] 2018-05-18 14:15:00 2018-05-18 14:15:00 Appointment; CELIA WHITNEY M.D. CATALANO, MARC, M.D. [facility] UTP [id number] [facility] 2018-03-25 14:30:00 2018-03-25 14:30:00 Appointment; CHADWICK BARRIOS M.D. GOODINE, GLENDA, M.D. [facility] UTP [id number] [facility] 2018-02-13 10:30:00 2018-02-13 10:30:00 Appointment; SIRI RALPH M.D. BORTOLOTTI, JULIE, M.D. [facility] UTP [id number] [facility] 2018-01-11 09:30:00 2018-01-11 09:30:00 Appointment; CHADWICK BARRIOS M.D. GOODINE, GLENDA, M.D. [facility] UTP [id number] [facility] 2017-12-10 14:15:00 2017-12-10 14:15:00 Appointment; CHADWICK BARRIOS M.D. GOODINE, GLENDA, M.D. [facility] UTP [id number] [facility] 2017-11-18 10:00:00 2017-11-18 10:00:00 Appointment; CARMELA CERVANTES RD WRIGHT, TISH, RD [facility] UTP [id number] [facility] 2017-10-20 15:15:00 2017-10-20 15:15:00 Appointment; CHADWICK BARRIOS M.D. GOODINE, GLENDA, M.D. [facility] UTP [id number] [facility] 2014-01-27 09:30:21 2014-01-27 09:30:20 Outpatient [facility]IE [facility] [id number] 2014-01-06 08:45:19 2014-01-06 08:45:19 Outpatient MHIE MHIE [id number] 2014-01-01 21:00:06 2014-01-01 21:00:06 Outpatient MHIE MHIE [id number] 2013-10-06 11:45:35 2013-10-06 11:45:34 Outpatient MHIE MHIE [id number] 2013-09-23 18:00:09 2013-09-23 18:00:09 Outpatient MHIE MHIE [id number] 2013-05-02 15:42:09 2013-05-02 15:41:46 Outpatient MHIE MHIE [id number] Results Test Description Test Time Test Comments Results Result Comments Source CHEST SINGLE (PORTABLE) 2020-05-13 20:15:00 [place] [address] Patient Name: KIRILL CALLEJAS MR #: [id number] : 1955 Age/Sex: 64/F Req #: [id number] Adm Physician: Ordered by: JANICE JOHNSTON MD Report #: [id number] Location: ER Room/Bed: Procedure: [id number] DX/CHEST SINGLE (PORTABLE) Exam Date: 05/13/20 Exam Time: 1934 REPORT STATUS: Signed EXAMINATION: CHEST SINGLE (PORTABLE) INDICATION: Y covid positive [id number] 1936 Y COMPARISON: 03/22/2011 FINDINGS: AP view TUBES and LINES: None. LUNGS: Lungs are well inflated. There is no evidence of pneumonia or pulmonary edema. PLEURA: No pleural effusion or pneumothorax. HEART AND MEDIASTINUM: The cardiomediastinal silhouette is unremarkable. BONES AND SOFT TISSUES: No acute osseous lesion. Soft tissues are unremarkable. UPPER ABDOMEN: No free air under the diaphragm. IMPRESSION: No acute thoracic abnormality. Signed by: Dr. Lonnie Lorenzo MD on 05/13/2020 8:16 PM Dictated By: LONNIE LORENZO MD 15 Transcribed By: HARRIET on 05/13/202015 COPY TO: JNAICE JOHNSTON MD CT BRAIN WO 2020-05-13 19:47:00 [place] [address] Patient Name: KIRILL CALLEJAS MR #: [id number] : 1955 Age/Sex: 64/F Req #: [id number] Adm Physician: Ordered by: JANICE JOHNSTON MD Report #: [id number] Location: ER Room/Bed: Procedure: CT/CT BRAIN WO Exam Date: 05/13/20 Exam Time: 1929 REPORT STATUS: Signed Exam: Head CT without contrast History: Dizziness Comparison studies: None Technique: Axial images were obtained from the skull base to the vertex. Coronal and sagittal images reconstructed from the axial data. Dose modulation, iterative reconstruction, and/or weight based adjustment of the mA/kV was utilized to reduce the radiation dose to as low as reasonably achievable. Radiation dose: Total DLP: 832.18 mGy*cm. Estimated effective dose: DLP x 0.015 Intravenous contrast: None Findings: Scalp and bones: Surgical changes of prior left temporal craniotomy. No fracture or lytic or blastic lesion. Brain sulci: Appropriate for age. Ventricles: Normal in size and configuration. No hydrocephalus. Extra-axial spaces: No masses, no fluid collection. Parenchyma: No abnormal densities. No masses, hemorrhag e, acute or chronic vascular insults. Sellar/suprasellar region: No abnormalities. Craniocervical junction: Patent foramen magnum. No Chiari one malformation. Included paranasal sinuses: Clear. Middle ear cavities and mastoids: Clear. Incidental findings: Atherosclerotic calcifications in the carotid siphons. IMPRESSION: 1. No acute intracranial abnormalities. 2. Prior left temporal craniotomy. Signed by: Dr. Ana Day M.D. on 05/13/2020 7:57 PM Dictated By: ANA DAY MD 56 Transcribed By: HARRIET on 05/13/201956 COPY TO: JANICE JOHNSTON MD . [facility] - COVID-19/SARS-Cov-2 2020-05-08 00:00:00 Test Item SARS-CoV-2 REPORT (test code = SARS-CoV-2 REPORT) Clin icalHistory: U07.1 COVID- 19 virus infection.COVID-19/SARS-CoV-2: COVID-19/SARS-CoV-2: Positive.BodySite: Nasopharyngeal.Special Requests: COVID-19/SARS-Cov-2.CPTCode: 37714.ICDCode: U07.1. A [facility]. [facility] - COVID-19/USPC-Wmt-[id number] 00:00:00 * Test Item Value Reference Range Interpretation Comments SARS-CoV-2 REPORT (test code = SARS-CoV-2 REPORT) Clin icalHistory: U07.1 COVID- 19 virus infection.COVID-19/SARS-CoV-2: COVID-19/SARS-CoV-2: Positive.BodySite: Nasopharyngeal.Special Requests: COVID-19/SARS-Cov-2.CPTCode: 60891.ICDCode: U07.1. A [facility] W/O [id number] 09:00:00* Test Item Value Reference Range Interpretation [...] MPV) 9.6 fL 7.0-9.0 H BASIC METABOLIC [id number] 08:08:00* Test Item Value Reference Range Interpretation [...] mg/dL 8.0-10.5 N - CTA CHEST FOR [id number] 23:01:00 Name: KIRILL CALLEJAS [facility] : 1955 Age/S: 64 / F [address] [place] [address] Blvd Unit #: [id number] Loc: [place] [address] Phys: Molly Wise RESIDENT ATHLETIC TRAINER Acct: [id number] Dis Date: Status: ADM IN PHONE #: [phone] Exam Date: 04/09/20202242 FAX #: [phone] Reason: Tachy, SOB, COVID + EXAMS: CPT CODE: [id number] [place] [address] [place] ANGIOGRAM CHEST INDICATION: Tachycardia, dyspnea, COVID [...] 1 Signed Report (CONTINUED) Name: KIRILL CALLEJAS [facility] [place] : 1955 Age/S: 64 / F [address] [place] [address] Unit #: [id number] c: CH[place]IS [place] [id number] Phys: Molly Wise NP Acct: [id number] Dis Date: Status: ADM IN PHONE #: [phone] Exam Date: 04/09/2020 2243 FAX #: [phone] Reason: Tachy, SOB, COVID + EXAMS: CPT CODE: [id number] [place] [address] <Continued> 1. There are mild to moderate [...] RT(R) CTDI: DLP: Trnscb Date/Time: 04/09/2020 (2300) [id number] Orig Print D/T: S: 04/09/2020 (2304) PAGE 2 Signed Report Coronavirus 2019 nCoV [id number] 19:04:00* Test Item Value Reference Range Interpretation Comments Coronavirus 2019 nCoV Bedside (test code = [id number]) Positive Negative A Negative results should be treated as presumptive and, ifinconsistent with clinical signs and symptoms or necessaryfor patient management, should be tested with an alternativemolecular assay. Negative results do not preclude [id number]-[id number] and should not be used as the sole basis forpatient management decisions. Negative results should beconsidered in the context of a patient's recent exposures,history, presence of clinical signs and symptoms consistentwith COVID-19. BASIC METABOLIC [id number] 17:58:00* Test Item Value Reference Range Interpretation [...] code = CA) 9.3 mg/dL 8.0-10.5 N [id number] 17:57:00* Test Item Value Reference Range Interpretation Comments TROPONIN-I (test code = TROPI) < 0.015 ng/mL 0.000-0.045 N Negative: <= 0.045 Positive: >= 0.046 Correlation with serial results, other cardiac markers andclinical findings is necessary to determine the clinicalsignificance of this result. Results using different methodologies should not be comparedto one another as quantitative results may vary by method. B-TYPE NATRIURETIC [id number] 17:51:00* Test Item Value Reference Range Interpretation Comments B-TYPE NATRIURETIC PEPTIDE (test code = BNP) 57.4 PG/ML 0-100 N CBC W/AUTO [id number] 17:22:00* Test Item Value Reference Range Interpretation [...] = MDIFF) NO - XR CHEST 1 [id number] 17:00:00 FAX: Molly Wise NP [phone] [place]: St: REG Name: KIRILL LOBO [facility] : [birth year] Age/S: 64/F [address] [place] [address] Unit #: [id number] Loc: [place] [address] Phys: Molly Wise NP Acct: [id number] Dis Date: Status: REG ER PHONE #: [phone] Exam Date: 04/09/2020 1654 FAX #: [phone] Reason: Chest Pain EXAMS: CPT CODE: [id number] XR CHEST 1 V 00117 Single view chest: H ISTORY: Chest pain. FINDINGS: Both lungs are clear. The heart and mediastinal contour stable from 10/17/2009. No pleural fluid or pneumotho rax IMPRESSION: No acute finding SL: [id number] at 1700 Reported and signed by: Austin Stephen M.D. CC: Molly Wise NP Technologist: RT Jeff(Nayan) Trnscrd Date/Time/By: 04/09/2020 (1700) : By: GuanacoG Orig Print D/T: S: 04/09/2020 (1704) PAGE 1 Signed Report . [facility] - COVID-19/SARS-Cov-2 2020-03-24 00:00:00* Test Item Value Reference Range Interpretation Comments SARS-CoV-2 REPORT (test code = SARS-CoV-2 REPORT) Clin icalHistory: J20.8 Acute bronchitis due to infection.COVID-19/SARS-CoV-2: COVID-19/SARS-CoV-2: Positive.BodySite: Nasopharyngeal.Special Requests: COVID-19/SARS-Cov-2.CPTCode: 69074.ICDCode: J20.8. N [facility][O] Urine Dipstick (In Office)2019-09-29 14:17:00 * Test Item Value Reference Range Interpretation Comments Glucose (test code = Glucose) neg N LEUKOCYTES (test code = LEUKOCYTES) neg N NITRITE; Normal (test code = 86780-4) neg N UROBILINOGEN; Normal (test code = 26936-0) neg N PROTEIN; Normal (test code = 04015-5) neg N pH (test code = pH) 6 N URINE BLOOD; Normal (test code = 60820-8) neg N SPECIFIC GRAVITY; Normal (test code = 2965-2) 1.000 N KETONES; Normal (test code = 11562-3) neg N BILIRUBIN; Normal (test code = 71062-1) neg N COLOR URINE; Normal (test code = 5778-6) yellow N APPEARANCE; Normal (test code = 5767-9) clear N [facility][O] Urine Dipstick (In Office)2019-09-26 16:41:28 * Test Item Value Reference Range Interpretation Comments Glucose (test code = Glucose) neg N LEUKOCYTES (test code = LEUKOCYTES) ++ NITRITE; Normal (test code = 68133-5) neg N UROBILINOGEN; Normal (test code = 96826-1) neg N PROTEIN; Normal (test code = 33639-2) neg N pH (test code = pH) 5 N URINE BLOOD (test code = 30837-5) about 250 SPECIFIC GRAVITY; Normal (test code = 2965-2) 1.000 N KETONES; Normal (test code = 35329-5) neg N BILIRUBIN; Normal (test code = 82640-4) neg N COLOR URINE; Normal (test code = 5778-6) yellow N APPEARANCE (test code = 5767-9) slight cloudy [facility] Ab[facility]Pelvis w/wo contrast [id number] 10:06:00Radiation Dose CTDIVOL = 0 (mGy): DLP [...] detailed rhett Cho MD On 09/27/2019 14:53:20; [id number]--Tite by: Cho, Arabella en MDDictated Date/time: 09/27/19 14:53Electronically Signed by: Paulie Cho MD 09/27/1914:53[facility]] Urine Dipstick (In Office)2019-09-23 11:10:34* Test Item Value Reference Range Interpretation Comments Glucose (test code = Glucose) neg N LEUKOCYTES (test code = LEUKOCYTES) neg N NITRITE; Normal (test code = 86119-8) neg N UROBILINOGEN; Normal (test code = 94094-4) neg N PROTEIN; Normal (test code = 00839-7) neg N pH (test code = pH) 7 N URINE BLOOD (test code = 59243-1) about 50 SPECIFIC GRAVITY; Normal (test code = 2965-2) 1.000 N KETONES; Normal (test code = 57839-7) neg N BILIRUBIN; Normal (test code = 18288-3) neg N COLOR URINE; Normal (test code = 5778-6) yellow N APPEARANCE; Normal (test code = 5767-9) clear N [facility]] URINALYSIS, [id number] 00:00:01* Test Item Value Reference Range Interpretation Comments UA Turbidity (test code = 83216-0) Clear Clear UA Spec Grav (test code = 5810-7) 1.006 <=1.030 UA pH (test code = 5803-2) 7.0 5.0-8.0 UA Protein (test code = 46344-8) Negative Negative UA Glucose (test code = 08070-6) Negative Negative UA Ketones (test code = 39645-9) Negative Negative UA Bili (test code = 5770-3) Negative Negative UA Blood; Abnormal (test code = 5794-3) Small Negative A UA Nitrite (test code = 5802-4) Negative Negative UA Leuk Est (test code = 5799-2) Negative Negative UA RBC (test code = 09541-8) 1 {/HPF} 0-2 UA WBC (test code = 98434-5) <1 0-5 UA Bacteria (test code = 76071-0) Occasional None Seen UA Sq Epi (test code = 14653-0) Occasional Few UA Color (test code = 5778-6) Ltyellow UROBILINOGEN (test code = 71949-4) <=1.0 0.1-1.0 [facility]] CULTURE, URINE, [id number] 00:00:01* Test Item Value Reference Range Interpretation Comments ORGANISMH (test code = 699-9) Klebsiella pneumoniae ESBL FINAL REPORT (test code = FINAL REPORT) 50,000 - 100,0 00 CFU/mL Klebsiella pneumoniae ESBL Multi-drug ResistantOrganism [facility][H] [id number] 00:00:01* Test Item Value Reference Range Interpretation [...] Resistant , I= Intermediate, N/A= Not Applicable [facility][O] Urine Dipstick (In Office)2019-09-08 10:53:00 * Test Item Value Reference Range Interpretation Comments Glucose (test code = Glucose) neg N LEUKOCYTES (test code = LEUKOCYTES) neg N NITRITE; Normal (test code = 15758-9) neg N UROBILINOGEN; Normal (test code = 78297-2) neg N PROTEIN; Normal (test code = 93110-9) neg N pH (test code = pH) 5 N URINE BLOOD (test code = 57420-4) about 50 SPECIFIC GRAVITY; Normal (test code = 2965-2) 1.010 N KETONES; Normal (test code = 51816-6) neg N BILIRUBIN; Normal (test code = 45159-6) neg N COLOR URINE; Normal (test code = 5778-6) yellow N APPEARANCE; Normal (test code = 5767-9) clear N [facility][O] Urine Dipstick (In Office)2019-08-23 14:30:00 * Test Item Value Reference Range Interpretation Comments Glucose (test code = Glucose) neg N LEUKOCYTES (test code = LEUKOCYTES) neg N NITRITE; Normal (test code = 39911-8) neg N UROBILINOGEN; Normal (test code = 59871-5) neg N PROTEIN; Normal (test code = 24977-5) neg N pH (test code = pH) 5 N URINE BLOOD; Normal (test code = 64011-2) about 250 N SPECIFIC GRAVITY (test code = 2965-2) 1.010 KETONES; Normal (test code = 02880-2) neg N BILIRUBIN; Normal (test code = 55820-6) neg N COLOR URINE; Normal (test code = 5778-6) yellow N APPEARANCE; Normal (test code = 5767-9) clear N [facility]
--- OUTSIDE RECORDS SUMMARY | 2020-05-13 21:23 | XMS REPORT | Continuity of Care Document ---
Author Author AffineKIRILL Affine Address Unknown Phone Unavailable Care Team Providers Care Ocean Fishing Guide Name Role Phone [facility] Unavailable Un available Problems Problem Status Onset Date Classification Date Reported Comments Source Peripheral Neuropathy Active 01/27/2014 [facility] Hyperlipidemia Active 01/27/2014 [facility] Intermittent Claudication Acti ve 01/27/2014 [facility] Vaccines Prophylactic Need Against Influenza Active 01/27/2014 [facility] Hypertension Active 01/27/2014 [facility] Sciatica Active 01/27/2014 [facility] Hyperglycemia Active 01/27/2014 [facility] Medications Medication Details Route Status Patient Instructions Ordering Provider Order Date Source Gabapentin 300 MG Oral Capsule ; Start Date: 08/30/2013 (Active) Active 08/30/2013 [facility] Metoprolol Succinate ER 50 MG Oral [...] Extended Release 24 Hour (Active) A ctive [facility] Allergies, Adverse Reactions, Alerts Substance Category Reaction Severity Reaction type Status Date Reported Comments Source Not Known [facility] Immunizations Immunization Date Given Site Status Last Updated Comments Source Fluzone Intramuscular Injectable 10/06/2013 completed [facility] Results No Data Provided for This [...] ADM Date DC Date Status Source AUDIT [id number] 05/02/2013 05/02/2013 [facility] AUDIT [id number] 09/23/2013 09/24/2013 [facility] Kierra BECERRA richard: LANDON BARRIOS, Status: Marbin, Time: 10:45 AM [id number] 10/06/19 14 09/24/2013 [facility] AUDIT [id number] 10/06/2013 10/06/2013 [facility] AUDIT [id number] 01/01/2014 01/02/2014 [facility] AUDIT [id number] 01/06/2014 01/06/2014 [facility] AUDIT [id number] 01/27/2014 01/27/2014 [facility] Outpatient [id number] GORAN FRIAS 02/17/2017 Active [facility] [id number] GORAN FRIAS 2017 Active [facility] [id number] GORAN FRIAS 07/28/2017 Active [facility] [id number] GORAN FRIAS 07/29/2017 Active [facility] [id number] GORAN FRIAS 08/11/2017 Active [facility] [id number] GORAN FRIAS 08/18/2017 Active [facility] [id number] GORAN FRIAS 10/13/2017 Active [facility] Procedures No Data Provided for This Section Assessment and Plan No Data Provided for This Section Plan of Care Plan of Care Date Source [QLH] CMP W/EGFR 10/06/2013 Routine[QLH] LIPID PANEL 10/06/2013 Routine 01/27/2014 [facility] [[facility]] CMP W/EGFR 10/06/2013 Routine[[facility]] LIPID PANEL 10/06/2013 Routine[QLH] LIPID PANEL 01/06/2014 Routine[QL[facility]] CMP W/EGFR 01/06/2014 Routine[[facility]] HEMOGLOBIN A1c 01/06/2014 Routine[QLH] INSULIN 01/06/2014 Routine 01/06/2014 [facility] [QL] CMP W/EGFR 10/06/2013 Routine[QL[facility]] LIPID PANEL 10/06/2013 Routine 01/02/2014 [facility] [[facility]] CMP W/EGFR 10/06/2013 Routine[QL[facility]] LIPID PANEL 10/06/2013 Routine 10/06/2013 [facility] Social History Social History Date Source Marital History - Currently (Active) Never A Smoker (Active) Never Drank Alcohol (Active) 01/27/2014 [facility] Family History Value Date S ource Maternal history of Hyperlipidemia (Active) Paternal history of Hypertension (V17.49); (Active) Fraternal history of Prior Myocardial Infarction (Active) 01/27/2014 [facility] Maternal history of Hyperlipidemia (Active) Paternal history of Hypertension (V17.49); (Active) Fraternal history of Prior Myocardial Infarction (Active) 01/06/2014 [facility] Maternal history of Hyperlipidemia (Active) Paternal history of Hypertension (V17.49); (Active) Fraternal history of Prior Myocardial Infarction (Active) 01/02/2014 [facility] Maternal history of Hyperlipidemia (Active) Paternal history of Hypertension (V17.49); (Active) Fraternal history of Prior Myocardial Infarction (Active) 10/06/2013 [facility] Advance Directives Order Name Results Value Date Source Advance Directives Advance Dir ectives No Advance Directives available. 01/27/2014 [facility] Advance Directives Advance Dir ectives No Advance Directives available. 01/06/2014 [facility] Advance Directives Advance Dir ectives No Advance Directives available. 01/02/2014 [facility] Advance Directives Advance Dir ectives No Advance Directives available. 10/06/2013 [facility] Advance Directives Advance Dir ectives No Advance Directives available. 09/24/2013 [facility] Advance Directives Advance Dir ectives No Advance Directives available. 05/02/2013 [facility] Functional Status No Data Provided for This Section
--- NOTE | 2020-05-13 21:43 | NUR ---
1ST ATTEMPT TO GIVE REPORT, PER OBS NURSE, NURSE IS BEING CALLED IN TO TAKE PATIENT AND THAT IT CONSULTANT IS AWARE, NO NURSE AVAILABLE TO TAKE REPORT AT THIS TIME, CHARGE NURSE MADE AWARE
--- NOTE | 2020-05-13 22:56 | NUR ---
RECEIVED REPORT FOR PATIENT TRANSFERRING FROM ER TO ROOM 185.
[2020-05-13 23:05] VITALS: BP 136/72
--- NOTE | 2020-05-13 23:05 | NUR ---
PT ARRIVED BY WHEELCHAIR TO ROOM 185. PT IS AAOX3, RR EVEN AND NON-LABORED, ON ROOM AIR. PT REPORTS HEADACHE AND SHAKING, REPORTS SHE NORMALLY TAKES A MEDICATION TO HELP WITH SHAKING AT BEDTIME BUT HAS NOT TAKEN IT TONIGHT. PROVIDED PT WITH WATER, CRANBERRY JUICE APPLE SAUCE AND WATER. ORIENTED PT TO HOSPITAL POLICY, BED CONTROLS, LIGHTS, CALL LIGHT AND HOSPITAL ROOM. LEFT PT LAYING SEMI FOWLERS IN BED, BED IN LOW LOCKED POSITION, SIDE RAILS UPX2, CALL LIGHT AND PHONE WITHIN REACH.
[2020-05-14] VITALS (7 sets, daily range): BP systolic 100–136; BP diastolic 51–76
--- NOTE | 2020-05-14 00:16 | NUR ---
SPOKE WITH MD Lorraine VELOZ CONCERNING PTS HOME MEDICATIONS AND COMPLAINTS OF HEADACHE. NEW ORDERS RECEIVED.
[2020-05-14] MEDS ORDERED: BUSPIRONE HCL5 MG PO (00:21)
[2020-05-14] MEDS ORDERED: MYRBETRIQ25 MG PO (00:21)
[2020-05-14] MEDS ORDERED: OMEPRAZOLE40 MG PO (00:21)
[2020-05-14] MEDS ORDERED: MELATONIN3 MG PO (00:21)
[2020-05-14] MEDS ORDERED: ESTRADIOL42.5 GM VG (00:21)
[2020-05-14] MEDS ORDERED: LOPRESSOR25 MG PO (00:21)
[2020-05-14] MEDS ORDERED: TROSPIUM CHLORI20 MG PO (00:21)
[2020-05-14] MEDS ORDERED: HYDROCHLOROTHIA25 MG PO (00:21)
[2020-05-14] MEDS ORDERED: PRAMIPEXOLE D0.25 MG PO (00:21)
[2020-05-14] MEDS ORDERED: MELATONIN 3 MG TAB PO PRN (00:30)
[2020-05-14] MEDS: ONDANSETRON HCL INJ 2MG/ML 2ML 2 MG/ML VIAL IV PRN ×2 (00:40→05:24)
[2020-05-14] MEDS: ACETAMINOPHEN 325 MG TAB PO PRN ×2 (00:50→05:46)
[2020-05-14] MEDS: PRAMIPEXOLE DIHYDROCHLORIDE 0.25 MG TAB PO SCH ×2 (00:50→21:30)
[2020-05-14 04:45] LABS: BASOPHILS % 0.3 % (0.0-1.0); EOSINOPHILS # (AUTO) 0.1 (0.0-0.4); HEMATOCRIT 32.5 % (34.2-44.1); HEMOGLOBIN 11.7 g/dL (12.0-16.0); LYMPHOCYTES # (AUTO) 2.4 (1.0-3.2); LYMPHOCYTES % 25.4 % (18.0-39.1); MEAN CORPUSCULAR HEMOGLOBIN 30.5 pg (28-32); MEAN CORPUSCULAR VOLUME 84.6 fL (81-99); NEUTROPHILS % 62.9 % (38.7-80.0); PLATELET COUNT 188 x10e3/uL (140-360); RED BLOOD COUNT 3.84 x10e6/uL (3.6-5.1); RED CELL DISTRIBUTION WIDTH 12.7 % (11.7-14.4)
[2020-05-14 05:04] LABS: ALANINE AMINOTRANSFERASE 12 IU/L (0-55); ALBUMIN 3.5 g/dL (3.5-5.0); ALBUMIN/GLOBULIN RATIO 1.3 (0.8-2.0); ALKALINE PHOSPHATASE 68 IU/L (40-150); ANION GAP 14.6 mmol/L (8-16); BLOOD UREA NITROGEN 6 mg/dL (7-26); BUN/CREATININE RATIO 10 (6-25); CALCIUM 8.5 mg/dL (8.4-10.2); CARBON DIOXIDE 19 mmol/L (22-29); CHLORIDE 84 mmol/L (98-107); EST GLOMERULAR FILTRATION RATE > 60 ML/MIN (60-); GLUCOSE 99 mg/dL (74-118); POTASSIUM 3.6 mmol/L (3.5-5.1)
[2020-05-14] MEDS: SODIUM CHLORIDE 0.9% 1000ML 1,000 ML IV SCH ×2 (05:24→15:14)
[2020-05-14 05:38] LABS: SODIUM 114 mmol/L (136-145)
[2020-05-14] MEDS ORDERED: SIMVASTATIN 40 MG TAB PO SCH (09:00)
[2020-05-14] MEDS: NON-FORMULARY MEDICATION (Mirabegron (Myrbetriq) 25 MG) PO SCH (09:00)
[2020-05-14] MEDS ORDERED: HYDROCHLOROTHIAZIDE 25 MG TAB PO SCH (09:00)
--- NOTE | 2020-05-14 09:05 | NUR ---
Notified Dr Juli Mcmahon regarding Sodium Lab 114, new order recvd to just continue with NS , patient not in any distress
[2020-05-14] MEDS: LOSARTAN POTASSIUM 100 MG TAB PO SCH (11:02)
[2020-05-14] MEDS: METOPROLOL TARTRATE 25 MG TAB PO SCH ×2 (11:02→17:54)
[2020-05-14] MEDS: BUSPIRONE HCL 5 MG TAB PO SCH (11:02)
[2020-05-14] MEDS: PANTOPRAZOLE SOD 40 MG TABEC PO SCH (11:03)
[2020-05-14] MEDS: GABAPENTIN 300 MG CAP PO SCH ×2 (11:03→17:54)
[2020-05-14] MEDS: SIMVASTATIN 20 MG TAB PO SCH (11:03)
--- NOTE | 2020-05-14 12:57 | NUR ---
Spoke to Mrs Montana in Dr Chamorro's office regarding the Consult, Patient up in bed, alert with no distress, tolerated lunch, call light in reach
--- NOTE | 2020-05-14 18:22 | Diagnostic Imaging Report ---
CT chest pulmonary embolism protocol CPT code: 62025 INDICATION: Chest pain, shortness of breath, PUI for SARS Cov-2 ^PE TECHNIQUE: Thin collimation axial images obtained through the level of the pulmonary arteries with additional imaging through the chest following the uneventful administration of 100 cc of low osmolar, nonionic intravenous contrast. Images reconstructed into coronal and sagittal MIPs for complete evaluation of the tortuous and overlapping pulmonary vascular structures and to reduce patient radiation dose. RADIATION DOSE: Total DLP: 430.2 mGy*cm Estimated effective dose: (DLP x 0.015 x size factor) mSv CTDIvol has been reviewed. It is below the limits set by the Radiation Protocol Committee (RPC). Dose reduction techniques used: Automated exposure control, adjustment of the mAs and/or kVp according to patient size, standardized low-dose protocol, and/or iterative reconstruction technique. COMPARISON: Chest x-ray 05/13/2020. FINDINGS: Pulmonary artery: No filling defects are appreciated within the main, left, right, lobar or visualized segmental pulmonary arteries to suggest embolism. Aorta: The thoracic aorta is not aneurysmal. No evidence for dissection. Lymph nodes: No enlarged axillary, supraclavicular, mediastinal, or hilar lymph nodes. Thyroid: Visualized portions are normal. Mediastinum: Moderate sized hiatal hernia containing stomach. The heart is normal in size and contains prominent pericardial fat pads. Trace pericardial effusion. Lungs: Right Lung: Diffuse hyperinflation. Dependent microatelectasis. No confluent infiltrates. Noncalcified nodule along the minor fissure measures 3 mm. Left Lung: Diffuse hyperinflation. Dependent microatelectasis. Subsegmental atelectasis in the posterior upper lobe and apex of the lower lobe. No infiltrates. No nodules. Pleura: No pleural effusion or pleural-based mass. Airways: Clear. Abdomen: No mass or lymphadenopathy visualized portions of the upper abdomen. The gallbladder is absent. Bones: Mild degenerative changes of the spine. No focal osseous lesions. Soft tissues: Unremarkable IMPRESSION: 1. No evidence of pulmonary embolus or aortic dissection. 2. Mild pulmonary hyperinflation suggestive of small airways disease. No pulmonary infiltrates suggest atypical pneumonia. 3. 3 mm noncalcified nodule along the minor fissure. Recommend. Surveillance based on risk factors for malignancy. 4. Moderate-sized hiatal hernia containing stomach. Signed by: Dr. Jesus Mccoy MD on 05/14/2020 6:19 PM
[2020-05-14] MEDS ORDERED: SODIUM CHLORIDE 0.9% 50ML 50 ML ONE (19:08)
[2020-05-14] MEDS ORDERED: IOPAMIDOL 370 MG/ML 200 ML INFUS..BTL INJ ONE (19:09)
[2020-05-14] MEDS ORDERED: ESTRADIOL 42.5 GM CR VG SCH (21:00)
[2020-05-14] MEDS ORDERED: NON-FORMULARY MEDICATION (Trospium Chloride 20 MG) PO SCH (21:00)
--- NOTE | 2020-05-14 22:37 | NUR ---
Patient refused bed alarm on. Risk explained. Patient still refused. Call light within reached.
--- NOTE | 2020-05-15 01:11 | Consultation ---
DATE OF CONSULTATION: 05/14/2020 Cardiology Consultation HISTORY OF PRESENT ILLNESS: The patient is a 64-year-old woman with a history of hypertension, meningioma, status post surgical resection, and outpatient, positive test for COVID-19 infection X2 who presents with a 1 to 2-day history of headache, nausea, insomnia, and unstable gait (poor balance). The patient also complains of left calf pain. In the ED at [facility], her sodium was 111 mEq/L with normal potassium (3.9 mEq/L). Mrs. Toleod checks her blood pressure and heart rate two times a day at home and is concerned because both her blood pressure and heart rate have been elevated for the last 4 weeks. She usually takes losartan 100 mg daily for hypertension with good blood pressure control. She saw her primary care doctor for the elevated blood pressure and heart rate (SBP greater than 160s and heart rate 90-100 bpm) who prescribed hydrochlorothiazide 25 mg daily, prescription filled April 09, 2020. About two weeks ago, she went to [facility] again because of elevated blood pressure and heart rate. She was prescribed metoprolol tartrate 25 mg two times a day. Since that visit, she has been taking losartan 100 mg one a day, hydrochlorothiazide 25 mg one a day and metoprolol tartrate 25 mg two times a day. At the time of her visit to [facility], she was told that her sodium was low. The patient decided to come to the [facility] Emergency Room because of elevated blood pressure. Her complaints other than elevated blood pressure and heart rate were 1-2 days of headache, nausea, insomnia, and dizziness that she describes as a feeling of unsteadiness, unstable posture or gait. In the emergency room, the patient's lab data showed a sodium of 111 with a potassium of 3.9, chloride 79, bicarb 18, BUN 6, creatinine 0.63, and her glucose was 138. Her liver tests were within reference range. Her troponin level was not elevated. Her blood count showed white blood cell count of 9.4, hemoglobin of 12.6, and hematocrit of 34.8. Platelet count was 240,000. The patient did not have TSH checked, now ordered. She did not have urine sodium or potassium concentration, urine or serum osmolality checked. The patient has a history of meningioma, surgically resected about three years ago. She denies recent trauma to her head, recent intracranial surgery or bleed, recent intracranial mass. The patient appears euvolemic and has no history of congestive heart failure or liver cirrhosis. she reports chronic urinary incontinence. She denies seizures, change in mental status, chest pain, palpitations, leg edema, dyspnea, fever, chills, cough. She reports leg pain worse in her left calf. Other than the complaints stated above, 12-point ROS is negative. MEDICAL HISTORY: 1. Hypertension. 2. Urinary incontinence. 3. Restless legs syndrome. SURGICAL HISTORY: 1. Bladder surgery in 4463-2936 for descended bladder, 2. Hysterectomy and bilateral oophorectomy in [id number] 3. Surgical resection of meningioma approximately three years ago. ALLERGIES: THE PATIENT HAS ALLERGY TO NITROFURANTOIN. SOCIAL HISTORY: The patient has no history of tobacco, alcohol, or illicit drug abuse. MEDICATIONS: Her home medications are the followin. Losartan 100 mg one a day. 2. Metoprolol tartrate 25 mg one two times a day. 3. Hydrochlorothiazide 25 mg one a day. 4. Mirapex 0.25 mg p.o. every night at bedtime. 5. Estradiol 1 mg vaginally. 6. Gabapentin 300 mg one two times a day. 7. Simvastatin 10 mg one a day. 8. Pantoprazole 40 mg one a day. 9. Buspirone 5 mg one a day. PHYSICAL EXAMINATION: VITAL SIGNS: Her blood pressure is 132/75 with a heart rate of 80, she is afebrile. Her oxygen saturation is 100% at room air. HEAD AND NECK: Pupils are equal and reactive to light. Anicteric conjunctivae. Normocephalic head. Neck is supple, trachea is midline, carotids are 2+ bilaterally without bruits. LUNGS: Clear to auscultation in both lung ramirez. CARDIAC: Regular rate, normal S1 and S2, no tachycardia, no murmurs, gallops, or rubs. ABDOMEN: Soft, nontender. Bowel sounds are present. EXTREMITIES: No leg edema. NEUROLOGIC: She is awake, alert, oriented x3, and a good historian. She has normal speech and normal motor function by visual inspection. LABORATORY DATA: As above. EKG performed, unable to find it. ASSESSMENT AND RECOMMENDATIONS: 1. Dizziness. The patient describes her dizziness as unsteadiness, unstable posture or gait. She states that has improved since she was admitted to the hospital. I believe her symptoms of headache, nausea, poor balance are related to her hyponatremia. She denies syncope, near-syncope or palpitations. There is no history of cardiac rhythm abnormality. 2. Hyponatremia, cause unclear at this time. The patient does not have history of recent intracranial pathology. She appears euvolemic, no evidence of volume overload or depletion. The lab tests to assess for SIADH were not done in the ED and the patient has received normal saline since admission. Possibly, the hyponatremia may be related to the combination of increased water intake and hydrochlorothiazide. Hydrochlorothiazide has been stopped. The patient states that she drinks more than four bottles of water per day in addition to other fluids. Hyponatremia is improving. She has had an increase of 3 mEq/L in less than 12 hours. Goal is to increase sodium concentration 4-6 mEq/L over 24 hours to sodium of 130. She has not received hypertonic saline, but normal saline is correcting her hyponatremia at an adequate rate. 3. Left calf pain. The patient has had venous Doppler of her legs. There are no results available yet. 4. Coronavirus disease-19 infection. According to the patient, she is tested positive for COVID-19 two times, first when she and her were both tested and were positive (March 28, 2020). She also retested May 08 and her test was still positive. Her has antibodies to COVID-19 and is now back to work. 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 5. Hypertension. The patient's blood pressure is adequately controlled since admission. She is receiving losartan 100 mg one a day and metoprolol tartrate 25 mg two times a day. Continue to monitor blood pressure and heart rate closely. Echocardiogram ordered. 6. History of meningioma, surgically resected about 3 years ago: Consider CT head to assess for mass given hyponatremia. We will follow the patient with you. Please, call me with any questions. Thank you. MD LIZZ Langford/MODL /[id number] [facility]
[2020-05-15] MEDS: SODIUM CHLORIDE 0.9% 1000ML 1,000 ML IV SCH ×3 (02:44→14:18)
[2020-05-15 04:32] VITALS: BP 109/67
[2020-05-15 05:33] LABS: BASOPHILS % 0.6 % (0.0-1.0); EOSINOPHILS # (AUTO) 0.1 (0.0-0.4); HEMATOCRIT 34.1 % (34.2-44.1); HEMOGLOBIN 11.9 g/dL (12.0-16.0); LYMPHOCYTES % 30.2 % (18.0-39.1); MEAN CORPUSCULAR HEMOGLOBIN 30.6 pg (28-32); MEAN CORPUSCULAR HGB CONC 34.9 g/dL (31-35); MEAN CORPUSCULAR VOLUME 87.7 fL (81-99); MONOCYTES # (AUTO) 0.7 (0.2-0.8); MONOCYTES % 10.8 % (4.4-11.3); NEUTROPHILS # (AUTO) 3.8 (2.1-6.9); NEUTROPHILS % 57.1 % (38.7-80.0); PLATELET COUNT 220 x10e3/uL (140-360); RED BLOOD COUNT 3.89 x10e6/uL (3.6-5.1); RED CELL DISTRIBUTION WIDTH 13.8 % (11.7-14.4)
[2020-05-15 05:53] LABS: ANION GAP 13.8 mmol/L (8-16); BLOOD UREA NITROGEN 8 mg/dL (7-26); BUN/CREATININE RATIO 12 (6-25); CALCIUM 8.5 mg/dL (8.4-10.2); CARBON DIOXIDE 20 mmol/L (22-29); CHLORIDE 100 mmol/L (98-107); CREATININE, SERUM 0.67 mg/dL (0.57-1.11); EST GLOMERULAR FILTRATION RATE > 60 ML/MIN (60-); GLUCOSE 102 mg/dL (74-118); POTASSIUM 3.8 mmol/L (3.5-5.1); SODIUM 130 mmol/L (136-145)
--- NOTE | 2020-05-15 06:50 | NUR ---
REPORT RECEIVED FROM MELANIE MODI SHIFT RN WHO STATES PT IS COVID NEGATIVE. ROUTER SETTER HAS BEEN MADE AWARE OF NEED FOR TRANSFER OUT OF OBS TO MED SURG FLOOR. PT RECEIVED RESTING IN BED IN NO ACUTE DISTRESS. PATIENT IS ABLE TO MAKE NEEDS KNOWN. PT DENIES ANY NEEDS AT THIS TIME. PT WAS EDUCATED ON FALL RISK PRECAUTIONS. PT VERBALIZED UNDERSTANDING. CALL LIGHT AND BELONGINGS PLACED NEARBY. WILL CONTINUE TO MONITOR.
[2020-05-15 07:00] VITALS: BP 105/94
[2020-05-15 07:33] VITALS: BP 105/94
[2020-05-15] MEDS: METOPROLOL TARTRATE 25 MG TAB PO SCH (08:44)
[2020-05-15] MEDS: PANTOPRAZOLE SOD 40 MG TABEC PO SCH (08:44)
[2020-05-15] MEDS: SIMVASTATIN 20 MG TAB PO SCH (08:44)
[2020-05-15] MEDS: GABAPENTIN 300 MG CAP PO SCH (08:44)
[2020-05-15] MEDS: NON-FORMULARY MEDICATION (Mirabegron (Myrbetriq) 25 MG) PO SCH (08:44)
[2020-05-15] MEDS: LOSARTAN POTASSIUM 100 MG TAB PO SCH (08:44)
[2020-05-15] MEDS: BUSPIRONE HCL 5 MG TAB PO SCH (08:44)
[2020-05-15 11:35] VITALS: BP 123/71
[2020-05-15 12:25] VITALS: BP 123/71
--- NOTE | 2020-05-15 14:26 | NUR ---
PT TO TRANSFER FROM OBS TO MED SURG FLOOR ROOM 212. REPORT GIVEN TO CECILIA PARKER Addendum: 05/15/20 at 1459 by Matilde Pascual RN PT TO REMAIN ON OBS UNIT AND WILL BE DISCHARGED TODAY AFTER DR NUNES SIGNS OFF. CALL PLACED TO DR. NUNES AND LEFT A MESSAGE FOR RETURN CALL FOR DISCHARGE ORDERS.
--- NOTE | 2020-05-15 18:34 | NUR ---
VERBAL ORDER TO DISCHARGE PATIENT PER DR. VELOZ. CALL PLACED TO DR. NUNES AND WAS TOLD SPONGE DIVER MD WILL CALL BACK. LEFT MESSAGE WITH PROTOTYPE CARPENTER COMMUNICATING NORMAL ECHO AND DISCHARGE ORDERS. PATIENT DISCHARGED HOME WITH FAMILY VIA PRIVATE VEHICLE. PERIPHERAL IV DISCONTINUED; CATHETER TIP INTACT WITHOUT RESISTANCE. DRY DRESSING APPLIED. PATIENT RECEIVED DISCHARGE INSTRUCTIONS, EDUCATION MATERIALS,AND ORDERS TO F/U WITH PCP, GASTROENTEROLOGY, AND CARDIOLOGY. PHONE NUMBERS PROVIDED. PT VERBALIZED UNDERSTANDING.
== END 2020-05-15 18:44 | disposition home or self-care (01) | DRG 640 ==
LOC: ER 18:56 → ERHOLD 21:20 → IMCU 23:05
DX: E87.1 Hypo-osmolality and hyponatremia (principal); U07.1 COVID-19; I25.10 Atherosclerotic heart disease of native coronary artery without angina pectoris; R51 Headache; G25.81 Restless legs syndrome; T50.2X5A Adverse effect of carbonic-anhydrase inhibitors, benzothiadiazides and other diuretics, initial encounter
CPT/HCPCS: 36415; 70450; 71045; 71260; 80048; 80053; 82550; 82553; 84443; 84484; 85025; 93005; 93306; 93971; 99284; J2405; J7030; Q9967; U0002

== ENCOUNTER 2021-04-12 10:37 | Emergency (ER) | payer MEDICARE, BC ==
[~2021-04-12] VITALS: Ht 149.9 cm; Wt 72.6 kg
[~2021-04-12 10:37] MED LIST changes: +BUSPIRONE HCL5 MG PO; +ESTRADIOL42.5 GM VG; +HYDROCHLOROTHIA25 MG PO; +LOPRESSOR25 MG PO; +MELATONIN3 MG PO; +MYRBETRIQ25 MG PO; +OMEPRAZOLE40 MG PO; +PRAMIPEXOLE D0.25 MG PO; +TROSPIUM CHLORI20 MG PO
[2021-04-12] MEDS ORDERED: SODIUM CHLORIDE 0.9% 1000ML 1,000 ML IV STA (10:52)
[2021-04-12 11:05] LABS: BASOPHILS % 0.5 % (0.0-1.0); EOSINOPHILS # (AUTO) 0.1 (0.0-0.4); EOSINOPHILS % 1.2 % (0.0-6.0); HEMATOCRIT 38.6 % (34.2-44.1); HEMOGLOBIN 13.1 g/dL (12.0-16.0); LYMPHOCYTES # (AUTO) 1.6 (1.0-3.2); LYMPHOCYTES % 24.2 % (18.0-39.1); MEAN CORPUSCULAR HEMOGLOBIN 30.8 pg (28-32); MEAN CORPUSCULAR HGB CONC 33.9 g/dL (31-35); MEAN CORPUSCULAR VOLUME 90.8 fL (81-99); MONOCYTES # (AUTO) 0.5 (0.2-0.8); MONOCYTES % 7.3 % (4.4-11.3); NEUTROPHILS # (AUTO) 4.3 (2.1-6.9); NEUTROPHILS % 66.6 % (38.7-80.0); PLATELET COUNT 214 x10e3/uL (140-360); RED BLOOD COUNT 4.25 x10e6/uL (3.6-5.1); RED CELL DISTRIBUTION WIDTH 13.3 % (11.7-14.4)
[2021-04-12] MEDS ORDERED: ONDANSETRON HCL INJ 2MG/ML 2ML 2 MG/ML VIAL IV NR (11:15)
[2021-04-12 11:34] LABS: ALBUMIN 3.8 g/dL (3.5-5.0); ALBUMIN/GLOBULIN RATIO 1.2 (0.8-2.0); ANION GAP 14.7 mmol/L (8-16); CREATININE, SERUM 0.74 mg/dL (0.57-1.11); POTASSIUM 3.7 mmol/L (3.5-5.1)
[2021-04-12] MEDS ORDERED: SODIUM CHLORIDE 0.9% 50ML 50 ML ONE (12:02)
[2021-04-12] MEDS ORDERED: IOPAMIDOL 370 MG/ML 200 ML INFUS..BTL INJ ONE (12:03)
[2021-04-12 12:31] LABS: CLARITY,URINE CLEAR (CLEAR); COLOR,URINE YELLOW (YELLOW); KETONES,URINE NEGATIVE (NEGATIVE); LEUKOCYTE ESTERASE ,URINE NEGATIVE (NEGATIVE); NITRITE,URINE NEGATIVE (NEGATIVE); PROTEIN,URINE DIPSTICK NEGATIVE (NEGATIVE); RBC,URINE 0-5 /HPF (0-5); URINE UROBILINOGEN 0.2 mg/dL (0.2 - 1); WBC,URINE (MAN) 0-5 /HPF (0-5)
[2021-04-12 12:32] LABS: EPITHELIAL CELLS,URINE RARE /LPF; MUCUS,URINE FEW (RARE)
[2021-04-12] MEDS ORDERED: PEPCID20 MG PO (13:49)
[2021-04-12 14:03] VITALS: BP 123/72
== END 2021-04-12 13:55 | disposition home or self-care (01) ==
LOC: ER 10:50
DX: R10.84 Generalized abdominal pain (principal); R11.2 Nausea with vomiting, unspecified; K44.9 Diaphragmatic hernia without obstruction or gangrene; K21.9 Gastro-esophageal reflux disease without esophagitis; F41.9 Anxiety disorder, unspecified
CPT/HCPCS: 36415; 74177; 80053; 81001; 83690; 85025; 93005; 99284; J2405; J7030; Q9967